=== PATIENT | female | born 1945 | race Caucasian/White ===

== ENCOUNTER 2019-10-16 10:32 | Outpatient (CLI) | payer MEDICARE, MEDICAID, SELFPAY ==
--- NOTE | 2019-10-16 11:00 | USCV_ITS ---
Melissa Estes Age: 74 Gender: F : 1945 Exam Date: 10/16/2019 10:39 Ordering Phys: Bonita Alcantara Technologist: Avril Welch [place] [facility] [place]: stenosis Risk Factors: Previous Vascular Surgery: Right Brachial BP: / Left Brachial BP: / Right Left Velocity (cm/s) Spectral Plaque Velocity (cm/s) Spectral Plaque Syst/Diast Broadening Syst/Diast Broadening 92.30/ 16.50 Prox CCA 97.20 / 9.70 72.50/ 15.70 Mid CCA 112.30/ 25.10 73.90/ 19.30 Distal CCA 78.00 / 21.10 102.80/13.90 Prox ICA 46.90 / 18.80 69.60/ 19.30 Mid ICA 58.10 / 21.60 92.10/ 21.40 Distal ICA 76.00 / 24.40 112.40 ECA 105.70 1.42 ICA/CCA 0.68 Antegrade Vertebral Antegrade 46.00/ 13.00 cm/s 30.20/ 8.90 cm/s Tri Subclavian Tri 53.60 106.0 0 FINDINGS Comparison:. 06/10/18. No significant elevation of systolic or diastolic velocities. Waveforms are normal. Minimal bilateral, intimal thickening and plaque with no elevation of velocity. CONCLUSIONS Bilateral ICA stenosis less than 50%. No interval change in stenosis since prior exam. Dr. Nicole Morgan DO (Electronically Signed) Final Date: 16 October 2019 11:45 S
== END 2019-10-16 10:33 | disposition home or self-care (01) ==
LOC: RAD 10:38
PROVIDERS: Family Provider Family Medicine; Visit Provider Nurse Practitioner Family
DX: I65.23 Occlusion and stenosis of bilateral carotid arteries (principal); E11.9 Type 2 diabetes mellitus without complications; E55.9 Vitamin D deficiency, unspecified; E78.00 Pure hypercholesterolemia, unspecified; E78.5 Hyperlipidemia, unspecified; E87.6 Hypokalemia; F41.1 Generalized anxiety disorder; F41.9 Anxiety disorder, unspecified; G62.9 Polyneuropathy, unspecified; I10 Essential (primary) hypertension; J30.2 Other seasonal allergic rhinitis; K52.9 Noninfective gastroenteritis and colitis, unspecified; M10.9 Gout, unspecified; M19.90 Unspecified osteoarthritis, unspecified site; M62.838 Other muscle spasm
CPT/HCPCS: 80053; 80061; 82044; 82306; 83036; 84443; 84550; 85025; 93880

== ENCOUNTER → 2020-01-17 11:27 | Outpatient (BNVA) | payer MEDICARE, MEDICAID, SELFPAY | PROVIDERS: Family Provider Family Medicine; Referring Provider Internal Medicine Gastroenterology; Visit Provider Specialist | DX: M25.551 Pain in right hip (principal); M25.552 Pain in left hip; M16.0 Bilateral primary osteoarthritis of hip | CPT/HCPCS: 73522; 73552 ==

== ENCOUNTER 2020-01-25 17:11 | Emergency (ER) | payer MEDICARE, MEDICAID, SELFPAY ==
[2020-01-25 17:53] VITALS: BP 131/79; PULSE 98; RESP 18; TEMP 36.8; O2SAT 94; BMI 27.4
== END 2020-01-25 19:03 | disposition left against medical advice (07) ==
LOC: ER 17:38
PROVIDERS: Emergency Provider Nurse Practitioner Family; PCP Family Medicine
DX: Z53.21 Procedure and treatment not carried out due to patient leaving prior to being seen by health care provider (principal)
CPT/HCPCS: 99281

== ENCOUNTER 2020-02-15 08:37 | Outpatient (CLI) | payer MEDICARE, MEDICAID, SELFPAY ==
--- NOTE | 2020-02-15 09:13 | IR_ITS ---
WS: [id number] MYELOGRAM LUMBAR SPINE Fluoroscopic guided lumbar myelogram CLINICAL INFORMATION: INTERVERTEBRAL DISC DEGENERATION, LUMBAR REGION COMPARISON: None. TECHNIQUE: The procedure, including risks, benefits, and complications, were discussed with the patie nt who agreed to proceed. A timeout was performed to confirm correct patient, procedure, and site. Using sterile technique, the patient was prepped and draped in the usual sterile fashion. After admin istration of local anesthesia using 1% preservative-free lidocaine and using fluoroscopic guidance, a 22-gauge spinal needle was advanced into the subarachnoid space at the L4-5 level. Subsequently 13 c c of Omnipaque 240 was administered into the thecal sac. The needle was removed and hemostasis was ac hieved. Spot fluoroscopic images were obtained. FLUOROSCOPIC TIME: 0.7 minutes. Spot fluoroscopic images demonstrate extensive prior postoperative changes lumbar spine with multilev el fusion and laminectomy defects. Dorsal lateral bone graft material. Interbody fusion grafts L1-2, L2-3, L3-4, L4-5. Anterior wedging with hypertrophic changes at T11 and T12. Pelvic phleboliths. Part ially visualized spinal stimulator. Normal alignment on the neutral view. No instability on flexion-e xtension. Please see CT myelogram report for additional detail. IR/IR myelogram [place] lumbar [id number] IMPRESSION: 1. Uncomplicated lumbar myelogram. 2. Extensive postoperative changes multilevel lumbar fusion with laminectomy d efects and dorsal lateral bone graft material. 3. Interbody fusion grafts L1-2 through L4-5. 4. No instability on flexion-extension. 5. Please see CT myelogram report for additional detail.
--- NOTE | 2020-02-15 09:13 | CT_ITS ---
WS: [id number] CT LUMBAR SPINE TECHNIQUE: Contrast-enhanced CT of the lumbar spine with coronal and sagittal reformatted images. CLINICAL INFORMATION: INTERVERTEBRAL DISC DEGENERATION, LUMBAR REGION DLP: 2065.[address] scans at [facility] use at least one of these dose optimization techniques: automat ed exposure control; mA and/or kV adjustment per patient size (includes targeted exams where dose is matched to clinical indication); or iterative reconstruction. FINDINGS: Mild lumbar curve. No acute compression. Multilevel postoperative changes with interbody fusion L1-L4 . Interbody fusion grafts with evidence of bony bridging beyond the confines of the grafts at L1-2, L 3-4, L4-5. No significant extension beyond the confines of the graft L2-3. Dorsolateral bony fusion. This appears contiguous L2-S1. Decompressive laminectomies throughout the l umbar spine. T11-12: Disc osteophytic complex with small central protrusion and mild to moderate central canal dayna nosis. Moderate left and mild right bony foraminal narrowing. Remote appearing laminectomy defect. Mo derate facet arthropathy. T12-L1: Disc osteophyte complex eccentric to the left narrowing the left particular recess. Mild cent ral canal stenosis. Mild to moderate left and no significant right foraminal narrowing. L1-L2: Postoperative changes interbody fusion. Endplate ridging. Spinal canal and foramen are patent. L2-L3: Interbody bony fusion. Bridging endplate osteophyte along the ventral canal. Slight effacement of ventral thecal sac. Narrowing of the left subarticular recess. Moderate left bony foraminal narro wing. Right foramen is patent. Laminectomy defects. L3-L4: Interbody fusion with osteophytic ridging. Spinal canal and foramen are patent. Laminectomy de fects. Posterior lateral bony fusion. L4-L5: Interbody fusion. Left subarticular osteophytic bony ridging. Spinal canal and foramen are pat ent. Laminectomy defects. L5-S1: Mild annular bulging. Tiny shallow central protrusion. Slight effacement of ventral thecal sac . Mild to moderate left and mild right bony foraminal narrowing. Spinal canal is patent. Peripelvic renal cysts. CT/CT lumbar spine w con [id number] IMPRESSION: 1. Prior postoperative changes interbody bony fusion L1-L4. Evidence of bony b ridging beyond the confines of the grafts at L1-2, L3-4, and L4-5. Incomplete b nela bridging at L2-3. 2. Solid appearing dorsal lateral bony fusion L2-S1. 3. Wide laminectomy defects lumbar spine. 4. Small disc osteophyte protrusions at T11-T12 and T12-L1 with mild central c anal stenosis. Narrowing of the left subarticular recess at T12-L1. 5. Moderate left bony foraminal narrowing L2-3 with narrowing of the left suba rticular recess primarily due to bridging ossification along the posterior long itudinal ligament. 6. Mild left greater than right bony foraminal narrowing L5-S1. 7. No high-grade central canal stenosis.
[2020-02-15] MEDS: iohexol 240 mg/mL 50 mL Btl INTRATHECA (10:06)
== END 2020-02-15 08:38 | disposition home or self-care (01) ==
LOC: RADWPI 08:43
PROVIDERS: Family Provider Family Medicine; PCP Family Medicine; Visit Provider Internal Medicine Gastroenterology
DX: M51.36 Other intervertebral disc degeneration, lumbar region (principal); M25.78 Osteophyte, vertebrae; M48.07 Spinal stenosis, lumbosacral region; M48.061 Spinal stenosis, lumbar region without neurogenic claudication
CPT/HCPCS: 62304; 72120; 72132; J2001; Q9966

== ENCOUNTER → 2020-03-29 11:53 | Outpatient (BNVA) | payer MEDICARE, MEDICAID, SELFPAY | PROVIDERS: Family Provider Family Medicine; PCP Family Medicine; Visit Provider Family Medicine | DX: M21.619 Bunion of unspecified foot (principal); F41.9 Anxiety disorder, unspecified; M25.511 Pain in right shoulder; E55.9 Vitamin D deficiency, unspecified; E11.8 Type 2 diabetes mellitus with unspecified complications; G89.29 Other chronic pain; I10 Essential (primary) hypertension | CPT/HCPCS: 80053; 80061; 82306; 83036; 84443; 85025 ==

== ENCOUNTER → 2020-04-17 14:23 | Outpatient (BNVA) | payer MEDICARE, MEDICAID, SELFPAY | PROVIDERS: Family Provider Family Medicine; PCP Family Medicine; Referring Provider Family Medicine; Visit Provider Specialist | DX: M25.511 Pain in right shoulder (principal); M19.011 Primary osteoarthritis, right shoulder | CPT/HCPCS: 73030 ==

== ENCOUNTER 2020-04-26 10:29 | Outpatient (CLI) | payer MEDICARE, MEDICAID, SELFPAY ==
--- NOTE | 2020-04-26 11:00 | MR_ITS ---
WS: [id number] MRI RIGHT SHOULDER NONCONTRAST TECHNIQUE: Sagittal T2, coronal T1, T2 and proton density imaging. Axial gradient PDE imaging. CLINICAL INFORMATION: M25.511 Pain in right shoulder COMPARISON: CT 6 FINDINGS: Moderate to advanced degenerative arthritis right AC joint. Right rotator cuff anchor degrades images due to susceptibility artifact. Subacromial space is preserved. Rotator cuff is intact. Hypertrophic spurring along the undersurface of the AC joint. Chronic thinning of the distal supraspinatus which appears intact. Infraspinatus appears intact. Normal teres minor and subscapularis. No acute appearin g recurrent rotator cuff tears. Moderate degenerative arthritis glenohumeral joint with joint space narrowing. Normal biceps tendon i n the bicipital groove. Mild degenerative fraying of the glenoid labrum. Glenoid labrum appears gross ly intact. MR/MR shoulder RT wo con* [id number] IMPRESSION: 1. Prior postoperative changes right rotator cuff repair. 2. Osteoarthritis at the AC joint with undersurface spurring. Synovitis at the AC joint with moderate edema. 3. Rotator cuff appears grossly intact with chronic thinning of the distal sup raspinatus and infraspinatus. 4. No acute or recurrent rotator cuff tears. 5. Normal biceps tendon in the bicipital groove.
== END 2020-04-26 10:30 | disposition home or self-care (01) ==
LOC: RADSHAW 10:34
PROVIDERS: Family Provider Family Medicine; PCP Family Medicine; Visit Provider Specialist
DX: M25.511 Pain in right shoulder (principal); M19.011 Primary osteoarthritis, right shoulder; M65.811 Other synovitis and tenosynovitis, right shoulder
CPT/HCPCS: 73221

== ENCOUNTER → 2020-05-17 12:09 | Outpatient (BNVA) | payer MEDICARE, MEDICAID, SELFPAY | PROVIDERS: Family Provider Family Medicine; PCP Family Medicine; Visit Provider Nurse Practitioner Family | DX: Z11.59 Encounter for screening for other viral diseases (principal) | CPT/HCPCS: 87635 ==

== ENCOUNTER 2020-06-27 13:54 | Outpatient (CLI) | payer MEDICARE, MEDICAID, SELFPAY ==
--- NOTE | 2020-06-27 14:07 | CT_ITS ---
WS: [id number] Exam: CT thoracic spin wo con* [id number] Date/Time of Exam: 06/27/2020 2:23 PM Reason For Exam: OTHER SPECIFIED POSTPROCEDURE STATES DLP: 943.[address] scans at [facility] use at least one of these dose optimization techniques: automat ed exposure control; mA and/or kV adjustment per patient size (includes targeted exams where dose is matched to clinical indication); or iterative reconstruction. The T-spine and evaluated in the axial plane with sagittal and coronal reformatted images. Comparison 01/13/2017 A decompression laminectomy defect noted at the T11-T12 level. There is no sign of central spinal can al stenosis or disc herniation. Neurostimulator leads terminate at the T6-T7 level. Exaggerated thora cic kyphosis. Spondylosis. Facet DJD at all levels. Paraspinal soft tissue structures are unremarkabl e. There is narrowing of several neural foramina essentially unchanged since prior study. There is pa rtially visualized hardware in the cervical spine secondary to fusion. No acute fracture or bone dest ruction. CT/CT thoracic spin wo con* [id number] IMPRESSION: 1. No sign of significant central spinal canal stenosis or thoracic disc hernia tion. 2. Laminectomy defect identified at the T11-T12 level. Neuro stimulator leads t erminates at the T6-7 level. 3. Spondylosis, exaggerated kyphosis and facet DJD at all levels. Overall, no s ignificant change since prior study.
--- NOTE | 2020-06-27 14:07 | CT_ITS ---
WS: [id number] Exam: CT lumbar spine wo con* [id number] Date/Time of Exam: 06/27/2020 2:23 PM Reason For Exam: OTHER SPECIFIED POSTPROCEDURE STATES DLP: 1806.[address] scans at [facility] use at least one of these dose optimization techniques: automat ed exposure control; mA and/or kV adjustment per patient size (includes targeted exams where dose is matched to clinical indication); or iterative reconstruction. Comparison made with CT myelogram performed 02/15/2020. The lumbar spine is evaluated in the axial plane with sagittal and coronal reformatted images. Decompression laminectomy from L2 to S1. Also laminectomy partially visualized at the T12 level. Mild spinal canal stenosis noted at the T12-L1 level secondary to posterior osteophytes. No other sign of central canal stenosis was noted. No sign of disc herniation. There is left neural foraminal stenosi s at the L2-3 disc level secondary to the posterior osteophyte formation. Remaining neural foramina a re patent. The lumbar fusion is ossified and in good alignment. There are disc implants in place from L1 to L5. Paraspinal soft tissue structures are unremarkable. No acute fracture or bone destruction. CT/CT lumbar spine wo con* [id number] IMPRESSION: 1. Mild spinal canal stenosis at the T12-L1 level secondary to posterior osteop hytes. 2. Left neural foraminal stenosis at the L2-3 disc level secondary to osteophyt e formation. Remaining neural foramina are patent. 3. No other levels of spinal canal stenosis. 4. Status post decompression laminectomy and posterior fusion. The fusion is os sified and in good alignment. Overall, no significant change since prior study.
== END 2020-06-27 13:55 | disposition home or self-care (01) ==
LOC: RADWPI 13:59
PROVIDERS: PCP Family Medicine; Visit Provider Neurological Surgery
DX: Z98.890 Other specified postprocedural states (principal); M96.1 Postlaminectomy syndrome, not elsewhere classified; M47.814 Spondylosis without myelopathy or radiculopathy, thoracic region
CPT/HCPCS: 72128; 72131

== ENCOUNTER → 2020-07-08 10:45 | Outpatient (BNVA) | payer MEDICARE, MEDICAID, SELFPAY | PROVIDERS: PCP Family Medicine; Visit Provider Family Medicine | DX: E78.00 Pure hypercholesterolemia, unspecified (principal); E11.9 Type 2 diabetes mellitus without complications; I10 Essential (primary) hypertension; F32.9 Major depressive disorder, single episode, unspecified | CPT/HCPCS: 80053; 80061; 83036; 85025 ==

== ENCOUNTER → 2020-10-24 10:30 | Outpatient (BNVA) | payer MEDICARE, MEDICAID, SELFPAY | PROVIDERS: PCP Family Medicine; Referring Provider Nurse Practitioner Family; Visit Provider Specialist | DX: M16.12 Unilateral primary osteoarthritis, left hip (principal); M25.552 Pain in left hip | CPT/HCPCS: 73552 ==

== ENCOUNTER → 2020-10-29 09:37 | Outpatient (BNVA) | payer MEDICARE, MEDICAID, SELFPAY | PROVIDERS: PCP Family Medicine; Visit Provider Family Medicine | DX: E55.9 Vitamin D deficiency, unspecified (principal); R53.83 Other fatigue; E11.9 Type 2 diabetes mellitus without complications; E78.00 Pure hypercholesterolemia, unspecified; I10 Essential (primary) hypertension | CPT/HCPCS: 80053; 80061; 82306; 82607; 83036; 83540; 84443; 85025 ==

== ENCOUNTER 2020-11-01 08:47 | Outpatient (CLI) | payer MEDICARE, MEDICAID, SELFPAY ==
--- NOTE | 2020-11-01 09:51 | CT_ITS ---
WS: [id number] CT pelvis TECHNIQUE: Noncontrast CT of the pelvis with coronal and sagittal reformatted images. MRI pelvis was not performed due to spinal stimulator. CLINICAL INFORMATION: W19.XXXA - Unspecified fall, initial encounter COMPARISON: Multiple recent radiographs. September 2020 DLP: 890.[address] scans at [facility] use at least one of these dose optimization techniques: automat ed exposure control; mA and/or kV adjustment per patient size (includes targeted exams where dose is matched to clinical indication); or iterative reconstruction. FINDINGS: Postoperative changes laminectomy defects with dorsolateral bone graft material in the lower lumbar s pine. Interbody fusion L4-5. Degenerative arthritis sacroiliac joints. Sacral ala are normal. No sacr al insufficiency fractures. Moderate degenerative arthritis left hip with joint space narrowing. No a cute fractures. Hypertrophic spurring about the acetabulum. Normal femoral neck and proximal femur. Pubic rami are normal in appearance. Spinal stimulator. Pelvic phleboliths. A few sigmoid diverticuli . CT/CT pelvis wo con [id number] IMPRESSION: 1. Moderate degenerative arthritis left hip with joint space narrowing. No acu te fractures. Hypertrophic changes about the acetabulum. 2. Degenerative arthritis sacroiliac joints. No visualized sacral insufficienc y fractures. 3. Normal inferior and superior pubic rami. 4. Postoperative changes lower lumbar spine laminectomies and dorsal lateral b one graft material. Interbody fusion L4-5.
== END 2020-11-01 08:48 | disposition home or self-care (01) ==
LOC: RADWPI 08:51
PROVIDERS: PCP Family Medicine; Visit Provider Specialist
DX: M16.12 Unilateral primary osteoarthritis, left hip (principal); W19.XXXA Unspecified fall, initial encounter; M46.1 Sacroiliitis, not elsewhere classified
CPT/HCPCS: 72192

== ENCOUNTER → 2021-06-20 10:43 | Outpatient (BNVA) | payer MEDICARE, MEDICAID, SELFPAY | PROVIDERS: PCP Family Medicine; Visit Provider Orthopaedic Surgery | DX: M54.9 Dorsalgia, unspecified (principal); M47.819 Spondylosis without myelopathy or radiculopathy, site unspecified | CPT/HCPCS: 72072; 72100 ==

== ENCOUNTER 2021-07-02 07:33 | Day surgery (SDC) | payer MEDICARE, MEDICAID, SELFPAY ==
[2021-06-30 11:28] VITALS: BMI 26.1
--- NOTE | 2021-06-30 11:41 | ECG_ITS ---
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
[2021-06-30 12:31] LABS: Blood Urea Nitrogen 16 mg/dL (8-23); Calcium 9.8 mg/dL (8.5-10.5); Carbon Dioxide 29 mmol/L (22-29); Chloride 100 mmol/L (98-107); Glucose 108 mg/dL (65-115); Osmolality Calculated 288 mOsm/kg (285-295); Sodium 138 mmol/L (136-145)
[2021-07-02] VITALS (8 sets, daily range): BP systolic 140–167; BP diastolic 66–100; PULSE 85–103; RESP 17–21; TEMP 36.1–36.6; O2SAT 93–99
--- NOTE | 2021-07-02 | XR_ITS ---
WS: [id number] Thoracic spine, C-arm fluoroscopy, 07/02/2021 Clinical Data: spinal stimulator removal Comparison: None. Findings: Dr. Feliciano removed the epidural thoracic stimulator. XR/XR thoracic spine 1V [id number] Impression: Removal of epidural stimulator.
--- NOTE | 2021-07-02 | SCC_ITS ---
Procedure Done: 1. removal of paddles from spinal cord stimulator 2. removal of battery pack for spinal cord stimulator 6.2 seconds of fluoroscopic guidance, for a cumulative dose of 1.22 mGy, was provided to Dr. Feliciano by the radiology department. C-arm images of the thoracic spine were saved for the patient's permanent record. [facility]
[2021-07-02] MEDS: sodium chloride 0.9% 1,000 ML 30 ML IV (08:18)
[2021-07-02 08:30] LABS: Glucose Point of Care 122 mg/dL (70-110)
--- NOTE | 2021-07-02 08:42 | ANES.PREANE2 ---
Pre-Anesthetic Assessment Pre-Anesthetic Assessment: Height/Weight: Height 1.65 m Weight 71.214 kg Preop Diagnosis: Failed hardware spinal cord stimulator Proposed Procedure: Operation Date: 07/02/21 09:30 Proposed Procedures p Nerve Stimulator Removal(Not Applicable) - Christiano Feliciano, DO Familial anesthetic complications: States propofol was pushed too quickly once and its caused her hand/arm to hurt, requests we push it more slowly/gently Was Beta Madyson taken within 24 hours: Yes Was Clonidine taken within 24 hours: N/A Last intake: Intake Last Liquid Date 07/01/21 Last Liquid Time 19:00 Last Solid Date 07/01/21 Last Solid Time 19:00 Social: Social History: No alcohol and No tobacco Exam: Pre-Anes Outpt Exam: alert, oriented x 3, clear to auscultation bilaterally and regular rate & rhythm Airway: Cervical ROM: Other (restricted extension d/t cervical plate) MP: 2 Dentition: Full CV/HEM: CV/HEM: HTN Comments: Took her NTG for episode of CP a month ago, no further episodes GI: Comments: IBS Metabolic: Metabolic: DM Musc/skel: Musc/skel: Lower Back Pain and OA/DJD Neuropsych: Neuropsych: Anxiety Comments: B/L ROXY < 40% Anesthetic Plan: ASA status: 3 Anesthesia: General Risk of > 500 ml blood loss (7ml/kg in children): No Meds/Allergies Current Medications: Current Medications Generic Name Dose Route Start Last Admin Trade Name Freq PRN Reason Stop Dose Admin Sodium Chloride 1,000 mls @ 30 ml s/hr 07/02/21 08:00 07/02/21 08:18 Sodium Chloride 0.9% IV 07/03/21 07:59 30 mls/hr .Q24H REBEL Administration PFSH Anesthesia PFSH: Medical History Anxiety Arteriosclerotic heart disease (ASHD) Bilateral bunions with callous formation; has had surgery for hammer toes Bilateral knee pain Chronic pain syndrome Chronic thoracic spine pain Essential (primary) hypertension Generalized anxiety disorder Hx of fracture of left hip IBS (irritable bowel syndrome) Insomnia, unspecified Lumbar facet joint pain Narrowing of both carotid arteries 16-49% bilateral 06/10/18; carotid duplex Neuropathy Parapelvic renal cyst long standing, well defined left parapelvic cysts on previous CT. No concern regarding cyst. Pure hypercholesterolemia, unspecified Slow transit constipation Type 2 diabetes mellitus without complications Urinary incontinence Urolithiasis recurrent with multiple treatments over the years Vitamin D deficiency Surgical History History of ankle surgery History of back surgery 9 total per patient History of tonsillectomy and adenoidectomy Hx of arthroscopy of shoulder (~09/2018) left Hx of cataract extraction Hx of cervical discectomy (~2015) 4-5-6 Hx of cholecystectomy Hx of colonoscopy Hx of foot surgery right Hx of hysterectomy Hx of lithotripsy Hx of total knee replacement bilateral Hx of tubal ligation Family History Family/Other Dementia CAD (coronary artery disease) Diabetes Denies family history of Clotting disorder Hyperlipidemia Psychiatric illness Chronic kidney disease (CKD) Suicide Anesthesia complication Bleeding disorder Family history of premature coronary artery disease Lung disease Cancer Hypertension Stroke Social History Smoking and tobacco status: never smoked Second hand smoke exposure: Yes Alcohol intake: current Lives independently: Yes Household members: none Housing: House Marital status: / Current occupational status: disabled History of recent travel: No Current gender identity: Female Data Anesthesia CBC & Chem 7: 06/30/21 11:45 Other Labs: Laboratory Results - last 48 hr 06/30/21 07/02/21 11:45 08:11 Sodium 138 Potassium 4.0 Chloride 100 Carbon Dioxide 29 Anion Gap 13.0 BUN 16 Creatinine 0.4 L GFR Calculation Not Reportable Glucose 108 POC Glucose 122 H Calculated Osmolality 288 Calcium 9.8 Cardiac Studies: No Data to Display
[2021-07-02] MEDS: midazolam 1 mg/mL INJ 2 mL 2 MG IVP (09:07)
--- NOTE | 2021-07-02 09:10 | W.PM.OPSUD ---
Surgery/Procedure H&P Update DATE OF PROCEDURE: July 02, 2021 DATE H&P PERFORMED: 06/20/21 H&P UPDATE INFORMATION: I have reviewed H&P completed within last 30 days, I have examined patient prior to procedure and No changes to prior documentation PREOP DIAGNOSIS: Failed hardware spinal cord stimulator PLANNED PROCEDURE: Operation Date: 07/02/21 09:30 Proposed Procedures p Nerve Stimulator Removal(Not Applicable) - Christiano Feliciano DO
[2021-07-02] MEDS: vancomycin 1,000 MG SDV 1000 MG (10:14)
--- NOTE | 2021-07-02 10:36 | PM.OP ---
Operative Report Date of procedure: July 02, 2021 Pre-op Diagnosis: Failed hardware spinal cord stimulator Post-op diagnosis: same Procedure Done: 1. removal of paddles from spinal cord stimulator 2. removal of battery pack for spinal cord stimulator Surgeon: Christiano Feliciano Asphalt Roller Operator: Osman Marin Asphalt Roller Operator: The surgical nurse practitioner, Osman Marin, YANI was needed for his expertise with spinal cord stimulators. He was important and necessary throughout the procedure to complete in a safe and timely manner. He assisted with patient positioning prepping and draping tissue retraction suctioning of the operative field protection of the dural sac and tissue closure Anesthesia: General Estimated blood loss (mL): 10 Condition: stable Disposition: PACU Procedure: 1. removal of paddles from spinal cord stimulator 2. removal of battery pack for spinal cord stimulator Patient was brought to the operative suite placed in the prone position after undergoing anesthesia. All areas impingement were well-padded. Patient was prepped and draped normal sterile fashion. Skin incision made using previous skin incision as well as extending up proximally. The thoracolumbar fascia was split subperiosteal dissection was made down to the bone at the level above the laminectomy site for the neurostimulator. This was confirmed under C-arm guidance. Once the wires were identified they were traced down to where they went underneath the lamina. High-speed bur was used to dissect down the wires bone had formed over the previous laminectomy site. High-speed bur curved curette and Kerrison rongeurs was then used to open up the laminectomy site in order to facilitate pulling the width in height of the paddle. Paddle was then gently pulled out. Once the paddle was pulled out the wires were cut and then the paddle was removed. Next attention was placed to the battery pack in the right iliac area. Skin incision is made over the right iliac where the previous skin incision was made dissection was made down to the fascia and scar tissue. The battery pack was identified and then removed. Wires from the very pack were then cut and removed. And then the wires were pulled through in order to facilitate removing all the wires. Wounds were then irrigated the thoracolumbar fascia was closed in a layered fashion to the skin 2-0 Vicryl and nylon were used to close the skin because of all the scar and previous tissue that was been dissected through. And then the location over the battery pack was closed in layered fashion with Vicryl and Monocryl suture.
[2021-07-02] MEDS: HYDROcodone-acetaminophen 5-325 mg Tablet 2 TAB PO (14:35)
--- NOTE | 2021-07-02 14:40 | ANE.PACU2 ---
Inpatient post-anesthesia follow up: Airway intact: Yes Vital signs: Temperature 97 F Pulse Rate 85 Respiratory Rate 18 Blood Pressure 144/77 Pulse Oximetry 97 Oxygen Delivery Me thod Room Air Oxygen Flow Rate 8 Fraction of Inspir ed Oxygen Hydration adequate: Yes Nausea and vomiting: No Pain level: 2 Mental status: Baseline
== END 2021-07-02 13:00 | disposition home or self-care (01) ==
PROVIDERS: Anesthesiology; PCP Nurse Practitioner Family; Visit Provider Orthopaedic Surgery
PROC: (CPT 63662; principal; 2021-07-02 09:20)
DX: T85.192D Other mechanical complication of implanted electronic neurostimulator of spinal cord electrode (lead), subsequent encounter (principal); I25.10 Atherosclerotic heart disease of native coronary artery without angina pectoris; I10 Essential (primary) hypertension; G62.9 Polyneuropathy, unspecified; G89.4 Chronic pain syndrome; E11.9 Type 2 diabetes mellitus without complications; Z77.22 Contact with and (suspected) exposure to environmental tobacco smoke (acute) (chronic)
CPT/HCPCS: 63662; 63688; 36416; 72020; 76000; 80048; 82962; 93005; 96374; J0690; J1100; J2250; J2405; J2704; J3010; J3370; J3490; J7030

== ENCOUNTER 2021-07-17 08:06 | Outpatient (CLI) | payer MEDICARE, MEDICAID, SELFPAY ==
--- NOTE | 2021-07-17 08:45 | MR_ITS ---
WS: [id number] MRI CERVICAL SPINE NONCONTRAST HISTORY: M54.9 - Dorsalgia, unspecified COMPARISON: 04/08/2016 Technique: Multiplanar, multisequence noncontrast imaging of the cervical spine. Status post anterior cervical fusion from C4 to C7. Interbody spacers at C4-5, C5-6 and C6-7. Also no fernando but is not as well-visualized on the prior study are laminectomy defects at C5-6 and C6-7. Mild straightening of the normal cervical lordosis. Increased fibrotic tissue surrounding the odontoid process with mild encroachment upon the ventral br ainstem. Mild progression since the prior study. No contact on the brainstem. C2-C3: Mild disc bulging. Osteophytic ridging and disc disease with marked ligamentum flavum hypertro phy posteriorly contributing to mild central stenosis. There is also moderate RIGHT and severe LEFT f oraminal stenosis. C3-C4: Marked osteophytic ridging and annular disc bulging. Mild central and bilateral foraminal sten osis. C4-C5: Diffuse annular disc bulging and osteophytic ridging. Mild central and bilateral foraminal dayna nosis. C5-C6: Diffuse osteophytic ridging. There is at least mild central with moderate bilateral foraminal stenosis, LEFT greater than RIGHT. Encroachment upon the ventral thecal sac also by ligamentum flavum hypertrophy. C6-C7: Diffuse osteophytic ridging. Significant osteophyte encroachment into the foramina with ligame ntum flavum hypertrophy. Mild central and bilateral foraminal stenosis. There is a more focal central osteophyte encroaching upon the RIGHT lateral thecal sac without cord contact. C7-T1: Small central disc protrusion and osteophytic ridging. Mild central and bilateral foraminal st enosis. Paravertebral soft tissues are poorly visualized. MR/MR cervical spin wo con* [id number] IMPRESSION: 1. Quality of this examination is limited by patient's advanced cervical disea se and positioning. 2. Prior anterior cervical fusion extending from C4 to C7 is unchanged. 3. Mild central stenosis at C2-3 with moderate RIGHT and severe LEFT foraminal stenosis which has progressed since the prior study. 4. Mild central and bilateral foraminal stenosis at C3-4, C4-5 and C6-7. 5. Mild central and moderate bilateral foraminal stenosis LEFT greater than RI GHT at C5-6. 6. No signal abnormalities within the cord.
--- NOTE | 2021-07-17 09:30 | MR_ITS ---
WS: [id number] MRI THORACIC SPINE noncontrast. HISTORY: M54.9 - Dorsalgia, unspecified, as per history recent epidural stimulator removal. COMPARISON: 03/30/2006 TECHNIQUE: Multiplanar sequences are performed in sagittal and axial planes. Marked increase in thoracic kyphosis and mild RIGHT curvature thoracic spine. No acute marrow edema. There is a soft tissue fluid collection in the posterior paraspinal soft tissues at the T7-8 location . Fluid collection extends over a length of 5.4 cm. Fluid extends through the paraspinal soft tissue adjacent to the spinous processes and extends into the posterior epidural space. The contiguous fluid in the posterior epidural space extends over length of 3.3 cm and is posterior to the T6 and T7 vert ebral bodies. There is very slight mass effect upon the thecal sac and thoracic cord. No cord edema o r atrophy. T1-2: Tiny LEFT paracentral osteophyte. Mild facet arthritis. T2-3: Bilateral facet joint narrowing. T3-4: Mild RIGHT facet joint arthritis and narrowing. T4-5: Mild bilateral facet joint arthritis. T5-6: Mild bilateral facet joint arthritis. Moderate stenosis on the RIGHT. T6-7: Small central disc protrusion. T7-8: Mild LEFT foraminal narrowing. T8-9: Moderate-sized central disc protrusion contacting the cord without significant stenosis. Mild bilateral foraminal stenosis. T9-10: Severe facet joint arthritis and hypertrophy on the RIGHT encroaching into the RIGHT lateral thecal sac. Moderate RIGHT and mild LEFT foraminal stenosis. T10-11: Moderate bilateral facet joint arthritis. There is a moderate-sized LEFT paracentral disc pr otrusion encroaching into the thecal sac with mild deformity and contact. Severe LEFT and mild RIGHT foraminal stenosis. There is a large posterior laminectomy defect. T11-12: Posterior laminectomy defect with moderate ligamentum flavum and facet arthritis. Bilateral paracentral disc protrusions. Severe bilateral foraminal stenosis. There is a fluid collection in the laminectomy defect. T12-L1: Asymmetric disc bulge. There is a large central to LEFT paracentral protrusion or osteophyte contact in the LEFT lateral thecal sac and extending into the subarticular recess. Mild central and b ilateral foraminal stenosis. Parapelvic cysts. MR/MR thoracic spin wo con* [id number] IMPRESSION: 1. Paraspinal soft tissue fluid collection centered at T7-8. Fluid collection extends contiguously into the posterior epidural space and extends cephalad and posterior to the T6 and T7 vertebral bodies. Posterior epidural fluid collecti on extends over length of 3.3 cm and is causing slight mass effect upon the pos terior spinal cord but no signal abnormality at this time. 2. There is extensive multilevel facet joint arthritis with disc protrusions. 3. Moderate-sized LEFT paracentral disc protrusion at T10-11 resulting in eric re LEFT and mild RIGHT foraminal stenosis. 4. Large central to LEFT paracentral disc protrusion or osteophyte at T12-L1 w ith contact on the LEFT lateral thecal sac and extending into the LEFT subartic ular recess. Mild central and bilateral foraminal stenosis. 5. Moderate size central disc protrusion at T8-9 with minimal contact on the c ord. Severe facet joint arthritis on the RIGHT at T9-T10 resulting in moderate RIGHT foraminal stenosis. 6. Severe bilateral foraminal stenosis at T11-12 due to disc protrusions and o steophytes. There is also a laminectomy defect at this level.
--- NOTE | 2021-07-17 10:15 | MR_ITS ---
WS: [id number] MRI LUMBAR SPINE NONCONTRAST HISTORY: M54.9 - Dorsalgia, unspecified COMPARISON: 03/26/2015 TECHNIQUE: Sagittal and axial multisequence imaging is submitted. Prior laminectomy defects at T11-12. Prior L2-L5 laminectomy defects. Straightening of the normal lumbar lordosis. There is a fluid collection extending over length of 2.7 cm posterior to the T11-12 vertebral bodies in the laminectomy site. Fluid collection is new and wit hin the laminectomy site. There is also increased signal within the distal thoracic cord extending ov er length of 11 mm at the T11-12 disc level. This was not as well appreciated on the thoracic MRI. Th e area of myelomalacia is very slightly increased since 2 03/26/2015. Diffuse disc space narrowing and osteophytosis. Conus terminates normally at L1. L1-L2: Mild osteophytic ridging. Moderate bilateral foraminal stenosis predominantly due to osteophyt e and hypertrophic bone formation. Benign appearing fluid collection posterior to L1-2 extends over l ength of 1.6 cm and is stable. L2-L3: Diffuse osteophytic ridging. Large hypertrophic osteophyte extends to the LEFT encroaching upo n the LEFT lateral thecal sac. Severe LEFT foraminal stenosis with significant encroachment upon the L2 and L3 nerve roots. Large posterior laminectomy defect. L3-L4: Diffuse osteophytic ridging with a large posterior laminectomy defect. Mild bilateral foramina l stenosis. L4-L5: Large posterior laminectomy defect. Vertebral body osteophytes with no high-grade stenosis. Ar achnoiditis. L5-S1: Diffuse annular disc bulging and osteophytic ridging. Large posterior laminectomy defect. Mild LEFT foraminal stenosis. MR/MR lumbar spine wo con* [id number] IMPRESSION: 1. Extensive large laminectomy defects extending from L2 to L5. Since the prio r examination from 03/26/2015 there has been a mild progression in the hypertrop hic bone formation and facet joint arthritis. 2. Very slight increased in size of the paravertebral fluid collection at the T11-12 level. There is also myelomalacia within the cord at T11-[address] seen on the lumbar spine MRI than the thoracic spine MRI. Mild progression of the myelomalacia now extending over a length of 1.1 cm. 3. Moderate bilateral foraminal stenosis at L1-2. Predominantly due to osteoph ytes. 4. Severe LEFT foraminal stenosis at L2-3 is probably due to hypertrophic bone formation. 5. Mild bilateral foraminal stenosis at L3-4 and on the LEFT at L5-S1.
== END 2021-07-17 08:07 | disposition home or self-care (01) ==
PROVIDERS: PCP Nurse Practitioner Family; Visit Provider Orthopaedic Surgery
DX: M48.061 Spinal stenosis, lumbar region without neurogenic claudication (principal); M48.07 Spinal stenosis, lumbosacral region; M48.04 Spinal stenosis, thoracic region; M51.24 Other intervertebral disc displacement, thoracic region; M25.78 Osteophyte, vertebrae; M47.814 Spondylosis without myelopathy or radiculopathy, thoracic region; M48.02 Spinal stenosis, cervical region
CPT/HCPCS: 72141; 72146; 72148; 87635

== ENCOUNTER 2021-08-20 10:54 | Outpatient (RCR) | payer MEDICARE, MEDICAID, SELFPAY | END 2021-08-29 23:59 | disposition home or self-care (01) | LOC: TPT 10:54 | PROVIDERS: PCP Nurse Practitioner Family; Visit Provider Nurse Practitioner Family | DX: R29.898 Other symptoms and signs involving the musculoskeletal system (principal) | CPT/HCPCS: 97110; 97140; 97163; 97530 ==

== ENCOUNTER → 2021-09-22 10:54 | Outpatient (BNVA) | payer MEDICARE, MEDICAID, SELFPAY | PROVIDERS: PCP Nurse Practitioner Family; Visit Provider Specialist | DX: M25.511 Pain in right shoulder (principal); G89.29 Other chronic pain | CPT/HCPCS: 73030 ==

== ENCOUNTER 2021-10-24 06:00 | Outpatient (RCR) | payer MEDICARE, MEDICAID, SELFPAY | END 2021-10-27 23:59 | disposition home or self-care (01) | LOC: TPT 06:00 | PROVIDERS: PCP Nurse Practitioner Family; Referring Provider Nurse Practitioner Family; Visit Provider Nurse Practitioner Family | DX: R29.898 Other symptoms and signs involving the musculoskeletal system (principal) | CPT/HCPCS: 97163 ==

== ENCOUNTER 2021-10-28 06:00 | Outpatient (RCR) | payer MEDICARE, MEDICAID, SELFPAY | END 2021-11-27 23:59 | disposition home or self-care (01) | LOC: TPT 06:00 | PROVIDERS: PCP Nurse Practitioner Family; Referring Provider Nurse Practitioner Family; Visit Provider Nurse Practitioner Family | DX: R29.898 Other symptoms and signs involving the musculoskeletal system (principal); R53.1 Weakness | CPT/HCPCS: 97110 ==

== ENCOUNTER 2021-12-02 08:48 | Outpatient (CLI) | payer MEDICARE, MEDICAID, SELFPAY ==
--- NOTE | 2021-12-02 08:56 | FL_ITS ---
WS: [email or web address] FL barium swallow [id number] REASON FOR EXAM: Dysphagia, oropharyngeal PHASE FLUOROSCOPY TIME: 1.7 minutes # OF SPOT FILMS: 9 FINDINGS: The swallowing of barium was evaluated with the patient in the upright AP and lateral positions. The distal esophagus was studied in the prone DOSS and supine LPO positions. No abnormality of the hypopharynx was noted. Swallowing mechanism appeared intact with minimal interm ittent penetration, no mary aspiration. Normal stripping wave in the esophagus. A small hiatal hernia without stenotic Schatzki ring was demonstrated. There is no significant reflux . Intermittent tertiary contractions in the distal third of the esophagus. FL/FL barium swallow [id number] IMPRESSION: Minimal esophageal dysmotility as above.
--- NOTE | 2021-12-02 08:56 | CT_ITS ---
WS: [email or web address] CT NECK TECHNIQUE: Contrast-enhanced CT of the neck with coronal and sagittal reformatted images. CLINICAL INFORMATION: DYSPHAGIA,OROPHARYNGEAL PHASE COMPARISON: 5 8,016 DLP: 263.[address] scans at [facility] use at least one of these dose optimization techniques: automated e xposure control; mA and/or kV adjustment per patient size (includes targeted exams where dose is matc hed to clinical indication); or iterative reconstruction. FINDINGS: Parotid glands are normal. Submandibular glands are normal. Normal parapharyngeal fat. Normal posteri or nasopharynx. No evidence of supraglottic or glottic mass. Normal vallecula and piriform sinuses. N ormal epiglottis. Normal subglottic airway. Mastoid air cells are well aerated. Mild mucosal thickening ethmoid air cells. Small retention cysts RIGHT maxillary sinus. No cervical lymphadenopathy. Lung apices are well aerated. Moderate spondylitic changes cervical spin e with ACDF C4-C7. Prominent pannus C1-2 articulation with mild central canal stenosis at the cranioc ervical junction.This appears stable since the prior MRI. Partially visualized intracranial contents are normal. RIGHT thyroid nodule measuring [address]/CT neck w con* [id number] IMPRESSION: 1. No evidence of supraglottic or glottic mass. 2. Normal subglottic airway. 3. No cervical lymphadenopathy. 4. Prominent pannus C1-C2 articulation with mild central canal stenosis at the craniocervical junction, this appears stable since the prior MRI. 5. Moderate spondylitic changes cervical spine. Prior ACDF C4-C7 appears stabl e.
[2021-12-02 10:49] LABS: Blood Urea Nitrogen 16 mg/dL (8-23)
[2021-12-02] MEDS: iohexol 300 mg/mL 100 mL Btl IV (10:57)
== END 2021-12-02 08:49 | disposition home or self-care (01) ==
LOC: RAD 08:51
PROVIDERS: Radiology Neuroradiology; PCP Nurse Practitioner Family; Visit Provider Otolaryngology
DX: H92.01 Otalgia, right ear (principal); H93.11 Tinnitus, right ear; R09.89 Other specified symptoms and signs involving the circulatory and respiratory systems; R13.12 Dysphagia, oropharyngeal phase
CPT/HCPCS: 70491; 74220; 82565; 84520

== ENCOUNTER 2021-12-10 09:25 | Outpatient (CLI) | payer MEDICARE, MEDICAID, SELFPAY ==
--- NOTE | 2021-12-10 09:35 | IR_ITS ---
WS: [email or web address] MYELOGRAM CERVICAL SPINE Fluoroscopic guided cervical myelogram CLINICAL INFORMATION: DEGENERATION OF CERICICAL INTERVERTEBRAL DISC, COMPARISON: None. TECHNIQUE: The procedure, including risks, benefits, and complications, were discussed with the patie nt who agreed to proceed. A timeout was performed to confirm correct patient, procedure, and site. Using sterile technique, the patient was prepped and draped in the usual sterile fashion. After admin istration of local anesthesia using 1% preservative-free lidocaine and using fluoroscopic guidance, a 22-gauge spinal needle was advanced into the subarachnoid space at the L5-S1 level. Subsequently 13 cc of Omnipaque 240 was administered into the thecal sac. The needle was removed and hemostasis was a chieved. Subsequently the table was tilted down and contrast flowed freely into the cervical spine. S pot fluoroscopic images were obtained. FLUOROSCOPIC TIME: 4min [id number] # of spot films: 6 Spot fluoroscopic images demonstrate anterior cervical fusion C4-C7. Osteopenia. LEFT total shoulder arthroplasty degrades some images. Shoulder overlap obscures the cervical spine. Please see CT myelog james report for better anatomic detail. IR/IR myelogram sp cervical [id number] IMPRESSION: 1. Uncomplicated cervical myelogram. 2. Prior postoperative changes anterior cervical fusion C4-C7. 3. LEFT total shoulder arthroplasty. 4. Fluoroscopic images are limited due to shoulder overlap and positioning. Pl ease see CT myelogram report for better anatomic detail.
--- NOTE | 2021-12-10 09:35 | CT_ITS ---
WS: [email or web address] CT CERVICAL MYELOGRAM TECHNIQUE: CT of the cervical spine coronal and sagittal reformatted images post intrathecal administ ration of contrast. CLINICAL INFORMATION: DEGENERATION OF CERICICAL INTERVERTEBRAL DISC, COMPARISON: MRI July 17, 2021 CT 5 17,017 DLP: 390.[address] scans at [facility] use at least one of these dose optimization techniques: automated e xposure control; mA and/or kV adjustment per patient size (includes targeted exams where dose is matc hed to clinical indication); or iterative reconstruction. FINDINGS: Images degraded due to beam hardening artifact from extensive hardware. Intrathecal contrast is prese nt although somewhat faintly visualized. Prior Postoperative changes ACDF C4-C7. No evidence of hardware loosening. Hardware appears stable co mpared to previous. C2-C3: Advanced facet arthropathy. Moderate to severe LEFT and mild RIGHT bony foraminal narrowing. S fabián canal is patent. C3-C4: Moderate to severe RIGHT and mild LEFT bony foraminal narrowing. Moderate to advanced facet ar thropathy with uncovertebral joint hypertrophy. C4-C5: Prior ACDF. Severe RIGHT and moderate to severe LEFT bony foraminal narrowing. Mild facet arth ropathy. C5-C6: Postoperative changes ACDF. Moderate to severe bilateral bony foraminal narrowing worse in the LEFT. Central canal is patent. Moderate facet arthropathy. C6-C7: Severe bilateral bony foraminal narrowing worse in the LEFT. Mild facet arthropathy. Mild cent ral canal stenosis. C7-T1: Spinal canal and foramen are patent. Degenerative arthritis C1-C2 articulation with pannus formation. No evidence of hardware loosening. M ild central canal stenosis in the upper thoracic spine T1-T2 with partial ankylosis in the upper thor acic spine. This is unchanged compared to the prior examinations. Visualized posterior fossa structures: Normal. Overall no significant changes compared to MRI July 17, 2021 CT/CT cervical spine w con [id number] IMPRESSION: 1. Straightening of the normal cervical lordosis. Prior ACDF C4-C7 appears sta ble. No evidence of hardware loosening. 2. Mild central canal stenosis C6-C7 due to disc osteophytic ridging. This is unchanged compared to prior examinations. No high-grade central canal stenosis. 3. Multilevel advanced bony foraminal narrowing worse at bilateral C5-C6 worse in the LEFT and bilateral C6-C7. 4. Advanced facet arthropathy worse at C2-C3, C3-C4, C4-C5. 5. Prominent pannus formation at the C1-C2 articulation measures 1.3 cm in tra nsverse dimension
[2021-12-10] MEDS: iohexol 240 mg/mL 50 mL Btl INTRATHECA (10:58)
== END 2021-12-10 09:26 | disposition home or self-care (01) ==
LOC: RAD 09:30
PROVIDERS: PCP Nurse Practitioner Family; Visit Provider Internal Medicine Gastroenterology
DX: M50.30 Other cervical disc degeneration, unspecified cervical region (principal); M48.02 Spinal stenosis, cervical region
CPT/HCPCS: 62302; 72040; 72126

== ENCOUNTER 2021-12-19 12:10 | Observation (INO) | payer MEDICARE, MEDICAID, SELFPAY ==
[2021-12-19] VITALS (10 sets, daily range): BP systolic 126–160; BP diastolic 67–101; PULSE 62–76; RESP 12–18; TEMP 36.6–36.8; O2SAT 94–100
--- NOTE | 2021-12-19 12:22 | XR_ITS ---
WS: [email or web address] Exam: XR chest 1V portable [id number] Date/Time of Exam: 12/19/2021 12:25 PM Reason For Exam: chest pain Comparison 04/02/2016. The lungs are fully inflated and clear. Normal cardiomediastinal silhouette. No pleural effusions. Ca lcified encapsulated bilateral breast implants. Left reverse shoulder prosthesis. Fusion hardware in the lower cervical spine. Anchoring screw in the right humeral head. XR/XR chest 1V portable [id number] IMPRESSION: 1. No acute cardiopulmonary finding.
--- NOTE | 2021-12-19 12:23 | ECG_ITS ---
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 Measurements Intervals [place] Rate: 64 P: 72 RI: 129 QRS: 24 QRSD: 82 T: 52 QT: 384 QTc: 398 Interpretive Statements SINUS RHYTHM LOW QRS VOLTAGE [QRS DEFLECTION < 0.5/1.0 mV IN LIMB/CHEST LEADS] SEPTAL MYOCARDIAL INFARCTION , PROBABLY OLD [40+ ms Q WAVE IN V1/V2] Compared to ECG 06/30/2021 12:14:09 Low QRS voltage now present Myocardial infarct finding still present Electronically Signed On 12-19-2021 23:25:38 CDT by Estrada Lopez M.D. [id number]
--- NOTE | 2021-12-19 12:27 | W.ED.CHESTPA ---
HPI - Chest Pain General: Chief Complaint: Chest Pain Stated Complaint: CHEST PAIN Time Seen by Provider: 12/19/21 12:11 Source: patient Mode of arrival: ambulatory History of Present Illness: 76-year-old female presents to the emergency room with complaints of chest pain. She had several episodes of chest pain recently they are usually lasting just a few seconds today she began having chest pain while at rest. Along with shortness of breath and nausea. It is resolved now she is given nitro by EMS. She has previously had stress test and angiogram although these were several years ago these were reported to her as normal. She is diabetic. MD complaint: chest pain Onset (ago): hour(s) Timing of current episode: episodic Prior episodes: Yes Onset: during rest Pain location: left chest Pain radiation: none Quality: aching and heaviness Relieving factors: nitroglycerin Exacerbating factors: nothing Associated symptoms: Deny abdominal pain, dyspnea, fever(s), nausea, palpitations or vomiting Review of Systems Const: Denies: fever(s), chills, body aches, change in appetite, fatigue or malaise ENMT: Denies: throat pain, ear or mastoid pain, nasal discharge or nasal congestion Card: Reports: chest pain; Denies: palpitations, edema, dyspnea on exertion or orthopnea Resp: Denies: dyspnea, productive cough or non-productive cough GI: Denies: abdominal pain, nausea, vomiting, hematemesis, coffee ground emesis, diarrhea, constipation, bloating, hematochezia or melena : Denies: flank pain, difficulty voiding, dysuria, urinary frequency or urinary urgency Skin/Breast: Denies: rash or pruritus PFS ED PFSH: Medical History Anxiety Arteriosclerotic heart disease (ASHD) Bilateral bunions with callous formation; has had surgery for hammer toes Bilateral knee pain Chronic pain syndrome Chronic thoracic spine pain Essential (primary) hypertension Generalized anxiety disorder Hx of fracture of left hip IBS (irritable bowel syndrome) Insomnia, unspecified Lumbar facet joint pain Narrowing of both carotid arteries 16-49% bilateral 06/10/18; carotid duplex Neuropathy Parapelvic renal cyst long standing, well defined left parapelvic cysts on previous CT. No concern regarding cyst. Pure hypercholesterolemia, unspecified Slow transit constipation Type 2 diabetes mellitus without complications Urinary incontinence Urolithiasis recurrent with multiple treatments over the years Vitamin D deficiency Surgical History History of ankle surgery History of back surgery 9 total per patient History of tonsillectomy and adenoidectomy Hx of arthroscopy of shoulder (~09/2018) left Hx of cataract extraction Hx of cervical discectomy (~2015) 4-5-6 Hx of cholecystectomy Hx of colonoscopy Hx of foot surgery right Hx of hysterectomy Hx of lithotripsy Hx of total knee replacement bilateral Hx of tubal ligation Family History Family/Other Dementia CAD (coronary artery disease) Diabetes Denies family history of Clotting disorder Hyperlipidemia Psychiatric illness Chronic kidney disease (CKD) Suicide Anesthesia complication Bleeding disorder Family history of premature coronary artery disease Lung disease Cancer Hypertension Stroke Social History Smoking and tobacco status: never smoked Second hand smoke exposure: Yes Alcohol intake: current Lives independently: Yes Household members: none Housing: House Marital status: / Current occupational status: disabled History of recent travel: No Current gender identity: Female Physical Exam Const: GENERAL APPEARANCE: cooperative and comfortable ORIENTATION/CONSCIOUSNESS: Yes awake, Yes oriented to person, Yes oriented to place and Yes oriented to time HENMT: COMMON NORMALS: normocephalic, atraumatic and hearing grossly normal bilaterally HEAD & SCALP: normocephalic and atraumatic Neck/C-Spine: COMMON NORMALS: no JVD Resp: COMMON NORMALS: normal respiratory effort, No retractions, No use of accessory muscles and clear to auscultation bilaterally AUSCULTATION: clear to auscultation bilaterally Cardio: COMMON NORMALS: no JVD, regular rate, regular rhythm and No murmurs present (Cardio) RATE: regular rate RHYTHM: regular rhythm GI: COMMON NORMALS: Soft to palpation and No hepatosplenomegaly present AUSCULTATION: Yes normoactive bowel sounds PALPATION: Yes Soft to palpation, No Tenderness to palpation present (GI), No Guarding due to palpation present (GI) and Yes No hepatosplenomegaly present Extremity: COMMON NORMALS: normal to inspection, capillary refill normal, no clubbing, cyanosis or edema, no calf tenderness and no pedal edema Neuro: SENSORIUM/ORIENTATION: Yes oriented to person, Yes oriented to place and Yes oriented to time Skin: COMMON NORMALS: no rashes or lesions noted GENERAL SKIN EXAM: no rashes or lesions noted Course Vital Signs: Vital signs: Vital Signs Temperature 98 F 12/20/21 12:43 Pulse Rate 66 12/20/21 12:43 Respiratory Rate 18 12/20/21 12:43 Blood Pressure 123/69 12/20/21 12:43 Pulse Oximetry 98 12/20/21 12:43 MDM - Chest Pain Medical Decision Making Chest pain admit for further rule out. Concerning that the patient had relief of chest pain with nitro discussed with hospitalist orders written. Medical Records I reviewed the patient's medical records. Lab Data I reviewed the patient's lab results. : 12/20/21 04:40 12/20/21 04:40 Radiology Impressions Chest X-Ray 12/19/21 12:22 IMPRESSION: 1. No acute cardiopulmonary finding. Laboratory Results WBC 6.2 10^3/uL (4.0-10.0) 12/19/21 12:35 RBC 4.27 10^6/uL (4.1-5.3) 12/19/21 12:35 Hgb 12.9 g/dL (11.5-15.3) 12/19/21 12:35 Hct 38.6 % (37.0-47.0) 12/19/21 12:35 MCV 90.4 fl (81-99) 12/19/21 12:35 MCH 30.2 pg (28.0-34.0) 12/19/21 12:35 MCHC 33.4 g/dL (30.0-36.0) 12/19/21 12:35 RDW 13.9 % (12.1-15.1) 12/19/21 12:35 Plt Count 210 10^3/cmm (130-400) 12/19/21 12:35 MPV 9.1 fL (7.4-10.4) 12/19/21 12:35 Neut % (Auto) 55.0 % 12/19/21 12:35 Lymph % (Auto) 31.0 % 12/19/21 12:35 [place] % (Auto) 9.3 % 12/19/21 12:35 Eos % (Auto) 4.0 % 12/19/21 12:35 Baso % (Auto) 0.5 % 12/19/21 12:35 Neut # (Auto) 3.42 10^3/uL (1.8-7.7) 12/19/21 12:35 Lymph # (Auto) 1.9 10^3/uL (0.8-4.8) 12/19/21 12:35 [place] # (Auto) 0.6 10^3/uL (0.2-0.9) 12/19/21 12:35 Eos # (Auto) 0.3 10^3/uL (0.0-0.8) 12/19/21 12:35 Baso # (Auto) 0.0 10^3/uL (0.0-0.1) 12/19/21 12:35 Nucleated RBC % (auto) 0 % 12/19/21 12:35 Nucleated RBCs # 0.0 /100WBC 12/19/21 12:35 Sodium 140 mmol/L (136-145) 12/19/21 12:35 Potassium 4.2 mmol/L (3.5-5.1) 12/19/21 12:35 Chloride 103 mmol/L (98-107) 12/19/21 12:35 Carbon Dioxide 23 mmol/L (22-29) 12/19/21 12:35 Anion Gap 18.2 (5-19) 12/19/21 12:35 BUN 13 mg/dL (8-23) 12/19/21 12:35 Creatinine 0.4 mg/dL (0.5-0.9) L 12/19/21 12:35 GFR Calculation Not Reportable 12/19/21 12:35 Glucose 100 mg/dL (65-115) 12/19/21 12:35 Calculated Osmolality 290 mOsm/kg (285-295) 12/19/21 12:35 Calcium 8.8 mg/dL (8.5-10.5) 12/19/21 12:35 Total Bilirubin 0.5 mg/dL (0.15-1.2) 12/19/21 12:35 AST 19 U/L (0-32) 12/19/21 12:35 ALT 20 U/L (0-33) 12/19/21 12:35 Alkaline Phosphatase 57 IU/L (35-105) 12/19/21 12:35 Troponin T Baseline 9 ng/L (0-10) 12/19/21 12:35 Troponin T 120 Minute 9.28 ng/L (0-10) 12/19/21 15:00 Delta Troponin T 0.28 ABS# (0-10) 12/19/21 15:00 Total Protein 6.4 g/dL (6.6-8.7) L 12/19/21 12:35 Albumin 4.3 g/dL (3.5-5.2) 12/19/21 12:35 Globulin 2.1 g/dL (1.3-4.6) 12/19/21 12:35 Discharge Plan Discharge Patient Disposition: Placed in Observation Admit Provider: Wade Aldana Clinical Impression: Chest pain Condition: Stable Discharge Orders: Discharge Order (Routine); Ordered 12/20/21 Ordered By: Wade Aldana Discharge Diet: Cardiac Discharge Activity: Resume usual activity Coding Level of Care Code ED Forestry Crew Chief for Chg Fwd Exam Comprehensive
[2021-12-19 12:42] LABS: Basophils % 0.5 %; Eosinophils # 0.3 10^3/uL (0.0-0.8); Hematocrit 38.6 % (37.0-47.0); Hemoglobin 12.9 g/dL (11.5-15.3); Lymphocytes # 1.9 10^3/uL (0.8-4.8); Mean Corpuscular HGB Conc 33.4 g/dL (30.0-36.0); Mean Corpuscular Hemoglobin 30.2 pg (28.0-34.0); Mean Corpuscular Volume 90.4 fl (81-99); Mean Platelet Volume 9.1 fL (7.4-10.4); Monocytes # 0.6 10^3/uL (0.2-0.9); Monocytes % 9.3 %; Neutrophils # 3.42 10^3/uL (1.8-7.7); Nucleated Red Blood Cells % 0 %; Platelet Count 210 10^3/cmm (130-400); Red Blood Count 4.27 10^6/uL (4.1-5.3); Red Cell Distribution Width 13.9 % (12.1-15.1); White Blood Count 6.2 10^3/uL (4.0-10.0)
--- NOTE | 2021-12-19 12:43 | PC.NURSE ---
mexican food maker on patient.
[2021-12-19 13:31] LABS: Troponin(5th) Baseline 9 ng/L (0-10)
[2021-12-19 13:32] LABS: Alanine Aminotransferase 20 U/L (0-33); Albumin Level 4.3 g/dL (3.5-5.2); Alkaline Phosphatase 57 IU/L (35-105); Anion Gap 18.2 (5-19); Aspartate Amino Transferase 19 U/L (0-32); Blood Urea Nitrogen 13 mg/dL (8-23); Calcium 8.8 mg/dL (8.5-10.5); Carbon Dioxide 23 mmol/L (22-29); Chloride 103 mmol/L (98-107); Globulin 2.1 g/dL (1.3-4.6); Glucose 100 mg/dL (65-115); Osmolality Calculated 290 mOsm/kg (285-295); Potassium 4.2 mmol/L (3.5-5.1); Sodium 140 mmol/L (136-145); Total Bilirubin 0.5 mg/dL (0.15-1.2); Total Protein 6.4 g/dL (6.6-8.7)
--- NOTE | 2021-12-19 14:23 | ECG_ITS ---
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 Measurements Intervals [place] Rate: 65 P: 106 [place]: 130 QRS: 145 QRSD: 85 T: 125 QT: 400 QTc: 417 Interpretive Statements SINUS RHYTHM ARM LEADS REVERSED [INVERTED P AND QRS IN I] Poor R wave progression Compared to ECG 12/19/2021 12:25:07 Myocardial infarct finding no longer present Electronically Signed On 12-19-2021 23:33:55 CDT by sEtrada Lopez M.D. [id number]
[2021-12-19 15:35] LABS: Troponin 5 2HR 9.28 ng/L (0-10)
[2021-12-19 15:45] LABS: Troponin 5 2HR Delta 0.28 ABS# (0-10)
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
[2021-12-19] MEDS: HYDROcodone-acetaminophen 10-325 mg Tablet 1 TAB PO ×2 (17:58→21:59)
[2021-12-19] MEDS: losartan 50 mg Tablet PO (17:58)
[2021-12-19] MEDS: magnesium oxide 400 mg tablet PO (17:59)
[2021-12-19] MEDS: enoxaparin 40 mg/0.4 mL Syringe SUBCUT (17:59)
--- NOTE | 2021-12-19 18:23 | ECG_ITS ---
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 Measurements Intervals Severance Rate: 57 P: 68 NE: 119 QRS: 7 QRSD: 80 T: 44 QT: 393 QTc: 386 Interpretive Statements SINUS BRADYCARDIA WITH SHORT NE INTERVAL SEPTAL MYOCARDIAL INFARCTION , OF INDETERMINATE AGE [40+ ms Q WAVE IN V1/V2] Compared to ECG 12/19/2021 14:58:31 Short NE interval now present Myocardial infarct finding now present Sinus rhythm no longer present Electronically Signed On 12-19-2021 23:35:42 CDT by Estrada Lopez M.D. [email or web address]
[2021-12-19 19:39] LABS: Troponin 5 6HR 7.37 ng/L (0-10)
[2021-12-19 19:46] LABS: Troponin 5 6HR Delta -1.63 ng/L (0-12)
[2021-12-19] MEDS: carvedilol 3.125 mg Tablet PO (21:59)
[2021-12-19] MEDS: nortriptyline 10 mg Capsule PO (22:01)
[2021-12-19] MEDS: tizanidine 4 mg Tablet PO (22:02)
[2021-12-19] MEDS: potassium chloride ER 20 mEq Tablet PO (22:02)
[2021-12-19 23:42] LABS: Glucose Point of Care 101 mg/dL (70-110)
[2021-12-20] VITALS: BP 101/59; PULSE 75; RESP 15; TEMP 36.6; O2SAT 96
--- NOTE | 2021-12-20 00:30 | USCV_ITS ---
Melissa Estes Age: 76 Gender: F : 1945 Exam Date: 12/20/2021 01:56 Ordering Phys: Wade Aldana MD Technologist: Rolando Dan Exam Location: [facility] [place] Indication: chest pain BP: 151 / 101 HR: 54 Rhythm: Sinus Technical Quality: Adequate MEASUREMENTS (Male / Female) Normal Values 2D ECHO LV Diastolic Diameter PLAX 4.1 cm 4.2 - 5.9 / 3.9 - 5.3 cm LV Systolic Diameter PLAX 3.0 cm IVS Diastolic Thickness 1.0 cm 0.6 - 1.0 / 0.6 - 0.9 cm IVS Systolic Thickness 0.9 cm LVPW Diastolic Thickness 1.2 cm 0.6 - 1.0 / 0.6 - 0.9 cm LVPW Systolic Thickness 1.7 cm LVOT Diameter 2.1 cm LV Ejection Fraction 2D Teich 53.9 % LV Ejection Fraction MOD 2C 65.2 % LV Ejection Fraction 2C AL 69.2 % LA Diameter 3.3 cm LA Width 4.1 cm LA Height 3.4 cm RA Width 4.4 cm RA Height 3.5 cm Aorta at Sinotubular Diameter 2.9 cm M-MODE Aortic Annulus Diameter 3.0 cm LA Ao Ratio MM 1.0 MV E Point Septal Separation 1.0 cm DOPPLER AV Peak Velocity 100.5 cm/s LVOT Peak Velocity 94.0 cm/s AV Area Cont Eq vti 3.5 cm squared AV Area Cont Eq pk 3.1 cm squared MV Area PHT 3.2 cm squared Mitral E to A Ratio 0.7 MV E' Velocity 38.0 cm/s Mitral E to MV E' Ratio 6.3 Mitral E to LV E' Lateral Ratio 5.7 Mitral E to LV E' Septal Ratio 7.2 Right Atrial Pressure 3.0 mmHg PV Peak Velocity 82.0 cm/s FINDINGS Left Ventricle Normal left ventricular size. LV systolic function is normal with EF of 55-60%. No regional wall motion abnormalities. Normal diastolic function Right Ventricle The right ventricle is normal in size and function. Right Atrium The right atrium is normal in size. Left Atrium The left atrium is normal in size. Mitral Valve Structurally normal mitral valve without significant stenosis or prolapse. There is trace mitral regurgitation. Aortic Valve Structurally normal aortic valve without significant sclerosis or stenosis. There is no aortic regurgitation. Tricuspid Valve Grossly normal without significant stenosis or regurgitation. Insufficient TR jet to calculate RVSP Pulmonic Valve Not well visualized Pericardium Normal pericardium without effusion. Aorta Normal ascending aorta dimension. CONCLUSIONS LV systolic function is normal with EF of 55-60% Normal diastolic function Trace mitral regurgitation No gross valvular abnormalities No comparison studies are available Nazario Sood MD (Electronically Signed) Final Date: 20 December 2021 12:31 S
[2021-12-20] MEDS: HYDROcodone-acetaminophen 10-325 mg Tablet 1 TAB PO ×2 (01:59→07:33)
[2021-12-20 04:58] LABS: Basophils % 0.4 %; Eosinophils # 0.3 10^3/uL (0.0-0.8); Eosinophils % 6.1 %; Hematocrit 38.3 % (37.0-47.0); Hemoglobin 12.6 g/dL (11.5-15.3); Lymphocytes # 2.2 10^3/uL (0.8-4.8); Lymphocytes % 43.6 %; Mean Corpuscular HGB Conc 32.9 g/dL (30.0-36.0); Mean Corpuscular Hemoglobin 30.3 pg (28.0-34.0); Mean Corpuscular Volume 92.1 fl (81-99); Mean Platelet Volume 8.8 fL (7.4-10.4); Monocytes # 0.6 10^3/uL (0.2-0.9); Monocytes % 11.3 %; Neutrophils # 1.97 10^3/uL (1.8-7.7); Neutrophils % 38.4 %; Nucleated Red Blood Cells % 0 %; Platelet Count 202 10^3/cmm (130-400); Red Blood Count 4.16 10^6/uL (4.1-5.3); White Blood Count 5.1 10^3/uL (4.0-10.0)
[2021-12-20 05:11] VITALS: PULSE 57
[2021-12-20 05:21] LABS: Alanine Aminotransferase 17 U/L (0-33); Alkaline Phosphatase 56 IU/L (35-105); Aspartate Amino Transferase 17 U/L (0-32); Blood Urea Nitrogen 12 mg/dL (8-23); Carbon Dioxide 28 mmol/L (22-29); Chloride 100 mmol/L (98-107); Chol HDL Ratio 2.42 mg/dL (0.0-4.40); Cholesterol 138 mg/dL (0-200); Estmated Average Glucose 126; Globulin 2.4 g/dL (1.3-4.6); Glucose 100 mg/dL (65-115); HDL Cholesterol 57 mg/dL (60-100); LDL Cholesterol Calculated 54 mg/dL (50-129); LDL HDL Ratio 0.95 RATIO (0.00-3.22); Magnesium 1.8 mg/dL (1.7-2.3); Osmolality Calculated 282 mOsm/kg (285-295); Phosphorus 4.1 mg/dL (2.5-4.5); Sodium 136 mmol/L (136-145); Thyroid Stimulating Hormone 4.84 uIU/mL (0.27-4.20); Total Bilirubin 0.3 mg/dL (0.15-1.2); Total Protein 6.4 g/dL (6.6-8.7); Triglycerides 134 mg/dL (0-150)
[2021-12-20 07:22] LABS: Glucose Point of Care 108 mg/dL (70-110)
[2021-12-20] MEDS: aspirin 81 mg EC Tablet PO (07:33)
[2021-12-20 07:41] VITALS: BP 136/91; PULSE 66; RESP 23; TEMP 36.5; O2SAT 98
[2021-12-20] MEDS: oxybutynin chloride XL 5 MG TABLET 15 MG PO (08:22)
[2021-12-20 08:23] VITALS: BP 136/91
[2021-12-20] MEDS: tizanidine 4 mg Tablet PO (08:23)
[2021-12-20] MEDS: hydroCHLOROthiazide 25 mg Tablet PO (08:23)
[2021-12-20] MEDS: magnesium oxide 400 mg tablet PO (08:23)
[2021-12-20] MEDS: carvedilol 3.125 mg Tablet PO (08:23)
[2021-12-20] MEDS: losartan 50 mg Tablet PO (08:23)
[2021-12-20] MEDS: allopurinol 300 mg Tablet PO (08:23)
[2021-12-20] MEDS: potassium chloride ER 20 mEq Tablet PO (08:23)
[2021-12-20] MEDS: atorvastatin 40 mg Tablet 20 MG PO (08:24)
[2021-12-20 12:00] VITALS: BP 123/69; PULSE 66; RESP 18; TEMP 36.6; O2SAT 98
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
[2021-12-20 12:40] LABS: Glucose Point of Care 126 mg/dL (70-110)
[2021-12-20 12:43] VITALS: BP 123/69; PULSE 66; RESP 18; TEMP 36.6; O2SAT 98
== END 2021-12-20 13:16 | disposition home or self-care (01) ==
LOC: ER 15:00 → CSU 18:33
PROVIDERS: Admitting Provider Family Medicine; Emergency Provider Family Medicine; PCP Nurse Practitioner Family; Visit Provider Family Medicine
DX: R07.9 Chest pain, unspecified (principal); Z79.82 Long term (current) use of aspirin; F41.9 Anxiety disorder, unspecified; I25.10 Atherosclerotic heart disease of native coronary artery without angina pectoris; G89.4 Chronic pain syndrome; I10 Essential (primary) hypertension; E11.9 Type 2 diabetes mellitus without complications; E55.9 Vitamin D deficiency, unspecified; Z79.891 Long term (current) use of opiate analgesic
CPT/HCPCS: 36415; 36416; 71045; 80053; 80061; 82962; 83036; 83735; 84100; 84443; 84484; 85025; 93005; 93306; 94664; 96372; 99285; G0378; J1650

== ENCOUNTER 2022-01-10 19:16 | Emergency (ER) | payer MEDICARE, MEDICAID, SELFPAY ==
[2022-01-10 19:26] VITALS: BP 160/84; PULSE 92; RESP 16; O2SAT 97
--- NOTE | 2022-01-10 19:35 | W.ED.EXTPRO ---
HPI - Extremity Problem General: Chief complaint: Extremity Problem,Nontraumatic Stated complaint: swollen L Time Seen by Provider: 01/10/22 19:35 History of Present Illness: 76-year-old female comes in today for complaints of left calf pain. Patient also noticed some increased swelling. Patient has a history of diabetes mellitus, intervertebral disc disease, peripheral neuropathy, osteoarthritis, and recent cervical neck surgery. Patient appears chronically ill but not toxic. Patient appears in mild pain at rest. Associated symptoms: Deny chest pain, fever(s) or rash Review of Systems General: Reports: 10 or more systems reviewed and unremarkable except in HPI and below Const: Denies: fever(s) Card: Denies: chest pain Resp: Denies: dyspnea GI: Denies: nausea or vomiting : Denies: difficulty voiding Musc: Reports: extremity pain and extremity swelling Skin/Breast: Denies: rash Neuro: Reports: numbness in extremities (Chronic) and difficulty walking PFSH ED PFSH: Medical History Anxiety Arteriosclerotic heart disease (ASHD) Bilateral bunions with callous formation; has had surgery for hammer toes Bilateral knee pain Chronic pain syndrome Chronic thoracic spine pain Essential (primary) hypertension Generalized anxiety disorder Hx of fracture of left hip IBS (irritable bowel syndrome) Insomnia, unspecified Lumbar facet joint pain Narrowing of both carotid arteries 16-49% bilateral 06/10/18; carotid duplex Neuropathy Parapelvic renal cyst long standing, well defined left parapelvic cysts on previous CT. No concern regarding cyst. Pure hypercholesterolemia, unspecified Slow transit constipation Type 2 diabetes mellitus without complications Urinary incontinence Urolithiasis recurrent with multiple treatments over the years Vitamin D deficiency Surgical History History of ankle surgery History of back surgery 9 total per patient History of tonsillectomy and adenoidectomy Hx of arthroscopy of shoulder (~09/2018) left Hx of cataract extraction Hx of cervical discectomy (~2015) 4-5-6 Hx of cholecystectomy Hx of colonoscopy Hx of foot surgery right Hx of hysterectomy Hx of lithotripsy Hx of total knee replacement bilateral Hx of tubal ligation Family History Family/Other Dementia CAD (coronary artery disease) Diabetes Denies family history of Clotting disorder Hyperlipidemia Psychiatric illness Chronic kidney disease (CKD) Suicide Anesthesia complication Bleeding disorder Family history of premature coronary artery disease Lung disease Cancer Hypertension Stroke Social History Smoking and tobacco status: never smoked Second hand smoke exposure: Yes Alcohol intake: current Lives independently: Yes Household members: none Housing: House Marital status: / Current occupational status: disabled History of recent travel: No Current gender identity: Female Physical Exam Const: COMMON NORMALS: alert HENMT: COMMON NORMALS: normocephalic HEAD & SCALP: normocephalic Neck/C-Spine: OTHER: Patient is in a soft cervical collar, recent surgical wound healing. Resp: COMMON NORMALS: normal respiratory effort Cardio: COMMON NORMALS: negative for regular rate RATE: abnormal rate GI: COMMON NORMALS: non-tender Extremity: LEFT LOWER EXTREMITY: Yes lower leg (Increased swelling to calf with tenderness) Left lower leg: Yes inspection, Yes palpation and Yes neurovascular exam and Yes foot & digits (Deformed Achilles tendon, probable ruptured) Left foot and digits: Yes inspection, Yes palpation and Yes ROM Neuro: SENSORIUM/ORIENTATION: Yes alert Psych: COMMON NORMALS: cooperative Skin: COMMON NORMALS: no rashes or lesions noted GENERAL SKIN EXAM: no rashes or lesions noted Course Vital Signs: Vital signs: Vital Signs Pulse Rate 92 01/10/22 19:26 Respiratory Rate 16 01/10/22 19:26 Blood Pressure 160/84 01/10/22 19:26 Pulse Oximetry 97 01/10/22 19:26 MDM - Extremity (Nontraumatic) Medical Decision Making 76-year-old female comes in today for complaints of posterior left lower leg pain. Patient reports abnormality to her Achilles tendon which she thought probably was ruptured. Patient has been evaluated at a local clinic and is awaiting follow-up. Family was concerned today due to increased swelling in the leg and concern for DVT. On exam there is no redness but there is some marked increase In size as compared to the right. Tenderness is also noted in the calf. Palpable deformity is noted to the Achilles tendon. Differential diagnosis includes DVT, tendon rupture, strain or sprain. Ultrasound noted no DVT. Elastic wrap was placed around the extremity. Patient will continue with appointment follow-up with the circulation sales representative. Case management was requested to assist with moving the appointment up if at all possible. Patient reported understanding of care plan need for follow-up or return to the ER. Lab Data Radiology Impressions Venous Duplex 01/10/22 19:42 IMPRESSION: No sonographic evidence of deep vein thrombosis. Discharge Plan Discharge Patient Disposition: Home Clinical Impression: Leg pain, left Achilles rupture, left Qualifiers: Encounter type: initial encounter Qualified Code(s): S86.012A - Strain of left Achilles tendon, initial encounter Condition: Stable Prescriptions: No Action (DME) Diabetic Shoes See Rx Instructions .Route .MEDSUPPLY Qty: 1 0RF Rx Instructions: As directed (DME) diabetic shoes See Rx Instructions .Route .MEDSUPPLY Qty: 1 0RF Rx Instructions: with molds and inserts (DME) LEG CRAMPS tablet Qty: 1 0RF Rx Instructions: As directed magnesium oxide 400 mg magnesium tablet 400 mg PO BID Qty: 60 0RF Rx Instructions: needs appointment (DME) OneTouch Verio test strips Strip See Rx Instructions .ROUTE .MEDSUPPLY Qty: 50 5RF Rx Instructions: USE ONE STRIP EVERY DAY allopurinol 300 mg tablet 300 mg PO DAILY Qty: 90 1RF losartan 50 mg tablet 50 mg PO BID 0RF metformin 500 mg tablet 500 mg PO BID 0RF oxybutynin chloride 15 mg Tablet Extended Release 24hr 15 mg PO DAILY 0RF hydrochlorothiazide 50 mg tablet 50 mg PO DAILY 0RF hydrocodone-acetaminophen 5-325 mg tablet 1 - 2 tab PO .Q4-6H PRN (Reason: Pain) 0RF potassium chloride 20 mEq tablet,ER particles/crystals 20 meq PO BID 0RF Rx Instructions: needs appointment tizanidine 4 mg tablet 4 mg PO TID 0RF nortriptyline 10 mg capsule 10 - 30 mg PO BEDTIME 0RF escitalopram oxalate 10 mg tablet 10 mg PO DAILY PRN (Reason: Anxiety) 0RF lactulose 10 gram/15 mL solution 30 ml PO DAILY PRN (Reason: Constipation) 0RF Lipitor 20 mg tablet 20 mg PO DAILY 30 Days Qty: 30 0RF aspirin 81 mg tablet,delayed release (DR/EC) 81 mg PO ONCE 30 Days Qty: 30 0RF Nitrostat 0.4 mg tablet, sublingual 0.4 mg SUBLINGUAL Q5M PRN (Reason: chest pain) 30 Days Qty: 30 1RF Rx Instructions: dispense 2 bottles, to use in separate locations carvedilol 3.125 mg tablet 3.125 mg PO BID 30 Days Qty: 60 0RF Discharge Orders: Discharge ED (Routine); Ordered 01/10/22 Ordered By: Guicho Ramso Referrals: Elin Cerrato APN [Primary Care Provider] - Discharge Diet: Usual diet Discharge Activity: Increase activity as tolerated Patient Instructions: Achilles Tendon Rupture (ED) Activity Restrictions/Additional Instructions: Continue with routine care. Activity as tolerated. Follow-up with primary care for further instruction. Coding Level of Care Code ED Air/Ocean Export Clerk for Chg Fwd Exam Comprehensive
--- NOTE | 2022-01-10 19:42 | USR_ITS ---
PROCEDURE INFORMATION: Exam: US Duplex Left Lower Extremity Veins, Limited Exam date and time: 01/10/2022 7:53 PM Age: 76 years old Clinical indication: Pain; Swelling (edema) of limb; Lower extremity, left; Leg, lower; Additional info: Swelling, calf pain, R/O dvt TECHNIQUE: Imaging protocol: Real-time Duplex ultrasound of the Left Lower Extremity with 2-D puckett scale, color Doppler flow and spectral waveform analysis with image documentation. Limited exam focused on the left lower extremity veins. COMPARISON: US soft tissue/extremity [id number] 12/30/2021 9:43 AM FINDINGS: Left deep veins: Unremarkable. The common femoral, femoral, proximal profunda femoral, popliteal, posterior tibial and peroneal veins are patent without thrombus. Normal compressibility, augmentation response and Doppler waveforms. Left superficial veins: Unremarkable. Saphenofemoral junction is patent without thrombus. Soft tissues: Unremarkable. US/CV venous duplex [facility] [id number] IMPRESSION: No sonographic evidence of deep vein thrombosis.
--- NOTE | 2022-01-10 21:19 | PC.NURSE ---
3 in Leonardo wrap to left foot per ERP order. Cap refill brisk pink and warm
[2022-01-10 21:21] VITALS: PULSE 75
[2022-01-10 21:25] VITALS: BP 158/82; PULSE 80; RESP 18; O2SAT 98
--- NOTE | 2022-01-12 15:47 | DCPLANNER ---
Addendum entered by Dalia Lopez 01/23/22 18:11: Patient had a follow up appointment scheduled for 01.16.22 with ortho - patient did attend appointment. Addendum entered by Dalia Lopez 01/16/22 09:22: Patient has a follow up appointment scheduled for Sunday, January 16, 2022 at 3:[address] Lynch at ortho. Clinic will call patient with appointment information. Original Note: skilled nursing case manager had message to schedule a follow up appointment for patient with ortho. skilled nursing case manager sent patients information to the front office staff at ortho. Patients information will be printed and reviewed. Clinic will call patient with appointment information.
== END 2022-01-10 21:28 | disposition home or self-care (01) ==
PROVIDERS: Emergency Provider Nurse Practitioner Family; PCP Nurse Practitioner Family
DX: S86.012A Strain of left Achilles tendon, initial encounter (principal); M79.662 Pain in left lower leg; X58.XXXA Exposure to other specified factors, initial encounter
CPT/HCPCS: 93971; 99283

== ENCOUNTER → 2022-01-16 14:36 | Outpatient (BNVA) | payer MEDICARE, MEDICAID, SELFPAY | PROVIDERS: PCP Nurse Practitioner Family; Referring Provider Nurse Practitioner Family; Visit Provider Podiatrist Foot & Ankle Surgery | DX: M76.62 Achilles tendinitis, left leg (principal); S99.912A Unspecified injury of left ankle, initial encounter; S86.012A Strain of left Achilles tendon, initial encounter; M25.571 Pain in right ankle and joints of right foot; X58.XXXA Exposure to other specified factors, initial encounter | CPT/HCPCS: 73610; 99214 ==

== ENCOUNTER 2022-02-12 12:19 | Outpatient (CLI) | payer MEDICARE, MEDICAID, SELFPAY ==
--- NOTE | 2022-02-12 12:30 | MR_ITS ---
WS: [id number] MRI LEFT ANKLE NONCONTRAST TECHNIQUE: Sagittal proton density, sagittal STIR, axial proton density, axial T1, axial T2 fat sat, coronal proton density, coronal proton density fat sat, coronal T2 fat sat. CLINICAL INFORMATION: paij COMPARISON: None. FINDINGS: Achilles tendinopathy with fusiform thickening measuring up to 9 mm in AP dimension. Partia l fluid signal intrasubstance tear involving the dorsal Achilles tendon approximately 3.5cm from the insertion. Associated fluid and edema along the peritenon. Small amount of edema in Kagers fat pad. D istal Achilles insertion appears intact. Trace fluid in the retrocalcaneal bursa. Osteopenia. Plantar calcaneal spurring. Achilles enthesophyte. Normal ankle mortise. Normal medial la teral malleolus. Mild soft tissue edema lower leg and ankle. Normal bone marrow marrow signal in the talus. Tenosynovitis along the peroneal tendon sheath. Peroneus longus and brevis appears intact. Extensor a nd flexor compartment tendons are intact. MR/MR ankle LT wo con* [id number] IMPRESSION: 1. Partial intrasubstance tear involving the dorsal Achilles tendon fibers kelly roximately 3.5cm proximal to the insertion extending over approximately 1-2 cm craniocaudal. This is eccentric to the RIGHT. No tendon retraction. Distal inse rtion appears intact. 2. Marked Achilles tendinopathy with diffuse fusiform thickening. 3. Achilles enthesophyte. Small plantar calcaneal spur. 4. Normal ankle mortise. Normal talar dome. 5. Tenosynovitis along the peroneal tendon sheaths.
--- NOTE | 2022-02-12 13:15 | XR_ITS ---
WS: [id number] Right ankle, 3 views, 02/12/2022 Clinical Data: pain Comparison: None. Findings: No fractures or dislocations are seen. The ankle mortise is normal. The talus and calcaneus are unrem arkable. No soft tissue swelling over the medial or lateral malleolus is seen. There is a plantar spur and an Achilles spur. XR/XR ankle RT min 3V* [id number] Impression: Negative right ankle.
== END 2022-02-12 12:20 | disposition home or self-care (01) ==
PROVIDERS: PCP Nurse Practitioner Family; Visit Provider Podiatrist Foot & Ankle Surgery
DX: M76.62 Achilles tendinitis, left leg (principal); S86.012A Strain of left Achilles tendon, initial encounter; M25.571 Pain in right ankle and joints of right foot; X58.XXXA Exposure to other specified factors, initial encounter
CPT/HCPCS: 73610; 73721; 99213; 99214

== ENCOUNTER 2022-03-16 12:24 | Outpatient (CLI) | payer MEDICARE, MEDICAID, SELFPAY ==
--- NOTE | 2022-03-16 12:32 | MR_ITS ---
WS: [id number] MRI LUMBAR SPINE NONCONTRAST HISTORY: Chronic back and neck pain. COMPARISON: 07/17/2021 TECHNIQUE: Sagittal and axial multisequence imaging is submitted. Marked increase in the thoracic kyphosis. Moderate spondylitic changes and scoliosis. Disc or osteoph yte extends posteriorly from the T8 vertebral body contacting the thoracic cord. Focal areas of myelo malacia in the lower thoracic cord at T10-11 and T11-12. The longest segment of myelomalacia is 16 mm at the T11-12 disc level. Mild progression since 11 mm on the prior exam. Osteophytic ridging and an nular disc bulging in the lower lumbar spine from T10-11 through T12-L1 causing mild encroachment int o the foramina and central canal. Postoperative fluid collection posterior to T11-12 measures 3.2 cm in length and unchanged. Straightening and curvature lumbar lordosis. Disc spaces are narrowed and desiccated throughout the lumbar spine. Conus terminates normally at L1. Long laminectomy site with bone graft and fusion at the thoracolumbar region extending from T11 to L5 . L1-L2: Mild disc bulging and facet arthritis. Mild clumping of the nerve roots in the thecal sac and mild foraminal stenosis. Bone graft fusion across the posterior thecal sac. Postoperative fluid colle ction centrally at the L1-2 level measures 19 x 14 mm and was present on the prior study with no incr ease. L2-L3: Diffuse annular disc bulging. Osteophyte encroaches upon the anterior and LEFT lateral thecal sac. Clumping of the nerve roots in the thecal sac. Large hypertrophic osteophyte extends into the LE FT lateral thecal sac resulting in severe LEFT foraminal stenosis. Similar to the prior study with no progression. L3-L4: Mild disc bulging with a posterior osteophyte. Bone graft fusion posteriorly. Mild foraminal n arrowing. L4-L5: Diffuse osteophytic ridging with bone graft fusion posteriorly. Clumping of the nerve roots in the thecal sac. No stenosis. L5-S1: Mild annular disc bulging. Bilateral facet joint arthritis and bone graft fusion. Very mild LE FT foraminal stenosis. LEFT parapelvic cysts. MR/MR lumbar spine wo con* [id number] IMPRESSION: 1. Mild progression of myelomalacia at the T11-12 level measures 16 mm in tala th. Additional unchanged focal area of myelomalacia is smaller at T10-11. 2. Extensive laminectomy defects over the lower thoracic and lumbar spine with bone graft fusion. No interval change. 3. Hypertrophic osteophyte on the LEFT at T2-3 similar to the prior study with encroachment into the LEFT subarticular recess and foramen. There is contact o n the LEFT L2 and L3 nerve roots. No interval change. 4. Diffuse arachnoiditis. 5. Additional central and bilateral foraminal stenosis noted in the lower thor acic spine seen on the sagittal images only. No obvious progression as compared to the prior study of 07/17/2021.
== END 2022-03-16 12:25 | disposition home or self-care (01) ==
LOC: RAD 12:24
PROVIDERS: PCP Nurse Practitioner Family; Visit Provider Internal Medicine Gastroenterology
DX: G95.89 Other specified diseases of spinal cord (principal); M25.78 Osteophyte, vertebrae; G03.8 Meningitis due to other specified causes; M48.04 Spinal stenosis, thoracic region
CPT/HCPCS: 72148

== ENCOUNTER 2022-04-03 05:46 | Observation (INO) | payer MEDICARE, MEDICAID, SELFPAY ==
[2022-04-03] VITALS (18 sets, daily range): BP systolic 105–156; BP diastolic 60–99; PULSE 60–82; RESP 16–20; TEMP 36.6–37.2; O2SAT 94–98; BMI 23.8
--- NOTE | 2022-04-03 06:09 | XR_ITS ---
WS: [id number] Portable AP upright chest, 04/03/2022 Clinical Data: chest pain Comparison: Portable chest, 12/19/2021. Findings: No nodules, masses or effusions are seen. The heart is normal. The pulmonary vascularity is not increased. No pneumonia or pneumothorax is seen. The aortic arch and descending thoracic aorta s how mild tortuosity. There is a left shoulder prosthesis and an orthopedic anchor in the right whitney l head. There is an anterior cervical disc fusion. Monitor leads are on the chest wall. There are jc ateral breast implants. XR/XR chest 1V portable [id number] Impression: Atherosclerosis.
--- NOTE | 2022-04-03 06:11 | ECG_ITS ---
[facility] Test Date: 2022-04-03 Pat Name: Melissa Estes Department: Room: Gender: Female Alarm Field Technician: : 1945 Requested By: Rainer Angeles Order Number: [id number] Ariella MD: Erin Gonzalez M.D. Measurements Intervals [place] Rate: 72 P: 71 MO: 143 QRS: -9 QRSD: 86 T: 43 QT: 389 QTc: 429 Interpretive Statements SINUS RHYTHM ANTEROSEPTAL MYOCARDIAL INFARCTION , PROBABLY OLD [40+ ms Q WAVE IN V1-V4] Compared to ECG 12/19/2021 21:12:58 Sinus bradycardia no longer present Short MO interval no longer present Myocardial infarct finding still present Electronically Signed On 04-03-2022 11:22:23 CDT by Erin Gonzalez M.D. [email or web address]
[2022-04-03 06:22] LABS: Basophils % 0.3 %; Eosinophils # 0.2 10^3/uL (0.0-0.8); Eosinophils % 2.2 %; Hematocrit 37.1 % (37.0-47.0); Lymphocytes # 1.5 10^3/uL (0.8-4.8); Lymphocytes % 22.1 %; Mean Corpuscular HGB Conc 32.3 g/dL (30.0-36.0); Mean Corpuscular Hemoglobin 30.6 pg (28.0-34.0); Mean Corpuscular Volume 94.6 fl (81-99); Mean Platelet Volume 8.5 fL (7.4-10.4); Monocytes # 0.7 10^3/uL (0.2-0.9); Monocytes % 10.6 %; Neutrophils # 4.33 10^3/uL (1.8-7.7); Neutrophils % 64.5 %; Nucleated Red Blood Cells % 0 %; Platelet Count 226 10^3/cmm (130-400); Red Blood Count 3.92 10^6/uL (4.1-5.3); Red Cell Distribution Width 14.6 % (12.1-15.1); White Blood Count 6.7 10^3/uL (4.0-10.0)
[2022-04-03] MEDS: nitroglycerin 1 gm/inch oint Pkt 0.5 INCH TOPICAL ×2 (06:28→21:10)
[2022-04-03 06:36] LABS: INR 0.91 (0.8-1.2)
[2022-04-03 06:37] LABS: Partial Thromboplastin Time 27.1 SECONDS (23.9-36.7)
[2022-04-03 06:48] LABS: Alanine Aminotransferase 20 U/L (0-33); Alkaline Phosphatase 61 IU/L (35-105); Aspartate Amino Transferase 16 U/L (0-32); Blood Urea Nitrogen 18 mg/dL (8-23); Calcium 9.6 mg/dL (8.5-10.5); Carbon Dioxide 25 mmol/L (22-29); Chloride 104 mmol/L (98-107); Creatine Phosphokinase 107 U/L (26-192); Globulin 2.4 g/dL (1.3-4.6); Glucose 123 mg/dL (65-115); Osmolality Calculated 295 mOsm/kg (285-295); Sodium 141 mmol/L (136-145); Total Bilirubin 0.2 mg/dL (0.15-1.2); Total Protein 6.4 g/dL (6.6-8.7)
[2022-04-03 06:49] LABS: Troponin(5th) Baseline 8 ng/L (0-10)
--- NOTE | 2022-04-03 06:55 | W.ED.CHESTPA ---
HPI - Chest Pain General: Chief Complaint: Chest Pain Stated Complaint: CHEST PAIN Time Seen by Provider: 04/03/22 05:58 Source: patient Mode of arrival: ambulatory History of Present Illness: 76-year-old female history of diabetes mellitus presents emergency room with complaint of chest pain. And seen earlier this year she was hospitalized with a similar presentation her troponins were negative at that time she was discharged home to follow-up with cardiology for possible stress testing. Years I can tell in her old records that she did not ever see cardiology after that hospitalization. She states she is having chest pain again intermittently began yesterday at around 130 she took a nitro with relief this morning began again while at rest EMS gave her 2 nitros in route and she had relief of pain. While taking her history of he had more chest pain and she was given topical nitro which has relieved her pain. She does report about 10 years ago she had an angiogram which as best she can recall was normal. Pain begins while at rest and is relieved by nitro and is accompanied by some radiation to the arm and some shortness of breath she describes as a squeezing sensation radiating into her back some of it is in the epigastric area radiating around to the flanks as well but states it goes up into her chest. MD complaint: chest pain Onset (ago): day(s) Timing of current episode: episodic Prior episodes: Yes Onset: during rest Pain location: left chest Pain radiation: left arm Severity: moderate Quality: tightness, aching and heaviness Relieving factors: nitroglycerin Exacerbating factors: nothing Associated symptoms: Deny abdominal pain, diaphoresis, dyspnea, fever(s), leg edema, nausea, palpitations, sense of impending doom, syncope or vomiting Review of Systems Const: Denies: fever(s), chills, fatigue, malaise or diaphoresis Card: Denies: palpitations or syncope Resp: Denies: dyspnea GI: Denies: abdominal pain, nausea or vomiting PFSH ED PFSH: Medical History Abnormal EKG Anxiety Arteriosclerotic heart disease (ASHD) Back pain with history of spinal surgery Bilateral bunions with callous formation; has had surgery for hammer toes Bilateral knee pain Chest pain Chronic pain syndrome Chronic thoracic spine pain Dyslipidemia Essential (primary) hypertension Generalized anxiety disorder Gout Hx of fracture of left hip Hyperlipidemia Hypertension IBS (irritable bowel syndrome) Insomnia, unspecified Lumbar facet joint pain Narrowing of both carotid arteries 16-49% bilateral 06/10/18; carotid duplex Neuropathy Parapelvic renal cyst long standing, well defined left parapelvic cysts on previous CT. No concern regarding cyst. Paresis of right lower extremity Reports this is secondary to spinal injury during back surgery Pure hypercholesterolemia, unspecified Slow transit constipation Type 2 diabetes mellitus without complications Urinary incontinence Urolithiasis recurrent with multiple treatments over the years UTI (urinary tract infection) Vitamin D deficiency Surgical History History of ankle surgery History of back surgery 9 total per patient History of tonsillectomy and adenoidectomy Hx of arthroscopy of shoulder (~09/2018) left Hx of cataract extraction Hx of cervical discectomy (~2015) 4-5-6 Hx of cholecystectomy Hx of colonoscopy Hx of foot surgery right Hx of hysterectomy Hx of lithotripsy Hx of total knee replacement bilateral Hx of tubal ligation Family History Family/Other Dementia CAD (coronary artery disease) Diabetes Denies family history of Clotting disorder Hyperlipidemia Psychiatric illness Chronic kidney disease (CKD) Suicide Anesthesia complication Bleeding disorder Family history of premature coronary artery disease Lung disease Cancer Hypertension Stroke Social History Smoking and tobacco status: never smoked Second hand smoke exposure: Yes Alcohol intake: current Lives independently: Yes Household members: none Housing: House Marital status: / Current occupational status: disabled History of recent travel: No Current gender identity: Female Physical Exam Const: COMMON NORMALS: no acute distress GENERAL APPEARANCE: cooperative and comfortable ORIENTATION/CONSCIOUSNESS: Yes awake, Yes oriented to person, Yes oriented to place and Yes oriented to time HENMT: COMMON NORMALS: normocephalic, atraumatic, hearing grossly normal bilaterally, external ears normal, EAC's normal, TM's normal bilaterally, Normal nasal mucous membranes and turbinates present, moist oral mucous membranes and oropharynx normal HEAD & SCALP: normocephalic and atraumatic NOSE: Normal nasal mucous membranes and turbinates present EXTERNAL EAR: Yes external ears normal EXTERNAL AUDITORY CANAL: EAC's normal TYMPANIC MEMBRANE: TM's normal bilaterally Eye: COMMON NORMALS: Equal, round and reactive pupils present, EOMs intact bilaterally, conjunctivae normal and no scleral icterus CONJUNCTIVA: Yes conjunctivae normal PUPIL: Yes Equal, round and reactive pupils present Neck/C-Spine: COMMON NORMALS: full ROM, no lymphadenopathy, supple and no JVD Lymph: LYMPHATIC: no lymphadenopathy noted and no lymphedema noted Resp: COMMON NORMALS: normal respiratory effort, No retractions, No use of accessory muscles and clear to auscultation bilaterally AUSCULTATION: clear to auscultation bilaterally Cardio: COMMON NORMALS: no JVD, regular rate, regular rhythm and No murmurs present (Cardio) RATE: regular rate RHYTHM: regular rhythm GI: COMMON NORMALS: Soft to palpation and No hepatosplenomegaly present AUSCULTATION: Yes normoactive bowel sounds PALPATION: Yes Soft to palpation, No Tenderness to palpation present (GI), No Guarding due to palpation present (GI) and Yes No hepatosplenomegaly present Extremity: COMMON NORMALS: normal to inspection, capillary refill normal, no clubbing, cyanosis or edema, no calf tenderness and no pedal edema Neuro: SENSORIUM/ORIENTATION: Yes oriented to person, Yes oriented to place and Yes oriented to time Skin: COMMON NORMALS: no rashes or lesions noted GENERAL SKIN EXAM: no rashes or lesions noted Course Vital Signs: Vital signs: Vital Signs Temperature 98.4 F 04/04/22 13:16 Pulse Rate 78 04/04/22 13:16 Respiratory Rate 16 04/04/22 13:16 Blood Pressure 122/73 04/04/22 13:16 Pulse Oximetry 99 04/04/22 13:16 Oxygen Delivery Ok thod 04/04/22 11:42 MDM - Chest Pain Medical Decision Making EKG and labs unremarkable troponins are negative concerning mention 2 episodes of chest pain relieved by nitro discussed with hospitalist given Rocephin for cystitis will admit for further evaluation of her chest pain. Medical Records I reviewed the patient's medical records. Lab Data I reviewed the patient's lab results. : 04/04/22 04:30 04/04/22 04:30 Radiology Impressions Chest X-Ray 04/03/22 06:09 Impression: Atherosclerosis. Laboratory Results WBC 6.7 10^3/uL (4.0-10.0) 04/03/22 06:15 RBC 3.92 10^6/uL (4.1-5.3) L 04/03/22 06:15 Hgb 12.0 g/dL (11.5-15.3) 04/03/22 06:15 Hct 37.1 % (37.0-47.0) 04/03/22 06:15 MCV 94.6 fl (81-99) 04/03/22 06:15 MCH 30.6 pg (28.0-34.0) 04/03/22 06:15 MCHC 32.3 g/dL (30.0-36.0) 04/03/22 06:15 RDW 14.6 % (12.1-15.1) 04/03/22 06:15 Plt Count 226 10^3/cmm (130-400) 04/03/22 06:15 MPV 8.5 fL (7.4-10.4) 04/03/22 06:15 Neut % (Auto) 64.5 % 04/03/22 06:15 Lymph % (Auto) 22.1 % 04/03/22 06:15 Edmonson % (Auto) 10.6 % 04/03/22 06:15 Eos % (Auto) 2.2 % 04/03/22 06:15 Baso % (Auto) 0.3 % 04/03/22 06:15 Neut # (Auto) 4.33 10^3/uL (1.8-7.7) 04/03/22 06:15 Lymph # (Auto) 1.5 10^3/uL (0.8-4.8) 04/03/22 06:15 Edmonson # (Auto) 0.7 10^3/uL (0.2-0.9) 04/03/22 06:15 Eos # (Auto) 0.2 10^3/uL (0.0-0.8) 04/03/22 06:15 Baso # (Auto) 0.0 10^3/uL (0.0-0.1) 04/03/22 06:15 Nucleated RBC % (auto) 0 % 04/03/22 06:15 Nucleated RBCs # 0.0 /100WBC 04/03/22 06:15 PT 12.60 SECONDS (12.1-14.9) 04/03/22 06:15 INR 0.91 (0.8-1.2) 04/03/22 06:15 APTT 27.1 SECONDS (23.9-36.7) 04/03/22 06:15 Sodium 141 mmol/L (136-145) 04/03/22 06:15 Potassium 4.0 mmol/L (3.5-5.1) 04/03/22 06:15 Chloride 104 mmol/L (98-107) 04/03/22 06:15 Carbon Dioxide 25 mmol/L (22-29) 04/03/22 06:15 Anion Gap 16.0 (5-19) 04/03/22 06:15 BUN 18 mg/dL (8-23) 04/03/22 06:15 Creatinine 0.4 mg/dL (0.5-0.9) L 04/03/22 06:15 GFR Calculation Not Reportable 04/03/22 06:15 Glucose 123 mg/dL (65-115) H 04/03/22 06:15 Calculated Osmolality 295 mOsm/kg (285-295) 04/03/22 06:15 Calcium 9.6 mg/dL (8.5-10.5) 04/03/22 06:15 Total Bilirubin 0.2 mg/dL (0.15-1.2) 04/03/22 06:15 AST 16 U/L (0-32) 04/03/22 06:15 ALT 20 U/L (0-33) 04/03/22 06:15 Alkaline Phosphatase 61 IU/L (35-105) 04/03/22 06:15 Creatine Kinase 107 U/L (26-192) 04/03/22 06:15 Troponin T Baseline 8 ng/L (0-10) 04/03/22 06:15 Total Protein 6.4 g/dL (6.6-8.7) L 04/03/22 06:15 Albumin 4.0 g/dL (3.5-5.2) 04/03/22 06:15 Globulin 2.4 g/dL (1.3-4.6) 04/03/22 06:15 TSH 2.42 uIU/mL (0.27-4.20) 04/03/22 06:15 Urine Color Yellow (Yellow) 04/03/22 06:32 Urine Appearance Cloudy (CLEAR) 04/03/22 06:32 Urine pH 8 (5-7) H 04/03/22 06:32 Ur Specific Leighton 1.010 (1.005-1.030) 04/03/22 06:32 Urine Protein Neg (Negative) 04/03/22 06:32 Urine Glucose (UA) Norm (Normal) 04/03/22 06:32 Urine Ketones Negative (Negative) 04/03/22 06:32 Urine Blood Trace (Negative) H 04/03/22 06:32 Urine Nitrate Negative (Negative) 04/03/22 06:32 Urine Bilirubin Neg (Negative) 04/03/22 06:32 Prot Sulfosalicylic Acd Positive (Negative) 04/03/22 06:32 Urine Urobilinogen Norm mg/dL (Negative) 04/03/22 06:32 Ur Leukocyte Esterase 2+ (Negative) H 04/03/22 06:32 Urine RBC 0-4 /hpf (0-2) H 04/03/22 06:32 Urine WBC Too numerous to cnt /hpf (0-5) H 04/03/22 06:32 Ur Squamous Epith Cells 0-4 /hpf (0-5) H 04/03/22 06:32 Amorphous Sediment Not Reportable 04/03/22 06:32 Urine Bacteria 3+ /hpf (NONE) H 04/03/22 06:32 Discharge Plan Discharge Patient Disposition: Admitted As Inpatient Admit Provider: Que Kenny Clinical Impression: Chest pain, Type 2 diabetes mellitus, Benign essential HTN, Cystitis Condition: Stable Discharge Diet: Diabetic Coding Level of Care Code ED Director Of Hospitality for Vineet Munson
--- NOTE | 2022-04-03 07:16 | PC.NURSE ---
Shift change report received from Ben. Pt appears to be resting comfortably, visitor at bedside. Pt denies current chest pain, does report lightheadedness. VS WNL at this time. Skin pink/warm/dry. Lung sounds clear. Adjusted HOB for comfort, call light within reach and instructed on use. Lights turned off per pt request. Update given on plan of care. Pt denies further needs at this time.
--- NOTE | 2022-04-03 07:32 | PC.PHAR ---
pt states she takes care of her own medications-pt states she is no longer taking lexapro 10mg daily ext med history shows last filled 03/06/22 90d/s pt states she stop taking 2 months ago states the pharmacy just filled by accident-ext med history shows metformin 500mg take 2 tabs (1000mg) po bid filled on 03/11/22 85d/s pt states she just takes 1 tab (500mg) bid-notes are made in the pharmacy comments
[2022-04-03 07:40] LABS: Glucose Urine UA Norm (Normal); Ketones Urine Negative (Negative); Protein Urine Neg (Negative); Urine Appearance Cloudy (CLEAR); Urine Color Yellow (Yellow); pH Urine 8 (5-7)
[2022-04-03 07:41] LABS: Add Urine Culture? Yes; Add Urine Microscopic? YES; Bacteria Urine 3+ /hpf; Bilirubin Urine Neg (Negative); Blood Urine Trace (Negative); Leukocyte Esterase Urine 2+ (Negative); Nitrate Urine Negative (Negative); RBC Urine 0-4 /hpf (0-2); Squamous Epithelial Cell Urine 0-4 /hpf (0-5); Sulfosalicylic Acid Urine Positive (Negative); Urobilinogen Urine Norm (Negative); WBC Urine TOO NUMEROUS TO CNT /hpf (0-5)
--- NOTE | 2022-04-03 08:17 | ECG_ITS ---
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 Measurements Intervals [place] Rate: 67 P: 161 TN: 153 QRS: -28 QRSD: 85 T: 99 QT: 400 QTc: 425 Interpretive Statements SINUS RHYTHM ANTEROSEPTAL MYOCARDIAL INFARCTION , OF INDETERMINATE AGE [40+ ms Q WAVE IN V1-V4] Compared to ECG 04/03/2022 06:11:27 No significant changes Electronically Signed On 04-03-2022 12:50:59 CDT by Erin Gonzalez M.D. [id number]
[2022-04-03 09:03] LABS: Troponin 5 2HR 8.29 ng/L (0-10)
[2022-04-03 09:28] LABS: Glucose Point of Care 127 mg/dL (70-110)
[2022-04-03 09:30] LABS: Troponin 5 2HR Delta 0.29 ABS# (0-10)
[2022-04-03] MEDS: HYDROcodone-acetaminophen 10-325 mg Tablet 1 TAB PO ×4 (09:51→23:19)
--- NOTE | 2022-04-03 10:07 | PC.NURSE ---
Pain medications given for chronic pain, pt continues to deny current chest pain.
--- NOTE | 2022-04-03 11:00 | PM.HP ---
Providers/Chief Complaint Admitting Physician: Que Kenny MD Primary Care Provider: Elin Cerrato APN Chief Complaint: CHEST PAIN History of Present Illness Melissa Estes is a 76 year old female who presents to the emergency department with complaints of chest discomfort. She reports she first had chest discomfort, around 1 PM yesterday. She reported it was fairly severe, and she took a sublingual nitroglycerin for this. It started in her right mid back and seem to radiate into her central chest. Quality was difficult to describe. Nitroglycerin alleviated the discomfort. She reports she felt some diaphoresis following this. She then did okay for most of the day but woke up at night around 3:30 AM with recurrence of this chest discomfort. She ended up taking 2 nitroglycerin at home with some help, 2 nitroglycerin in the ambulance, and ultimately got a nitroglycerin patch placed in the ER with alleviation of discomfort. She has felt occasional dizziness. She has had no recurrence of diaphoresis. She is had no nausea or vomiting. She denies being ill lately, her last illness being COVID in December. She was admitted to the hospital in November, with chest discomfort and was ruled out for coronary syndrome at that time. She was supposed to have follow-up with cardiology with possible stress test but this did not occur. She reports she has not had a history of coronary disease in the past, and did have an angiogram perhaps 20 years ago showing nonobstructive coronary disease according to cardiology records. She had a nuclear stress test in 2013 demonstrating no concerns. She does have history of some plaquing in her carotid arteries, per ultrasound exam in 2019. An echocardiogram was performed in November and at that time there were no gross abnormalities. Trace mitral regurgitation was noted. Review of Systems General: Reports: 10 or more systems reviewed and unremarkable except in HPI and below Const: Denies: fever(s) Eyes: Denies: change in vision ENMT: Denies: throat pain Card: Reports: chest pain and lightheadedness; Denies: palpitations Resp: Denies: dyspnea GI: Denies: abdominal pain : Denies: flank pain Musc: Reports: neck pain and back pain Skin/Breast: Denies: rash Neuro: Denies: headache(s) Psych: Denies: anxiety or depression Endo: Denies: polyuria Jacques/Lymph: Denies: easy bruising All/Imm: Denies: urticaria Medications/Allergies Home Medications Medication Instructions Recorded Confirmed Last Taken Type magnesium oxide 400 mg PO BID #60 tabs 10/05/19 04/03/22 12/19/21 Rx LEG CRAMPS #1 ea 10/11/19 04/03/22 Unknown History blood sugar diagnostic (OneTouch #50 ea 10/27/19 04/03/22 Unknown Rx Verio test strips) Diabetic Shoes #1 ea 10/28/20 04/03/22 Unknown Rx diabetic shoes #1 ea 10/28/20 04/03/22 Unknown Rx losartan 50 mg tablet 50 mg PO BID 06/30/21 04/03/22 12/19/21 History hydrochlorothiazide 50 mg tablet 50 mg PO QAM 12/19/21 04/03/22 12/19/21 History lactulose 10 gram/15 mL oral 30 ml PO DAILY PRN Constipation 12/19/21 04/03/22 12/19/21 History solution nortriptyline 10 mg capsule 40 mg PO BEDTIME 12/19/21 04/03/22 12/18/21 History oxybutynin chloride 15 mg 30 mg PO QAM 12/19/21 04/03/22 12/19/21 History tablet,extended release 24 hr potassium chloride 20 mEq 20 meq PO BID 12/19/21 04/03/22 12/19/21 History tablet,extended release(part/cryst) tizanidine 4 mg tablet 4 mg PO TID PRN Muscle Spasm 12/19/21 04/03/22 12/19/21 History carvedilol 3.125 mg tablet 3.125 mg PO BID 30 days #60 tabs 12/20/21 04/03/22 12/19/21 Rx nitroglycerin 0.4 mg sublingual 0.4 mg sublingual Q5M PRN chest 12/20/21 04/03/22 04/03/22 Rx tablet (Nitrostat) pain 30 days #30 tabs allopurinol 300 mg tablet 300 mg PO QAM 04/03/22 04/03/22 Unknown History aspirin 81 mg tablet,delayed 81 mg PO QAM 04/03/22 04/03/22 Unknown History release atorvastatin 20 mg tablet (Lipitor) 20 mg PO BEDTIME 04/03/22 04/03/22 Unknown History cyanocobalamin (vitamin B-12) 1,000 mcg PO BID 04/03/22 04/03/22 Unknown History 1,000 mcg tablet (Vitamin B-12) hydrocodone 10 mg-acetaminophen 1 tab PO Q4H PRN Pain 04/03/22 04/03/22 Unknown History 325 mg tablet metformin 500 mg tablet 500 mg PO BID 04/03/22 04/03/22 Unknown History multivit with 1 tab PO DAILY 04/03/22 04/03/22 Unknown History rsketxvx-tros-GK-lutein 8 mg iron-400 mcg-300 mcg tablet (Centrum Silver Women) zinc 50 mg tablet 50 mg PO DAILY 04/03/22 04/03/22 Unknown History Allergies Allergy/AdvReac Type Severity Reaction Status Date / Time carbamazepine [From Tegretol] Allergy Unknown Unknown Verified 04/03/22 07:24 gabapentin [From Neurontin] Allergy Unknown Unknown Verified 04/03/22 07:24 ketorolac [From Toradol] Allergy Unknown Unknown Verified 04/03/22 07:24 liraglutide [From Victoza] Allergy Unknown Unknown Verified 04/03/22 07:24 metoprolol [From Toprol XL] Allergy Unknown Unknown Verified 04/03/22 07:24 nortriptyline Allergy Unknown Unknown Verified 04/03/22 07:24 oxcarbazepine Allergy Unknown Unknown Verified 04/03/22 07:24 [From Trileptal] oxycodone Allergy Unknown Unknown Verified 04/03/22 07:24 topiramate [From Topamax] Allergy Unknown Unknown Verified 04/03/22 07:24 valdecoxib [From Bextra] Allergy Unknown Unknown Verified 04/03/22 07:24 venlafaxine [From Effexor] Allergy Unknown Unknown Verified 04/03/22 07:24 morphine Allergy Unknown Verified 04/03/22 07:24 pregabalin [From Lyrica] Allergy ADR/ALGY-Pa Verified 04/03/22 07:25 lpitations PFSH Acute PFSH: Medical History (Updated 04/03/22 @ 11:13 by Que Kenny MD) Anxiety Arteriosclerotic heart disease (ASHD) Bilateral bunions with callous formation; has had surgery for hammer toes Bilateral knee pain Chronic pain syndrome Chronic thoracic spine pain Essential (primary) hypertension Generalized anxiety disorder Gout Hx of fracture of left hip Hyperlipidemia Hypertension IBS (irritable bowel syndrome) Insomnia, unspecified Lumbar facet joint pain Narrowing of both carotid arteries 16-49% bilateral 06/10/18; carotid duplex Neuropathy Parapelvic renal cyst long standing, well defined left parapelvic cysts on previous CT. No concern regarding cyst. Paresis of right lower extremity Reports this is secondary to spinal injury during back surgery Pure hypercholesterolemia, unspecified Slow transit constipation Type 2 diabetes mellitus without complications Urinary incontinence Urolithiasis recurrent with multiple treatments over the years Vitamin D deficiency Surgical History History of ankle surgery History of back surgery 9 total per patient History of tonsillectomy and adenoidectomy Hx of arthroscopy of shoulder (~09/2018) left Hx of cataract extraction Hx of cervical discectomy (~2015) 4-5-6 Hx of cholecystectomy Hx of colonoscopy Hx of foot surgery right Hx of hysterectomy Hx of lithotripsy Hx of total knee replacement bilateral Hx of tubal ligation Family History Family/Other Dementia CAD (coronary artery disease) Diabetes Denies family history of Clotting disorder Hyperlipidemia Psychiatric illness Chronic kidney disease (CKD) Suicide Anesthesia complication Bleeding disorder Family history of premature coronary artery disease Lung disease Cancer Hypertension Stroke Social History Smoking and tobacco status: never smoked Second hand smoke exposure: Yes Alcohol intake: current Lives independently: Yes Household members: none Housing: House Marital status: / Current occupational status: disabled History of recent travel: No Current gender identity: Female Vitals/I&O/Wt Last Vital Signs Temp 98.9 F 04/03/22 05:48 Pulse 77 04/03/22 10:31 Resp 16 04/03/22 10:00 BP 156/85 04/03/22 10:31 Pulse Ox 96 04/03/22 10:31 O2 Del Method 04/03/22 10:31 Weight last 48 hrs Weight 64.864 kg Physical Exam Narrative: General exam is a conversive white female in no apparent distress denying chest discomfort currently. HEENT: Atraumatic and normocephalic. Pupils equally round. Oropharynx clear. Neck is supple no lymphadenopathy or thyromegaly Cardiovascular regular rate and rhythm without murmur. No S3 or S4 Lungs clear no wheezing or crackles. Abdomen is soft nontender positive bowel sounds. No obvious organomegaly. Back multiple scars from orthopedic surgeries are noted. exams deferred Extremities no cyanosis clubbing or edema, cap refill brisk. Neuro: Diminished strength right lower extremity. Skin no rash Data : 04/03/22 06:15 04/03/22 06:15 Other Labs: EKG demonstrates normal sinus rhythm, left axis deviation, Q waves noted V1 through 3. This appears to be an old change. Chest x-ray shows some atherosclerotic disease. No infiltrate. LFTs, calcium, troponins all normal. TSH has been ordered. Urinalysis shows too numerous to count white blood cells, 3+ bacteria A&P Assessment and plan (1) Chest pain: Patient has had 2 separate episodes of chest discomfort. So far her troponins are negative. Previous echocardiogram in November did not show any significant wall motion abnormalities. Continue to trend troponins Add aspirin GI prophylaxis Continue Nitropaste Continue statin Continue beta-valery Cardiology consultation Check TSH At this point will not fully anticoagulate unless chest discomfort recurs, or unless cardiology prefers. Status: Acute (2) UTI (urinary tract infection): Initiate Rocephin Urine culture Status: Acute (3) Type 2 diabetes mellitus without complications: Consistent carb diet Sliding scale insulin Status: Acute Qualifiers: Diabetes mellitus skilled nursing insulin use: without termite exterminator use Qualified Code(s): E11.9 - Type 2 diabetes mellitus without complications (4) Essential (primary) hypertension: Continue home medications Status: Acute Plan Multiple other medical problems as outlined in past medical history Full code Lovenox for DVT prophylaxis Attestations Medical Necessity Statement*: Will need less than 2 midnight stay for evaluation and treatment of chest discomfort Coding Level of Care Code Acute Life Skills Educator for [facility] Diagnoses Chest pain R07.9 UTI (urinary tract infection) N39.0 Type 2 diabetes mellitus without complications E11.9 Diabetes mellitus termite exterminator insulin use: without termite exterminator use Essential (primary) hypertension I10
[2022-04-03] MEDS: cefTRIAXone 1,000 MG in sodium chloride 0.9% (plus) 50 ML 100 MG IV (11:20)
[2022-04-03 11:51] LABS: Thyroid Stimulating Hormone 2.42 uIU/mL (0.27-4.20)
[2022-04-03] MEDS: enoxaparin 40 mg/0.4 mL Syringe SUBCUT (12:08)
--- NOTE | 2022-04-03 12:11 | PC.NURSE ---
Entered room to administer medications. Pt c/o headache and requesting nitro patch to be removed. Previous nitro paste removed, New nitro paste held at this time.
--- NOTE | 2022-04-03 12:14 | ECG_ITS ---
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 Measurements Intervals [place] Rate: 60 P: 70 [place]: 153 QRS: 1 QRSD: 85 T: 43 QT: 414 QTc: 416 Interpretive Statements SINUS RHYTHM ANTEROSEPTAL MYOCARDIAL INFARCTION , OF INDETERMINATE AGE [40+ ms Q WAVE IN V1-V4] Compared to ECG 04/03/2022 08:17:31 No significant changes Electronically Signed On 04-03-2022 12:50:00 CDT by Erin Gonzalez M.D. [id number]
--- NOTE | 2022-04-03 12:35 | PC.NURSE ---
Report called to Nelli on med surg floor. Per Nelli, room is not clean yet and will call ED when ready. Denies any questions at time of report
--- NOTE | 2022-04-03 13:20 | P.CONIM_ITS ---
Providers/Reason For Consult Consulting Physician/Specialty*: ANTONIA Lopez MD/cardiology Reason for Consult*: Patient with increasing episodes of chest pains Requesting Physician: Dr. Que Kenny Attending Physician: Que Kenny MD Primary Care Provider: Elin Cerrato APN History of Present Illness History of Present Illness Melissa Estes is a 76 year old female with a history of hypertension, type 2 diabetes, dyslipidemia is presenting with complaints of recurrent episodes of prolonged chest pains. Patient had an episode of chest pain yesterday around 1:30 in the afternoon. The pain was 8/10 in intensity. She described as a pressure-like/squeezing type of pain in the upper substernal area. It is rad iating across the chest. She may have some associated shortness of breath. No nausea or vomiting. No sweating. No other associated symptoms or radiation of pain. She took 1 sublingual nitro which relieved the pain gradually. The pain meter lasted for 10 to 15 minutes. Early this morning around 430, she woke up with chest pain. This time the pain started in the back between the shoulder blades and it radiated to the right side of the chest anteriorly and then radiated to the left side of the chest. This time the pain was more severe, 9 out of 10 in intensity. She had associated shortness of breath. While waiting for the ambulance she took 1 sublingual nitro which gave her some relief of pain. In the ambulance, on the way to the hospital, she was given 2 more sublingual nitro. Altogether the pain might have lasted for half an hour to an hour. Currently at the time of my examination, patient is pain-free. So far she has no enzyme elevation. No EKG changes. She had more or less similar symptoms more than 15 years ago -at that time, she had an extensive cardiac work-up including cardiac catheterization. The angiogram was essentially unremarkable-reported as mild disease. Patient has a history of extensive spine surgeries. According to her, altogether, she might have had 88 surgical interventions. She never had any cardiac complications with any of the surgeries most recently, couple of months ago she had a repeat cervical spine surgery, was uncomplicated. She has no significant family history for coronary artery disease. In November of this year, she was admitted to hospital with chest pain. Myocardial infarction was ruled out. She had an echocardiogram which was unremarkable. No significant EKG changes. Review of Systems Narrative: CONSTITUTIONAL: No fever or chills. EYES: No blurring of vision or other visual disturbances lately. ENT: No hoarseness of voice, auditory disturbances or sore throat. CARDIOVASCULAR: As mentioned above. RESPIRATORY: No significant cough. GASTROINTESTINAL: No hematemesis or melena. GENITOURINARY: No dysuria or hematuria. INTEGUMENTARY: No skin rashes or history of skin cancer. NEURO: Loss of sensation in the right leg-following spinal surgery PSYCHIATRIC: No history of psychosis or major depression. HEMATOLOGIC: No bleeding disorders or significant anemia. ENDOCRINE: History of diabetes MUSCULOSKELETAL: Has arthritis involving the hips and knees; extensive spine surgeries ALLERGY/IMMUNOLOGY: As mentioned above. Medications/Allergies Home Medications Medication Instructions Recorded Confirmed Last Taken Type magnesium oxide 400 mg PO BID #60 tabs 10/05/19 04/03/22 12/19/21 Rx LEG CRAMPS #1 ea 10/11/19 04/03/22 Unknown History blood sugar diagnostic (OneTouch #50 ea 10/27/19 04/03/22 Unknown Rx Verio test strips) Diabetic Shoes #1 ea 10/28/20 04/03/22 Unknown Rx diabetic shoes #1 ea 10/28/20 04/03/22 Unknown Rx losartan 50 mg tablet 50 mg PO BID 06/30/21 04/03/22 12/19/21 History hydrochlorothiazide 50 mg tablet 50 mg PO QAM 12/19/21 04/03/22 12/19/21 History lactulose 10 gram/15 mL oral 30 ml PO DAILY PRN Constipation 12/19/21 04/03/22 12/19/21 History solution nortriptyline 10 mg capsule 40 mg PO BEDTIME 12/19/21 04/03/22 12/18/21 History oxybutynin chloride 15 mg 30 mg PO QAM 12/19/21 04/03/22 12/19/21 History tablet,extended release 24 hr potassium chloride 20 mEq 20 meq PO BID 12/19/21 04/03/22 12/19/21 History tablet,extended release(part/cryst) tizanidine 4 mg tablet 4 mg PO TID PRN Muscle Spasm 12/19/21 04/03/22 12/19/21 History carvedilol 3.125 mg tablet 3.125 mg PO BID 30 days #60 tabs 12/20/21 04/03/22 12/19/21 Rx nitroglycerin 0.4 mg sublingual 0.4 mg sublingual Q5M PRN chest 12/20/21 04/03/22 04/03/22 Rx tablet (Nitrostat) pain 30 days #30 tabs allopurinol 300 mg tablet 300 mg PO QAM 04/03/22 04/03/22 Unknown History aspirin 81 mg tablet,delayed 81 mg PO QAM 04/03/22 04/03/22 Unknown History release atorvastatin 20 mg tablet (Lipitor) 20 mg PO BEDTIME 04/03/22 04/03/22 Unknown History cyanocobalamin (vitamin B-12) 1,000 mcg PO BID 04/03/22 04/03/22 Unknown History 1,000 mcg tablet (Vitamin B-12) hydrocodone 10 mg-acetaminophen 1 tab PO Q4H PRN Pain 04/03/22 04/03/22 Unknown History 325 mg tablet metformin 500 mg tablet 500 mg PO BID 04/03/22 04/03/22 Unknown History multivit with 1 tab PO DAILY 04/03/22 04/03/22 Unknown History vunrmwrc-vzym-GT-lutein 8 mg iron-400 mcg-300 mcg tablet (Centrum Silver Women) zinc 50 mg tablet 50 mg PO DAILY 04/03/22 04/03/22 Unknown History Allergies Allergy/AdvReac Type Severity Reaction Status Date / Time carbamazepine [From Tegretol] Allergy Unknown Unknown Verified 04/03/22 07:24 gabapentin [From Neurontin] Allergy Unknown Unknown Verified 04/03/22 07:24 ketorolac [From Toradol] Allergy Unknown Unknown Verified 04/03/22 07:24 liraglutide [From Victoza] Allergy Unknown Unknown Verified 04/03/22 07:24 metoprolol [From Toprol XL] Allergy Unknown Unknown Verified 04/03/22 07:24 nortriptyline Allergy Unknown Unknown Verified 04/03/22 07:24 oxcarbazepine Allergy Unknown Unknown Verified 04/03/22 07:24 [From Trileptal] oxycodone Allergy Unknown Unknown Verified 04/03/22 07:24 topiramate [From Topamax] Allergy Unknown Unknown Verified 04/03/22 07:24 valdecoxib [From Bextra] Allergy Unknown Unknown Verified 04/03/22 07:24 venlafaxine [From Effexor] Allergy Unknown Unknown Verified 04/03/22 07:24 morphine Allergy Unknown Verified 04/03/22 07:24 pregabalin [From Lyrica] Allergy ADR/ALGY-Pa Verified 04/03/22 07:25 lpitations Current Medications Generic Name Dose Route Start Last Admin Trade Name Freq PRN Reason Stop Dose Admin Enoxaparin Sodium 40 mg 04/03/22 11:30 04/03/22 12:08 Enoxaparin 40 Mg/0.4 Ml Syringe SUBCUT 40 mg Q24H REBEL Administration Ceftriaxone Sodium 1,000 mg/ 50 mls @ 100 mls/hr 04/03/22 11:00 04/03/22 12:03 Sodium Chloride IV Infused Q24H REBEL Infusion Protocol PFSH Acute PFSH: Medical History Anxiety Arteriosclerotic heart disease (ASHD) Bilateral bunions with callous formation; has had surgery for hammer toes Bilateral knee pain Chronic pain syndrome Chronic thoracic spine pain Essential (primary) hypertension Generalized anxiety disorder Gout Hx of fracture of left hip Hyperlipidemia Hypertension IBS (irritable bowel syndrome) Insomnia, unspecified Lumbar facet joint pain Narrowing of both carotid arteries 16-49% bilateral 06/10/18; carotid duplex Neuropathy Parapelvic renal cyst long standing, well defined left parapelvic cysts on previous CT. No concern regarding cyst. Paresis of right lower extremity Reports this is secondary to spinal injury during back surgery Pure hypercholesterolemia, unspecified Slow transit constipation Type 2 diabetes mellitus without complications Urinary incontinence Urolithiasis recurrent with multiple treatments over the years Vitamin D deficiency Surgical History History of ankle surgery History of back surgery 9 total per patient History of tonsillectomy and adenoidectomy Hx of arthroscopy of shoulder (~09/2018) left Hx of cataract extraction Hx of cervical discectomy (~2015) 4-5-6 Hx of cholecystectomy Hx of colonoscopy Hx of foot surgery right Hx of hysterectomy Hx of lithotripsy Hx of total knee replacement bilateral Hx of tubal ligation Family History Family/Other Dementia CAD (coronary artery disease) Diabetes Denies family history of Clotting disorder Hyperlipidemia Psychiatric illness Chronic kidney disease (CKD) Suicide Anesthesia complication Bleeding disorder Family history of premature coronary artery disease Lung disease Cancer Hypertension Stroke Social History Smoking and tobacco status: never smoked Second hand smoke exposure: Yes Alcohol intake: current Lives independently: Yes Household members: none Housing: House Marital status: / Current occupational status: disabled History of recent travel: No Current gender identity: Female Vitals/I&O/Wt Last Vital Signs Temp 98.9 F 04/03/22 05:48 Pulse 73 04/03/22 11:21 Resp 18 04/03/22 11:21 BP 135/80 04/03/22 11:21 Pulse Ox 95 04/03/22 11:21 O2 Del Method 04/03/22 10:31 04/02/22 04/03/22 04/03/22 22:59 06:59 14:59 Intake Total 50 / 50 Balance 50 / 50 Weight last 48 hrs Weight 143 lb Physical Exam Narrative: GENERAL: The patient is alert and oriented times three. Not in any acute distress. HEENT: No significant pallor, icterus or lymphadenopathy.Oral cavity: There are no mucous membrane lesions. The pupils are symmetrical. Fundus examination: Fundus is not visualized NECK: Trachea appears to be central. No masses noted. No JVD or thyromegaly appreciated. RESPIRATORY: Chest is symmetrical. No intercostals muscle retraction or any accessory muscle activation. There is no chest wall tenderness. Breath sounds are heard bilaterally. No rales or rhonchi heard. No evidence of any consolidation. BREASTS: Deferred. HEART: The heart sounds are normal. No S3 or S4. No significant murmurs. No pericardial rub ABDOMEN: No vessel pulsations or distention. No tenderness. No organomegaly appreciated. Bowel sounds are normally heard. : Deferred. RECTAL: Deferred. LYMPHATIC: No lymphadenopathy noted in the neck. EXTREMITIES: No edema or cyanosis. No clubbing. MUSCULOSKELETAL: No acute joint deformities or swelling SKIN: There are no significant rashes or ecchymosis NEUROPSYCHIATRIC: The patient is alert and oriented x3. Appears to be in a good mood. No tremors or rigidity noted. Grossly impaired touch sensation in the right lower extremity Data : 04/03/22 06:15 04/03/22 06:15 Other Labs: Laboratory Last Values WBC 6.7 10^3/uL (4.0-10.0) 04/03/22 06:15 RBC 3.92 10^6/uL (4.1-5.3) L 04/03/22 06:15 Hgb 12.0 g/dL (11.5-15.3) 04/03/22 06:15 Hct 37.1 % (37.0-47.0) 04/03/22 06:15 MCV 94.6 fl (81-99) 04/03/22 06:15 MCH 30.6 pg (28.0-34.0) 04/03/22 06:15 MCHC 32.3 g/dL (30.0-36.0) 04/03/22 06:15 RDW 14.6 % (12.1-15.1) 04/03/22 06:15 Plt Count 226 10^3/cmm (130-400) 04/03/22 06:15 MPV 8.5 fL (7.4-10.4) 04/03/22 06:15 Neut % (Auto) 64.5 % 04/03/22 06:15 Lymph % (Auto) 22.1 % 04/03/22 06:15 [place] % (Auto) 10.6 % 04/03/22 06:15 Eos % (Auto) 2.2 % 04/03/22 06:15 Baso % (Auto) 0.3 % 04/03/22 06:15 Neut # (Auto) 4.33 10^3/uL (1.8-7.7) 04/03/22 06:15 Lymph # (Auto) 1.5 10^3/uL (0.8-4.8) 04/03/22 06:15 [place] # (Auto) 0.7 10^3/uL (0.2-0.9) 04/03/22 06:15 Eos # (Auto) 0.2 10^3/uL (0.0-0.8) 04/03/22 06:15 Baso # (Auto) 0.0 10^3/uL (0.0-0.1) 04/03/22 06:15 Nucleated RBC % (auto) 0 % 04/03/22 06:15 Nucleated RBCs # 0.0 /100WBC 04/03/22 06:15 PT 12.60 SECONDS (12.1-14.9) 04/03/22 06:15 INR 0.91 (0.8-1.2) 04/03/22 06:15 APTT 27.1 SECONDS (23.9-36.7) 04/03/22 06:15 Sodium 141 mmol/L (136-145) 04/03/22 06:15 Potassium 4.0 mmol/L (3.5-5.1) 04/03/22 06:15 Chloride 104 mmol/L (98-107) 04/03/22 06:15 Carbon Dioxide 25 mmol/L (22-29) 04/03/22 06:15 Anion Gap 16.0 (5-19) 04/03/22 06:15 BUN 18 mg/dL (8-23) 04/03/22 06:15 Creatinine 0.4 mg/dL (0.5-0.9) L 04/03/22 06:15 GFR Calculation Not Reportable 04/03/22 06:15 Glucose 123 mg/dL (65-115) H 04/03/22 06:15 POC Glucose 124 mg/dL (70-110) H 04/03/22 17:15 Calculated Osmolality 295 mOsm/kg (285-295) 04/03/22 06:15 Calcium 9.6 mg/dL (8.5-10.5) 04/03/22 06:15 Total Bilirubin 0.2 mg/dL (0.15-1.2) 04/03/22 06:15 AST 16 U/L (0-32) 04/03/22 06:15 ALT 20 U/L (0-33) 04/03/22 06:15 Alkaline Phosphatase 61 IU/L (35-105) 04/03/22 06:15 Creatine Kinase 107 U/L (26-192) 04/03/22 06:15 Troponin T Baseline 8 ng/L (0-10) 04/03/22 06:15 Troponin T 120 Minute 8.29 ng/L (0-10) 04/03/22 08:29 Delta Troponin T 0.29 ABS# (0-10) 04/03/22 08:29 Troponin T Hi Sens 6Hr 7.05 ng/L (0-10) 04/03/22 12:44 Troponin T Hi Sens 6Hr Delta -0.95 ng/L (0-12) L 04/03/22 12:44 Total Protein 6.4 g/dL (6.6-8.7) L 04/03/22 06:15 Albumin 4.0 g/dL (3.5-5.2) 04/03/22 06:15 Globulin 2.4 g/dL (1.3-4.6) 04/03/22 06:15 TSH 2.42 uIU/mL (0.27-4.20) 04/03/22 06:15 Urine Color Yellow (Yellow) 04/03/22 06:32 Urine Appearance Cloudy (CLEAR) 04/03/22 06:32 Urine pH 8 (5-7) H 04/03/22 06:32 Ur Specific [place] 1.010 (1.005-1.030) 04/03/22 06:32 Urine Protein Neg (Negative) 04/03/22 06:32 Urine Glucose (UA) Norm (Normal) 04/03/22 06:32 Urine Ketones Negative (Negative) 04/03/22 06:32 Urine Blood Trace (Negative) H 04/03/22 06:32 Urine Nitrate Negative (Negative) 04/03/22 06:32 Urine Bilirubin Neg (Negative) 04/03/22 06:32 Prot Sulfosalicylic Acd Positive (Negative) 04/03/22 06:32 Urine Urobilinogen Norm mg/dL (Negative) 04/03/22 06:32 Ur Leukocyte Esterase 2+ (Negative) H 04/03/22 06:32 Urine RBC 0-4 /hpf (0-2) H 04/03/22 06:32 Urine WBC Too numerous to cnt /hpf (0-5) H 04/03/22 06:32 Ur Squamous Epith Cells 0-4 /hpf (0-5) H 04/03/22 06:32 Amorphous Sediment Not Reportable 04/03/22 06:32 Urine Bacteria 3+ /hpf (NONE) H 04/03/22 06:32 Echo: My impression: Study done on 12/20/2021 LV systolic function is normal with EF of 55-60% ?Normal diastolic function ?Trace mitral regurgitation ?No gross valvular abnormalities ?No comparison studies are available EKG 1: My Interpretation: Normal sinus rhythm with a heart rate of 60 bpm. Poor R wave progression. QS pattern in lead V2 and V3 suggesting old anteroseptal myocardial infarction. No acute ST-T changes. EKG computer-generated impression: Carotid duplex on 10/16/2019 Bilateral ICA stenosis less than 50%. ?No interval change in stenosis since prior exam. Chest X-Ray 04/03/22 06:09 Impression: Atherosclerosis. A&P Assessment and plan (1) Chest pain: Chest pain may suggest coronary ischemia. She has multiple risk factors for coronary disease. However her EKG has not changed for a long time. She has no evidence of myocardial injury in spite of having prolonged episode of chest pain. The echocardiogram is unremarkable. Her chest pain is somewhat chronic. She seems to be responding to the nitroglycerin. Possibility of coronary spasm/or other smooth muscle spasms causing the pain is a consideration. In view of her extensive spine surgery, and neurological etiology also is a conside ration. She may be treated with nitrates along with other medications. A Myocardial perfusion imaging would be appropriate to further evaluate her symptoms. I may start her on a long-acting nitrate Status: Acute (2) Abnormal EKG: The EKG is a history of old anteroseptal myocardial infarction. For further evaluation of her symptoms, a Myocardial perfusion imaging would be appropriate. Status: Acute (3) Essential (primary) hypertension: Currently the blood pressure seems to be under control. May continue on the current medications. Status: Acute (4) Type 2 diabetes mellitus without complications: The blood sugar seems to be under control. May continue on the current medications. Status: Acute Qualifiers: Diabetes mellitus fdc insulin use: without buttermaker continuous churn use Qualified Code(s): E11.9 - Type 2 diabetes mellitus without complications (5) Dyslipidemia: She is currently on Lipitor. This may be continued. Status: Acute (6) Back pain with history of spinal surgery: Some form of compressive neuropathy causing some of her symptoms is a consideration. May continue on the current management. Status: Acute Plan I may start her on isosorbide mononitrate 30 mg p.o. now and daily. If he continues to remain stable, may be discharged home tomorrow. May be scheduled for a Lexiscan/sestamibi/sestamibi stress test as an outpatient. May continue on the other current medications as it is. Thank you for the opportunity to evaluate this patient and make these recommendations Coding Level of Care Code Acute Administrative Nursing Supervisor for Chg Fwd History Detailed Exam Detailed Medical Decision Making Moderate Complexity Diagnoses Chest pain R07.9 Abnormal EKG R94.31 Essential (primary) hypertension I10 Type 2 diabetes mellitus without complications E11.9 Diabetes mellitus buttermaker continuous churn insulin use: without buttermaker continuous churn use Dyslipidemia E78.5 Back pain with history of spinal surgery M54.9
[2022-04-03 13:42] LABS: Troponin 5 6HR 7.05 ng/L (0-10)
[2022-04-03] MEDS: tizanidine 4 mg Tablet PO ×2 (14:05→23:20)
[2022-04-03 14:14] LABS: Troponin 5 6HR Delta -0.95 ng/L (0-12)
[2022-04-03 17:50] LABS: Glucose Point of Care 124 mg/dL (70-110)
[2022-04-03] MEDS: potassium chloride ER 20 mEq Tablet PO (17:53)
[2022-04-03] MEDS: carvedilol 3.125 mg Tablet PO (17:53)
[2022-04-03] MEDS: losartan 50 mg Tablet PO (17:53)
[2022-04-03 20:52] LABS: Glucose Point of Care 126 mg/dL (70-110)
[2022-04-03] MEDS: nortriptyline 10 mg Capsule 40 MG PO (21:10)
--- NOTE | 2022-04-03 21:30 | PC.NURSE ---
Patient reports worsening headache and removed the nitroglycerin patch.
[2022-04-04] VITALS (7 sets, daily range): BP systolic 107–143; BP diastolic 56–78; PULSE 58–78; RESP 16–17; TEMP 36.4–36.9; O2SAT 97–99
[2022-04-04] MEDS: HYDROcodone-acetaminophen 10-325 mg Tablet 1 TAB PO ×2 (03:51→08:28)
[2022-04-04 05:02] LABS: Basophils % 0.4 %; Eosinophils # 0.2 10^3/uL (0.0-0.8); Eosinophils % 3.8 %; Hematocrit 36.8 % (37.0-47.0); Hemoglobin 11.7 g/dL (11.5-15.3); Lymphocytes # 2.1 10^3/uL (0.8-4.8); Lymphocytes % 40.1 %; Mean Corpuscular HGB Conc 31.8 g/dL (30.0-36.0); Mean Corpuscular Hemoglobin 30.5 pg (28.0-34.0); Mean Corpuscular Volume 96.1 fl (81-99); Mean Platelet Volume 8.7 fL (7.4-10.4); Monocytes # 0.6 10^3/uL (0.2-0.9); Monocytes % 11.9 %; Neutrophils # 2.27 10^3/uL (1.8-7.7); Neutrophils % 43.6 %; Nucleated Red Blood Cells % 0 %; Platelet Count 221 10^3/cmm (130-400); Red Blood Count 3.83 10^6/uL (4.1-5.3); Red Cell Distribution Width 14.7 % (12.1-15.1); White Blood Count 5.2 10^3/uL (4.0-10.0)
[2022-04-04 05:33] LABS: Alanine Aminotransferase 15 U/L (0-33); Albumin Level 3.7 g/dL (3.5-5.2); Alkaline Phosphatase 54 IU/L (35-105); Anion Gap 13.5 (5-19); Aspartate Amino Transferase 14 U/L (0-32); Blood Urea Nitrogen 14 mg/dL (8-23); Calcium 9.2 mg/dL (8.5-10.5); Carbon Dioxide 28 mmol/L (22-29); Chloride 105 mmol/L (98-107); Globulin 2.3 g/dL (1.3-4.6); Glucose 118 mg/dL (65-115); Osmolality Calculated 296 mOsm/kg (285-295); Potassium 4.5 mmol/L (3.5-5.1); Sodium 142 mmol/L (136-145); Total Bilirubin 0.2 mg/dL (0.15-1.2)
[2022-04-04] MEDS: oxybutynin chloride XL 5 MG TABLET 30 MG PO (06:13)
[2022-04-04 06:14] LABS: Glucose Point of Care 104 mg/dL (70-110)
[2022-04-04] MEDS: hydroCHLOROthiazide 25 mg Tablet 50 MG PO (06:14)
[2022-04-04] MEDS: allopurinol 300 mg Tablet PO (06:14)
[2022-04-04] MEDS: pantoprazole DR 40 mg Tablet PO (08:29)
[2022-04-04] MEDS: atorvastatin 40 mg Tablet PO (08:29)
[2022-04-04] MEDS: losartan 50 mg Tablet PO (08:29)
[2022-04-04] MEDS: carvedilol 3.125 mg Tablet PO (08:30)
[2022-04-04] MEDS: potassium chloride ER 20 mEq Tablet PO (08:30)
[2022-04-04] MEDS: aspirin 325 mg EC Tablet PO (08:30)
--- NOTE | 2022-04-04 08:34 | P.PN_ITS ---
Subjective Subjective: Is feeling okay. She had a short episode of chest pain yesterday. Has not had any recurrence since then. Denies any unusual shortness of breath. Telemetry shows normal sinus rhythm. No other specific complaints at this time. Medications: Medication Review Details: Current Medications Acetaminophen (Acetaminophen 325 Mg Tablet) 650 mg PO Q6H PRN PRN Reason: Mild/Mod Pain Or Temp >/= 101 Hydrocodone Bitart/Acetaminophen (Hydrocodone-Acetaminophen 10-325 Mg Tablet) 1 tab PO Q4H PRN PRN Reason: Pain Last Admin: 04/04/22 08:28 Dose: 1 tab Allopurinol (Allopurinol 300 Mg Tablet) 300 mg PO QAM [facility] Last Admin: 04/04/22 06:14 Dose: 300 mg Aspirin (Aspirin 325 Mg Ec Tablet) 325 mg PO DAILY [facility] Last Admin: 04/04/22 08:30 Dose: 325 mg Atorvastatin Calcium (Atorvastatin 40 Mg Tablet) 40 mg PO DAILY [facility] Last Admin: 04/04/22 08:29 Dose: 40 mg Carvedilol (Carvedilol 3.125 Mg Tablet) 3.125 mg PO BID [facility] Last Admin: 04/04/22 08:30 Dose: 3.125 mg Dextrose (Dextrose 50% Syringe 50 Ml) 25 ml IVP ONCE PRN; Protocol PRN Reason: hypoglycemia protocol Dextrose (Dextrose 50% Syringe 50 Ml) 50 ml IVP PRN PRN; Protocol PRN Reason: hypoglycemia protocol Enoxaparin Sodium (Enoxaparin 40 Mg/0.4 Ml Syringe) 40 mg SUBCUT Q24H [facility] Last Admin: 04/03/22 12:08 Dose: 40 mg Glucagon (Glucagon 1 Mg/Ml Inj 1 Ml) 1 mg IM ONCE PRN; Protocol PRN Reason: Adult Acute Hypoglycemia Prot. Hydrochlorothiazide (Hydrochlorothiazide 25 Mg Tablet) 50 mg PO QAM [facility] Last Admin: 04/04/22 06:14 Dose: 50 mg Ceftriaxone Sodium 1,000 mg/ (Sodium Chloride) 50 mls @ 100 mls/hr IV Q24H [facility]; Protocol Last Infusion: 04/03/22 12:03 Dose: Infused Dextrose (D5w) 500 mls @ 100 mls/hr IV ONCE PRN; Protocol PRN Reason: Adult Acute Hypoglycemia Prot Insulin Human Lispro (Insulin Lispro 100 Unit/1 Ml) 0 unit SUBCUT WM&BEDTIME [facility]; Protocol Last Admin: 04/04/22 08:04 Dose: Not Given Losartan Potassium (Losartan 50 Mg Tablet) 50 mg PO BID [facility] Last Admin: 04/04/22 08:29 Dose: 50 mg Nitroglycerin (Nitroglycerin 1 Gm/Inch Oint Pkt) 0.5 inch TOPICAL Q6H [facility] Last Admin: 04/04/22 05:59 Dose: Not Given Nitroglycerin (Nitroglycerin 0.4 Mg Sublingual Tablet) 0.4 mg SUBLINGUAL Q5M PRN PRN Reason: chest pain Nortriptyline HCl (Nortriptyline 10 Mg Capsule) 40 mg PO BEDTIME [facility] Last Admin: 04/03/22 21:10 Dose: 40 mg Ondansetron HCl (Ondansetron 2 Mg/Ml Sdv 2 Ml) 4 mg IVP Q6H PRN PRN Reason: vomiting, or N/V if npo Oxybutynin Chloride (Oxybutynin Chloride Xl 5 Mg Tablet) 30 mg PO QAM [facility] Last Admin: 04/04/22 06:13 Dose: 30 mg Pantoprazole Sodium (Pantoprazole Dr 40 Mg Tablet) 40 mg PO DAILY [facility] Last Admin: 04/04/22 08:29 Dose: 40 mg Potassium Chloride (Potassium Chloride Er 20 Meq Tablet) 20 meq PO BID [facility] Last Admin: 04/04/22 08:30 Dose: 20 meq Tizanidine HCl (Tizanidine 4 Mg Tablet) 4 mg PO TID PRN PRN Reason: Muscle Spasm Last Admin: 04/03/22 23:20 Dose: 4 mg Vitals/I&O/Wt Last Vital Signs Temp 97.5 F L 04/04/22 08:00 Pulse 65 04/04/22 08:00 Resp 17 04/04/22 08:00 BP 107/66 04/04/22 08:29 Pulse Ox 97 04/04/22 08:00 O2 Del Method 04/04/22 03:58 04/03/22 04/04/22 04/04/22 22:59 06:59 14:59 Intake Total 240 / 290 480 / 770 Balance 240 / 290 480 / 770 Weight last 48 hrs Weight 143 lb Physical Exam Narrative: GENERAL: The patient is alert and oriented times three. Not in any acute distress. HEENT: No significant pallor, icterus or lymphadenopathy.Oral cavity: There are no mucous membrane lesions. NECK: Trachea appears to be central. No masses noted. No JVD or thyromegaly appreciated. RESPIRATORY: Chest is symmetrical. No intercostals muscle retraction or any accessory muscle activation. There is no chest wall tenderness. Breath sounds are heard bilaterally. No rales or rhonchi heard. No evidence of any consol idation. BREASTS: Deferred. HEART: The heart sounds are normal. No S3 or S4. No significant murmurs. No pericardial rub ABDOMEN: No vessel pulsations or distention. No tenderness. No organomegaly appreciated. Bowel sounds are normally heard. : Deferred. RECTAL: Deferred. LYMPHATIC: No lymphadenopathy noted in the neck. EXTREMITIES: No edema or cyanosis. No clubbing. MUSCULOSKELETAL: No acute joint deformities or swelling SKIN: There are no significant rashes or ecchymosis NEUROPSYCHIATRIC: The patient is alert and oriented x3. Appears to be in a good mood. No tremors or rigidity noted. Data : 04/04/22 04:30 04/04/22 04:30 Other Labs: Laboratory Last Values WBC 5.2 10^3/uL (4.0-10.0) 04/04/22 04:30 RBC 3.83 10^6/uL (4.1-5.3) L 04/04/22 04:30 Hgb 11.7 g/dL (11.5-15.3) 04/04/22 04:30 Hct 36.8 % (37.0-47.0) L 04/04/22 04:30 MCV 96.1 fl (81-99) 04/04/22 04:30 MCH 30.5 pg (28.0-34.0) 04/04/22 04:30 MCHC 31.8 g/dL (30.0-36.0) 04/04/22 04:30 RDW 14.7 % (12.1-15.1) 04/04/22 04:30 Plt Count 221 10^3/cmm (130-400) 04/04/22 04:30 MPV 8.7 fL (7.4-10.4) 04/04/22 04:30 Neut % (Auto) 43.6 % 04/04/22 04:30 Lymph % (Auto) 40.1 % 04/04/22 04:30 [place] % (Auto) 11.9 % 04/04/22 04:30 Eos % (Auto) 3.8 % 04/04/22 04:30 Baso % (Auto) 0.4 % 04/04/22 04:30 Neut # (Auto) 2.27 10^3/uL (1.8-7.7) 04/04/22 04:30 Lymph # (Auto) 2.1 10^3/uL (0.8-4.8) 04/04/22 04:30 [place] # (Auto) 0.6 10^3/uL (0.2-0.9) 04/04/22 04:30 Eos # (Auto) 0.2 10^3/uL (0.0-0.8) 04/04/22 04:30 Baso # (Auto) 0.0 10^3/uL (0.0-0.1) 04/04/22 04:30 Nucleated RBC % (auto) 0 % 04/04/22 04:30 Nucleated RBCs # 0.0 /100WBC 04/04/22 04:30 PT 12.60 SECONDS (12.1-14.9) 04/03/22 06:15 INR 0.91 (0.8-1.2) 04/03/22 06:15 APTT 27.1 SECONDS (23.9-36.7) 04/03/22 06:15 Sodium 142 mmol/L (136-145) 04/04/22 04:30 Potassium 4.5 mmol/L (3.5-5.1) 04/04/22 04:30 Chloride 105 mmol/L (98-107) 04/04/22 04:30 Carbon Dioxide 28 mmol/L (22-29) 04/04/22 04:30 Anion Gap 13.5 (5-19) 04/04/22 04:30 BUN 14 mg/dL (8-23) 04/04/22 04:30 Creatinine 0.4 mg/dL (0.5-0.9) L 04/04/22 04:30 GFR Calculation Not Reportable 04/04/22 04:30 Glucose 118 mg/dL (65-115) H 04/04/22 04:30 POC Glucose 104 mg/dL (70-110) 04/04/22 06:02 Calculated Osmolality 296 mOsm/kg (285-295) H 04/04/22 04:30 Calcium 9.2 mg/dL (8.5-10.5) 04/04/22 04:30 Total Bilirubin 0.2 mg/dL (0.15-1.2) 04/04/22 04:30 AST 14 U/L (0-32) 04/04/22 04:30 ALT 15 U/L (0-33) 04/04/22 04:30 Alkaline Phosphatase 54 IU/L (35-105) 04/04/22 04:30 Creatine Kinase 107 U/L (26-192) 04/03/22 06:15 Troponin T Baseline 8 ng/L (0-10) 04/03/22 06:15 Troponin T 120 Minute 8.29 ng/L (0-10) 04/03/22 08:29 Delta Troponin T 0.29 ABS# (0-10) 04/03/22 08:29 Troponin T Hi Sens 6Hr 7.05 ng/L (0-10) 04/03/22 12:44 Troponin T Hi Sens 6Hr Delta -0.95 ng/L (0-12) L 04/03/22 12:44 Total Protein 6.0 g/dL (6.6-8.7) L 04/04/22 04:30 Albumin 3.7 g/dL (3.5-5.2) 04/04/22 04:30 Globulin 2.3 g/dL (1.3-4.6) 04/04/22 04:30 TSH 2.42 uIU/mL (0.27-4.20) 04/03/22 06:15 Urine Color Yellow (Yellow) 04/03/22 06:32 Urine Appearance Cloudy (CLEAR) 04/03/22 06:32 Urine pH 8 (5-7) H 04/03/22 06:32 Ur Specific [place] 1.010 (1.005-1.030) 04/03/22 06:32 Urine Protein Neg (Negative) 04/03/22 06:32 Urine Glucose (UA) Norm (Normal) 04/03/22 06:32 Urine Ketones Negative (Negative) 04/03/22 06:32 Urine Blood Trace (Negative) H 04/03/22 06:32 Urine Nitrate Negative (Negative) 04/03/22 06:32 Urine Bilirubin Neg (Negative) 04/03/22 06:32 Prot Sulfosalicylic Acd Positive (Negative) 04/03/22 06:32 Urine Urobilinogen Norm mg/dL (Negative) 04/03/22 06:32 Ur Leukocyte Esterase 2+ (Negative) H 04/03/22 06:32 Urine RBC 0-4 /hpf (0-2) H 04/03/22 06:32 Urine WBC Too numerous to cnt /hpf (0-5) H 04/03/22 06:32 Ur Squamous Epith Cells 0-4 /hpf (0-5) H 04/03/22 06:32 Amorphous Sediment Not Reportable 04/03/22 06:32 Urine Bacteria 3+ /hpf (NONE) H 04/03/22 06:32 A&P Assessment and plan (1) Chest pain: Patient has significant improvement of the symptoms. She may continue on the Nitro-Bid 2.5 mg p.o. twice daily. Status: Acute (2) Abnormal EKG: The EKG is a history of old anteroseptal myocardial infarction. For further noemí luation of her symptoms, a Myocardial perfusion imaging would be appropriate. This may be done as an outpatient Status: Acute (3) Essential (primary) hypertension: Currently the blood pressure seems to be under control. May continue on the current medications. Status: Acute (4) Type 2 diabetes mellitus without complications: The blood sugar seems to be under control. May continue on the current medications. Status: Acute Qualifiers: Diabetes mellitus [employer] insulin use: without assisted use Qualifie d Code(s): E11.9 - Type 2 diabetes mellitus without complications (5) Dyslipidemia: She is currently on Lipitor. This may be continued. Status: Acute (6) Back pain with history of spinal surgery: Some form of compressive neuropathy causing some of her symptoms is a consideration. May continue on the current management. Status: Acute Plan Is a patient continues to remain stable, may be discharged home from a cardiac standpoint. Will schedule for an outpatient Lexiscan/sestamibi/sestamibi stress test. Will be seen by nurse practitioner in 1 week in the office. I may see him in the office in 1 month. Attestations Medical Necessity Statement*: Possible discharge home today Coding Level of Care Code Acute Director Outcomes for Chg Fwd History Expanded Problem Focused Exam Detailed Medical Decision Making Moderate Complexity Diagnoses Chest pain R07.9 Abnormal EKG R94.31 Essential (primary) hypertension I10 Type 2 diabetes mellitus without complications E11.9 Diabetes mellitus [employer] insulin use: without [employer] use Dyslipidemia E78.5 Back pain with history of spinal surgery M54.9
[2022-04-04] MEDS: cefTRIAXone 1,000 MG in sodium chloride 0.9% (plus) 50 ML 100 MG IV (12:07)
[2022-04-04 12:14] LABS: Glucose Point of Care 148 mg/dL (70-110)
--- NOTE | 2022-04-04 12:23 | PM.DCS ---
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 She reports she first had chest discomfort, around 1 PM yesterday.? She reported it was fairly severe, and she took a sublingual nitroglycerin for this.? It started in her right mid back and seem to radiate into her central chest.? Quality was difficult to describe.? Nitroglycerin alleviated the discomfort.? She reports she felt some diaphoresis following this.? She then did okay for most of the day but woke up at night around 3:30 AM with recurrence of this chest discomfort.? She ended up taking 2 nitroglycerin at home with some help, 2 nitroglycerin in the ambulance, and ultimately got a nitroglycerin patch placed in the ER with alleviation of discomfort.? She has felt occasional dizziness.? She has had no recurrence of diaphoresis.? She is had no nausea or vomiting.? She denies being ill lately, her last illness being COVID in December.? She was admitted to the hospital in November, with chest discomfort and was ruled out for coronary syndrome at that time.? She was supposed to have follow-up with cardiology with possible stress test but this did not occur.? She reports she has not had a history of coronary disease in the past, and did have an angiogram perhaps 20 years ago showing nonobstructive coronary disease according to cardiology records.? She had a nuclear stress test in 2013 demonstrating no concerns.? She does have history of some plaquing in her carotid arteries, per ultrasound exam in 2019.? An echocardiogram was performed in November and at that time there were no gross abnormalities.? Trace mitral regurgitation was noted. Hospital Course : Patient was admitted for the management and evaluation of chest pain, as well as UTI.Troponin trend was negative, ekg failed to show any acute ST-T Waves changes recent 2d echo: was unremarkable, she has so far responded to nitro and is being discharged on oral nitro 2.5 mg BID,and possible stress test as outpatient.She was also managed for UTI and was kept on I.V abxs and is being discharged on po levofloxacin.She was continued on aspirin, statin, carvedilol, losratan. Over all she has responded well to above medical management and is being discharged in stable condition to home.She will continue to follow cardiology as outpatient. Physical Exam Resp: COMMON NORMALS: normal respiratory effort, No retractions, No use of accessory muscles and clear to auscultation bilaterally EFFORT & INSPECTION: Yes symmetric chest movement AUSCULTATION: clear to auscultation bilaterally Cardio: COMMON NORMALS: regular rate, regular rhythm, S1 normal heart sound present, S2 normal heart sound present, No gallops present (Cardio), No murmurs present (Cardio), No rub (Cardio) and Peripheral pulses 2+ throughout RATE: regular rate RHYTHM: regular rhythm HEART SOUNDS: S1 normal heart sound present and S2 normal heart sound present PERIPHERAL PULSES: Peripheral pulses 2+ throughout GI: COMMON NORMALS: Normal to inspection, nondistended, normoactive bowel sounds present, Soft to palpation, non-tender, No hepatosplenomegaly present and no masses AUSCULTATION: Yes normoactive bowel sounds PALPATION: Yes Soft to palpation and Yes No hepatosplenomegaly present RECTAL EXAM: deferred Discharge Data Studies Completed and Pending Completed Studies During Hospitalization Category Date Time Status XR chest 1V portable [id number] Stat Exams 04/03/22 06:09 Completed Pending at discharge Category Date Time Status BMP [Basic Metabolic Panel] AM LABS Lab 04/05/22 04:00 Ordered BMP [Basic Metabolic Panel] AM LABS Lab 04/06/22 04:00 Ordered BMP [Basic Metabolic Panel] AM LABS Lab 04/07/22 04:00 Ordered CBC Auto Diff [Complete Blood Count w/Auto] AM LABS Lab 04/05/22 04:00 Ordered CBC Auto Diff [Complete Blood Count w/Auto] AM LABS Lab 04/06/22 04:00 Ordered CBC Auto Diff [Complete Blood Count w/Auto] AM LABS Lab 04/07/22 04:00 Ordered Urine Culture Stat Lab 04/03/22 06:32 Results Radiology Impressions Chest X-Ray 04/03/22 06:09 Impression: Atherosclerosis. Laboratory Results WBC 5.2 10^3/uL (4.0-10.0) 04/04/22 04:30 RBC 3.83 10^6/uL (4.1-5.3) L 04/04/22 04:30 Hgb 11.7 g/dL (11.5-15.3) 04/04/22 04:30 Hct 36.8 % (37.0-47.0) L 04/04/22 04:30 MCV 96.1 fl (81-99) 04/04/22 04:30 MCH 30.5 pg (28.0-34.0) 04/04/22 04:30 MCHC 31.8 g/dL (30.0-36.0) 04/04/22 04:30 RDW 14.7 % (12.1-15.1) 04/04/22 04:30 Plt Count 221 10^3/cmm (130-400) 04/04/22 04:30 MPV 8.7 fL (7.4-10.4) 04/04/22 04:30 Neut % (Auto) 43.6 % 04/04/22 04:30 Lymph % (Auto) 40.1 % 04/04/22 04:30 [place] % (Auto) 11.9 % 04/04/22 04:30 Eos % (Auto) 3.8 % 04/04/22 04:30 Baso % (Auto) 0.4 % 04/04/22 04:30 Neut # (Auto) 2.27 10^3/uL (1.8-7.7) 04/04/22 04:30 Lymph # (Auto) 2.1 10^3/uL (0.8-4.8) 04/04/22 04:30 [place] # (Auto) 0.6 10^3/uL (0.2-0.9) 04/04/22 04:30 Eos # (Auto) 0.2 10^3/uL (0.0-0.8) 04/04/22 04:30 Baso # (Auto) 0.0 10^3/uL (0.0-0.1) 04/04/22 04:30 Nucleated RBC % (auto) 0 % 04/04/22 04:30 Nucleated RBCs # 0.0 /100WBC 04/04/22 04:30 PT 12.60 SECONDS (12.1-14.9) 04/03/22 06:15 INR 0.91 (0.8-1.2) 04/03/22 06:15 APTT 27.1 SECONDS (23.9-36.7) 04/03/22 06:15 Sodium 142 mmol/L (136-145) 04/04/22 04:30 Potassium 4.5 mmol/L (3.5-5.1) 04/04/22 04:30 Chloride 105 mmol/L (98-107) 04/04/22 04:30 Carbon Dioxide 28 mmol/L (22-29) 04/04/22 04:30 Anion Gap 13.5 (5-19) 04/04/22 04:30 BUN 14 mg/dL (8-23) 04/04/22 04:30 Creatinine 0.4 mg/dL (0.5-0.9) L 04/04/22 04:30 GFR Calculation Not Reportable 04/04/22 04:30 Glucose 118 mg/dL (65-115) H 04/04/22 04:30 POC Glucose 148 mg/dL (70-110) H 04/04/22 11:07 Calculated Osmolality 296 mOsm/kg (285-295) H 04/04/22 04:30 Calcium 9.2 mg/dL (8.5-10.5) 04/04/22 04:30 Total Bilirubin 0.2 mg/dL (0.15-1.2) 04/04/22 04:30 AST 14 U/L (0-32) 04/04/22 04:30 ALT 15 U/L (0-33) 04/04/22 04:30 Alkaline Phosphatase 54 IU/L (35-105) 04/04/22 04:30 Creatine Kinase 107 U/L (26-192) 04/03/22 06:15 Troponin T Baseline 8 ng/L (0-10) 04/03/22 06:15 Troponin T 120 Minute 8.29 ng/L (0-10) 04/03/22 08:29 Delta Troponin T 0.29 ABS# (0-10) 04/03/22 08:29 Troponin T Hi Sens 6Hr 7.05 ng/L (0-10) 04/03/22 12:44 Troponin T Hi Sens 6Hr Delta -0.95 ng/L (0-12) L 04/03/22 12:44 Total Protein 6.0 g/dL (6.6-8.7) L 04/04/22 04:30 Albumin 3.7 g/dL (3.5-5.2) 04/04/22 04:30 Globulin 2.3 g/dL (1.3-4.6) 04/04/22 04:30 TSH 2.42 uIU/mL (0.27-4.20) 04/03/22 06:15 Urine Color Yellow (Yellow) 04/03/22 06:32 Urine Appearance Cloudy (CLEAR) 04/03/22 06:32 Urine pH 8 (5-7) H 04/03/22 06:32 Ur Specific [place] 1.010 (1.005-1.030) 04/03/22 06:32 Urine Protein Neg (Negative) 04/03/22 06:32 Urine Glucose (UA) Norm (Normal) 04/03/22 06:32 Urine Ketones Negative (Negative) 04/03/22 06:32 Urine Blood Trace (Negative) H 04/03/22 06:32 Urine Nitrate Negative (Negative) 04/03/22 06:32 Urine Bilirubin Neg (Negative) 04/03/22 06:32 Prot Sulfosalicylic Acd Positive (Negative) 04/03/22 06:32 Urine Urobilinogen Norm mg/dL (Negative) 04/03/22 06:32 Ur Leukocyte Esterase 2+ (Negative) H 04/03/22 06:32 Urine RBC 0-4 /hpf (0-2) H 04/03/22 06:32 Urine WBC Too numerous to cnt /hpf (0-5) H 04/03/22 06:32 Ur Squamous Epith Cells 0-4 /hpf (0-5) H 04/03/22 06:32 Amorphous Sediment Not Reportable 04/03/22 06:32 Urine Bacteria 3+ /hpf (NONE) H 04/03/22 06:32 Vitals Last Vital Signs Temp 97.5 F L 04/04/22 08:00 Pulse 78 04/04/22 11:42 Resp 17 04/04/22 08:00 BP 107/66 04/04/22 08:29 Pulse Ox 98 04/04/22 11:42 O2 Del Method 04/04/22 11:42 Discharge Plan Discharge Patient Disposition: Home Condition: Stable Prescriptions: New levofloxacin 500 mg tablet 500 mg PO DAILY 5 Days Qty: 5 0RF Nitro-Time 2.5 mg Capsule, Extended Release 2.5 mg PO BID 30 Days Qty: 60 1RF Continued (DME) Diabetic Shoes See Rx Instructions .Route .MEDSUPPLY Qty: 1 0RF Rx Instructions: As directed (DME) diabetic shoes See Rx Instructions .Route .MEDSUPPLY Qty: 1 0RF Rx Instructions: with molds and inserts (DME) LEG CRAMPS tablet Qty: 1 Rx Instructions: As directed magnesium oxide 400 mg magnesium tablet 400 mg PO BID Qty: 60 0RF (DME) OneTouch Verio test strips Strip See Rx Instructions .ROUTE .MEDSUPPLY Qty: 50 5RF Rx Instructions: USE ONE STRIP EVERY DAY losartan 50 mg tablet 50 mg PO BID oxybutynin chloride 15 mg Tablet Extended Release 24hr 30 mg PO QAM hydrochlorothiazide 50 mg tablet 50 mg PO QAM potassium chloride 20 mEq tablet,ER particles/crystals 20 meq PO BID tizanidine 4 mg tablet 4 mg PO TID PRN (Reason: Muscle Spasm) nortriptyline 10 mg capsule 40 mg PO BEDTIME lactulose 10 gram/15 mL solution 30 ml PO DAILY PRN (Reason: Constipation) nitroglycerin [Nitrostat] 0.4 mg tablet, sublingual 0.4 mg SUBLINGUAL Q5M PRN (Reason: chest pain) 30 Days Qty: 30 1RF Rx Instructions: dispense 2 bottles, to use in separate locations carvedilol 3.125 mg tablet 3.125 mg PO BID 30 Days Qty: 60 0RF metformin 500 mg tablet 500 mg PO BID Vitamin B-12 1,000 mcg Tablet 1,000 mcg PO BID hydrocodone-acetaminophen 10-325 mg tablet 1 tab PO Q4H PRN (Reason: Pain) zinc 50 mg Tablet 50 mg PO DAILY Centrum Silver Women 8 mg iron-400 mcg-300 mcg Tablet 1 tab PO DAILY Lipitor 20 mg tablet 20 mg PO BEDTIME aspirin 81 mg tablet,delayed release (DR/EC) 81 mg PO QAM allopurinol 300 mg tablet 300 mg PO QAM Discharge Orders: Discharge Order (Routine); Ordered 04/04/22 Ordered By: Rakesh Solomon Other Ambulatory Orders: Sestamibi Stress Test Request (Routine) Timeframe: 1 Week Facility: [facility] - Location: Cardiac Diagnostic Laboratory Ordered By: Estrada Lopez Referrals: Elin Cerrato APN [Primary Care Provider] - 1 week Estrada Lopez MD [Physician] - 1 month Discharge Diet: Diabetic Patient Instructions: Nitroglycerin (By mouth), Levofloxacin (By mouth), Opioid Safety Activity Restrictions/Additional Instructions: Appointment the [facility] to be seen by the nurse practitioner in 1 week Appointment with me in the office in 1 month Discharge Attestations Time Spent in Discharge Care*: less than 30 min Quality Metrics Clinical Quality Measures [ No reported AMI, CVA or VTE this stay] Coding Level of Care Code Acute Chg FW DC note Exam Expanded Problem Focused Diagnoses Chest pain R07.9 Abnormal EKG R94.31 Essential (primary) hypertension I10 Type 2 diabetes mellitus without complications E11.9 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
== END 2022-04-04 13:18 | disposition home or self-care (01) ==
LOC: ER 06:57 → MEDSURG 14:47
PROVIDERS: Admitting Provider Internal Medicine; Emergency Provider Family Medicine; PCP Nurse Practitioner Family; Visit Provider Internal Medicine
DX: R07.89 Other chest pain (principal); R94.31 Abnormal electrocardiogram [ECG] [EKG]; I10 Essential (primary) hypertension; E78.5 Hyperlipidemia, unspecified; M54.9 Dorsalgia, unspecified; F41.9 Anxiety disorder, unspecified; I25.10 Atherosclerotic heart disease of native coronary artery without angina pectoris; E11.40 Type 2 diabetes mellitus with diabetic neuropathy, unspecified; E78.00 Pure hypercholesterolemia, unspecified; Z79.82 Long term (current) use of aspirin; Z79.84 Long term (current) use of oral hypoglycemic drugs
CPT/HCPCS: 36415; 36416; 71045; 80053; 81001; 82550; 82962; 84443; 84484; 85025; 85610; 85730; 87086; 93005; 96365; 96372; 99285; G0378; J0696; J1650

== ENCOUNTER → 2022-08-10 14:39 | Outpatient (BNVA) | payer MEDICARE, MEDICAID, SELFPAY | PROVIDERS: PCP Family Medicine; Visit Provider Specialist | DX: M67.431 Ganglion, right wrist (principal); M19.031 Primary osteoarthritis, right wrist; M25.531 Pain in right wrist | CPT/HCPCS: 73110; 99213 ==

== ENCOUNTER → 2022-08-26 13:39 | Outpatient (BNVA) | payer MEDICARE, MEDICAID, SELFPAY | PROVIDERS: PCP Family Medicine; Referring Provider Nurse Practitioner Family; Visit Provider Internal Medicine | DX: E11.8 Type 2 diabetes mellitus with unspecified complications (principal); F41.9 Anxiety disorder, unspecified; N20.0 Calculus of kidney; E04.2 Nontoxic multinodular goiter; Z79.84 Long term (current) use of oral hypoglycemic drugs | CPT/HCPCS: 36415; 80053; 82310; 83036; 83970; 84439; 84443; 99204 ==

== ENCOUNTER → 2022-09-07 11:29 | Outpatient (BNVA) | payer MEDICARE, MEDICAID, SELFPAY | PROVIDERS: PCP Family Medicine; Visit Provider Family Medicine | DX: R19.7 Diarrhea, unspecified (principal) | CPT/HCPCS: 87493 ==

== ENCOUNTER → 2022-10-23 11:45 | Outpatient (BNVA) | payer MEDICARE, MEDICAID, SELFPAY | PROVIDERS: PCP Family Medicine; Visit Provider Nurse Practitioner Family | DX: M19.031 Primary osteoarthritis, right wrist (principal) | CPT/HCPCS: 20605; 20610; 99214; J1100; J2795; J3301 ==

== ENCOUNTER → 2022-10-29 17:05 | Outpatient (BNVA) | payer MEDICARE, MEDICAID, SELFPAY | PROVIDERS: PCP Family Medicine; Visit Provider Family Medicine | DX: E11.9 Type 2 diabetes mellitus without complications (principal); E53.8 Deficiency of other specified B group vitamins; E55.9 Vitamin D deficiency, unspecified; E78.00 Pure hypercholesterolemia, unspecified; I10 Essential (primary) hypertension; F41.9 Anxiety disorder, unspecified; E11.8 Type 2 diabetes mellitus with unspecified complications; Z00.00 Encounter for general adult medical examination without abnormal findings | CPT/HCPCS: 80053; 80061; 82306; 82607; 83036; 84443; 85025 ==

== ENCOUNTER → 2022-11-10 09:36 | Outpatient (BNVA) | payer MEDICARE, MEDICAID, SELFPAY | PROVIDERS: PCP Family Medicine; Visit Provider Orthopaedic Surgery | DX: M47.12 Other spondylosis with myelopathy, cervical region (principal); Z98.1 Arthrodesis status | CPT/HCPCS: 99214 ==

== ENCOUNTER → 2022-11-10 09:38 | Outpatient (BNVA) | payer MEDICARE, MEDICAID, SELFPAY | PROVIDERS: PCP Family Medicine; Visit Provider Orthopaedic Surgery | DX: M47.12 Other spondylosis with myelopathy, cervical region (principal); Z98.1 Arthrodesis status | CPT/HCPCS: 72050 ==

== ENCOUNTER → 2022-11-26 07:58 | Outpatient (BNVA) | payer MEDICARE, MEDICAID, SELFPAY | PROVIDERS: PCP Family Medicine; Visit Provider Podiatrist Foot & Ankle Surgery | DX: I73.9 Peripheral vascular disease, unspecified (principal); E11.9 Type 2 diabetes mellitus without complications; E53.8 Deficiency of other specified B group vitamins; L60.3 Nail dystrophy; Z79.84 Long term (current) use of oral hypoglycemic drugs | CPT/HCPCS: 11721 ==

== ENCOUNTER 2022-12-03 13:16 | Outpatient (CLI) | payer MEDICARE, MEDICAID, SELFPAY ==
--- NOTE | 2022-12-03 13:45 | MR_ITS ---
WS: [id number] MRI CERVICAL SPINE NONCONTRAST TECHNIQUE: Sagittal T1, T2 and STIR imaging. Axial T2, gradient, and fiesta imaging. CLINICAL INFORMATION: neck pain COMPARISON: CT December 10, 2021 and MRI July 07, 2021 FINDINGS: Images somewhat degraded due to susceptibility artifact from extensive cervical fusion Straightening of the normal cervical lordosis. Extensive ACDF of the cervical spine extending from C2 through C7 with interbody fusion grafts. No high-grade central canal stenosis. Cord signal is normal . Hyperextension at the craniocervical junction. 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 Fusion across the C7-T1 interspace. Disc osteophyte complex T1-T2 with mild central canal stenosis. C2-C3: Moderate facet arthropathy. Moderate LEFT and mild RIGHT bony foraminal narrowing. Spinal geovanny l is patent. C3-C4: Anterior cervical fusion. Mild bilateral bony foraminal narrowing. Moderate facet arthropathy. Spinal canal is patent. C4-C5: Anterior cervical fusion. Mild bilateral bony foraminal narrowing. Moderate facet arthropathy. Spinal canal is patent. C5-C6: Anterior cervical fusion. Mild bilateral bony foraminal narrowing. Moderate facet arthropathy. Spinal canal is patent. C6-C7: Anterior cervical fusion. Moderate facet arthropathy. Moderate bilateral bony foraminal narrow ing. C7-T1: Anterior cervical fusion. Spinal canal and foramen are patent. T1-T2: Disc osteophyte complex contacts the cervical cord. Mild central canal stenosis. Moderate bila teral bony foraminal narrowing. Visualized brain stem structures: Normal. Prevertebral soft tissues: Normal. MR/MR cervical spin wo con* [id number] IMPRESSION: 1. Straightening of the normal cervical lordosis. Prominent pannus formation a t the C1-C2 articulation similar to the prior examinations. 2. Extensive anterior cervical fusion C2-C7 with interbody bony fusion grafts. 3. Bony fusion across the C7-T1 disc space. 4. Mild central canal stenosis T1-T2 due to disc osteophyte complex with conta ct of the thoracic cord and mild central canal stenosis. Moderate bilateral bon y foraminal narrowing at this level. 5. Moderate bilateral C6-C7 and T1-T2 bony foraminal narrowing. 6. Moderate facet arthropathy worse in the upper cervical spine C2-C3 C3-C4, C 4-C5 and C5-C6.
== END 2022-12-03 13:17 | disposition home or self-care (01) ==
LOC: RAD 13:20
PROVIDERS: PCP Family Medicine; Visit Provider Orthopaedic Surgery
DX: M47.892 Other spondylosis, cervical region; M48.04 Spinal stenosis, thoracic region; M25.78 Osteophyte, vertebrae
CPT/HCPCS: 72141

== ENCOUNTER → 2022-12-28 14:00 | Outpatient (BNVA) | payer MEDICARE, MEDICAID, SELFPAY | PROVIDERS: PCP Family Medicine; Visit Provider Family Medicine | DX: R25.2 Cramp and spasm (principal) | CPT/HCPCS: 80048; 83735 ==

== ENCOUNTER 2023-01-05 09:38 | Outpatient (CLI) | payer MEDICARE, MEDICAID, SELFPAY ==
--- NOTE | 2023-01-05 11:00 | MR_ITS ---
WS: [id number] MRI LUMBAR SPINE NONCONTRAST HISTORY: pain, numerous prior spine surgeries. COMPARISON: 03/16/2022, 03/26/2015 TECHNIQUE: Sagittal and axial multisequence imaging is submitted. Severe cervical spine disease with prior anterior fusion. Increase in thoracic kyphosis. Osteopenia. Straightening of the normal lumbar lordosis. Mild anterior wedging of T12 is stable. No fractures or marrow edema. Severe disc space narrowing throughout and hypertrophic osteophytosis. Increased T2 signal within the lower thoracic cord at the T11 and T12 levels. Consistent with small s yrinx or central myelomalacia. Similar to prior studies without obvious progression. Conus terminates normally at L1. Moderate degenerative disc space narrowing at T11-12 and T12-L1 with hypertrophic osteophytes. There is disc and osteophyte encroachment upon the ventral thecal sac. Moderate bilateral foraminal stenosi s greatest at T11-12. L1-L2: Patulous thecal sac with moderate bilateral foraminal stenosis. Graft fusion posteriorly, stat us post large hemilaminectomy defect. Again noted is the postoperative fluid collection at the fusion site. Similar to prior studies. L2-L3: Diffuse osteophytic ridging asymmetric to the LEFT. Large LEFT paracentral osteophyte encroach ing upon the LEFT lateral thecal sac. Subarticular recess and proximal LEFT foraminal stenosis is sev ere. Moderate RIGHT foraminal stenosis. L3-L4: Osteophytic ridging with encroachment upon the ventral thecal sac and LEFT subarticular recess . Large posterior laminectomy defect with bone graft fusion. Mild foraminal stenosis. L4-L5: Mild annular disc bulging with osteophytic ridging. Large hemilaminectomy defect with bone gra ft fusion. Bone bridge is likely on the LEFT through the subarticular recess and proximal foramen. Se luan proximal LEFT foraminal stenosis. L5-S1: Patulous thecal sac. Bone graft fusion. Mild bilateral foraminal stenosis. Bilateral parapelvic cysts. Peripheral clumping of the nerve roots from arachnoiditis throughout the lumbar spine. MR/MR lumbar spine wo con* [id number] IMPRESSION: 1. No acute lumbar spine fractures. 2. 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 3. Extensive laminectomy defects throughout the lumbar spine with bone graft f usion. 4. At least moderate bilateral foraminal stenosis at T11-12 and T12-L1. Greate st at the T11-12 level. No axial imaging at this level performed on this lumbar MRI. 5. Moderate bilateral foraminal stenosis at L1-2. 6. Large LEFT paracentral osteophyte encroaching upon the LEFT lateral thecal sac at L2-3. Significantly encroaching into the LEFT subarticular recess and pr oximal LEFT foraminal stenosis. 7. Bony bridge extending across the LEFT proximal L4-5 foramen. Severe LEFT fo raminal stenosis. 8. Mild bilateral foraminal stenosis at L5-S1.
== END 2023-01-05 09:39 ==
LOC: RAD 09:43
PROVIDERS: PCP Family Medicine; Visit Provider Orthopaedic Surgery
DX: M48.02 Spinal stenosis, cervical region (principal); M47.12 Other spondylosis with myelopathy, cervical region
CPT/HCPCS: 72148; 99214

== ENCOUNTER → 2023-02-18 09:45 | Outpatient (BNVA) | payer MEDICARE, MEDICAID, SELFPAY | PROVIDERS: PCP Family Medicine; Visit Provider Podiatrist Foot & Ankle Surgery | DX: E11.8 Type 2 diabetes mellitus with unspecified complications (principal); E53.8 Deficiency of other specified B group vitamins; I73.9 Peripheral vascular disease, unspecified; L60.3 Nail dystrophy; Z79.84 Long term (current) use of oral hypoglycemic drugs | CPT/HCPCS: 11721 ==

== ENCOUNTER → 2023-02-23 10:18 | Outpatient (BNVA) | payer MEDICARE, MEDICAID, SELFPAY | PROVIDERS: PCP Family Medicine; Visit Provider Nurse Practitioner Family | DX: M19.031 Primary osteoarthritis, right wrist (principal) | CPT/HCPCS: 20605; 99213; J3301 ==

== ENCOUNTER 2023-04-21 14:26 | Observation (INO) | payer MEDICARE, MEDICAID, SELFPAY ==
[2023-04-21] VITALS (9 sets, daily range): BP systolic 120–162; BP diastolic 64–85; PULSE 62–94; RESP 18–26; TEMP 36.9–37.1; O2SAT 92–99; BMI 25.0
--- NOTE | 2023-04-21 14:29 | ECG_ITS ---
[facility] Test Date: 2023-04-21 Pat Name: Melissa Estes Department: Room: Gender: Female Manager Medical Affairs: : 1945 Requested By: Rainer Angeles Order Number: [id number] Ariella MD: Estrada Lopez M.D. Measurements Intervals [place] Rate: 66 P: 51 SD: 153 QRS: -12 QRSD: 80 T: 34 QT: 383 QTc: 404 Interpretive Statements SINUS RHYTHM LOW QRS VOLTAGE IN PRECORDIAL LEADS [QRS DEFLECTION < 1.0 mV IN CHEST LEADS] Compared to ECG 04/03/2022 12:14:36 Low QRS voltage now present Myocardial infarct finding no longer present Electronically Signed On 04-21-2023 20:06:09 CDT by Estrada Lopez M.D. [id number]
--- NOTE | 2023-04-21 14:30 | ED_ITS ---
HPI - Chest Pain General: Chief Complaint: Chest Pain Stated Complaint: Chest pain Time Seen by Provider: 04/21/23 14:29 Source: patient Mode of arrival: EMS History of Present Illness: 77-year-old female presents emergency room with complaint of chest pain. Pain radiates into the arms and the back at various times and is associated with shortness of breath states she had chest pain for the last several weeks she has had escalating episodes of angina while at rest and with even mild exertion such as standing at the kitchen counter cooking or preparing food. Last month she said she took 4 nitro at various times and would relieve it within a few minutes. This month she has taken up to 4/day and took several today. Symptoms come on both with exertion and while at rest. She has been seeing an robotic technician in [place] and they are scheduled to do an angiogram early next month. She relates escalating symptoms the last several days. MD complaint: chest pain Pertinent past history: coronary artery disease Onset (ago): week(s) Timing of current episode: episodic Onset: during rest and during exertion Pain location: substernal Pain radiation: right arm and left arm Severity: moderate Quality: aching and heaviness Relieving factors: nitroglycerin Exacerbating factors: nothing Associated symptoms: Deny abdominal pain, dyspnea, fever(s), leg edema, nausea, palpitations, sense of impending doom, syncope or vomiting Treatment prior to arrival: aspirin and nitroglycerin Risk Factors: Coronary artery disease risk factors: diabetes and hypertension Review of Systems Const: Denies: fever(s) or chills Card: Reports: chest pain; Denies: palpitations, edema, swelling of feet/ankles or syncope Resp: Denies: dyspnea GI: Denies: abdominal pain, nausea or vomiting : Denies: flank pain, difficulty voiding, dysuria, urinary frequency or urinary urgency Skin/Breast: Denies: rash or pruritus PFSH ED PFSH: Medical History Abnormal EKG Anxiety Arteriosclerotic heart disease (ASHD) Back pain with history of spinal surgery Bilateral bunions with callous formation; has had surgery for hammer toes Bilateral knee pain Chest pain Chronic pain syndrome Chronic thoracic spine pain Dyslipidemia Essential (primary) hypertension Generalized anxiety disorder Gout Hx of fracture of left hip Hyperlipidemia Hypertension IBS (irritable bowel syndrome) Insomnia, unspecified Lumbar facet joint pain Narrowing of both carotid arteries 16-49% bilateral 06/10/18; carotid duplex Neuropathy Parapelvic renal cyst long standing, well defined left parapelvic cysts on previous CT. No concern regarding cyst. Paresis of right lower extremity Reports this is secondary to spinal injury during back surgery Pure hypercholesterolemia, unspecified Slow transit constipation Type 2 diabetes mellitus without complications Urinary incontinence Urolithiasis recurrent with multiple treatments over the years UTI (urinary tract infection) Vitamin D deficiency Surgical History History of ankle surgery History of back surgery 9 total per patient History of tonsillectomy and adenoidectomy Hx of arthroscopy of shoulder (~09/2018) left Hx of cataract extraction Hx of cervical discectomy (~2015) 4-5-6 Hx of cholecystectomy Hx of colonoscopy Hx of foot surgery right Hx of hysterectomy Hx of lithotripsy Hx of total knee replacement bilateral Hx of tubal ligation Family History Family/Other Dementia CAD (coronary artery disease) Diabetes Denies family history of Clotting disorder Hyperlipidemia Psychiatric illness Chronic kidney disease (CKD) Suicide Anesthesia complication Bleeding disorder Family history of premature coronary artery disease Lung disease Cancer Hypertension Stroke Social History Smoking and tobacco status: never smoked Second hand smoke exposure: Yes Alcohol intake: current Substance/Drug Use: never Lives independently: Yes Household members: none Housing: House Marital status: / Current occupational status: disabled Current gender identity: Female Physical Exam Const: GENERAL APPEARANCE: cooperative and comfortable ORIENTATION/CONSCIOUSNESS: Yes awake, Yes oriented to person, Yes oriented to place and Yes oriented to time HENMT: COMMON NORMALS: normocephalic, atraumatic and hearing grossly normal bilaterally HEAD & SCALP: normocephalic and atraumatic Resp: COMMON NORMALS: normal respiratory effort, No retractions, No use of accessory muscles and clear to auscultation bilaterally AUSCULTATION: clear to auscultation bilaterally Cardio: COMMON NORMALS: regular rate, regular rhythm and No murmurs present (Cardio) RATE: regular rate RHYTHM: regular rhythm GI: COMMON NORMALS: Soft to palpation and No hepatosplenomegaly present AUSCULTATION: Yes normoactive bowel sounds PALPATION: Yes Soft to palpation, No Tenderness to palpation present (GI), No Guarding due to palpation present (GI) and Yes No hepatosplenomegaly present Extremity: COMMON NORMALS: normal to inspection, capillary refill normal, no clubbing, cyanosis or edema, no calf tenderness and no pedal edema Neuro: SENSORIUM/ORIENTATION: Yes oriented to person, Yes oriented to place and Yes oriented to time Skin: COMMON NORMALS: no rashes or lesions noted GENERAL SKIN EXAM: no rashes or lesions noted Course Vital Signs: Vital signs: Vital Signs Temperature 98.6 F 04/21/23 23:05 Pulse Rate 63 04/22/23 14:06 Respiratory Rate 12 04/22/23 14:06 Blood Pressure 100/60 04/22/23 14:06 Pulse Oximetry 96 04/22/23 14:06 Oxygen Delivery Me thod Room Air, Nasal C annula 04/22/23 03:39 MDM - Chest Pain Medical Decision Making 77-year-old female with unstable angina. Given unknown positive stress test and increasing frequency and intensity of symptoms will admit. She has had a topical nitro applied and been given Lovenox. Consult cardiology. Discussed with hospitalist orders written Medical Records I reviewed the patient's medical records. Lab Data I reviewed the patient's lab results. 04/22/23 05:36 04/22/23 05:36 Laboratory Results WBC 8.12 10^3/uL (3.29-11.43) 04/21/23 14:58 RBC 3.99 10^6/uL (3.85-5.65) 04/21/23 14:58 Hgb 12.10 g/dL (11.27-16.99) 04/21/23 14:58 Hct 37.3 % (36-47) 04/21/23 14:58 MCV 93.5 fl (85-98) 04/21/23 14:58 MCH 30.3 pg (27-33) 04/21/23 14:58 MCHC 32.4 g/dL (30-55) 04/21/23 14:58 RDW 13.6 % (12.1-15.1) 04/21/23 14:58 Plt Count 244 10^3/cmm (157-399) 04/21/23 14:58 MPV 8.7 fL (7.4-10.4) 04/21/23 14:58 Neut % (Auto) 65.2 % 04/21/23 14:58 Lymph % (Auto) 23.8 % 04/21/23 14:58 Johnson % (Auto) 8.4 % 04/21/23 14:58 Eos % (Auto) 1.4 % 04/21/23 14:58 Baso % (Auto) 0.5 % 04/21/23 14:58 Neut # (Auto) 5.30 10^3/uL (1.8-7.7) 04/21/23 14:58 Lymph # (Auto) 1.9 10^3/uL (0.8-4.8) 04/21/23 14:58 Johnson # (Auto) 0.7 10^3/uL (0.2-0.9) 04/21/23 14:58 Eos # (Auto) 0.1 10^3/uL (0.0-0.8) 04/21/23 14:58 Baso # (Auto) 0.0 10^3/uL (0.0-0.1) 04/21/23 14:58 Nucleated RBC % (auto) 0 % 04/21/23 14:58 Nucleated RBCs # 0.0 /100WBC 04/21/23 14:58 Sodium 136 mmol/L (136-145) 04/21/23 14:58 Potassium 5.0 mmol/L (3.5-5.1) 04/21/23 14:58 Chloride 98 mmol/L (98-107) 04/21/23 14:58 Carbon Dioxide 27 mmol/L (22-29) 04/21/23 14:58 Anion Gap 16.0 (5-19) 04/21/23 14:58 BUN 21 mg/dL (8-23) 04/21/23 14:58 Creatinine 0.6 mg/dL (0.5-0.9) 04/21/23 14:58 GFR Calculation Not Reportable 04/21/23 14:58 Glucose 90 mg/dL (65-115) 04/21/23 14:58 Calculated Osmolality 285 mOsm/kg (285-295) 04/21/23 14:58 Calcium 10.0 mg/dL (8.5-10.5) 04/21/23 14:58 Total Bilirubin 0.3 mg/dL (0.15-1.2) 04/21/23 14:58 AST 16 U/L (0-32) 04/21/23 14:58 ALT 17 U/L (0-33) 04/21/23 14:58 Alkaline Phosphatase 69 U/L (35-105) 04/21/23 14:58 Troponin T Baseline 9 ng/L (0-10) 04/21/23 14:58 Total Protein 6.4 g/dL (6.6-8.7) L 04/21/23 14:58 Albumin 4.5 g/dL (3.5-5.2) 04/21/23 14:58 Globulin 1.9 g/dL (1.3-4.6) 04/21/23 14:58 Discharge Plan Discharge Patient Disposition: Placed in Observation Admit Provider: Erik Meeks Clinical Impression: Unstable angina pectoris, Essential (primary) hypertension, Diet-controlled diabetes mellitus Discharge Diet: Cardiac Discharge Activity: Resume usual activity and Increase activity as tolerated Coding Level of Care Code ED Business Analyst Project Manager for Vineet Munson
[2023-04-21 15:08] LABS: Basophils % 0.5 %; Eosinophils # 0.1 10^3/uL (0.0-0.8); Eosinophils % 1.4 %; Hematocrit 37.3 % (36-47); Lymphocytes # 1.9 10^3/uL (0.8-4.8); Lymphocytes % 23.8 %; Mean Corpuscular HGB Conc 32.4 g/dL (30-55); Mean Corpuscular Hemoglobin 30.3 pg (27-33); Mean Corpuscular Volume 93.5 fl (85-98); Mean Platelet Volume 8.7 fL (7.4-10.4); Monocytes # 0.7 10^3/uL (0.2-0.9); Monocytes % 8.4 %; Neutrophils % 65.2 %; Nucleated Red Blood Cells % 0 %; Platelet Count 244 10^3/cmm (157-399); Red Blood Count 3.99 10^6/uL (3.85-5.65); Red Cell Distribution Width 13.6 % (12.1-15.1); White Blood Count 8.12 10^3/uL (3.29-11.43)
[2023-04-21 15:23] LABS: Alanine Aminotransferase 17 U/L (0-33); Albumin Level 4.5 g/dL (3.5-5.2); Alkaline Phosphatase 69 U/L (35-105); Aspartate Amino Transferase 16 U/L (0-32); Blood Urea Nitrogen 21 mg/dL (8-23); Carbon Dioxide 27 mmol/L (22-29); Chloride 98 mmol/L (98-107); Globulin 1.9 g/dL (1.3-4.6); Glucose 90 mg/dL (65-115); Osmolality Calculated 285 mOsm/kg (285-295); Sodium 136 mmol/L (136-145); Total Bilirubin 0.3 mg/dL (0.15-1.2); Total Protein 6.4 g/dL (6.6-8.7)
--- NOTE | 2023-04-21 15:30 | XR_ITS ---
WS: [id number] EXAMINATION: XR chest 1V portable [id number] REASON FOR EXAM: chest pain COMPARISON: 04/03/2022 ORDER DATE: 04/21/2023 3:31 PM TECHNIQUE: A single, portable frontal chest x-ray was obtained. X-RAY FINDINGS: No nodules, masses or effusions are seen. The heart is normal. The pulmonary vascularity is not increased. No pneumonia or pneumothorax is seen. The aortic arch and descending thoracic aorta show mild tortuosity. There is a left shoulder prosthesis and an orthopedic anchor in the right humeral head. There is an anterior cervical disc fusion. Monitor leads are on the chest wall. There are bilateral breast implants. Impression: No acute pulmonary change
[2023-04-21 15:38] LABS: Troponin(5th) Baseline 9 ng/L (0-10)
[2023-04-21] MEDS: nitroglycerin 1 gm/inch oint Pkt 0.5 INCH TOPICAL (16:14)
[2023-04-21] MEDS: enoxaparin 80 mg/0.8 mL Syringe 70 MG SUBCUT (16:15)
--- NOTE | 2023-04-21 16:18 | PC.NURSE ---
PT DENIES HAVING ANY ULCERS/CUTS OR BRUISES EXCEPT FOR SOME ABRASIONS ON RIGHT LEG.
--- NOTE | 2023-04-21 16:29 | ECG_ITS ---
[facility] Test Date: 2023-04-21 Pat Name: Melissa Estes Department: Room: 112 Gender: Female Soil Expert: : 1945 Requested By: Rainer Angeles Order Number: [id number] Ariella MD: Estrada Lopez M.D. Measurements Intervals [place] Rate: 62 P: 3 VA: 161 QRS: 46 QRSD: 82 T: 0 QT: 384 QTc: 392 Interpretive Statements SINUS RHYTHM SEPTAL MYOCARDIAL INFARCTION , PROBABLY OLD [40+ ms Q WAVE IN V1/V2] Compared to ECG 04/21/2023 14:46:55 Myocardial infarct finding now present Electronically Signed On 04-21-2023 20:55:15 CDT by Estrada Lopez M.D. [id number]
--- NOTE | 2023-04-21 16:35 | PC.NURSE ---
Patient arrives to [facility] from ED via wheelchair at 1635.
--- NOTE | 2023-04-21 16:46 | PC.PHAR ---
medications verified using external med list last filled and picked up - and home medication list
--- NOTE | 2023-04-21 17:41 | P.HP_ITS ---
Providers/Chief Complaint Admitting Physician: Erik Meeks MD Primary Care Provider: Shelby Henderson MD Chief Complaint: Chest pain History of Present Illness Melissa Estes is a 77 year old female with past medical history of hypertension, type 2 diabetes mellitus, dyslipidemia with history of multiple back surgeries in the past. As per patient she has been dealing with chest pain for last few months which has been gradually getting worse for last few weeks but today when she was bending to grape picker something from the floor she has had squeezing chest pain radiating to left along with dizziness and diaphoresis not a fever nausea or vomiting and she present to the ER. Pain is not associated with exertion. After taking nitro multiple times during the day for last 3 weeks for relieving of pain. Today pain relieved with nitro. 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 Cardiology consulted from the ER and patient is scheduled for cardiac angiogram in a.m. patient has received Lovenox 1 mg/kg body weight 1 dose in ER. Review of Systems General: Reports: 10 or more systems reviewed and unremarkable except in HPI and below Const: Denies: fever(s), chills, body aches, change in appetite, change in weight, malaise, night sweats, diaphoresis, change in sleep pattern, daytime s leepiness or snoring Eyes: Denies: change in vision, blurry vision, photophobia, eye discomfort or eye discharge ENMT: Denies: throat pain, enlarged tonsils, hoarseness, mouth pain, oral sores, dry mouth, tinnitus, nasal congestion or post nasal drip Card: Denies: chest pain, palpitations, irregular heart rhythm, edema, swelling of feet/ankles, lightheadedness, syncope, pre-syncope, dyspnea on exertion, orthopnea, leg pain with exertion or acrocyanosis Resp: Denies: dyspnea, productive cough, non-productive cough, wheezing, stridor, pain on inspiration, change in phlegm color, hemoptysis or chest congestion GI: Denies: abdominal pain, nausea, vomiting, hematemesis, coffee ground emesis, dysphagia, heartburn, diarrhea, constipation, bloating, GI cramping, change in bowel habits, pain on defecation, hematochezia or melena : Denies: flank pain, dysuria, urinary frequency, urinary urgency, urinary hesitancy, nocturia or hematuria Musc: Denies: neck pain, back pain, extremity pain, joint pain, joint swelling, joint redness, joint stiffness or limited range of motion Neuro: Denies: headache(s), numbness in extremities, weakness in extremities, sensory changes, lack of coordination, difficulty walking, frequent falls, dizziness, vertigo, confusion, Slurred speech present, difficulty communicating thoughts or seizure-like activity Psych: Denies: anxiety, depression, mood swings, panic attacks, hopelessness or irritability Endo: Denies: polyuria, polydipsia, tired all the time, cold intolerance, excessive sweating, flushing or heat intolerance Jacques/Lymph: Denies: easy bruising or easy bleeding All/Imm: Denies: tongue swelling, facial swelling or acute wheezing Medications/Allergies Home Medications Medication Instructions Recorded Confirmed Last Taken Type magnesium oxide 400 mg PO BID #60 tabs 10/05/19 04/21/23 12/19/21 Rx LEG CRAMPS #1 ea 10/11/19 04/21/23 Unknown History blood sugar diagnostic (OneTouch #50 ea 10/27/19 04/21/23 Unknown Rx Verio test strips) Diabetic Shoes #1 ea 10/28/20 04/21/23 Unknown Rx diabetic shoes #1 ea 10/28/20 04/21/23 Unknown Rx losartan 50 mg tablet 50 mg PO BID 06/30/21 04/21/23 12/19/21 History hydrochlorothiazide 50 mg tablet 50 mg PO QA 12/19/21 04/21/23 12/19/21 History potassium chloride 20 mEq 20 meq PO BID 12/19/21 04/21/23 12/19/21 History tablet,extended release(part/cryst) carvedilol 3.125 mg tablet 3.125 mg PO BID 30 days #60 tabs 12/20/21 04/21/23 12/19/21 Rx aspirin 81 mg tablet,delayed 81 mg PO QAM 04/03/22 04/21/23 Unknown History release cyanocobalamin (vitamin B-12) 1,000 mcg PO BID 04/03/22 04/21/23 Unknown History 1,000 mcg tablet (Vitamin B-12) multivit with 1 tab PO DAILY 04/03/22 04/21/23 Unknown History uttcmfmt-bbbr-QV-lutein 8 mg iron-400 mcg-300 mcg tablet (Centrum Silver Women) isosorbide mononitrate 30 mg 30 mg PO DAILY #90 tabs 04/09/22 04/21/23 Unknown Rx tablet,extended release 24 hr diabetic shoes with inserts #1 ea 07/29/22 04/21/23 Unknown Rx cyanocobalamin (vitamin B-12) 1,000 mcg IM .monthly #1 mL 08/14/22 04/21/23 Unknown Rx 1,000 mcg/mL injection solution hydrocodone 10 mg-acetaminophen 1 tab PO BID PRN Pain 08/26/22 04/21/23 Unknown History 325 mg tablet buspirone 15 mg tablet 15 mg PO BID #60 tabs 10/29/22 04/21/23 Unknown Rx cholecalciferol (vitamin D3) 50 50 mcg PO DAILY #30 caps 10/29/22 04/21/23 Unknown Rx mcg (2,000 unit) capsule albuterol sulfate 90 mcg/actuation 2 puff inhalation Q6H PRN 01/11/23 04/21/23 Unknown Rx aerosol inhaler (Ventolin HFA) shortness of breath or wheezing #8.5 grams nitroglycerin 0.4 mg sublingual See Rx Instructions .Route 02/24/23 04/21/23 04/21/23 Rx tablet .COMPLEX #25 tabs oxybutynin chloride 5 mg 5 mg PO BID #180 tabs 02/26/23 04/21/23 Unknown Rx tablet,extended release 24 hr Diabetic shoes with inserts #1 ea 03/22/23 04/21/23 Unknown Rx nortriptyline 75 mg capsule 75 mg PO DAILY #30 caps 03/22/23 04/21/23 Unknown Rx trazodone 50 mg tablet 100 mg PO .hs #60 tabs 03/22/23 04/21/23 Unknown Rx allopurinol 300 mg tablet 300 mg PO DAILY 04/21/23 04/21/23 Unknown History atorvastatin 20 mg tablet 20 mg PO QPM 04/21/23 04/21/23 Unknown History escitalopram oxalate 20 mg tablet 20 mg PO DAILY 04/21/23 04/21/23 Unknown History metformin 500 mg tablet 1,000 mg PO BID 04/21/23 04/21/23 Unknown History nortriptyline 10 mg capsule 40 mg PO BEDTIME 04/21/23 04/21/23 Unknown History tizanidine 4 mg tablet 4 mg PO TID PRN Muscle Spasm 04/21/23 04/21/23 Unknown History Allergies Allergy/AdvReac Type Severity Reaction Status Date / Time carbamazepine [From Tegretol] Allergy Unknown Unknown Verified 04/21/23 14:50 gabapentin [From Neurontin] Allergy Unknown Unknown Verified 04/21/23 14:50 ketorolac [From Toradol] Allergy Unknown Unknown Verified 04/21/23 14:50 levofloxacin Allergy Unknown Unknown Verified 04/21/23 14:50 liraglutide [From Victoza] Allergy Unknown Unknown Verified 04/21/23 14:50 metoprolol [From Toprol XL] Allergy Unknown Unknown Verified 04/21/23 14:50 nortriptyline Allergy Unknown Unknown Verified 04/21/23 14:50 oxcarbazepine Allergy Unknown Unknown Verified 04/21/23 14:50 [From Trileptal] oxycodone Allergy Unknown Unknown Verified 04/21/23 14:50 topiramate [From Topamax] Allergy Unknown Unknown Verified 04/21/23 14:50 valdecoxib [From Bextra] Allergy Unknown Unknown Verified 04/21/23 14:50 venlafaxine [From Effexor] Allergy Unknown Unknown Verified 04/21/23 14:50 morphine Allergy Unknown Verified 04/21/23 14:50 pregabalin [From Lyrica] Allergy ADR/ALGY-Pa Verified 04/21/23 14:50 lpitations PFSH Acute PFSH: Medical History (Updated 04/21/23 @ 17:58 by Erik Meeks MD) Abnormal EKG Anxiety Arteriosclerotic heart disease (ASHD) Back pain with history of spinal surgery Bilateral bunions with callous formation; has had surgery for hammer toes Bilateral knee pain Chest pain Chronic pain syndrome Chronic thoracic spine pain Dyslipidemia Essential (primary) hypertension Generalized anxiety disorder Gout Hx of fracture of left hip Hyperlipidemia Hypertension IBS (irritable bowel syndrome) Insomnia, unspecified Lumbar facet joint pain Narrowing of both carotid arteries 16-49% bilateral 06/10/18; carotid duplex Neuropathy Parapelvic renal cyst long standing, well defined left parapelvic cysts on previous CT. No concern regarding cyst. Paresis of right lower extremity Reports this is secondary to spinal injury during back surgery Pure hypercholesterolemia, unspecified Slow transit constipation Type 2 diabetes mellitus without complications Urinary incontinence Urolithiasis recurrent with multiple treatments over the years UTI (urinary tract infection) Vitamin D deficiency Surgical History History of ankle surgery History of back surgery 9 total per patient History of tonsillectomy and adenoidectomy Hx of arthroscopy of shoulder (~09/2018) left Hx of cataract extraction Hx of cervical discectomy (~2015) 4-5-6 Hx of cholecystectomy Hx of colonoscopy Hx of foot surgery right Hx of hysterectomy Hx of lithotripsy Hx of total knee replacement bilateral Hx of tubal ligation Family History Family/Other Dementia CAD (coronary artery disease) Diabetes Denies family history of Clotting disorder Hyperlipidemia Psychiatric illness Chronic kidney disease (CKD) Suicide Anesthesia complication Bleeding disorder Family history of premature coronary artery disease Lung disease Cancer Hypertension Stroke Social History Smoking and tobacco status: never smoked Second hand smoke exposure: Yes Alcohol intake: current Substance/Drug Use: never Lives independently: Yes Household members: none Housing: House Marital status: / Current occupational status: disabled Current gender identity: Female Vitals/I&O/Wt Last Vital Signs Temp 98.4 F 04/21/23 14:38 Pulse 62 04/21/23 16:18 Resp 18 04/21/23 16:18 BP 158/85 04/21/23 16:18 Pulse Ox 99 04/21/23 16:18 O2 Del Method Room Air 04/21/23 16:18 Weight last 48 hrs Weight 68.039 kg Physical Exam Narrative: General: No acute distress, AO x3, limited movement of the spine secondary to multiple surgeries and pain, pleasant HEENT: PERRLA, pupils bilaterally equal and reactive Chest: Normal vesicular breath sounds, no added sounds, equal good air entry bilaterally CVS: S1-S2 regular, no murmurs, no tachycardia, no gallops, no rubs Abdomen: Soft, nontender, no organomegaly, bowel sounds present Neuro: No focal deficits, no facial deformity, AO x3, power 5/5 in all limbs Data 04/21/23 14:58 04/21/23 14:58 A&P Assessment and plan (1) Chest pain: With reported positive stress test within the last 1 month as an outpatient. Scheduled for cardiac angiogram with outpatient cardiology on May 02. Limited echocardiogram. Cardiology consulted from the ER. Plan for left heart catheterization in a.m. N.p.o. after midnight. Continue with home dose of aspirin, statin 80 mg daily, carvedilol 3.125 mg twice daily. Continue with Lovenox 1 mg/kg body weight every 12 hourly. Appreciate recent A1c and lipid panel. Telemetry. Continue home dose of Imdur 30 mg daily. (2) Arteriosclerotic heart disease (ASHD): (3) Type 2 diabetes mellitus without complications: Recent A1c 5.6. Not on OHA's. Hold off on insulin sliding scale. Qualifiers: Diabetes mellitus chcf insulin use: without chcf use Qualified Code(s): E11.9 - Type 2 diabetes mellitus without complications (4) Essential (primary) hypertension: Goal blood pressure less than 140/90 mmHg. Continue with home dose of carvedilol, Imdur, losartan. Plan Continue other home chronic pain medications and psych medications. Full code. Cardiac diet. N.p.o. after midnight. Protonix OPD prophylaxis Full dose Lovenox will suffice as DVT prophylaxis. 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
--- NOTE | 2023-04-21 17:42 | P.CONIM_ITS ---
Providers/Reason For Consult Consulting Physician/Specialty*: Nazario Sood MD/ Cardiology Reason for Consult*: Chest pain Requesting Physician: Dr Sosa Attending Physician: Erik Meeks MD Primary Care Provider: Shelby Henderson MD History of Present Illness History of Present Illness Melissa Estes is a 77 year old female with past medical history of diabetes and hypertension who has been having on and off chest pain for several months that is worsening. She is taking multiple nitros recently. Had troponins negative. EKG not showing acute ischemic changes. Patient had a stress test according to her report as outpatient and was planned to have coronary angiogram in 1 to 2 weeks. Review of Systems Const: Denies: fever(s) or chills Card: Reports: chest pain; Denies: palpitations, edema, swelling of feet/ankles or syncope Resp: Denies: dyspnea GI: Denies: abdominal pain, nausea or vomiting : Denies: flank pain, difficulty voiding, dysuria, urinary frequency or urinary urgency Skin/Breast: Denies: rash or pruritus Medications/Allergies Home Medications Medication Instructions Recorded Confirmed Last Taken Type magnesium oxide 400 mg PO BID #60 tabs 10/05/19 04/21/23 04/21/23 07:30 Rx LEG CRAMPS #1 ea 10/11/19 04/21/23 Unknown History blood sugar diagnostic (OneTouch #50 ea 10/27/19 04/21/23 Unknown Rx Verio test strips) Diabetic Shoes #1 ea 10/28/20 04/21/23 Unknown Rx diabetic shoes #1 ea 10/28/20 04/21/23 Unknown Rx losartan 50 mg tablet 50 mg PO BID 06/30/21 04/21/23 04/21/23 07:30 History hydrochlorothiazide 50 mg tablet 50 mg PO QAM 12/19/21 04/21/23 04/21/23 07:30 History potassium chloride 20 mEq 20 meq PO BID 12/19/21 04/21/23 04/20/23 20:00 History tablet,extended release(part/cryst) aspirin 81 mg tablet,delayed 81 mg PO QAM 04/03/22 04/21/23 04/21/23 07:30 History release cyanocobalamin (vitamin B-12) 1,000 mcg PO BID 04/03/22 04/21/23 Unknown History 1,000 mcg tablet (Vitamin B-12) multivit with 1 tab PO DAILY 04/03/22 04/21/23 Unknown History coiewerf-caha-DX-lutein 8 mg iron-400 mcg-300 mcg tablet (Centrum Silver Women) isosorbide mononitrate 30 mg 30 mg PO DAILY #90 tabs 04/09/22 04/21/23 04/21/23 07:30 Rx tablet,extended release 24 hr diabetic shoes with inserts #1 ea 07/29/22 04/21/23 Unknown Rx cyanocobalamin (vitamin B-12) 1,000 mcg IM .monthly #1 mL 08/14/22 04/21/23 Unknown Rx 1,000 mcg/mL injection solution hydrocodone 10 mg-acetaminophen 1 tab PO Q4H PRN Pain 08/26/22 04/21/23 04/21/23 07:30 History 325 mg tablet cholecalciferol (vitamin D3) 50 50 mcg PO DAILY #30 caps 10/29/22 04/21/23 Unknown Rx mcg (2,000 unit) capsule albuterol sulfate 90 mcg/actuation 2 puff inhalation Q6H PRN 01/11/23 04/21/23 Unknown Rx aerosol inhaler (Ventolin HFA) shortness of breath or wheezing #8.5 grams nitroglycerin 0.4 mg sublingual See Rx Instructions .Route 02/24/23 04/21/23 04/21/23 Rx tablet .COMPLEX #25 tabs Diabetic shoes with inserts #1 ea 03/22/23 04/21/23 Unknown Rx trazodone 50 mg tablet 100 mg PO .hs #60 tabs 03/22/23 04/21/23 Unknown Rx allopurinol 300 mg tablet 300 mg PO DAILY 04/21/23 04/21/23 04/21/23 History atorvastatin 20 mg tablet 20 mg PO QPM 04/21/23 04/21/23 04/21/23 07:30 History escitalopram oxalate 20 mg tablet 10 mg PO DAILY 04/21/23 04/21/23 04/21/23 07:30 History lactulose 10 g PO DAILY PRN Constipation 04/21/23 04/21/23 Unknown History lidocaine 5 % topical patch 3 patch topical DAILY PRN Pain, 04/21/23 04/21/23 Unknown History Moderate metformin 500 mg tablet 1,000 mg PO BID 04/21/23 04/21/23 04/21/23 07:30 History nortriptyline 10 mg capsule 40 mg PO BEDTIME 04/21/23 04/21/23 Unknown History oxybutynin chloride 5 mg 10 mg PO BID 04/21/23 04/21/23 04/21/23 07:30 History tablet,extended release 24 hr tizanidine 4 mg tablet 4 mg PO TID PRN Muscle Spasm 04/21/23 04/21/23 Unknown History Allergies Allergy/AdvReac Type Severity Reaction Status Date / Time carbamazepine [From Tegretol] Allergy Unknown Unknown Verified 04/21/23 14:50 gabapentin [From Neurontin] Allergy Unknown Unknown Verified 04/21/23 14:50 ketorolac [From Toradol] Allergy Unknown Unknown Verified 04/21/23 14:50 levofloxacin Allergy Unknown Unknown Verified 04/21/23 14:50 liraglutide [From Victoza] Allergy Unknown Unknown Verified 04/21/23 14:50 metoprolol [From Toprol XL] Allergy Unknown Unknown Verified 04/21/23 14:50 oxcarbazepine Allergy Unknown Unknown Verified 04/21/23 14:50 [From Trileptal] oxycodone Allergy Unknown Unknown Verified 04/21/23 14:50 topiramate [From Topamax] Allergy Unknown Unknown Verified 04/21/23 14:50 valdecoxib [From Bextra] Allergy Unknown Unknown Verified 04/21/23 14:50 venlafaxine [From Effexor] Allergy Unknown Unknown Verified 04/21/23 14:50 morphine Allergy Unknown Verified 04/21/23 14:50 pregabalin [From Lyrica] Allergy ADR/ALGY-Pa Verified 04/21/23 14:50 lpitations PFSH Acute PFSH: Medical History Abnormal EKG Anxiety Arteriosclerotic heart disease (ASHD) Back pain with history of spinal surgery Bilateral bunions with callous formation; has had surgery for hammer toes Bilateral knee pain Chest pain Chronic pain syndrome Chronic thoracic spine pain Dyslipidemia Essential (primary) hypertension Generalized anxiety disorder Gout Hx of fracture of left hip Hyperlipidemia Hypertension IBS (irritable bowel syndrome) Insomnia, unspecified Lumbar facet joint pain Narrowing of both carotid arteries 16-49% bilateral 06/10/18; carotid duplex Neuropathy Parapelvic renal cyst long standing, well defined left parapelvic cysts on previous CT. No concern regarding cyst. Paresis of right lower extremity Reports this is secondary to spinal injury during back surgery Pure hypercholesterolemia, unspecified Slow transit constipation Type 2 diabetes mellitus without complications Urinary incontinence Urolithiasis recurrent with multiple treatments over the years UTI (urinary tract infection) Vitamin D deficiency Surgical History History of ankle surgery History of back surgery 9 total per patient History of tonsillectomy and adenoidectomy Hx of arthroscopy of shoulder (~09/2018) left Hx of cataract extraction Hx of cervical discectomy (~2015) 4-5-6 Hx of cholecystectomy Hx of colonoscopy Hx of foot surgery right Hx of hysterectomy Hx of lithotripsy Hx of total knee replacement bilateral Hx of tubal ligation Family History Family/Other Dementia CAD (coronary artery disease) Diabetes Denies family history of Clotting disorder Hyperlipidemia Psychiatric illness Chronic kidney disease (CKD) Suicide Anesthesia complication Bleeding disorder Family history of premature coronary artery disease Lung disease Cancer Hypertension Stroke Social History Smoking and tobacco status: never smoked Second hand smoke exposure: Yes Alcohol intake: current Substance/Drug Use: never Lives independently: Yes Household members: none Housing: House Marital status: / Current occupational status: disabled Current gender identity: Female Vitals/I&O/Wt Last Vital Signs Temp 98.4 F 04/21/23 14:38 Pulse 62 04/21/23 16:18 Resp 18 04/21/23 16:18 BP 158/85 04/21/23 16:18 Pulse Ox 99 04/21/23 16:18 O2 Del Method Room Air 04/21/23 16:18 Weight last 48 hrs Weight 150 lb Physical Exam Narrative: GENERAL: Patient is alert, awake and oriented x3. [] NECK: No jugular vein distension. [] HEENT: No cyanosis. No icterus. No pallor. [] HEART: Regular S1 and S2. No murmur, rub or gallop. [] LUNGS: Clear to auscultate bilaterally. [] CENTRAL NERVOUS SYSTEM: Grossly nonfocal. [] EXTREMITIES: Lower extremities with no edema Data 04/22/23 05:36 04/22/23 05:36 A&P Assessment and plan (1) Chest pain: (2) Essential (primary) hypertension: (3) Type 2 diabetes mellitus: Plan Patient has been having worsening chest pain symptoms relieved with nitro. She is using multiple nitros recently. Her symptoms are concerning for unstable angina. She was scheduled for outpatient cardiac catheterization next month however because of worsening of symptoms she has presented to the hospital. We will proceed with coronary angiogram with possible percutaneous coronary intervention. Risks and benefits of the procedure have been discussed with the patient. She understands the risks and benefits and wants to proceed. N.p.o. past midnight. Continue aspirin and Lovenox. Order echocardiogram Thank you for involving us with care of this patient. We will continue to follow. Please call with questions. Consult Attestations Medical Necessity Statement: Care expected to cross 2 midnights. Coding Level of Care Code Acute Code for [facility] Diagnoses Chest pain R07.9 Essential (primary) hypertension I10 Type 2 diabetes mellitus E11.9
--- NOTE | 2023-04-21 17:56 | USCV_ITS ---
Melissa Estes Age: 77 Gender: F : 1945 Exam Date: 04/21/2023 20:32 Ordering Phys: Erik Meeks MD Technologist: CT Exam Location: [facility] [place] Indication: angina BP: 147 / 76 HR: 77 Rhythm: Sinus Technical Quality: Adequate MEASUREMENTS (Male / Female) Normal Values 2D ECHO LV Chamber Size 3.8 cm RV Chamber Size 3.6 cm LVOT Diameter 2.0 cm LV Ejection Fraction MOD 2C 46.2 % LV Ejection Fraction 2C AL 46.7 % LA Diameter 4.0 cm LA Width 3.1 cm LA Height 4.5 cm RA Width 2.7 cm RA Height 4.7 cm Aorta at Sinotubular Diameter 2.5 cm M-MODE Aortic Annulus Diameter 2.8 cm LA Ao Ratio MM 1.6 MV E Point Septal Separation 0.5 cm DOPPLER Right Atrial Pressure 3.0 mmHg FINDINGS Left Ventricle Right Ventricle Right Atrium Left Atrium Mitral Valve Aortic Valve Tricuspid Valve Pulmonic Valve Pericardium Aorta IVC CONCLUSIONS This is a limited echocardiogram performed to assess LV systolic function. LV systolic function is normal with EF of 55 to 60%. No regional wall motion abnormalities are seen. Valves are grossly normal. Doppler exam not performed. Nazario Sood MD (Electronically Signed) Final Date: 22 April 2023 08:14 S
[2023-04-21] MEDS: atorvastatin 40 mg Tablet 20 MG PO (18:18)
[2023-04-21] MEDS: HYDROcodone-acetaminophen 10-325 mg Tablet 1 TAB PO ×2 (18:18→22:04)
[2023-04-21] MEDS: carvedilol 3.125 mg Tablet PO (18:18)
[2023-04-21] MEDS: losartan 50 mg Tablet PO (18:18)
[2023-04-21] MEDS: sodium chloride 0.9% 1,000 ML 50 ML IV (18:20)
[2023-04-21 19:35] LABS: Add Urine Microscopic? YES; Bilirubin Urine Neg (Negative); Blood Urine Neg (Negative); Glucose Urine UA Norm (Normal); Ketones Urine Negative (Negative); Leukocyte Esterase Urine 2+ (Negative); Nitrate Urine Negative (Negative); Protein Urine Neg (Negative); Specific Gravity, Urine 1.005 (1.005-1.030); Urine Appearance Clear (CLEAR); Urine Color Yellow (Yellow); Urobilinogen Urine Norm (Negative); pH Urine 7 (5-7)
[2023-04-21 19:36] LABS: Add Urine Culture? Yes; Bacteria Urine 2+ /hpf; RBC Urine 0-4 /hpf (0-2); Squamous Epithelial Cell Urine 0-4 /hpf (0-5); WBC Urine 15-25 /hpf (0-5)
[2023-04-21 19:51] LABS: Iron 64 ug/dL (37-145); Percent Saturation 17.8 % (20-50); Total Iron Binding Capacity 358 mcg/dl; Unsaturated Iron Binding 294 ug/dL (112-347)
--- NOTE | 2023-04-21 20:29 | ECG_ITS ---
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 Measurements Intervals [place] Rate: 72 P: 75 PA: 146 QRS: 36 QRSD: 99 T: 68 QT: 381 QTc: 418 Interpretive Statements SINUS RHYTHM Compared to ECG 04/21/2023 17:17:16 Myocardial infarct finding no longer present Electronically Signed On 04-22-2023 7:51:46 CDT by Nazario Sood M.D. [id number]
[2023-04-21 21:49] LABS: Troponin 5 6HR 8.18 ng/L (0-10); Troponin 5 6HR Delta -0.82 ng/L (0-12)
[2023-04-21] MEDS: trazodone 100 mg Tablet PO (22:04)
[2023-04-21] MEDS: tizanidine 4 mg Tablet PO (22:04)
[2023-04-21 22:06] LABS: Glucose Point of Care 129 mg/dL (70-110)
[2023-04-21] MEDS: nortriptyline 10 mg Capsule 40 MG PO (22:30)
[2023-04-22] VITALS (60 sets, daily range): BP systolic 100–147; BP diastolic 58–85; PULSE 61–82; RESP 12–29; O2SAT 92–100
[2023-04-22] MEDS: oxybutynin chloride XL 5 MG TABLET 10 MG PO (05:50)
[2023-04-22] MEDS: HYDROcodone-acetaminophen 10-325 mg Tablet 1 TAB PO ×2 (05:50→12:45)
[2023-04-22] MEDS: aspirin 81 mg EC Tablet PO (05:50)
--- NOTE | 2023-04-22 05:55 | PC.NURSE ---
Patient requested to take oxybutyn early and priorto heart cath this morning.
--- NOTE | 2023-04-22 06:03 | XACV_ITS ---
Exam Room: 2 Ht: 165 cm Wt: 68 kg BSA: 1.78 m2 Gender: Female : 1945 Exam Priority: Routine Procedure(s): Procedure Description: Diagnostic procedure Procedure Description: Left Heart Catheterization Procedure Description: Left ventriculography Procedure Description: Coronary Angiography Diagnostic Cath Status: Urgent Diagnostic Findings * No significant disease noted in the Left Main, Left Anterior Descending, Right, or Circumflex coronary arteries. * Coronary angiography shows right dominance. Conclusions 1. No significant disease noted in the Left Main, Left Anterior Descending, Right, or Circumflex coronary arteries. 2. Normal left ventricular systolic function. Ejection fraction of 60%. Recommendations * Aggressive risk factor modification. * Outpatient cardiology follow up in 2-4 weeks. Interventional RX Recommendation: medical therapy and/or counseling Diagnostic RX Recommendation: medical therapy and/or counseling Anticoagulation: Heparin Ventriculography Ejection Fraction: 60.0 % Pressures Phase:Rest AO : 140 / 72 ( 103 ) @ 9:58:00 AM 141 / 70 ( 103 ) @ 9:58:00 AM LV : 127 / -5 / 20 @ 9:55:00 AM 146 / -6 / 17 @ 9:58:00 AM 144 / -6 / 17 @ 9:58:00 AM Valves Phase:DefaultPhase AV : 0.0 @ 9:04:37 AM 0.0 @ 9:04:37 AM AV Mean Gradient: 0.0 @ 9:04:37 AM 0.0 @ 9:04:37 AM Clinical Evaluation EBL: 5mL-10mL Procedural Details Pre-Procedure Time Out. Identified patient by full name and date of as verbalized by the patient/guarantor. Does the consent match the physician's order: Yes. Accurate & Complete Informed Consent: Yes. Inpatient/Outpatient History & Physical on Chart: Yes. If H&P is completed, is and addenduem needed: No; If yes, is the addendum complete: N/A. Visualize and Verify Site with Patient/Guarantor: N/A. Relevant Radiology Images available: Yes. Pre-op teaching completed and patient verbalized understanding. The risks, benefits, and alternatives of sedation and/or procedure were discussed by physician. The patient agrees to continue. Procedure started. Admit Source: In Patient. [facility] Clinical Fraility Score: 4: Vulnerable. 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 Chest Pain Symptom Assessment: Typical Angina Symptoms. Correct patient, site and procedure confirmed by cath team. Current diagnosis: Chest Pain. PERRLA. Strong, equal hand insulator helper bilaterally. Lungs clear x 5 lobes. IV Site on Arrival: 20 gauge in the left forearm. Pre Procedural Pulses: bilateral radial was 3+. Pre Procedural Pulses: bilateral dorsalis pedis was 3+. Pre Procedural Pulses: bilateral posterior tibial was 3+. IV Fluids: 0.9% NaCl at 75ml/hr. 700 mL infused prior to cath lab radiology technician. Oxygen started at 3liters/min via nasal canula. right radial was prepped with chloroprep then draped in the usual sterile fashion. right groin was prepped with chloroprep then draped in the usual sterile fashion. Physician notified. Baseline sample Acquired. HR: 64 BPM. Physician arrived. Physician scrubbed in. Immediate Pre-Procedure Time Out. Correct Patient: Yes; Correct Procedure: Yes; Correct Site: Yes; Correct Patient Position: Yes; Correct Supplies: Yes; Dried Flammable Prep: Yes; Blood Products Available: no;. Lidocaine 1% infiltrated to the right radial. Jennifer Roberts RN was relieved by Allyson Tomlinson RN as monitoring person. Arterial access obtained. A 5 tajik TIG catheter in over wire. Multiple views taken of left coronary artery. Catheter redirected to the RCA. Multiple views taken of right coronary artery. Catheter removed over the exchange wire. A 5 tajik Angled Pig catheter in over wire. EDP Sample taken: LV 127/-6,20; HR: 80 BPM; SpO2: 96%. LV gram performed in DOSS @ 10 mL/second for a total of 30 mL. EDP Sample taken: LV 146/-7,17; HR: 79 BPM; SpO2: 98%. Pullback taken: LV 144/-7,17; AO 140/72(103); Mean: 0mmHg, Peak to Peak: 0mmHg, SEP: 23sec/min; HR: 79 BPM; SpO2: 98%. A TR Band was successful obtaining hemostatsis at the Right Radial artery insertion site. Physician scrubbed out. Post Procedure: Pulses reassessed and unchanged. PERRLA. Strong, equal hand insulator helper bilaterally. No VTE prophylaxis required. Medication's Wasted: Lidocaine 1% = 2 mL. Medication's Wasted: Nitro = 49.8 mg. Medication's Wasted: Heparin = 1000 units. Medication's Wasted: Other = Diphenhydramine 25 mg. Medication's Wasted: Other = fentanyl 25 mcg. Total IV fluids: 30 mL. Post-op diagnosis: Non obstructive CAD. Complications: None. Estimated blood loss: 5mL-10mL. Responsiveness - Normal response to verbal stimuli; alert and oriented, PERRLA. Airway - Unaffected, no intervention required; spontaneous ventilation. Circulation: W/N/L, pulses unchanged. Nausea/Vomiting: No. Procedure completed. Patient transferred by bed to 1st floor. Vital chart was stopped. Catheter removed over the exchange wire. Access Site Site: Right Radial artery Sheath Size: 6 Fr Hemostasis Method: TR Band Hemostasis Success: Successful Procedure Medications Start: 8:38 AM Stop: 8:38 AM Medication: Fentanyl Amount: 50 mcg Route: I.V. Start: 8:41 AM Stop: 8:41 AM Medication: Diphendryamine Amount: 25 mg Route: I.V. Start: 8:42 AM Stop: 8:42 AM Medication: Versed Amount: 1 mg Route: I.V. Start: 8:46 AM Stop: 8:46 AM Medication: Versed Amount: 1 mg Route: I.V. Start: 8:47 AM Stop: 8:47 AM Medication: Nitrogylcerin Amount: 200 mcg Route: I.A. Start: 8:48 AM Stop: 8:48 AM Medication: Heparin Amount: 5000 units Route: I.V. Start: 8:49 AM Stop: 8:49 AM Medication: Fentanyl Amount: 25 mcg Route: I.V. I, the attending physician, have reviewed and verified all procedure medications. Yes, all medications given per verbal order History/Risk Factors Hypertension: Yes Dyslipidemia: Yes Peripheral Arterial Disease (PAD): Yes Myocardial Infarction (ME): No Obesity: No Renal Disease: No Tobacco Use: Never Prior Interventions PCI: No CABG: No Valve Surgery: No Report Signatures Finalized by Nazario Sood MD on 05/05/2023 12:33 PM
[2023-04-22 06:20] LABS: Basophils % 0.5 %; Eosinophils # 0.2 10^3/uL (0.0-0.8); Lymphocytes # 1.9 10^3/uL (0.8-4.8); Lymphocytes % 30.4 %; Mean Corpuscular HGB Conc 31.4 g/dL (30-55); Mean Corpuscular Hemoglobin 29.7 pg (27-33); Mean Corpuscular Volume 94.9 fl (85-98); Mean Platelet Volume 9.1 fL (7.4-10.4); Monocytes # 0.8 10^3/uL (0.2-0.9); Neutrophils # 3.32 10^3/uL (1.8-7.7); Neutrophils % 53.3 %; Nucleated Red Blood Cells % 0 %; Platelet Count 234 10^3/cmm (157-399); Red Cell Distribution Width 13.5 % (12.1-15.1); White Blood Count 6.24 10^3/uL (3.29-11.43)
[2023-04-22 06:43] LABS: Alanine Aminotransferase 15 U/L (0-33); Alkaline Phosphatase 63 U/L (35-105); Anion Gap 12.9 (5-19); Aspartate Amino Transferase 13 U/L (0-32); Blood Urea Nitrogen 20 mg/dL (8-23); Calcium 9.2 mg/dL (8.5-10.5); Carbon Dioxide 30 mmol/L (22-29); Chloride 101 mmol/L (98-107); Globulin 2.2 g/dL (1.3-4.6); Glucose 117 mg/dL (65-115); Magnesium 1.9 mg/dL (1.7-2.3); Osmolality Calculated 294 mOsm/kg (285-295); Phosphorus 4.2 mg/dL (2.5-4.5); Potassium 3.9 mmol/L (3.5-5.1); Sodium 140 mmol/L (136-145); Total Bilirubin 0.2 mg/dL (0.15-1.2); Total Protein 6.2 g/dL (6.6-8.7)
[2023-04-22 07:04] LABS: Folate Level 19.8 ng/mL (4.8-37.3)
--- NOTE | 2023-04-22 07:59 | PM.PN ---
Subjective Subjective: Patient underwent coronary angiogram today that showed nonobstructive CAD. She had 1 episode of chest discomfort earlier this morning. Vitals/I&O/Wt Last Vital Signs Temp 98.6 F 04/21/23 23:05 Pulse 66 04/22/23 06:00 Resp 16 04/22/23 03:39 BP 137/67 04/22/23 03:39 Pulse Ox 97 04/22/23 03:39 O2 Del Method Room Air, Nasal Cannula 04/22/23 03:39 04/21/23 04/22/23 04/22/23 22:59 06:59 14:59 Intake Total 640 / 640 Balance 640 / 640 Weight last 48 hrs Weight 150 lb Physical Exam Narrative: GENERAL: Patient is alert, awake and oriented x3. [] NECK: No jugular vein distension. [] HEENT: No cyanosis. No icterus. No pallor. [] HEART: Regular S1 and S2. No murmur, rub or gallop. [] LUNGS: Clear to auscultate bilaterally. [] CENTRAL NERVOUS SYSTEM: Grossly nonfocal. [] EXTREMITIES: Lower extremities with no edema Data 04/22/23 05:36 04/22/23 05:36 A&P Assessment and plan (1) Chest pain: (2) Essential (primary) hypertension: (3) Type 2 diabetes mellitus: Plan Patient's coronary angiogram showed nonobstructive CAD. Chest discomfort likely secondary to microvascular dysfunction. Uptitrate Imdur. ECHO shows normal LV systolic function Thank you for involving us with care of this patient. Patient is stable to be discharged from cardiology standpoint. Please call with questions. Attestations Medical Necessity Statement*: Care not expected to cross 2 midnights. Coding Level of Care Code Acute Code for [facility] Diagnoses Chest pain R07.9 Essential (primary) hypertension I10 Type 2 diabetes mellitus E11.9
--- NOTE | 2023-04-22 08:41 | W.PM.OPSUD ---
Surgery/Procedure H&P Update DATE OF PROCEDURE: April 22, 2023 DATE H&P PERFORMED: 04/21/23 H&P UPDATE INFORMATION: I have reviewed H&P completed within last 30 days, I have examined patient prior to procedure and No changes to prior documentation PREOP DIAGNOSIS: Worsening angina PRIMARY INDICATION FOR PROCEDURE: Worsening angina PLANNED PROCEDURE: Left heart cath with possible percutaneous coronary intervention PATIENT REASSESSED PRIOR TO SEDATION, WITH NO CHANGE NOTED: Yes PHYSICAL EXAM: alert, oriented x 3, clear to auscultation bilaterally and regular rate & rhythm AIRWAY EVAL/ANESTHESIA PLAN: normal airway, ASA III, Local Anesthesia, Risks, benefits & alternatives of sedation and/or procedure discussed and Patient agrees to continue as planned ADDITIONAL INFORMATION: Moderate sedation
[2023-04-22] MEDS: nortriptyline 25 mg Capsule 75 MG PO (09:19)
[2023-04-22] MEDS: carvedilol 3.125 mg Tablet PO (09:20)
[2023-04-22] MEDS: escitalopram 10 mg Tablet 20 MG PO (09:20)
[2023-04-22] MEDS: allopurinol 300 mg Tablet PO (09:20)
[2023-04-22] MEDS: losartan 50 mg Tablet PO (09:20)
[2023-04-22] MEDS: isosorbide mononitrate ER 30 mg Tablet PO (09:20)
--- NOTE | 2023-04-22 09:45 | PC.NURSE ---
Patient arrived back to her room via wheelchair with TR band intact. Some drainage is noted but has not gotten worse sense arrival. Patient arrived at 0916am. VS are stable patient has been educated regarding activity restrictions. Nurse will continue to monitor Q15min.
--- NOTE | 2023-04-22 10:15 | PC.CHAP ---
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 [] Patient/Family/Request visit [] Outpatient visit [] Follow-up visit [] Physician referral [] Code/Alert [x] Routine visit [] Staff referral [] Actively dying [] Patient sleeping [] Family support [] [] Out of room [] Palliative care [] [x] Receiving care in room [] Pre-surgical visit [] Trauma [] Long length of stay [] ICU visit [] Other: Relational/Emotional Strength [x] Patient feels connected with others/family/visitors/staff [] Distress [] Loneliness/isolation [] Abandonment Spirituality of Patient [x] Person of Sonia [] Attends Anabaptist of their Sonia [x] Believes in Prayer [] Reads Bible or Faith materials [] There are Spiritual issues to be addressed Weather Forcaster Interventions [x] Prayer [x] Active listening [x] Non-anxious presence [x] Spiritual/emotional support [] Crisis/trauma care [x] Spiritual counseling [] Bereavement support [] Provided bereavement packet [] Provided Bible/devotional materials [] Provided toy/stuffed animal, coloring book to patient or family member [] Provided Communion [] Anointing/[place] [] Salvation [x] Completed spiritual assessment [] Other: Impact on Illness or Injury [] Angry [] Fearful [] Anxious [] Often cries [] Exhaustion [] Unable to work [] Unable to attend congregation [] Unable to walk/stand [] Unable to read [] Unable to drive [] Unable to eat/drink [] Unable to sleep [] Unable to be with family [] Patient intubated [] Other: Summary senior, tests were good under doctors has a good attitude well go home Time spent with patient 10 mins
[2023-04-22 12:14] LABS: Glucose Point of Care 133 mg/dL (70-110)
--- NOTE | 2023-04-22 12:52 | PM.DCS ---
Discharge Providers Date of Admission: 04/21/23 16:19 Date of Discharge: April 22, 2023 Attending Provider at Admission: Erik Meeks MD Attending Provider at Discharge: Erik Meeks MD Primary Care Provider: Shelby Henderson MD Diagnoses at Discharge Discharge Diagnosis (1) Chest pain: Status: Acute (2) Essential (primary) hypertension: Status: Acute (3) Type 2 diabetes mellitus: Status: Acute Reason for Visit Reason for Visit: Chest pain Hospital Course Hospital Course Melissa Estes is a 77 year old female with past medical history of hypertension, type 2 diabetes mellitus, dyslipidemia with history of multiple back surgeries in the past.? 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 Pain is not associated with exertion.? After taking nitro multiple times during the day for last 3 weeks for relieving of pain.? Today pain relieved with nitro. 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 Cardiology was consulted and she underwent cardiac angiogram on 04/22. Echocardiogram was done during hospitalization which showed normal EF without regional wall motion abnormality. Cardiac angiogram was consistent with nonobstructive CAD. Otherwise her hospitalization was unremarkable. She has been discharged hemodynamically stable condition. Her dose of Imdur has been uptitrated. Physical Exam Narrative: General: No acute distress, AO x3, limited movement of the spine secondary to multiple surgeries and pain, pleasant HEENT: PERRLA, pupils bilaterally equal and reactive Chest: Normal vesicular breath sounds, no added sounds, equal good air entry bilaterally CVS: S1-S2 regular, no murmurs, no tachycardia, no gallops, no rubs Abdomen: Soft, nontender, no organomegaly, bowel sounds present Neuro: No focal deficits, no facial deformity, AO x3, power 5/5 in all limbs Discharge Data Studies Completed and Pending Completed Studies During Hospitalization Category Date Time Status XR chest 1V portable [id number] Stat Exams 04/21/23 15:30 Completed CV. 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 Routine Exams 04/22/23 06:03 Ordered Urine Culture Routine Lab 04/21/23 18:32 Received Laboratory Results WBC 6.24 10^3/uL (3.29-11.43) 04/22/23 05:36 RBC 3.90 10^6/uL (3.85-5.65) 04/22/23 05:36 Hgb 11.60 g/dL (11.27-16.99) 04/22/23 05:36 Hct 37.0 % (36-47) 04/22/23 05:36 MCV 94.9 fl (85-98) 04/22/23 05:36 MCH 29.7 pg (27-33) 04/22/23 05:36 MCHC 31.4 g/dL (30-55) 04/22/23 05:36 RDW 13.5 % (12.1-15.1) 04/22/23 05:36 Plt Count 234 10^3/cmm (157-399) 04/22/23 05:36 MPV 9.1 fL (7.4-10.4) 04/22/23 05:36 Neut % (Auto) 53.3 % 04/22/23 05:36 Lymph % (Auto) 30.4 % 04/22/23 05:36 [place] % (Auto) 12.0 % 04/22/23 05:36 Eos % (Auto) 3.0 % 04/22/23 05:36 Baso % (Auto) 0.5 % 04/22/23 05:36 Neut # (Auto) 3.32 10^3/uL (1.8-7.7) 04/22/23 05:36 Lymph # (Auto) 1.9 10^3/uL (0.8-4.8) 04/22/23 05:36 [place] # (Auto) 0.8 10^3/uL (0.2-0.9) 04/22/23 05:36 Eos # (Auto) 0.2 10^3/uL (0.0-0.8) 04/22/23 05:36 Baso # (Auto) 0.0 10^3/uL (0.0-0.1) 04/22/23 05:36 Nucleated RBC % (auto) 0 % 04/22/23 05:36 Nucleated RBCs # 0.0 /100WBC 04/22/23 05:36 Sodium 140 mmol/L (136-145) 04/22/23 05:36 Potassium 3.9 mmol/L (3.5-5.1) 04/22/23 05:36 Chloride 101 mmol/L (98-107) 04/22/23 05:36 Carbon Dioxide 30 mmol/L (22-29) H 04/22/23 05:36 Anion Gap 12.9 (5-19) 04/22/23 05:36 BUN 20 mg/dL (-23) 04/22/23 05:36 Creatinine 0.4 mg/dL (0.5-0.9) L 04/22/23 05:36 GFR Calculation Not Reportable 04/22/23 05:36 Glucose 117 mg/dL (65-115) H 04/22/23 05:36 POC Glucose 133 mg/dL (70-110) H 04/22/23 12:04 Calculated Osmolality 294 mOsm/kg (285-295) 04/22/23 05:36 Calcium 9.2 mg/dL (8.5-10.5) 04/22/23 05:36 Phosphorus 4.2 mg/dL (2.5-4.5) 04/22/23 05:36 Magnesium 1.9 mg/dL (1.7-2.3) 04/22/23 05:36 Iron 64 ug/dL (37-145) 04/21/23 18:08 TIBC 358 mcg/dl 04/21/23 18:08 % Saturation 17.8 % (20-50) L 04/21/23 18:08 Unsat Iron Binding 294 ug/dL (112-347) 04/21/23 18:08 Total Bilirubin 0.2 mg/dL (0.15-1.2) 04/22/23 05:36 AST 13 U/L (0-32) 04/22/23 05:36 ALT 15 U/L (0-33) 04/22/23 05:36 Alkaline Phosphatase 63 U/L (35-105) 04/22/23 05:36 Troponin T Baseline 9 ng/L (0-10) 04/21/23 14:58 Troponin T Hi Sens 6Hr 8.18 ng/L (0-10) 04/21/23 21:14 Troponin T Hi Sens 6Hr Delta -0.82 ng/L (0-12) L 04/21/23 21:14 Total Protein 6.2 g/dL (6.6-8.7) L 04/22/23 05:36 Albumin 4.0 g/dL (3.5-5.2) 04/22/23 05:36 Globulin 2.2 g/dL (1.3-4.6) 04/22/23 05:36 Vitamin B12 Cancelled 04/21/23 18:08 Folate 19.8 ng/mL (4.8-37.3) 04/22/23 05:36 TSH Cancelled 04/21/23 18:08 Urine Color Yellow (Yellow) 04/21/23 18:32 Urine Appearance Clear (CLEAR) 04/21/23 18:32 Urine pH 7 (5-7) 04/21/23 18:32 Ur Specific [place] 1.005 (1.005-1.030) 04/21/23 18:32 Urine Protein Neg (Negative) 04/21/23 18:32 Urine Glucose (UA) Norm (Normal) 04/21/23 18:32 Urine Ketones Negative (Negative) 04/21/23 18:32 Urine Blood Neg (Negative) 04/21/23 18:32 Urine Nitrate Negative (Negative) 04/21/23 18:32 Urine Bilirubin Neg (Negative) 04/21/23 18:32 Urine Urobilinogen Norm mg/dL (Negative) 04/21/23 18:32 Ur Leukocyte Esterase 2+ (Negative) H 04/21/23 18:32 Urine RBC 0-4 /hpf (0-2) H 04/21/23 18:32 Urine WBC 15-25 /hpf (0-5) H 04/21/23 18:32 Ur Squamous Epith Cells 0-4 /hpf (0-5) H 04/21/23 18:32 Amorphous Sediment Not Reportable 04/21/23 18:32 Urine Bacteria 2+ /hpf (NONE) H 04/21/23 18:32 Imaging Echo: Radiologist's impression: Limited echo: ?CONCLUSIONS ?This is a limited echocardiogram performed to assess LV systolic ?function. ?LV systolic function is normal with EF of 55 to 60%.? No ?regional wall motion abnormalities are seen. ?Valves are grossly normal.? Doppler exam not performed. ?Nazario Sood MD ?(Electronically Signed) ?Final Date:? ? ? 22 April 2023 ? 08:14 S Vitals Last Vital Signs Temp 98.6 F 04/21/23 23:05 Pulse 63 04/22/23 12:15 Resp 12 04/22/23 12:15 BP 100/60 04/22/23 12:15 Pulse Ox 96 04/22/23 12:15 O2 Del Method Room Air, Nasal Cannula 04/22/23 03:39 Discharge Plan Discharge Patient Disposition: Home Condition: Stable Prescriptions: Continued (DME) Diabetic Shoes See Rx Instructions .Route .MEDSUPPLY Qty: 1 0RF Rx Instructions: As directed (DME) diabetic shoes See Rx Instructions .Route .MEDSUPPLY Qty: 1 0RF Rx Instructions: with molds and inserts (DME) LEG CRAMPS tablet Qty: 1 Rx Instructions: As directed hydrocodone-acetaminophen 10-325 mg tablet 1 tab PO Q4H PRN (Reason: Pain) cyanocobalamin (vitamin B-12) 1,000 mcg/mL solution 1,000 mcg IM .monthly Qty: 1 6RF cholecalciferol (vitamin D3) 50 mcg (2,000 unit) capsule 50 mcg PO DAILY Qty: 30 0RF albuterol sulfate [Ventolin HFA] 90 mcg/actuation HFA aerosol inhaler 2 puff inhalation Q6H PRN (Reason: shortness of breath or wheezing) Qty: 8.5 0RF (DME) Diabetic shoes with inserts See Rx Instructions .Route .MEDSUPPLY Qty: 1 0RF Rx Instructions: Pt will need insert to build up left foot as well. trazodone 50 mg tablet 100 mg PO .hs Qty: 60 2RF magnesium oxide 400 mg magnesium tablet 400 mg PO BID Qty: 60 0RF (DME) OneTouch Verio test strips Strip See Rx Instructions .ROUTE .MEDSUPPLY Qty: 50 5RF Rx Instructions: USE ONE STRIP EVERY DAY (DME) diabetic shoes with inserts See Rx Instructions .Route .MEDSUPPLY Qty: 1 0RF Rx Instructions: As directed nitroglycerin 0.4 mg tablet, sublingual See Rx Instructions .ROUTE .COMPLEX Qty: 25 2RF Dose Instruction: DISSOLVE ONE TABLET UNDER THE TONGUE NEEDED Rx Instructions: DISSOLVE ONE TABLET UNDER THE TONGUE NEEDED losartan 50 mg tablet 50 mg PO BID hydrochlorothiazide 50 mg tablet 50 mg PO QAM potassium chloride 20 mEq tablet,ER particles/crystals 20 meq PO BID cyanocobalamin (vitamin B-12) [Vitamin B-12] 1,000 mcg Tablet 1,000 mcg PO BID Centrum Silver Women 8 mg iron-400 mcg-300 mcg Tablet 1 tab PO DAILY aspirin 81 mg tablet,delayed release (DR/EC) 81 mg PO QAM metformin 500 mg tablet 1,000 mg PO BID tizanidine 4 mg tablet 4 mg PO TID PRN (Reason: Muscle Spasm) allopurinol 300 mg tablet 300 mg PO DAILY atorvastatin 20 mg tablet 20 mg PO QPM nortriptyline 10 mg capsule 40 mg PO BEDTIME escitalopram oxalate 20 mg tablet 10 mg PO DAILY oxybutynin chloride 5 mg tablet extended release 24hr 10 mg PO BID lactulose 10 g liquid 10 g PO DAILY PRN (Reason: Constipation) lidocaine 5 % Adhesive Patch,Medicated 3 patch TOPICAL DAILY PRN (Reason: Pain, Moderate) Rx Instructions: leave on most painful area for up to 12 hrs Changed isosorbide mononitrate 30 mg tablet extended release 24 hr 60 mg PO DAILY Qty: 90 3RF Discharge Orders: Discharge Order (Routine); Ordered 04/22/23 Ordered By: Erik Meeks Referrals: Bonita Alcantara FNP [Nurse Practitioner] - 04/28/23 9:15 am Shelby Henderson MD [Primary Care Provider] - 04/27/23 10:00 am Discharge Diet: Cardiac Discharge Activity: Resume usual activity and Increase activity as tolerated Patient Instructions: Chest Pain Stoplight, Opioid Safety, Post Angiogram Home Care Instructions Activity Restrictions/Additional Instructions: Please follow-up with your providers on the set appointment. Continue all your medications as before. Dose of Imdur has been increased to 60 mg daily. Please check your blood pressure daily at home and maintain a blood pressure diary and follow-up on set appointment for further adjustment of medications as needed. Discharge Attestations Time Spent in Discharge Care*: greater than 30 min Specific Discharge Activities: educating patient, discussing with pcp/other providers, discussing with pillowcase cleaner/social workers/dc planners, documenting/other paperwork and evaluating patient/reviewing data Status at Discharge: Cognitive status at discharge: cognitively intact, Behavioral status at discharge: cooperative, Functional status at discharge: uses cane/walker, Overall status at discharge: patient is back to baseline Quality Metrics Clinical Quality Measures [ No reported AMI, CVA or VTE this stay] Coding Level of Care Code 43329 Total time (in minutes) for Discharge: 50 Diagnoses Chest pain R07.9 Essential (primary) hypertension I10 Type 2 diabetes mellitus E11.9
--- NOTE | 2023-04-22 14:07 | PC.NURSE ---
TR band removed, dressing in place. No hematoma or drainage. Patient discharge education was provided. IV removed, patient left via POV VS stable upon departure.
== END 2023-04-22 13:45 | disposition home or self-care (01) ==
LOC: ER 15:23 → CSU 16:51
PROVIDERS: Internal Medicine; Admitting Provider Student in an Organized Health Care Education/Training Program; Emergency Provider Family Medicine; PCP Family Medicine; Visit Provider Student in an Organized Health Care Education/Training Program
DX: R07.9 Chest pain, unspecified (principal); I10 Essential (primary) hypertension; E11.9 Type 2 diabetes mellitus without complications; E78.5 Hyperlipidemia, unspecified
CPT/HCPCS: 36415; 36416; 71045; 80053; 81001; 81015; 82746; 82962; 83540; 83550; 83735; 84100; 84484; 85025; 87077; 87086; 87186; 93005; 93308; 93458; 94664; 96360; 96361; 96367; 96372; 99152; 99285; C1769; C1887; C1894; G0378; J1200; J1644; J1650; J2250; J3010; J3490; J7030; Q9967

== ENCOUNTER 2023-04-28 09:33 | Outpatient (CLI) | payer MEDICARE, MEDICAID, SELFPAY ==
[2023-04-28 10:16] LABS: Anion Gap 13.6 (5-19); Blood Urea Nitrogen 17 mg/dL (8-23); Calcium 9.5 mg/dL (8.5-10.5); Carbon Dioxide 27 mmol/L (22-29); Chloride 103 mmol/L (98-107); Glucose 123 mg/dL (65-115); Osmolality Calculated 291 mOsm/kg (285-295); Potassium 4.6 mmol/L (3.5-5.1); Sodium 139 mmol/L (136-145)
== END 2023-04-28 09:34 | disposition home or self-care (01) ==
PROVIDERS: PCP Family Medicine; Visit Provider Nurse Practitioner Family
DX: I25.10 Atherosclerotic heart disease of native coronary artery without angina pectoris (principal); I10 Essential (primary) hypertension; G89.29 Other chronic pain; Z79.899 Other long term (current) drug therapy
CPT/HCPCS: 80048; 99214

== ENCOUNTER → 2023-05-27 10:09 | Outpatient (BNVA) | payer MEDICARE, MEDICAID, SELFPAY | PROVIDERS: PCP Family Medicine; Visit Provider Student in an Organized Health Care Education/Training Program | DX: M75.101 Unspecified rotator cuff tear or rupture of right shoulder, not specified as traumatic; M75.41 Impingement syndrome of right shoulder | CPT/HCPCS: 73030; 99213 ==

== ENCOUNTER 2023-06-17 09:05 | Outpatient (CLI) | payer MEDICARE, MEDICAID, SELFPAY ==
--- NOTE | 2023-06-17 09:30 | MR_ITS ---
WS: [id number] MRI RIGHT SHOULDER HISTORY: pain in right shoulder, prior rotator cuff repairs. COMPARISON: 04/26/2020 TECHNIQUE: Multiplanar sequences of the shoulder joint are submitted. Micrometallic artifact throughout the shoulder from prior rotator cuff repairs. At least one anchor i s noted in the humeral head. Marked AC joint arthritis. Subchondral cystic changes are noted in the d istal clavicle. There is significant encroachment upon the myotendinous portion of the supraspinatus. No significant subacromial impingement. Biceps tendon is not identified in the bicipital groove. The re is a small amount of fluid in the bicipital groove. The extracapsular portion of the biceps tendon is thickened and enlarged. This is a new finding since the prior study of 2019. No os acromion. Marked abnormal signal in the distal supraspinatus tendon beginning at the level of the distal acromi on. A normal supraspinatus tendon is not identified distally. There is increased T2 signal which is e qual if not greater than the proton density sequence suggesting this is a true tear. Tendon appears r etracted to the superior humeral head. The changes within the supraspinatus tendon are new since 04/26. Moderate atrophy of the supraspinatus tendon has progressed since the prior study. Subscapular is tendon and infraspinatus tendons appear normal. There is also mild atrophy of the infraspinatus an d subscapularis muscles. No labral tears are identified. No marrow edema. IMPRESSION: 1. Marked abnormal signal in the distal supraspinatus tendon. The tendon appears retracted to the sup erior humeral head. New finding since 04/26/2020. Suspect complete tear of the distal supraspinatus te ndon. 2. Moderate atrophy of the supraspinatus muscle which is new. 3. Severe AC joint arthritis with encroachment upon the supraspinatus muscle. 4. Absent biceps tendon from the bicipital groove. New since 04/26/2020. Ruptured versus dislocated. 5. Prior rotator cuff repair. At least 1 anchor is noted in the humeral head.
== END 2023-06-17 09:06 | disposition home or self-care (01) ==
LOC: RAD 09:06
PROVIDERS: PCP Family Medicine; Visit Provider Student in an Organized Health Care Education/Training Program
DX: M75.101 Unspecified rotator cuff tear or rupture of right shoulder, not specified as traumatic (principal); M13.811 Other specified arthritis, right shoulder
CPT/HCPCS: 73221

== ENCOUNTER 2023-06-18 08:01 | Emergency (ER) | payer MEDICARE, MEDICAID, SELFPAY ==
--- NOTE | 2023-06-18 08:05 | ECG_ITS ---
[facility] Test Date: 2023-06-18 Pat Name: Melissa Estes Department: Room: Gender: Female Religious Educator: : 1945 Requested By: Rainer Angeles Order Number: [id number] Ariella MD: Nazario Sood M.D. Measurements Intervals Canones Rate: 71 P: 62 ND: 140 QRS: -12 QRSD: 129 T: 32 QT: 366 QTc: 400 Interpretive Statements SINUS RHYTHM SEPTAL MYOCARDIAL INFARCTION , PROBABLY OLD [40+ ms Q WAVE IN V1/V2] Compared to ECG 04/21/2023 22:50:29 Myocardial infarct finding now present Electronically Signed On 06-18-2023 8:58:49 CDT by Nazario Sood M.D. [id number]
[2023-06-18 08:13] VITALS: BP 114/78; PULSE 77; RESP 18; TEMP 36.6; O2SAT 97; BMI 25.6
[2023-06-18 08:24] LABS: Basophils % 0.4 %; Eosinophils # 0.3 10^3/uL (0.0-0.8); Eosinophils % 3.4 %; Hematocrit 38.5 % (36-47); Lymphocytes # 1.6 10^3/uL (0.8-4.8); Lymphocytes % 20.3 %; Mean Corpuscular HGB Conc 32.2 g/dL (30-55); Mean Corpuscular Hemoglobin 30.5 pg (27-33); Mean Corpuscular Volume 94.6 fl (85-98); Mean Platelet Volume 8.6 fL (7.4-10.4); Monocytes # 0.7 10^3/uL (0.2-0.9); Monocytes % 8.7 %; Neutrophils # 5.39 10^3/uL (1.8-7.7); Nucleated Red Blood Cells % 0 %; Platelet Count 233 10^3/cmm (157-399); Red Blood Count 4.07 10^6/uL (3.85-5.65); Red Cell Distribution Width 13.3 % (12.1-15.1); White Blood Count 8.04 10^3/uL (3.29-11.43)
[2023-06-18 08:35] LABS: Alanine Aminotransferase 15 U/L (0-33); Albumin Level 4.1 g/dL (3.5-5.2); Alkaline Phosphatase 65 U/L (35-105); Anion Gap 15.4 (5-19); Aspartate Amino Transferase 18 U/L (0-32); Blood Urea Nitrogen 15 mg/dL (8-23); Calcium 9.7 mg/dL (8.5-10.5); Carbon Dioxide 26 mmol/L (22-29); Chloride 102 mmol/L (98-107); Globulin 2.5 g/dL (1.3-4.6); Glucose 173 mg/dL (65-115); Osmolality Calculated 293 mOsm/kg (285-295); Potassium 4.4 mmol/L (3.5-5.1); Sodium 139 mmol/L (136-145); Total Bilirubin 0.2 mg/dL (0.15-1.2); Total Protein 6.6 g/dL (6.6-8.7)
--- NOTE | 2023-06-18 08:36 | W.ED.FALL ---
HPI - Fall General: Chief Complaint: Fall Stated Complaint: fall, hit head Time Seen by Provider: 06/18/23 08:05 Source: patient Mode of arrival: ambulatory History of Present Illness: 70-year-old female presents to the emergency room with complaints of a fall. She fell last night when she got dizzy and lost her balance. She has several previous neck surgeries she is still taking hydrocodone regularly. She was concerned that her blood pressure medicines are causing dizziness. When she fell last night she scraped the lateral aspect of her left ankle also hit the head above her right eye she said she had a brief loss of consciousness that she is not on any anticoagulants. She is wearing a soft neck collar on arrival here moving her neck sitting frequently while talking. complaint: fall Onset (ago): minute(s) Fall from: standing Place fall occurred: home Loss of consciousness: Yes Context: history of frequent falls Location of injury: head Location of injury - extremities: Left: ankle Associated symptoms-after fall: Reports lightheadedness; Denies abdominal pain, chest pain, confusion, difficulty walking, headache(s), hematuria, neck pain, numbness, short of breath, vertigo or weakness Review of Systems Const: Denies: fever(s) or chills Card: Reports: lightheadedness; Denies: chest pain Resp: Denies: dyspnea GI: Denies: abdominal pain : Denies: hematuria Musc: Denies: neck pain Skin/Breast: Denies: rash Neuro: Denies: headache(s), difficulty walking, vertigo or confusion PFS ED PFSH: Medical History Abnormal EKG Anxiety Arteriosclerotic heart disease (ASHD) Back pain with history of spinal surgery Bilateral bunions with callous formation; has had surgery for hammer toes Bilateral knee pain Chest pain Chronic pain syndrome Chronic thoracic spine pain Dyslipidemia Essential (primary) hypertension Generalized anxiety disorder Gout Hx of fracture of left hip Hyperlipidemia Hypertension IBS (irritable bowel syndrome) Insomnia, unspecified Lumbar facet joint pain Narrowing of both carotid arteries 16-49% bilateral 06/10/18; carotid duplex Neuropathy Parapelvic renal cyst long standing, well defined left parapelvic cysts on previous CT. No concern regarding cyst. Paresis of right lower extremity Reports this is secondary to spinal injury during back surgery Pure hypercholesterolemia, unspecified Slow transit constipation Type 2 diabetes mellitus without complications Urinary incontinence Urolithiasis recurrent with multiple treatments over the years UTI (urinary tract infection) Vitamin D deficiency Surgical History History of ankle surgery History of back surgery 9 total per patient History of tonsillectomy and adenoidectomy Hx of arthroscopy of shoulder (~09/2018) left Hx of cataract extraction Hx of cervical discectomy (~2015) 4-5-6 Hx of cholecystectomy Hx of colonoscopy Hx of foot surgery right Hx of hysterectomy Hx of lithotripsy Hx of total knee replacement bilateral Hx of tubal ligation Family History Family/Other Dementia CAD (coronary artery disease) Diabetes Denies family history of Clotting disorder Hyperlipidemia Psychiatric illness Chronic kidney disease (CKD) Suicide Anesthesia complication Bleeding disorder Family history of premature coronary artery disease Lung disease Cancer Hypertension Stroke Social History Smoking and tobacco/nicotine status: never used tobacco/nicotine Second hand smoke exposure: Yes Alcohol intake: never Substance/Drug Use: never Lives independently: Yes Household members: none Housing: House Marital status: / Current occupational status: disabled Current gender identity: Female Physical Exam Const: COMMON NORMALS: no acute distress GENERAL APPEARANCE: cooperative and comfortable ORIENTATION/CONSCIOUSNESS: Yes awake, Yes oriented to person, Yes oriented to place and Yes oriented to time HENMT: COMMON NORMALS: normocephalic, atraumatic and hearing grossly normal bilaterally HEAD & SCALP: normocephalic and atraumatic Resp: COMMON NORMALS: normal respiratory effort, No retractions, No use of accessory muscles and clear to auscultation bilaterally AUSCULTATION: clear to auscultation bilaterally Cardio: COMMON NORMALS: regular rate, regular rhythm and No murmurs present (Cardio) RATE: regular rate RHYTHM: regular rhythm GI: COMMON NORMALS: Soft to palpation and No hepatosplenomegaly present AUSCULTATION: Yes normoactive bowel sounds PALPATION: Yes Soft to palpation, No Tenderness to palpation present (GI), No Guarding due to palpation present (GI) and Yes No hepatosplenomegaly present Extremity: COMMON NORMALS: normal to inspection, capillary refill normal, no clubbing, cyanosis or edema, no calf tenderness and no pedal edema Neuro: SENSORIUM/ORIENTATION: Yes oriented to person, Yes oriented to place and Yes oriented to time Skin: COMMON NORMALS: no rashes or lesions noted GENERAL SKIN EXAM: no rashes or lesions noted Course Vital Signs: Vital signs: Vital Signs Temperature 97.9 F 06/18/23 08:13 Pulse Rate 71 06/18/23 09:27 Respiratory Rate 18 06/18/23 08:13 Blood Pressure 126/79 06/18/23 09:27 Pulse Oximetry 97 06/18/23 08:13 MDM - Fall Medical Decision Making Nondisplaced fibula fracture. Placed in a posterior splint crutches refer to Ortho. Continue current medications. Reviewed imaging and labs with the patient Medical Records I reviewed the patient's medical records. Lab Data I reviewed the patient's lab results. 06/18/23 08:13 06/18/23 08:13 Laboratory Results WBC 8.04 10^3/uL (3.29-11.43) 06/18/23 08:13 RBC 4.07 10^6/uL (3.85-5.65) 06/18/23 08:13 Hgb 12.40 g/dL (11.27-16.99) 06/18/23 08:13 Hct 38.5 % (36-47) 06/18/23 08:13 MCV 94.6 fl (85-98) 06/18/23 08:13 MCH 30.5 pg (27-33) 06/18/23 08:13 MCHC 32.2 g/dL (30-55) 06/18/23 08:13 RDW 13.3 % (12.1-15.1) 06/18/23 08:13 Plt Count 233 10^3/cmm (157-399) 06/18/23 08:13 MPV 8.6 fL (7.4-10.4) 06/18/23 08:13 Neut % (Auto) 67.0 % 06/18/23 08:13 Lymph % (Auto) 20.3 % 06/18/23 08:13 [place] % (Auto) 8.7 % 06/18/23 08:13 Eos % (Auto) 3.4 % 06/18/23 08:13 Baso % (Auto) 0.4 % 06/18/23 08:13 Neut # (Auto) 5.39 10^3/uL (1.8-7.7) 06/18/23 08:13 Lymph # (Auto) 1.6 10^3/uL (0.8-4.8) 06/18/23 08:13 [place] # (Auto) 0.7 10^3/uL (0.2-0.9) 06/18/23 08:13 Eos # (Auto) 0.3 10^3/uL (0.0-0.8) 06/18/23 08:13 Baso # (Auto) 0.0 10^3/uL (0.0-0.1) 06/18/23 08:13 Nucleated RBC % (auto) 0 % 06/18/23 08:13 Nucleated RBCs # 0.0 /100WBC 06/18/23 08:13 Sodium 139 mmol/L (136-145) 06/18/23 08:13 Potassium 4.4 mmol/L (3.5-5.1) 06/18/23 08:13 Chloride 102 mmol/L (98-107) 06/18/23 08:13 Carbon Dioxide 26 mmol/L (22-29) 06/18/23 08:13 Anion Gap 15.4 (5-19) 06/18/23 08:13 BUN 15 mg/dL (8-23) 06/18/23 08:13 Creatinine 0.4 mg/dL (0.5-0.9) L 06/18/23 08:13 GFR Calculation Not Reportable 06/18/23 08:13 Glucose 173 mg/dL (65-115) H 06/18/23 08:13 Calculated Osmolality 293 mOsm/kg (285-295) 06/18/23 08:13 Calcium 9.7 mg/dL (8.5-10.5) 06/18/23 08:13 Total Bilirubin 0.2 mg/dL (0.15-1.2) 06/18/23 08:13 AST 18 U/L (0-32) 06/18/23 08:13 ALT 15 U/L (0-33) 06/18/23 08:13 Alkaline Phosphatase 65 U/L (35-105) 06/18/23 08:13 Total Protein 6.6 g/dL (6.6-8.7) 06/18/23 08:13 Albumin 4.1 g/dL (3.5-5.2) 06/18/23 08:13 Globulin 2.5 g/dL (1.3-4.6) 06/18/23 08:13 All radiology interpretation(s) finalized by discharge Discharge Plan Discharge Patient Disposition: Home Clinical Impression: Closed left fibular fracture, Fall, Cervicalgia Condition: Stable Prescriptions: No Action (DME) Diabetic Shoes See Rx Instructions .Route .MEDSUPPLY Qty: 1 0RF Rx Instructions: As directed (DME) diabetic shoes See Rx Instructions .Route .MEDSUPPLY Qty: 1 0RF Rx Instructions: with molds and inserts hydrocodone-acetaminophen 10-325 mg tablet 1 tab PO Q4H PRN (Reason: Pain) cholecalciferol (vitamin D3) 50 mcg (2,000 unit) capsule 50 mcg PO DAILY Qty: 30 0RF albuterol sulfate [Ventolin HFA] 90 mcg/actuation HFA aerosol inhaler 2 puff inhalation Q6H PRN (Reason: shortness of breath or wheezing) Qty: 8.5 0RF (DME) Diabetic shoes with inserts See Rx Instructions .Route .MEDSUPPLY Qty: 1 0RF Rx Instructions: Pt will need insert to build up left foot as well. (DME) OneTouch Verio test strips Strip See Rx Instructions .ROUTE .MEDSUPPLY Qty: 50 5RF Rx Instructions: USE ONE STRIP EVERY DAY (DME) diabetic shoes with inserts See Rx Instructions .Route .MEDSUPPLY Qty: 1 0RF Rx Instructions: As directed nitroglycerin 0.4 mg tablet, sublingual See Rx Instructions .ROUTE .COMPLEX Qty: 25 2RF Dose Instruction: DISSOLVE ONE TABLET UNDER THE TONGUE NEEDED Rx Instructions: DISSOLVE ONE TABLET UNDER THE TONGUE NEEDED oxybutynin chloride 10 mg tablet extended release 24hr 10 mg PO BID Qty: 60 2RF carvedilol 3.125 mg tablet 3.125 mg PO BID 30 Days Qty: 60 0RF cyanocobalamin (vitamin B-12) [Vitamin B-12] 1,000 mcg Tablet 1,000 mcg PO BID Centrum Silver Women 8 mg iron-400 mcg-300 mcg Tablet 1 tab PO DAILY aspirin 81 mg tablet,delayed release (DR/EC) 81 mg PO QAM nortriptyline 10 mg capsule 40 mg PO BEDTIME lidocaine 5 % Adhesive Patch,Medicated 3 patch TOPICAL DAILY PRN (Reason: Pain, Moderate) Rx Instructions: leave on most painful area for up to 12 hrs metformin 500 mg tablet 500 mg PO BID escitalopram oxalate 10 mg tablet 10 mg PO DAILY losartan 50 mg tablet 50 mg PO BID atorvastatin 20 mg tablet 20 mg PO QPM trazodone 50 mg tablet 100 mg PO BEDTIME tizanidine 4 mg tablet 4 mg PO TID PRN (Reason: Muscle Spasm) hydrochlorothiazide 50 mg tablet 50 mg PO QAM potassium chloride 20 mEq tablet,ER particles/crystals 20 meq PO BID allopurinol 300 mg tablet 300 mg PO DAILY Discharge Orders: Discharge ED (Routine); Ordered 06/18/23 Ordered By: Rainer Sosa Referrals: Shelby Henderson MD [Primary Care Provider] - Discharge Diet: Usual diet Discharge Activity: Resume usual activity Patient Instructions: Opioid Safety, Pain Management Activity Restrictions/Additional Instructions: You are seen today after a fall. X-ray of neck and CT of your head were unremarkable the left leg there is a nondisplaced fibula fracture survey project manager will make arrangements for you to follow-up with a orthopedist. You should be nonweightbearing on that leg until you see them in the clinic. Use crutches and leave the splint in place. Coding Level of Care Code ED Construction Management Assistant for Vineet Munson
--- NOTE | 2023-06-18 08:42 | CT_ITS ---
WS: [id number] CT HEAD TECHNIQUE: Noncontrast CT of the head obtained from the skullbase to the vertex. CLINICAL INFORMATION: trauma COMPARISON: 2017 DLP: 1139.[address] scans at [facility] use at least one of these dose optimization techniques: automated e xposure control; mA and/or kV adjustment per patient size (includes targeted exams where dose is matc hed to clinical indication); or iterative reconstruction. FINDINGS: No evidence of intracranial hemorrhage or mass effect. Ventricular system and basal cisterns are kline nt. Mild small vessel changes with mild parenchymal volume loss. No extra-axial fluid collections. No evidence of mass or mass effect. Intracranial vascular calcification. Incidental prominent perivascu lar spaces in the basal ganglia Small retention cysts in the maxillary sinuses. Mucosal thickening in the ethmoid air cells. Mastoid air cells are well aerated. Normal posterior nasopharynx. Soft tissue edema overlying the RIGHT front al calvarium. No visualized fractures. IMPRESSION: 1. No evidence of intracranial hemorrhage or mass effect. 2. Mild small vessel changes. Mild parenchymal volume loss. 3. Mild intracranial vascular calcification. 4. No acute intracranial findings.
--- NOTE | 2023-06-18 08:42 | XR_ITS ---
WS: [id number] Cervical spine, 3 views, 06/18/2023 Clinical Data: trauma Comparison: Cervical spine, 11/10/2022 Findings: No compression fractures are seen. There is an anterior cervical disc fusion C4-C7. There a re additional anterior cervical disc fusions at C2-C3 and C3-C4. There is interbody fusion at all the se levels. There is no prevertebral soft tissue swelling. There is facet joint arthritis from C2-3 th rough C6-7. The odontoid is unremarkable. The soft tissues of the neck and the lung apices are normal . Impression: 1. Negative for cervical spine fracture. 2. Stable anterior cervical disc fusions.
--- NOTE | 2023-06-18 08:42 | XR_ITS ---
WS: [id number] Left ankle, 3 views, 06/18/2023 Clinical Data: trauma Comparison: Left ankle, 01/16/2022 Findings: There is an oblique undisplaced fracture of the distal left fibula. No other fractures are seen. Ther e is no soft tissue swelling. The ankle mortise is intact. Impression: Oblique undisplaced fracture of distal left fibula
[2023-06-18 09:27] VITALS: BP 114/68; BP 115/61; BP 126/79; PULSE 71; PULSE 76; PULSE 78
--- NOTE | 2023-06-18 10:12 | DCPLANNER ---
Referral was sent to ortho clinic on 06/18/23 at 10:14. clinic to contact.
[2023-06-18] MEDS: acetaminophen 500 mg Tablet 1000 MG PO (10:29)
== END 2023-06-18 10:47 | disposition home or self-care (01) ==
PROVIDERS: Emergency Provider Family Medicine; PCP Family Medicine
DX: S82.435A Nondisplaced oblique fracture of shaft of left fibula, initial encounter for closed fracture (principal); M54.2 Cervicalgia; Z79.82 Long term (current) use of aspirin; Z79.84 Long term (current) use of oral hypoglycemic drugs; E78.5 Hyperlipidemia, unspecified; I10 Essential (primary) hypertension; E11.9 Type 2 diabetes mellitus without complications; W19.XXXA Unspecified fall, initial encounter; Z79.891 Long term (current) use of opiate analgesic
CPT/HCPCS: 36415; 70450; 72040; 73610; 80053; 85025; 93005; 99285

== ENCOUNTER → 2023-06-21 12:46 | Outpatient (BNVA) | payer MEDICARE, MEDICAID, SELFPAY | PROVIDERS: PCP Family Medicine; Visit Provider Podiatrist Foot & Ankle Surgery | DX: S82.832A Other fracture of upper and lower end of left fibula, initial encounter for closed fracture; W19.XXXA Unspecified fall, initial encounter | CPT/HCPCS: 73610; 99213 ==

== ENCOUNTER → 2023-06-29 13:50 | Outpatient (BNVA) | payer MEDICARE, MEDICAID, SELFPAY | PROVIDERS: PCP Family Medicine; Visit Provider Podiatrist Foot & Ankle Surgery | DX: S82.832A Other fracture of upper and lower end of left fibula, initial encounter for closed fracture (principal); S49.91XA Unspecified injury of right shoulder and upper arm, initial encounter; W19.XXXA Unspecified fall, initial encounter | CPT/HCPCS: 73610; 99213; 99214 ==

== ENCOUNTER → 2023-07-07 15:33 | Outpatient (BNVA) | payer MEDICARE, MEDICAID, SELFPAY | PROVIDERS: PCP Family Medicine; Visit Provider Podiatrist Foot & Ankle Surgery | DX: S82.832A Other fracture of upper and lower end of left fibula, initial encounter for closed fracture (principal); W19.XXXA Unspecified fall, initial encounter | CPT/HCPCS: 73610; 99213 ==

== ENCOUNTER → 2023-07-19 12:41 | Outpatient (BNVA) | payer MEDICARE, MEDICAID, SELFPAY | PROVIDERS: PCP Family Medicine; Visit Provider Podiatrist Foot & Ankle Surgery | DX: S82.832D Other fracture of upper and lower end of left fibula, subsequent encounter for closed fracture with routine healing; X58.XXXD Exposure to other specified factors, subsequent encounter | CPT/HCPCS: 73590; 99213 ==

== ENCOUNTER → 2023-08-11 14:42 | Outpatient (BNVA) | payer MEDICARE, MEDICAID, SELFPAY | PROVIDERS: PCP Family Medicine; Visit Provider Nurse Practitioner | DX: I10 Essential (primary) hypertension; I25.10 Atherosclerotic heart disease of native coronary artery without angina pectoris; N20.0 Calculus of kidney; E11.65 Type 2 diabetes mellitus with hyperglycemia; F41.9 Anxiety disorder, unspecified; R32 Unspecified urinary incontinence; M47.12 Other spondylosis with myelopathy, cervical region; G89.29 Other chronic pain; M25.572 Pain in left ankle and joints of left foot; M25.531 Pain in right wrist | CPT/HCPCS: 73060; 73110; 73590; 73630; 80053; 80061; 82607; 83036 ==

== ENCOUNTER → 2023-08-16 14:08 | Outpatient (BNVA) | payer MEDICARE, MEDICAID, SELFPAY | PROVIDERS: Visit Provider Podiatrist Foot & Ankle Surgery | DX: S82.832A Other fracture of upper and lower end of left fibula, initial encounter for closed fracture; X58.XXXA Exposure to other specified factors, initial encounter; M79.671 Pain in right foot | CPT/HCPCS: 27786; 73610; 99213 ==

== ENCOUNTER 2023-08-19 06:00 | Outpatient (RCR) | payer MEDICARE, MEDICAID, SELFPAY | END 2023-08-20 23:59 | disposition home or self-care (01) | LOC: TPT 06:00 | PROVIDERS: Visit Provider Orthopaedic Surgery Adult Reconstructive Orthopaedic Surgery | DX: Z98.890 Other specified postprocedural states (principal) | CPT/HCPCS: 97163 ==

== ENCOUNTER → 2023-08-31 12:48 | Outpatient (BNVA) | payer OTHER, MEDICAID, SELFPAY | PROVIDERS: PCP Nurse Practitioner; Visit Provider Podiatrist Foot & Ankle Surgery | DX: S82.832D Other fracture of upper and lower end of left fibula, subsequent encounter for closed fracture with routine healing; X58.XXXD Exposure to other specified factors, subsequent encounter | CPT/HCPCS: 73610; 99213 ==

== ENCOUNTER → 2023-09-14 12:19 | Outpatient (BNVA) | payer OTHER, MEDICAID, SELFPAY | PROVIDERS: PCP Nurse Practitioner; Visit Provider Podiatrist Foot & Ankle Surgery | DX: S82.832D Other fracture of upper and lower end of left fibula, subsequent encounter for closed fracture with routine healing; X58.XXXD Exposure to other specified factors, subsequent encounter | CPT/HCPCS: 73610 ==

== ENCOUNTER 2023-09-14 13:49 | Outpatient (CLI) | payer OTHER, MEDICAID, SELFPAY | END 2023-09-14 13:50 | disposition home or self-care (01) | LOC: SPT 13:50 | PROVIDERS: PCP Nurse Practitioner; Visit Provider Podiatrist Foot & Ankle Surgery | DX: Z46.89 Encounter for fitting and adjustment of other specified devices (principal); S82.832D Other fracture of upper and lower end of left fibula, subsequent encounter for closed fracture with routine healing; X58.XXXD Exposure to other specified factors, subsequent encounter | CPT/HCPCS: 97760; L1902 ==

== ENCOUNTER → 2023-10-22 12:12 | Outpatient (BNVA) | payer OTHER, MEDICAID, SELFPAY | PROVIDERS: PCP Nurse Practitioner; Visit Provider Podiatrist Foot & Ankle Surgery | DX: S82.832D Other fracture of upper and lower end of left fibula, subsequent encounter for closed fracture with routine healing; X58.XXXD Exposure to other specified factors, subsequent encounter | CPT/HCPCS: 73610 ==

== ENCOUNTER 2023-11-10 06:00 | Outpatient (RCR) | payer MEDICARE, MEDICAID, SELFPAY | END 2023-11-22 23:59 | disposition home or self-care (01) | LOC: TPT 06:00 | PROVIDERS: Visit Provider Orthopaedic Surgery Adult Reconstructive Orthopaedic Surgery | DX: Z98.890 Other specified postprocedural states (principal) | CPT/HCPCS: 97110; 97163 ==

== ENCOUNTER → 2023-11-12 10:15 | Outpatient (BNVA) | payer MEDICARE, MEDICAID, SELFPAY | PROVIDERS: PCP Family Medicine; Visit Provider Family Medicine | DX: L98.9 Disorder of the skin and subcutaneous tissue, unspecified (principal); G62.9 Polyneuropathy, unspecified; K59.00 Constipation, unspecified; I10 Essential (primary) hypertension; E78.00 Pure hypercholesterolemia, unspecified; E11.9 Type 2 diabetes mellitus without complications; E11.8 Type 2 diabetes mellitus with unspecified complications; I25.10 Atherosclerotic heart disease of native coronary artery without angina pectoris | CPT/HCPCS: 80053; 80061; 83036; 84443; 85025 ==

== ENCOUNTER → 2023-12-16 12:19 | Outpatient (BNVA) | payer MEDICARE, SELFPAY | PROVIDERS: PCP Family Medicine; Visit Provider Dermatology | DX: L21.8 Other seborrheic dermatitis (principal); L57.0 Actinic keratosis; L81.4 Other melanin hyperpigmentation; L57.8 Other skin changes due to chronic exposure to nonionizing radiation; L82.1 Other seborrheic keratosis; D22.5 Melanocytic nevi of trunk; L82.0 Inflamed seborrheic keratosis; Z85.828 Personal history of other malignant neoplasm of skin | CPT/HCPCS: 17000; 17110; 99204 ==

== ENCOUNTER 2023-12-28 19:01 | Emergency (ER) | payer MEDICARE, MEDICAID, SELFPAY ==
[2023-12-28 19:02] VITALS: BP 130/61; PULSE 87; RESP 16; TEMP 36.6; O2SAT 92; BMI 25.6
--- NOTE | 2023-12-28 19:32 | XRR_ITS ---
PROCEDURE INFORMATION: Exam: XR Left Shoulder Exam date and time: 12/28/2023 8:10 PM Age: 78 years old Clinical indication: Injury or trauma; Fall; Blunt trauma (contusions or hematomas); Left; Prior surgery; Surgery date: 6+ months; Surgery type: Lt shoulder TECHNIQUE: Imaging protocol: Radiologic exam of the left shoulder. Views: 2 or more views. COMPARISON: [place] [id number] 08/11/2023 2:44 PM FINDINGS: Bones/joints: Intact reversal shoulder arthroplasty. No dislocation. No sign of loosening. No acute fracture. Cervical fusion noted. Soft tissues: Visible soft tissues are unremarkable. XR/XR shoulder LT min 2V* [id number] IMPRESSION: 1. No acute findings. 2. Intact well-aligned left shoulder arthroplasty.
--- NOTE | 2023-12-28 19:32 | XRR_ITS ---
PROCEDURE INFORMATION: Exam: XR Left Hip Exam date and time: 12/28/2023 8:15 PM Age: 78 years old Clinical indication: Injury or trauma; Fall; Blunt trauma (contusions or hematomas); Left; Hip; Prior surgery; Surgery date: 6+ months; Surgery type: Lt femur TECHNIQUE: Imaging protocol: Radiologic exam of the left hip. Views: 2 or 3 views hip with pelvis when performed. COMPARISON: CR XR hip LT 2-3V wo/w pel* [id number] 11/30/2023 9:16 AM FINDINGS: Bones/joints: There is a partially imaged healed fracture of the femoral diaphysis. Femoroacetabular alignment is normal. Joint space is preserved. No acute femoral fracture is seen. The visible portion of the pelvis and sacrum is intact. Soft tissues: Visible soft tissues are unremarkable. XR/XR hip LT 2-3V wo/w pel* [id number] IMPRESSION: No acute findings.
--- NOTE | 2023-12-28 19:32 | XRR_ITS ---
PROCEDURE INFORMATION: Exam: XR Left Hand Exam date and time: 12/28/2023 8:09 PM Age: 78 years old Clinical indication: Injury or trauma; Fall; Blunt trauma (contusions or hematomas); Hand; Left TECHNIQUE: Imaging protocol: Radiologic exam of the left hand. Views: 3 or more views. COMPARISON: No relevant prior studies available. FINDINGS: Limitations: Limited evaluation of the carpal bones due to obliquity on the lateral view. Bones/joints: Bones are diffusely osteopenic. Alignment is normal. No acute fracture. Mild diffuse interphalangeal osteoarthritis. Moderate 1st through 3rd metacarpophalangeal osteoarthritis. Moderate 1st carpometacarpal and triscaphe osteoarthritis. No acute fracture. Soft tissues: There is mild soft tissue swelling at the ulnar aspect of the wrist. XR/XR hand LT min 3V* [id number] IMPRESSION: 1. No acute fracture. 2. Osteoarthritis as above.
--- NOTE | 2023-12-28 20:45 | W.ED.FALL ---
Documented by User: KEESHA Childers 12/28/23 21:27 HPI - Fall General: Chief Complaint: Fall Stated Complaint: Fall Time Seen by Provider: 12/28/23 20:25 Source: patient Mode of arrival: ambulatory Limitations: no limitations History of Present Illness: Patient is a 78-year-old female who presents to the emergency department complaining of left shoulder pain status post fall approximately 2 hours prior to arrival. Patient notes she has chronic right lower extremity neuropathy from a botched back surgery, and this leg gave out on her and caused her to fall onto her left shoulder. She does note a history of left shoulder prosthesis, and states she believes it is out of place. She took hydrocodone prior to arrival but is still reporting some pain. She is denying any distal neurovascular issues, breathing difficulties, head injuries, loss of consciousness, neck pain, or any other symptoms associated with the fall. She notes she is due for a right shoulder replacement in early January. She is reporting some associated left middle finger pain, but states that this is from a fall last week. MD complaint: fall Onset (ago): hour(s) Fall from: standing Place fall occurred: home Loss of consciousness: None Prolonged down time: no Symptoms prior to fall: none Context: tripped/slipped Location of injury - extremities: Left: shoulder and hand Severity: severe Associated symptoms-after fall: Reports no associated symptoms; Denies abdominal pain, chest pain, headache(s), lightheadedness or neck pain Review of Systems General: Reports: 10 or more systems reviewed and unremarkable except in HPI and below Const: Denies: fever(s), chills or fatigue Eyes: Denies: change in vision ENMT: Denies: throat pain, ear or mastoid pain or nasal discharge Card: Denies: chest pain, palpitations, swelling of feet/ankles or lightheadedness Resp: Denies: dyspnea, productive cough or wheezing GI: Denies: abdominal pain, nausea, vomiting, diarrhea or constipation : Denies: flank pain, difficulty voiding, dysuria or urinary frequency Musc: Reports: extremity pain (Left middle finger) and joint pain (Left shoulder); Denies: neck pain or back pain Skin/Breast: Denies: rash Neuro: Denies: headache(s), numbness in extremities or weakness in extremities PFS ED PFSH: Medical History Controlled diabetes mellitus with hyperglycemia Dyslipidemia Abnormal EKG UTI (urinary tract infection) Paresis of right lower extremity Reports this is secondary to spinal injury during back surgery Hyperlipidemia Gout Hypertension Chest pain Urinary incontinence Back pain with history of spinal surgery Insomnia, unspecified Neuropathy Narrowing of both carotid arteries 16-49% bilateral 06/10/18; carotid duplex Lumbar facet joint pain Bilateral bunions with callous formation; has had surgery for hammer toes Urolithiasis recurrent with multiple treatments over the years Generalized anxiety disorder Type 2 diabetes mellitus without complications Pure hypercholesterolemia, unspecified Vitamin D deficiency Essential (primary) hypertension Arteriosclerotic heart disease (ASHD) Slow transit constipation Chronic pain syndrome IBS (irritable bowel syndrome) Chronic thoracic spine pain Parapelvic renal cyst long standing, well defined left parapelvic cysts on previous CT. No concern regarding cyst. Hx of fracture of left hip Anxiety Bilateral knee pain Surgical History Hx of colonoscopy Hx of total knee replacement bilateral Hx of lithotripsy Hx of hysterectomy Hx of arthroscopy of shoulder (~09/2018) left Hx of cataract extraction Hx of cholecystectomy Hx of cervical discectomy (~2015) 4-5-6 History of tonsillectomy and adenoidectomy History of back surgery 9 total per patient Hx of tubal ligation History of ankle surgery Hx of foot surgery right Family History Family/Other Dementia CAD (coronary artery disease) Diabetes Denies family history of Clotting disorder Hyperlipidemia Psychiatric illness Chronic kidney disease (CKD) Suicide Anesthesia complication Bleeding disorder Family history of premature coronary artery disease Lung disease Cancer Hypertension Stroke Social History Smoking and tobacco/nicotine status: never used tobacco/nicotine Second hand smoke exposure: Yes Alcohol intake: unknown Substance/Drug Use: unknown Adopted: No Caregiver/support person: No Lives independently: Yes Household members: none Housing: House Marital status: / service: No Current occupational status: disabled Current occupational exposures/hazards: No Do you think of yourself as: Straight/Heterosexual Current gender identity: Female Physical Exam Const: COMMON NORMALS: no acute distress, patient oriented x3 and no limitations GENERAL APPEARANCE: cooperative, comfortable and well developed ORIENTATION/CONSCIOUSNESS: Yes awake, Yes oriented to person, Yes oriented to place and Yes oriented to time HENMT: COMMON NORMALS: normocephalic, atraumatic and hearing grossly normal bilaterally HEAD & SCALP: normocephalic and atraumatic Eye: COMMON NORMALS: Equal, round and reactive pupils present, EOMs intact bilaterally and conjunctivae normal CONJUNCTIVA: Yes conjunctivae normal PUPIL: Yes Equal, round and reactive pupils present Neck/C-Spine: COMMON NORMALS: full ROM, supple and no JVD Resp: COMMON NORMALS: normal respiratory effort, No retractions, No use of accessory muscles and clear to auscultation bilaterally AUSCULTATION: clear to auscultation bilaterally Cardio: COMMON NORMALS: no JVD, regular rate, regular rhythm, No clicks present (Cardio), No murmurs present (Cardio) and No rub (Cardio) RATE: regular rate RHYTHM: regular rhythm GI: COMMON NORMALS: Normal to inspection, nondistended, normoactive bowel sounds present, Soft to palpation and non-tender AUSCULTATION: Yes normoactive bowel sounds PALPATION: Yes Soft to palpation RECTAL EXAM: deferred Back/Pelvis: COMMON NORMALS: thoracic and lumbar spine normal to inspection, no thoracic nor lumbar tenderness and thoraco-lumbar ROM normal Extremity: NARRATIVE EXTREMITY EXAM: Left arm in a makeshift sling. She has diffuse tenderness to palpation about the left shoulder joint. There appears to be a palpable deformity to the anterior inferior shoulder. No overlying bruising or other skin changes. Distal neurovascular exam intact. The left third MCP joint is minimally swollen, also no overlying skin changes. Distal neurovascular exam intact to the hand as well. Neuro: COMMON NORMALS: patient oriented x3, CN's II-XII intact bilaterally, moves all extremities, no focal motor deficits and no sensory deficits noted SENSORIUM/ORIENTATION: Yes oriented to person, Yes oriented to place and Yes oriented to time Psych: COMMON NORMALS: mental status grossly normal and Normal thought process present THOUGHT PROCESS: Normal thought process present Skin: COMMON NORMALS: no rashes or lesions noted GENERAL SKIN EXAM: no rashes or lesions noted Course Vital Signs: Vital signs: Vital Signs Temperature 97.9 F 12/28/23 19:02 Pulse Rate 74 12/28/23 21:26 Respiratory Rate 18 12/28/23 21:26 Blood Pressure 108/54 12/28/23 21:26 Pulse Oximetry 95 12/28/23 21:26 Oxygen Delivery Me thod Room Air 12/28/23 20:54 MDM - Fall Medical Decision Making Patient was seen for left shoulder pain status post fall just prior to arrival. She did report history of prosthesis to the left shoulder and was concerned that it popped out of place. Examination showed some reproducible tenderness to palpation about the left shoulder joint, however neurovascular status was intact. There was a palpable deformity to the anterior inferior left shoulder. However, x-ray noted that the prosthesis was intact, and deformity felt likely muscular in etiology. She states that she knows Dr. Pagan and will call and schedule an appointment tomorrow, and request that she be put in a sling. She will be placed in a sling and she has hydrocodone to take at home for pain. The rest of her x-rays were normal, as she has some osteoarthritis to her bilateral MCP joints. She notes that the shot of Toradol given today did help quite a bit. She states she is ready to discharge home, and she will follow-up as discussed for further evaluation. All other questions and concerns addressed at this time. Strict return precautions given. Lab Data Radiology Impressions Hand X-Ray 12/28/23 19:32 IMPRESSION: 1. No acute fracture. 2. Osteoarthritis as above. Hip/Pelvis X-Ray 12/28/23 19:32 IMPRESSION: No acute findings. Shoulder X-Ray 12/28/23 19:32 IMPRESSION: 1. No acute findings. 2. Intact well-aligned left shoulder arthroplasty. All radiology interpretation(s) finalized by discharge Discharge Plan Discharge Patient Disposition: Home Clinical Impression: Left shoulder strain Qualifiers: Encounter type: initial encounter Qualified Code(s): S46.912A - Strain of unspecified muscle, fascia and tendon at shoulder and upper arm level, left arm, initial encounter Fall Qualifiers: Encounter type: initial encounter Qualified Code(s): W19.XXXA - Unspecified fall, initial encounter Osteoarthritis Qualifiers: Osteoarthritis location: hand Osteoarthritis type: unspecified Laterality: bilateral Qualified Code(s): M19.041 - Primary osteoarthritis, right hand Condition: Stable Prescriptions: No Action (DME) Diabetic Shoes See Rx Instructions .Route .[facility] Qty: 1 0RF Rx Instructions: As directed (DME) diabetic shoes See Rx Instructions .Route .MEDSUPPLY Qty: 1 0RF Rx Instructions: with molds and inserts hydrocodone-acetaminophen 10-325 mg tablet 1 tab PO Q4H PRN (Reason: Pain) cholecalciferol (vitamin D3) 50 mcg (2,000 unit) capsule 50 mcg PO DAILY Qty: 30 0RF albuterol sulfate [Ventolin HFA] 90 mcg/actuation HFA aerosol inhaler 2 puff inhalation Q6H PRN (Reason: shortness of breath or wheezing) Qty: 8.5 0RF (DME) ASO to the left See Rx Instructions .Route .MEDSUPPLY Qty: 1 0RF Rx Instructions: As directed (DME) Diabetic shoes with inserts See Rx Instructions .Route .MEDSUPPLY Qty: 1 0RF Rx Instructions: Pt will need insert to build up left foot as well. losartan 25 mg tablet 25 mg PO DAILY Qty: 1 0RF Hold Instructions: Watching blood pressure Rx Instructions: Has med at home triamcinolone acetonide 0.1 % ointment 1 applic topical .at bedtime Qty: 30 0RF guaifenesin [Adult Tussin Chest Congestion] 100 mg/5 mL liquid 200 mg PO .2 times Qty: 473 0RF allopurinol 300 mg tablet 300 mg PO DAILY Qty: 90 1RF Farxiga 10 mg tablet 10 mg PO QAM Qty: 90 1RF escitalopram oxalate 10 mg tablet 10 mg PO DAILY Qty: 90 1RF hydrochlorothiazide 50 mg tablet 50 mg PO QAM Qty: 90 1RF oxybutynin chloride 15 mg tablet extended release 24hr 15 mg PO DAILY Qty: 90 1RF potassium chloride 20 mEq tablet,ER particles/crystals 20 meq PO BID Qty: 180 1RF baclofen 10 mg tablet 10 mg PO BID Qty: 180 1RF atorvastatin 20 mg tablet 20 mg PO QPM Qty: 90 1RF (DME) ASO See Rx Instructions .Route .MEDSUPPLY Qty: 1 0RF Rx Instructions: As directed Linzess 145 mcg capsule 145 mcg PO DAILY Qty: 30 3RF Linzess 145 mcg capsule 145 mcg PO DAILY Qty: 30 2RF Ed A-Hist DM 4-10-10 mg tablet 1 tab PO Q6H PRN (Reason: allergy symptoms) Qty: 30 0RF Linzess 72 mcg capsule 72 mcg PO DAILY Qty: 30 3RF (DME) diabetic shoes with inserts See Rx Instructions .Route .MEDSUPPLY Qty: 1 0RF Rx Instructions: As directed nitroglycerin 0.4 mg tablet, sublingual See Rx Instructions .ROUTE .COMPLEX Qty: 25 2RF Dose Instruction: DISSOLVE ONE TABLET UNDER THE TONGUE NEEDED Rx Instructions: DISSOLVE ONE TABLET UNDER THE TONGUE NEEDED promethazine-DM 6.25-15 mg/5 mL syrup 5 ml PO Q6H PRN (Reason: cough) Qty: 120 0RF lidocaine 5 % adhesive patch,medicated 3 patch TOPICAL DAILY PRN (Reason: Pain, Moderate) Qty: 90 5RF Rx Instructions: leave on most painful area for up to 12 hrs (DME) blood-glucose meter [OneTouch Ultra2 Meter] Misc See Rx Instructions .Route Qty: 1 0RF Rx Instructions: As directed (DME) OneTouch Ultra Test Strip See Rx Instructions .Route Qty: 100 5RF Rx Instructions: one day (DME) lancets [OneTouch UltraSoft 2 Lancet] 30 gauge misc See Rx Instructions .Route Qty: 100 5RF Rx Instructions: As directed carvedilol 6.25 mg tablet 6.25 mg PO BID 30 Days Qty: 60 2RF nortriptyline 10 mg capsule 10 mg PO QID Qty: 120 2RF (DME) Diabetic Shoes and Custom Molded Accommodative Orthotics with Reverse Loading Mortons Pad See Rx Instructions .Route .MEDSUPPLY Qty: 1 0RF Rx Instructions: As directed by [facility]- left leg length discrepancy Centrum Silver Women 8 mg iron-400 mcg-300 mcg Tablet 1 tab PO DAILY aspirin 81 mg tablet,delayed release (DR/EC) 81 mg PO QAM Discharge Orders: Discharge ED (Routine); Ordered 12/28/23 Ordered By: Kalyan Gaines Referrals: Shelby Henderson MD [Primary Care Provider] - Discharge Diet: Usual diet Discharge Activity: Limit activity as instructed Patient Instructions: Shoulder Pain (ED), Opioid Safety, Pain Management Activity Restrictions/Additional Instructions: Continue taking pain medications at home. Use sling as instructed. Follow-up with orthopedics as discussed. You may go to medical records tomorrow to nut picker imaging discs. Call [phone]. If you develop any new or concerning symptoms, return for reevaluation. Otherwise follow-up as planned. Coding Level of Care Code ED Sack Sorter for Chg Fwd Documented by User: Rainer Sosa DO 12/30/23 06:49 HPI - Fall General: Chief Complaint: Fall Stated Complaint: Fall Time Seen by Provider: 12/28/23 20:25 PFSH ED PFSH: Medical History Controlled diabetes mellitus with hyperglycemia Dyslipidemia Abnormal EKG UTI (urinary tract infection) Paresis of right lower extremity Reports this is secondary to spinal injury during back surgery Hyperlipidemia Gout Hypertension Chest pain Urinary incontinence Back pain with history of spinal surgery Insomnia, unspecified Neuropathy Narrowing of both carotid arteries 16-49% bilateral 06/10/18; carotid duplex Lumbar facet joint pain Bilateral bunions with callous formation; has had surgery for hammer toes Urolithiasis recurrent with multiple treatments over the years Generalized anxiety disorder Type 2 diabetes mellitus without complications Pure hypercholesterolemia, unspecified Vitamin D deficiency Essential (primary) hypertension Arteriosclerotic heart disease (ASHD) Slow transit constipation Chronic pain syndrome IBS (irritable bowel syndrome) Chronic thoracic spine pain Parapelvic renal cyst long standing, well defined left parapelvic cysts on previous CT. No concern regarding cyst. Hx of fracture of left hip Anxiety Bilateral knee pain Surgical History Hx of colonoscopy Hx of total knee replacement bilateral Hx of lithotripsy Hx of hysterectomy Hx of arthroscopy of shoulder (~09/2018) left Hx of cataract extraction Hx of cholecystectomy Hx of cervical discectomy (~2015) 4-5-6 History of tonsillectomy and adenoidectomy History of back surgery 9 total per patient Hx of tubal ligation History of ankle surgery Hx of foot surgery right Family History Family/Other Dementia CAD (coronary artery disease) Diabetes Denies family history of Clotting disorder Hyperlipidemia Psychiatric illness Chronic kidney disease (CKD) Suicide Anesthesia complication Bleeding disorder Family history of premature coronary artery disease Lung disease Cancer Hypertension Stroke Social History Smoking and tobacco/nicotine status: never used tobacco/nicotine Second hand smoke exposure: Yes Alcohol intake: unknown Substance/Drug Use: unknown Adopted: No Caregiver/support person: No Lives independently: Yes Household members: none Housing: House Marital status: / service: No Current occupational status: disabled Current occupational exposures/hazards: No Do you think of yourself as: Straight/Heterosexual Current gender identity: Female Course Vital Signs: Vital signs: Vital Signs Temperature 97.9 F 12/28/23 19:02 Pulse Rate 74 12/28/23 21:26 Respiratory Rate 18 12/28/23 21:26 Blood Pressure 108/54 12/28/23 21:26 Pulse Oximetry 95 12/28/23 21:26 Oxygen Delivery Me thod Room Air 12/28/23 20:54 MDM - Fall Medical Decision Making Patient was seen for left shoulder pain status post fall just prior to arrival. She did report history of prosthesis to the left shoulder and was concerned that it popped out of place. Examination showed some reproducible tenderness to palpation about the left shoulder joint, however neurovascular status was intact. There was a palpable deformity to the anterior inferior left shoulder. However, x-ray noted that the prosthesis was intact, and deformity felt likely muscular in etiology. She states that she knows Dr. Pagan and will call and schedule an appointment tomorrow, and request that she be put in a sling. She will be placed in a sling and she has hydrocodone to take at home for pain. The rest of her x-rays were normal, as she has some osteoarthritis to her bilateral MCP joints. She notes that the shot of Toradol given today did help quite a bit. She states she is ready to discharge home, and she will follow-up as discussed for further evaluation. All other questions and concerns addressed at this time. Strict return precautions given. Chart reviewed Lab Data Radiology Impressions Hand X-Ray 12/28/23 19:32 IMPRESSION: 1. No acute fracture. 2. Osteoarthritis as above. Hip/Pelvis X-Ray 12/28/23 19:32 IMPRESSION: No acute findings. Shoulder X-Ray 12/28/23 19:32 IMPRESSION: 1. No acute findings. 2. Intact well-aligned left shoulder arthroplasty. Discharge Plan Discharge Patient Disposition: Home Clinical Impression: Left shoulder strain Qualifiers: Encounter type: initial encounter Qualified Code(s): S46.912A - Strain of unspecified muscle, fascia and tendon at shoulder and upper arm level, left arm, initial encounter Fall Qualifiers: Encounter type: initial encounter Qualified Code(s): W19.XXXA - Unspecified fall, initial encounter Osteoarthritis Qualifiers: Osteoarthritis location: hand Osteoarthritis type: unspecified Laterality: bilateral Qualified Code(s): M19.041 - Primary osteoarthritis, right hand Condition: Stable Prescriptions: No Action (DME) Diabetic Shoes See Rx Instructions .Route .MEDSUPPLY Qty: 1 0RF Rx Instructions: As directed (DME) diabetic shoes See Rx Instructions .Route .MEDSUPPLY Qty: 1 0RF Rx Instructions: with molds and inserts hydrocodone-acetaminophen 10-325 mg tablet 1 tab PO Q4H PRN (Reason: Pain) cholecalciferol (vitamin D3) 50 mcg (2,000 unit) capsule 50 mcg PO DAILY Qty: 30 0RF albuterol sulfate [Ventolin HFA] 90 mcg/actuation HFA aerosol inhaler 2 puff inhalation Q6H PRN (Reason: shortness of breath or wheezing) Qty: 8.5 0RF (DME) ASO to the left See Rx Instructions .Route .MEDSUPPLY Qty: 1 0RF Rx Instructions: As directed (DME) Diabetic shoes with inserts See Rx Instructions .Route .MEDSUPPLY Qty: 1 0RF Rx Instructions: Pt will need insert to build up left foot as well. losartan 25 mg tablet 25 mg PO DAILY Qty: 1 0RF Hold Instructions: Watching blood pressure Rx Instructions: Has med at home triamcinolone acetonide 0.1 % ointment 1 applic topical .at bedtime Qty: 30 0RF guaifenesin [Adult Tussin Chest Congestion] 100 mg/5 mL liquid 200 mg PO .2 times Qty: 473 0RF allopurinol 300 mg tablet 300 mg PO DAILY Qty: 90 1RF Farxiga 10 mg tablet 10 mg PO QAM Qty: 90 1RF escitalopram oxalate 10 mg tablet 10 mg PO DAILY Qty: 90 1RF hydrochlorothiazide 50 mg tablet 50 mg PO QAM Qty: 90 1RF oxybutynin chloride 15 mg tablet extended release 24hr 15 mg PO DAILY Qty: 90 1RF potassium chloride 20 mEq tablet,ER particles/crystals 20 meq PO BID Qty: 180 1RF baclofen 10 mg tablet 10 mg PO BID Qty: 180 1RF atorvastatin 20 mg tablet 20 mg PO QPM Qty: 90 1RF (DME) ASO See Rx Instructions .Route .MEDSUPPLY Qty: 1 0RF Rx Instructions: As directed Linzess 145 mcg capsule 145 mcg PO DAILY Qty: 30 3RF Linzess 145 mcg capsule 145 mcg PO DAILY Qty: 30 2RF Ed A-Hist DM 4-10-10 mg tablet 1 tab PO Q6H PRN (Reason: allergy symptoms) Qty: 30 0RF Linzess 72 mcg capsule 72 mcg PO DAILY Qty: 30 3RF (DME) diabetic shoes with inserts See Rx Instructions .Route .MEDSUPPLY Qty: 1 0RF Rx Instructions: As directed nitroglycerin 0.4 mg tablet, sublingual See Rx Instructions .ROUTE .COMPLEX Qty: 25 2RF Dose Instruction: DISSOLVE ONE TABLET UNDER THE TONGUE NEEDED Rx Instructions: DISSOLVE ONE TABLET UNDER THE TONGUE NEEDED promethazine-DM 6.25-15 mg/5 mL syrup 5 ml PO Q6H PRN (Reason: cough) Qty: 120 0RF lidocaine 5 % adhesive patch,medicated 3 patch TOPICAL DAILY PRN (Reason: Pain, Moderate) Qty: 90 5RF Rx Instructions: leave on most painful area for up to 12 hrs (DME) blood-glucose meter [OneTouch Ultra2 Meter] Misc See Rx Instructions .Route Qty: 1 0RF Rx Instructions: As directed (DME) OneTouch Ultra Test Strip See Rx Instructions .Route Qty: 100 5RF Rx Instructions: one day (DME) lancets [OneTouch UltraSoft 2 Lancet] 30 gauge misc See Rx Instructions .Route Qty: 100 5RF Rx Instructions: As directed carvedilol 6.25 mg tablet 6.25 mg PO BID 30 Days Qty: 60 2RF nortriptyline 10 mg capsule 10 mg PO QID Qty: 120 2RF (DME) Diabetic Shoes and Custom Molded Accommodative Orthotics with Reverse Loading Mortons Pad See Rx Instructions .Route .MEDSUPPLY Qty: 1 0RF Rx Instructions: As directed by [facility]- left leg length discrepancy Centrum Silver Women 8 mg iron-400 mcg-300 mcg Tablet 1 tab PO DAILY aspirin 81 mg tablet,delayed release (DR/EC) 81 mg PO QAM Discharge Orders: Discharge ED (Routine); Ordered 12/28/23 Ordered By: Kalyan Gaines Referrals: Shelby Henderson MD [Primary Care Provider] - Discharge Diet: Usual diet Discharge Activity: Limit activity as instructed Patient Instructions: Shoulder Pain (ED), Opioid Safety, Pain Management Activity Restrictions/Additional Instructions: Continue taking pain medications at home. Use sling as instructed. Follow-up with orthopedics as discussed. You may go to medical records tomorrow to nut picker imaging discs. Call [phone]. If you develop any new or concerning symptoms, return for reevaluation. Otherwise follow-up as planned. Coding Level of Care Code ED Sack Sorter for Vineet Munson
[2023-12-28] MEDS: ketorolac 60 mg/2 mL INJ IM (20:48)
[2023-12-28 20:54] VITALS: BP 139/65; PULSE 77; O2SAT 95
--- NOTE | 2023-12-28 20:57 | PC.NURSE ---
PT STATED TO THIS NURSE AFTER REQUESTING A SANDWICH, THIS NURSE TOLD PT TO WAIT UNTIL RESULTS OF TEST CAME BACK AND WERE REVIEWED BY KEESHA PAGE, PT STATED OKAY FIRST OFF I'M NOT HAVING SURGERY. SECOND OFF I WILL BE LEAVING TONIGHT CAUSE I'M NOT STAYING. AND TOMORROW I WILL BE CALLING DR. MCNAMARA IN REGARDS TO THIS FALL AND FOLLOWUP WITH HER. I'M DIABETIC AND I WANT A SANDWICH. KEESHA PAGE NOTIFIED AND OKAYED WITH PT EATING AT THIS TIME.
[2023-12-28 21:26] VITALS: BP 108/54; PULSE 74; RESP 18; O2SAT 95
--- NOTE | 2023-12-29 07:37 | DCPLANNER ---
message sent to dr. juarez for referral
== END 2023-12-28 21:28 | disposition home or self-care (01) ==
PROVIDERS: Emergency Provider Physician Assistant; PCP Family Medicine
DX: S46.912A Strain of unspecified muscle, fascia and tendon at shoulder and upper arm level, left arm, initial encounter (principal); M19.041 Primary osteoarthritis, right hand; Z79.82 Long term (current) use of aspirin; Z77.22 Contact with and (suspected) exposure to environmental tobacco smoke (acute) (chronic); E78.5 Hyperlipidemia, unspecified; I10 Essential (primary) hypertension; E11.42 Type 2 diabetes mellitus with diabetic polyneuropathy; W18.39XA Other fall on same level, initial encounter; Z96.612 Presence of left artificial shoulder joint
CPT/HCPCS: 73030; 73130; 73502; 96372; 99284; J1885

== ENCOUNTER → 2023-12-30 15:07 | Outpatient (BNVA) | payer MEDICARE, MEDICAID, SELFPAY | PROVIDERS: PCP Family Medicine; Visit Provider Orthopaedic Surgery | DX: S46.912A Strain of unspecified muscle, fascia and tendon at shoulder and upper arm level, left arm, initial encounter (principal); W19.XXXA Unspecified fall, initial encounter | CPT/HCPCS: 99213 ==

== ENCOUNTER → 2024-02-10 12:00 | Outpatient (BNVA) | payer MEDICARE, MEDICAID, SELFPAY | PROVIDERS: PCP Family Medicine; Visit Provider Podiatrist Foot & Ankle Surgery | DX: S92.314A Nondisplaced fracture of first metatarsal bone, right foot, initial encounter for closed fracture; W23.0XXA Caught, crushed, jammed, or pinched between moving objects, initial encounter | CPT/HCPCS: 73630; 99214 ==

== ENCOUNTER 2024-02-14 06:00 | Outpatient (RCR) | payer MEDICARE, MEDICAID, SELFPAY | END 2024-02-27 23:59 | disposition home or self-care (01) | LOC: SOT 06:00 | PROVIDERS: PCP Family Medicine; Visit Provider Family Medicine | DX: R29.6 Repeated falls (principal) | CPT/HCPCS: 99214 ==

== ENCOUNTER → 2024-02-14 14:47 | Outpatient (BNVA) | payer MEDICARE, MEDICAID, SELFPAY | PROVIDERS: PCP Family Medicine; Visit Provider Specialist | DX: M25.552 Pain in left hip (principal) | CPT/HCPCS: 73502 ==

== ENCOUNTER → 2024-02-23 13:46 | Outpatient (BNVA) | payer MEDICARE, MEDICAID, SELFPAY | PROVIDERS: PCP Family Medicine; Visit Provider Podiatrist Foot & Ankle Surgery | DX: S92.314D Nondisplaced fracture of first metatarsal bone, right foot, subsequent encounter for fracture with routine healing; X58.XXXD Exposure to other specified factors, subsequent encounter | CPT/HCPCS: 73630; 99213 ==

== ENCOUNTER 2024-02-28 06:00 | Outpatient (RCR) | payer MEDICARE, MEDICAID, SELFPAY | END 2024-03-29 23:59 | disposition home or self-care (01) | LOC: SOT 06:00 | PROVIDERS: PCP Family Medicine; Visit Provider Family Medicine | DX: R29.6 Repeated falls (principal) | CPT/HCPCS: 97167 ==

== ENCOUNTER → 2024-03-20 14:25 | Outpatient (BNVA) | payer MEDICARE, MEDICAID, SELFPAY | PROVIDERS: PCP Family Medicine; Visit Provider Podiatrist Foot & Ankle Surgery | DX: S92.311A Displaced fracture of first metatarsal bone, right foot, initial encounter for closed fracture (principal); X58.XXXA Exposure to other specified factors, initial encounter; M76.72 Peroneal tendinitis, left leg | CPT/HCPCS: 73610; 73630; 99213 ==

== ENCOUNTER → 2024-03-21 12:24 | Outpatient (BNVA) | payer MEDICARE, MEDICAID, SELFPAY | PROVIDERS: PCP Family Medicine; Visit Provider Orthopaedic Surgery | DX: M54.9 Dorsalgia, unspecified (principal); Z98.1 Arthrodesis status | CPT/HCPCS: 72110; 99213 ==

== ENCOUNTER → 2024-03-27 17:20 | Outpatient (BNVA) | payer MEDICARE, MEDICAID, SELFPAY | PROVIDERS: PCP Family Medicine; Visit Provider Family Medicine | DX: F41.9 Anxiety disorder, unspecified (principal); I10 Essential (primary) hypertension; I25.10 Atherosclerotic heart disease of native coronary artery without angina pectoris; E11.9 Type 2 diabetes mellitus without complications; E11.8 Type 2 diabetes mellitus with unspecified complications; K59.00 Constipation, unspecified; Z79.899 Other long term (current) drug therapy | CPT/HCPCS: 80053; 80061; 83036; 84443; 85025 ==

== ENCOUNTER 2024-03-31 10:20 | Emergency (ER) | payer MEDICARE, MEDICAID, SELFPAY ==
[2024-03-31 10:21] VITALS: BP 141/87; PULSE 74; RESP 16; TEMP 36.8; O2SAT 95; BMI 25.7
--- NOTE | 2024-03-31 10:25 | CT_ITS ---
WS: [id number] CT CERVICAL TRAUMA TECHNIQUE: Noncontrast CT of the cervical spine with coronal and sagittal reformatted images. CLINICAL INFORMATION: trauma COMPARISON: None. DLP: 1778.[address] scans at [facility] use at least one of these dose optimization techniques: automated e xposure control; mA and/or kV adjustment per patient size (includes targeted exams where dose is matc hed to clinical indication); or iterative reconstruction. FINDINGS: Straightening of the normal cervical lordosis. Prior extensive postoperative changes ACDF C2-C7. Mild spinal canal narrowing in the upper thoracic spine due to ossification of the posterior longitudinal ligament unchanged compared to the prior studies. Prominent pannus formation at C1-C2 with cystic er osions similar to previous. Mild central canal stenosis at this level. Normal prevertebral soft tissues. Mastoids air cells are well aerated. CT/CT cervical spin wo con* [id number] IMPRESSION: No evidence of acute fracture or dislocation.
--- NOTE | 2024-03-31 10:26 | CT_ITS ---
WS: [id number] CT HEAD TECHNIQUE: Noncontrast CT of the head obtained from the skullbase to the vertex. CLINICAL INFORMATION: trauma COMPARISON: 2022 DLP: 1778.[address] scans at [facility] use at least one of these dose optimization techniques: automated e xposure control; mA and/or kV adjustment per patient size (includes targeted exams where dose is matc hed to clinical indication); or iterative reconstruction. FINDINGS: No evidence of intracranial hemorrhage or mass effect. Ventricular system and basal cisterns are kline nt. Moderate small vessel changes with moderate parenchymal volume loss. No extra-axial fluid collect ions. No evidence of mass or mass effect. Vascular calcification. Paranasal sinuses and mastoid air cells are well aerated. .Normal visualized soft tissues. CT/CT head wo con* [id number] IMPRESSION: 1. No evidence of intracranial hemorrhage or mass effect. 2. No acute intracranial findings.
--- NOTE | 2024-03-31 10:30 | ED_ITS ---
HPI - Fall 2 General: Chief Complaint: Fall Stated Complaint: fall, LOC Time Seen by Provider: 03/31/24 10:25 History of Present Illness: 78-year-old female presents emergency ro om after a fall. She previously had surgery on her back several years ago has a little bit of residual weakness on her right leg. This morning she felt like it collapsed she fell hit her forehead on the right. No loss of consciousness. Also complaining of right shoulder pain which is chronic but seems to have been aggravated by falling. Associated symptoms-after fall: Denies abdominal pain, chest pain or neck pain Review of Systems 2 Const: Denies: fever(s) or chills Card: Denies: chest pain Resp: Denies: dyspnea GI: Denies: abdominal pain : Denies: dysuria, urinary frequency or urinary urgency Musc: Denies: neck pain or back pain Skin/Breast: Denies: rash PFSH ED 2 PFSH: Medical History Controlled diabetes mellitus with hyperglycemia Dyslipidemia Abnormal EKG UTI (urinary tract infection) Paresis of right lower extremity Reports this is secondary to spinal injury during back surgery Hyperlipidemia Gout Hypertension Chest pain Urinary incontinence Back pain with history of spinal surgery Insomnia, unspecified Neuropathy Narrowing of both carotid arteries 16-49% bilateral 06/10/18; carotid duplex Lumbar facet joint pain Bilateral bunions with callous formation; has had surgery for hammer toes Urolithiasis recurrent with multiple treatments over the years Generalized anxiety disorder Type 2 diabetes mellitus without complications Pure hypercholesterolemia, unspecified Vitamin D deficiency Essential (primary) hypertension Arteriosclerotic heart disease (ASHD) Slow transit constipation Chronic pain syndrome IBS (irritable bowel syndrome) Chronic thoracic spine pain Parapelvic renal cyst long standing, well defined left parapelvic cysts on previous CT. No concern regarding cyst. Hx of fracture of left hip Anxiety Bilateral knee pain Surgical History Hx of colonoscopy Hx of total knee replacement bilateral Hx of lithotripsy Hx of hysterectomy Hx of arthroscopy of shoulder (~09/2018) left Hx of cataract extraction Hx of cholecystectomy Hx of cervical discectomy (~2015) 4-5-6 History of tonsillectomy and adenoidectomy History of back surgery 9 total per patient Hx of tubal ligation History of ankle surgery Hx of foot surgery right Family History Family/Other Dementia CAD (coronary artery disease) Diabetes Denies family history of Clotting disorder Hyperlipidemia Psychiatric illness Chronic kidney disease (CKD) Suicide Anesthesia complication Bleeding disorder Family history of premature coronary artery disease Lung disease Cancer Hypertension Stroke Social History Smoking and tobacco/nicotine status: never used tobacco/nicotine Second hand smoke exposure: Yes Alcohol intake: unknown Substance/Drug Use: unknown Adopted: No Caregiver/support person: No Lives independently: Yes Household members: none Housing: House Marital status: / service: No Current occupational status: disabled Current occupational exposures/hazards: No Do you think of yourself as: Straight/Heterosexual Current gender identity: Female Physical Exam 2 Const: GENERAL APPEARANCE: cooperative and comfortable O RIENTATION/CONSCIOUSNESS: Yes awake, Yes oriented to person, Yes oriented to place and Yes oriented to time HENMT: COMMON NORMALS: normocephalic and hearing grossly normal bilaterally HEAD & SCALP: normocephalic OTHER: Hematoma on the forehead small no laceration no bleeding no abrasion Resp: COMMON NORMALS: normal respiratory effort, No retractions, No use of accessory muscles and clear to auscultation bilaterally AUSCULTATION: clear to auscultation bilaterally Cardio: COMMON NORMALS: regular rate, regular rhythm and No murmurs present (Cardio) RATE: regular rate RHYTHM: regular rhythm GI: COMMON NORMALS: Soft to palpation and No hepatosplenomegaly present A USCULTATION: Yes normoactive bowel sounds PALPATION: Yes Soft to palpation, No Tenderness to palpation present (GI), No Guarding due to palpation present (GI) and Yes No hepatosplenomegaly present Extremity: COMMON NORMALS: normal to inspection, capillary refill normal, no clubbing, cyanosis or edema, no calf tenderness and no pedal edema Neuro: SENSORIUM/ORIENTATION: Yes oriented to person, Yes oriented to place and Yes oriented to time Skin: COMMON NORMALS: no rashes or lesions noted GENERAL SKIN EXAM: no rashes or lesions noted Course 2 Vital Signs: Vital signs: Vital Signs Temperature 98.3 F 03/31/24 10:21 Pulse Rate 71 03/31/24 12:43 Respiratory Rate 18 03/31/24 11:00 Blood Pressure 136/78 03/31/24 12:43 Pulse Oximetry 96 03/31/24 12:43 Oxygen Delivery Me thod Room Air 03/31/24 11:00 MDM - Fall Medical Decision Making CT of head does not show any acute fracture or intracranial bleed. Patient awake and alert no other problems. She complained of right shoulder pain we offered to x-ray but she declined states been a chronic problem she does not feel it needs to be lisa-rayed. She can return if she notices any worsening problem. Medical Records I reviewed the patient's medical records. Lab Data I reviewed the patient's lab results. 03/31/24 10:52 03/31/24 10:52 Radiology Impressions Cervical Spine CT 03/31/24 10:25 IMPRESSION: No evidence of acute fracture or dislocation. Head CT 03/31/24 10:26 IMPRESSION: 1. No evidence of intracranial hemorrhage or mass effect. 2. No acute intracranial findings. Laboratory Results WBC 8.13 10^3/uL (3.29-11.43) 03/31/24 10:52 RBC 4.55 10^6/uL (3.85-5.65) 03/31/24 10:52 Hgb 13.60 g/dL (11.27-16.99) 03/31/24 10:52 Hct 41.7 % (36-47) 03/31/24 10:52 MCV 91.6 fl (85-98) 03/31/24 10:52 MCH 29.9 pg (27-33) 03/31/24 10:52 MCHC 32.6 g/dL (30-55) 03/31/24 10:52 RDW 14.1 % (12.1-15.1) 03/31/24 10:52 Plt Count 244 10^3/cmm (157-399) 03/31/24 10:52 MPV 9.5 fL (7.4-10.4) 03/31/24 10:52 Neut % (Auto) 71.4 % 03/31/24 10:52 Lymph % (Auto) 17.2 % 03/31/24 10:52 [place] % (Auto) 7.7 % 03/31/24 10:52 Eos % (Auto) 2.8 % 03/31/24 10:52 Baso % (Auto) 0.5 % 03/31/24 10:52 Neut # (Auto) 5.80 10^3/uL (1.8-7.7) 03/31/24 10:52 Lymph # (Auto) 1.4 10^3/uL (0.8-4.8) 03/31/24 10:52 [place] # (Auto) 0.6 10^3/uL (0.2-0.9) 03/31/24 10:52 Eos # (Auto) 0.2 10^3/uL (0.0-0.8) 03/31/24 10:52 Baso # (Auto) 0.0 10^3/uL (0.0-0.1) 03/31/24 10:52 Nucleated RBC % (auto) 0 % 03/31/24 10:52 Nucleated RBCs # 0.0 /100WBC 03/31/24 10:52 Sodium 143 mmol/L (136-145) 03/31/24 10:52 Potassium 4.2 mmol/L (3.5-5.1) 03/31/24 10:52 Chloride 105 mmol/L (98-107) 03/31/24 10:52 Carbon Dioxide 26 mmol/L (22-29) 03/31/24 10:52 Anion Gap 16.2 (5-19) 03/31/24 10:52 BUN 18 mg/dL (8-23) 03/31/24 10:52 Creatinine 0.4 mg/dL (0.5-0.9) L 03/31/24 10:52 GFR Calculation Not Reportable 03/31/24 10:52 Glucose 167 mg/dL (65-115) H 03/31/24 10:52 Calculated Osmolality 302 mOsm/kg (285-295) H 03/31/24 10:52 Calcium 9.6 mg/dL (8.5-10.5) 03/31/24 10:52 Total Bilirubin 0.3 mg/dL (0.15-1.2) 03/31/24 10:52 AST 17 U/L (0-32) 03/31/24 10:52 ALT 16 U/L (0-33) 03/31/24 10:52 Alkaline Phosphatase 88 U/L (35-105) 03/31/24 10:52 Total Protein 6.8 g/dL (6.6-8.7) 03/31/24 10:52 Albumin 4.0 g/dL (3.5-5.2) 03/31/24 10:52 Globulin 2.8 g/dL (1.3-4.6) 03/31/24 10:52 All radiology interpretation(s) finalized by discharge Discharge Plan Discharge Patient Disposition: Home Clinical Impression: Closed head injury, Fall Condition: Stable Prescriptions: No Action (DME) Diabetic Shoes See Rx Instructions .Route .MEDSUPPLY Qty: 1 0RF Rx Instructions: As directed (DME) diabetic shoes See Rx Instructions .Route .MEDSUPPLY Qty: 1 0RF Rx Instructions: with molds and inserts hydrocodone-acetaminophen 10-325 mg tablet 1 tab PO Q4H PRN (Reason: Pain) cholecalciferol (vitamin D3) 50 mcg (2,000 unit) capsule 50 mcg PO DAILY Qty: 30 0RF albuterol sulfate [Ventolin HFA] 90 mcg/actuation HFA aerosol inhaler 2 puff inhalation Q6H PRN (Reason: shortness of breath or wheezing) Qty: 8.5 0RF (DME) ASO to the left See Rx Instructions .Route .MEDSUPPLY Qty: 1 0RF Rx Instructions: As directed fluticasone propionate [Flonase Allergy Relief] 50 mcg/actuation spray,suspension 2 spray intranasal DAILY Qty: 16 0RF Rx Instructions: administer into each nostril meloxicam 15 mg tablet 15 mg PO DAILY Qty: 30 1RF (DME) Diabetic shoes with inserts See Rx Instructions .Route .MEDSUPPLY Qty: 1 0RF Rx Instructions: Pt will need insert to build up left foot as well. losartan 25 mg tablet 25 mg PO DAILY Qty: 1 0RF Hold Instructions: Watching blood pressure Rx Instructions: Has med at home triamcinolone acetonide 0.1 % ointment 1 applic topical .at bedtime Qty: 30 0RF (DME) ASO See Rx Instructions .Route .MEDSUPPLY Qty: 1 0RF Rx Instructions: As directed metformin 500 mg tablet 1,000 mg PO BID Qty: 120 3RF lactulose 10 gram/15 mL (15 mL) solution 10 g PO DAILY Qty: 1440 0RF carvedilol 6.25 mg tablet 6.25 mg PO BID 30 Days Qty: 60 2RF (DME) diabetic shoes with inserts See Rx Instructions .Route .MEDSUPPLY Qty: 1 0RF Rx Instructions: As directed nitroglycerin 0.4 mg tablet, sublingual See Rx Instructions .ROUTE .COMPLEX Qty: 25 2RF Dose Instruction: DISSOLVE ONE TABLET UNDER THE TONGUE NEEDED Rx Instructions: DISSOLVE ONE TABLET UNDER THE TONGUE NEEDED lidocaine 5 % adhesive patch,medicated 3 patch TOPICAL DAILY PRN (Reason: Pain, Moderate) Qty: 90 5RF Rx Instructions: leave on most painful area for up to 12 hrs (DME) blood-glucose meter [OneTouch Ultra2 Meter] Misc See Rx Instructions .Route Qty: 1 0RF Rx Instructions: As directed ([facility] [place] OneTouch Ultra Test Strip See Rx Instructions .Route Qty: 100 5RF Rx Instructions: one day ([facility] [place]) lancets [OneTouch UltraSoft 2 Lancet] 30 gauge misc See Rx Instructions .Route Qty: 100 5RF Rx Instructions: As directed ([facility] [place]) Diabetic Shoes and Custom Molded Accommodative Orthotics with Reverse Loading Mortons Pad See Rx Instructions .Route .MEDSUPPLY Qty: 1 0RF Rx Instructions: As directed by [facility]- left leg length discrepancy atorvastatin 20 mg tablet 20 mg PO QPM Qty: 90 1RF oxybutynin chloride 15 mg tablet extended release 24hr 15 mg PO DAILY Qty: 90 1RF allopurinol 300 mg tablet 300 mg PO DAILY Qty: 90 1RF baclofen 10 mg tablet 10 mg PO BID Qty: 180 1RF hydrochlorothiazide 50 mg tablet 50 mg PO QAM Qty: 90 1RF potassium chloride 20 mEq tablet,ER particles/crystals 20 meq PO BID Qty: 180 1RF sertraline [Zoloft] 50 mg tablet 50 mg PO DAILY Qty: 30 0RF Centrum Silver Women 8 mg iron-400 mcg-300 mcg Tablet 1 tab PO DAILY aspirin 81 mg tablet,delayed release (DR/EC) 81 mg PO QAM Discharge Orders: Discharge ED (Routine); Ordered 03/31/24 Ordered By: Rainer Sosa Referrals: Shelby Henderson MD [Primary Care Provider] - Patient Instructions: Opioid Safety, Pain Management Activity Restrictions/Additional Instructions: Thank you for choosing [facility] for your healthcare needs today. It is very important that you follow up as instructed or that you return to the Emergency Department should you have concerns or if your condition changes or worsens in any way. You were seen today after a fall. CT of your head did not show any acute fractures or bleed. CT of the neck was also negative for any acute changes. Recommend you follow-up with your primary care doctor with Dr. Feliciano as previously scheduled. You may wish to discuss with your primary caregiver if you would benefit from PT for gait and balance training. Coding Level of Care Code ED Polisher Numeral for Vineet Munson
--- NOTE | 2024-03-31 10:40 | ECG_ITS ---
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 Measurements Intervals [place] Rate: 72 P: 65 KS: 129 QRS: 4 QRSD: 86 T: 57 QT: 377 QTc: 413 Interpretive Statements SINUS RHYTHM LOW QRS VOLTAGE IN PRECORDIAL LEADS [QRS DEFLECTION < 1.0 mV IN CHEST LEADS] SEPTAL MYOCARDIAL INFARCTION , OF INDETERMINATE AGE [40+ ms Q WAVE IN V1/V2] Compared to ECG 06/18/2023 08:13:58 Low QRS voltage now present Myocardial infarct finding still present Electronically Signed On 04-01-2024 7:00:09 CDT by Nazario Sood M.D. [id number]
[2024-03-31 11:00] VITALS: BP 126/83; PULSE 73; RESP 18; O2SAT 92
[2024-03-31 11:19] LABS: Basophils % 0.5 %; Eosinophils # 0.2 10^3/uL (0.0-0.8); Eosinophils % 2.8 %; Hematocrit 41.7 % (36-47); Lymphocytes # 1.4 10^3/uL (0.8-4.8); Lymphocytes % 17.2 %; Mean Corpuscular HGB Conc 32.6 g/dL (30-55); Mean Corpuscular Hemoglobin 29.9 pg (27-33); Mean Corpuscular Volume 91.6 fl (85-98); Mean Platelet Volume 9.5 fL (7.4-10.4); Monocytes # 0.6 10^3/uL (0.2-0.9); Monocytes % 7.7 %; Neutrophils % 71.4 %; Nucleated Red Blood Cells % 0 %; Platelet Count 244 10^3/cmm (157-399); Red Blood Count 4.55 10^6/uL (3.85-5.65); Red Cell Distribution Width 14.1 % (12.1-15.1); White Blood Count 8.13 10^3/uL (3.29-11.43)
[2024-03-31 11:41] LABS: Alanine Aminotransferase 16 U/L (0-33); Alkaline Phosphatase 88 U/L (35-105); Anion Gap 16.2 (5-19); Aspartate Amino Transferase 17 U/L (0-32); Blood Urea Nitrogen 18 mg/dL (8-23); Calcium 9.6 mg/dL (8.5-10.5); Carbon Dioxide 26 mmol/L (22-29); Chloride 105 mmol/L (98-107); Globulin 2.8 g/dL (1.3-4.6); Glucose 167 mg/dL (65-115); Osmolality Calculated 302 mOsm/kg (285-295); Potassium 4.2 mmol/L (3.5-5.1); Sodium 143 mmol/L (136-145); Total Bilirubin 0.3 mg/dL (0.15-1.2); Total Protein 6.8 g/dL (6.6-8.7)
--- NOTE | 2024-03-31 12:35 | PC.NURSE ---
this RN assumed pt care at 1155 from GUILLERMO Wilson.
[2024-03-31 12:43] VITALS: BP 136/78; PULSE 71; O2SAT 96
== END 2024-03-31 12:44 | disposition home or self-care (01) ==
PROVIDERS: Emergency Provider Family Medicine; PCP Family Medicine
DX: S00.83XA Contusion of other part of head, initial encounter (principal); Z79.82 Long term (current) use of aspirin; Z79.84 Long term (current) use of oral hypoglycemic drugs; Z77.22 Contact with and (suspected) exposure to environmental tobacco smoke (acute) (chronic); E78.5 Hyperlipidemia, unspecified; I10 Essential (primary) hypertension; E11.40 Type 2 diabetes mellitus with diabetic neuropathy, unspecified; W18.39XA Other fall on same level, initial encounter
CPT/HCPCS: 36415; 70450; 72125; 80053; 85025; 93005; 99285

== ENCOUNTER → 2024-05-05 09:59 | Outpatient (BNVA) | payer MEDICARE, MEDICAID, SELFPAY | PROVIDERS: PCP Family Medicine; Referring Provider Family Medicine; Visit Provider Internal Medicine | DX: E04.2 Nontoxic multinodular goiter; I25.10 Atherosclerotic heart disease of native coronary artery without angina pectoris; K59.00 Constipation, unspecified; M79.89 Other specified soft tissue disorders; N20.0 Calculus of kidney; E11.42 Type 2 diabetes mellitus with diabetic polyneuropathy; Z79.84 Long term (current) use of oral hypoglycemic drugs | CPT/HCPCS: 99214 ==

== ENCOUNTER 2024-05-22 15:18 | Outpatient (CLI) | payer MEDICARE, MEDICAID, SELFPAY ==
--- NOTE | 2024-05-22 15:19 | US_ITS ---
WS: [id number] ULTRASOUND THYROID TECHNIQUE: Ultrasound of the thyroid. CLINICAL INFORMATION: thyroid nodule COMPARISON: None. FINDINGS: Thyroid: Right and left thyroid lobes are normal in size and echotexture. Right thyroid lobe: 4.1 cm x 1.7 cm x 1.9 cm 2 simple appearing RIGHT thyroid cysts described below. Left thyroid lobe: 4.7 cm x 1.4 cm x 1.4 cm. No LEFT thyroid nodules. Isthmus: 0.3 mm. Cervical lymphadenopathy: None. US/US thyroid [id number] IMPRESSION: 1. 2 RIGHT thyroid cyst measuring 7 x 5 mm and 11 x 6 mm with a simple appeara nce. 2. A few tiny incidental colloid cysts bilaterally.
--- NOTE | 2024-05-22 16:00 | USCV_ITS ---
Melissa Estes Age: 78 Gender: F : 1945 Exam Date: 05/22/2024 15:25 Ordering Phys: Roosevelt Grijalva MD Technologist: CT [place] [facility] [place] Indication: PROCEDURES: Venous duplex imaging was performed in only the right lower extremity. On the right side, the common femoral, superficial femoral, profunda femoral, popliteal, posterior tibial, greater saphenous veins and the peroneal trunk were identified and interrogated in the standard fashion. These veins were found to be easily compressible with spontaneous blood flow. No evidence of insufficiency or thrombus noted. FINDINGS: normal us CONCLUSIONS No evidence of right lower extremity DVT. Mikey Mcbride MD (Electronically Signed) Final Date: 23 May 2024 11:15 S
== END 2024-05-22 15:19 | disposition home or self-care (01) ==
LOC: RAD 15:18
PROVIDERS: PCP Family Medicine; Visit Provider Internal Medicine
DX: E04.2 Nontoxic multinodular goiter (principal); M79.89 Other specified soft tissue disorders
CPT/HCPCS: 76536; 93971

== ENCOUNTER → 2024-06-21 13:32 | Outpatient (BNVA) | payer MEDICARE, MEDICAID, SELFPAY | PROVIDERS: Visit Provider Nurse Practitioner Family | DX: R53.83 Other fatigue (principal) | CPT/HCPCS: 81003; 87086 ==

== ENCOUNTER → 2024-07-20 14:33 | Outpatient (BNVA) | payer MEDICARE, MEDICAID, SELFPAY | PROVIDERS: Visit Provider Specialist | DX: M25.552 Pain in left hip; G62.89 Other specified polyneuropathies | CPT/HCPCS: 95910 ==

== ENCOUNTER → 2024-08-09 08:41 | Outpatient (BNVA) | payer MEDICARE, MEDICAID, SELFPAY | PROVIDERS: Visit Provider Specialist | DX: M25.552 Pain in left hip (principal); Z09 Encounter for follow-up examination after completed treatment for conditions other than malignant neoplasm | CPT/HCPCS: 99214 ==

== ENCOUNTER → 2024-08-15 15:02 | Outpatient (BNVA) | payer MEDICARE, MEDICAID, SELFPAY | PROVIDERS: Referring Provider Neurological Surgery; Visit Provider Specialist | DX: G62.9 Polyneuropathy, unspecified (principal); M96.1 Postlaminectomy syndrome, not elsewhere classified; G31.84 Mild cognitive impairment of uncertain or unknown etiology; G43.009 Migraine without aura, not intractable, without status migrainosus; M54.30 Sciatica, unspecified side; R29.6 Repeated falls; M47.12 Other spondylosis with myelopathy, cervical region; M25.511 Pain in right shoulder | CPT/HCPCS: 99205 ==

== ENCOUNTER 2024-08-17 10:36 | Outpatient (CLI) | payer MEDICARE, MEDICAID, OTHER, SELFPAY ==
--- NOTE | 2024-08-17 11:00 | MR_ITS ---
WS: [id number] MRI LEFT HIP WITHOUT CONTRAST. COMPARISON: MRI pelvis 12/01/2013, LEFT hip radiograph 02/14/2024 Multiplanar, multisequence imaging is performed without contrast. History: Chronic LEFT hip pain. Prior LEFT femur fracture. Mild narrowing of the LEFT hip. Mild acetabular osteophytic ridging and osteophytic ridging around th e femoral head neck junction. There is a very small amount of reactive marrow edema in the lateral LE FT hip at the head-neck junction. This may be reactive edema. There are small subchondral cystic castellanos ges involving the femoral head with loss of the normal cartilage and cortical irregularity. No joint effusion. There is a fluid gap involving the gluteus medius tendon attachment at the greater tuberosity. Partial tear of the gluteus medius tendon. Mild bursal distention of the associated glut eus medius bursa. No free fluid. No adenopathy. MR/MR hip LT wo con* [id number] IMPRESSION: 1. Mild osteoarthritis at the LEFT hip joint. 2. No fracture. 3. Small amount of reactive marrow edema in the lateral LEFT hip at the femora l head neck junction. 4. High-grade tear involving the insertion site of the gluteus medius tendon.
[2024-08-17 12:38] LABS: Erythrocyte Sedimentation Rate 3 mm/hr (0-15)
[2024-08-17 13:22] LABS: Vitamin B12 > 2000 pg/mL (232-1245)
[2024-08-17 15:35] LABS: Folate Level > 20.0 ng/mL (4.8-37.3)
[2024-08-18 15:03] LABS: COMPLEMENT COMPONENT C3C 124 mg/dL (83-193); COMPLEMENT COMPONENT C4C 19 mg/dL (15-57); COMPLEMENT, TOTAL (CH50) 60 U/mL (31-60)
[2024-08-19 04:40] LABS: CENTROMERE B ANTIBODY <1.0 NEG AI (<1.0 NEG); JO-1 ANTIBODY <1.0 NEG AI (<1.0 NEG); RNP ANTIBODY <1.0 NEG AI (<1.0 NEG); SCL-70 ANTIBODY <1.0 NEG AI (<1.0 NEG); SJOGREN'S ANTIBODY (SS-A) <1.0 NEG AI (<1.0 NEG); SM ANTIBODY <1.0 NEG AI (<1.0 NEG); SS-B <1.0 NEG AI (<1.0 NEG)
[2024-08-21 15:44] LABS: THYROID PEROXIDASE ANTIBODIES <1 IU/mL (<9)
[2024-08-21 21:04] LABS: Immunofixation Serum Normal pattern.
== END 2024-08-17 10:37 | disposition home or self-care (01) ==
PROVIDERS: Specialist; PCP Specialist; Visit Provider Specialist
DX: M76.02 Gluteal tendinitis, left hip (principal); M25.452 Effusion, left hip; G62.9 Polyneuropathy, unspecified
CPT/HCPCS: 36415; 73721; 82607; 82746; 85651; 86160; 86162; 86235; 86255; 86334; 86376

== ENCOUNTER → 2024-09-20 13:05 | Outpatient (BNVA) | payer OTHER, MEDICAID, SELFPAY | PROVIDERS: PCP Specialist; Visit Provider Nurse Practitioner Family | DX: E11.9 Type 2 diabetes mellitus without complications (principal) | CPT/HCPCS: 80053; 80061; 82306; 82607; 83036; 83735; 84443; 85025 ==

== ENCOUNTER → 2024-09-27 13:09 | Outpatient (BNVA) | payer OTHER, MEDICAID, SELFPAY | PROVIDERS: PCP Nurse Practitioner Family; Visit Provider Nurse Practitioner Family | DX: R30.0 Dysuria (principal) | CPT/HCPCS: 81003; 87077; 87086; 87184 ==

== ENCOUNTER 2024-11-14 14:46 | Outpatient (CLI) | payer MEDICARE, MEDICAID, SELFPAY ==
--- NOTE | 2024-11-14 14:52 | XR_ITS ---
WS: [id number] SCREENING DEXA SCAN Survature CLINICAL INFORMATION: POSTMENOPAUSAL FINDINGS: The L1-L4 bone mineral density measures . This corresponds to a T score score of and Z score of . Left femoral neck bone mineral density measures 0.785 g/cm2. This corresponds to a T score of -1.8 and Z score of 0.1. Right femoral neck bone mineral density measures 0.898 g/cm2. This corresponds to a T score -0.9of and Z score of 1.0. Mean femoral neck bone mineral density measures 0.841 g/cm2. This corresponds to a T score of -1.3 and Z score of 0.6. XR/XR DEXA axial skeleton* [id number] IMPRESSION: Osteopenia LEFT forearm. Osteopenia femoral necks. Patient's FRAX calculated 10 year probability for major osteoporotic fracture i s 17.4% and osteoporotic hip fracture is 3.1%.
== END 2024-11-14 14:47 | disposition home or self-care (01) ==
LOC: RAD 14:47
PROVIDERS: PCP Nurse Practitioner Family; Visit Provider Family Medicine
DX: Z78.0 Asymptomatic menopausal state (principal); M85.89 Other specified disorders of bone density and structure, multiple sites
CPT/HCPCS: 77080

== ENCOUNTER 2024-11-27 20:33 | Emergency (ER) | payer MEDICARE, MEDICAID, SELFPAY ==
[2024-11-27 20:35] VITALS: BP 138/86; PULSE 93; RESP 18; TEMP 37.2; O2SAT 98; BMI 24.6
--- NOTE | 2024-11-27 20:40 | CTR_ITS ---
PROCEDURE INFORMATION: Exam: CT Head Without Contrast Exam date and time: 11/27/2024 9:29 PM Age: 79 years old Clinical indication: Injury or trauma; Fall; Blunt trauma (contusions or hematomas); With loss of consciousness; Loss of consciousness for 30 minutes or less; Injury date: 11/27/2024; Additional info: Fall, head injury TECHNIQUE: Imaging protocol: Computed tomography of the head without contrast. Radiation optimization: All CT scans at this facility use at least one of these dose optimization techniques: automated exposure control; mA and/or kV adjustment per patient size (includes targeted exams where dose is matched to clinical indication); or iterative reconstruction. COMPARISON: CT head wo con* [id number] 03/31/2024 11:08 AM RADIATION DOSE METRICS: Total DLP (mGy-cm): 1156.2 FINDINGS: Brain: Focal hypodensities in the bilateral basal ganglia may represent lacunar infarcts. There is patchy hypoattenuation in the deep and subcortical white matter, likely representing chronic small vessel ischemic change. No hemorrhage. Cerebral ventricles: No ventriculomegaly. Paranasal sinuses: Right maxillary sinus mucosal retention cysts. Mastoid air cells: Visualized mastoid air cells are well aerated. Bones: Unremarkable. No acute fracture. Soft tissues: Unremarkable. CT/CT head wo con* [id number] IMPRESSION: No acute intracranial abnormality.
--- NOTE | 2024-11-27 20:40 | CTR_ITS ---
PROCEDURE INFORMATION: Exam: CT Pelvis Without Contrast, Skeleton Exam date and time: 11/27/2024 9:32 PM Age: 79 years old Clinical indication: Injury or trauma; Fall; Blunt trauma (contusions or hematomas); Bilateral; Pelvic region and sacrum; Injury date: 11/27/2024; Additional info: Traumatic pelvic pain TECHNIQUE: Imaging protocol: Computed tomography of the pelvis without contrast. Exam focused on the skeleton. Radiation optimization: All CT scans at this facility use at least one of these dose optimization techniques: automated exposure control; mA and/or kV adjustment per patient size (includes targeted exams where dose is matched to clinical indication); or iterative reconstruction. COMPARISON: CT pelvis wo con [id number] 11/01/2020 9:52 AM RADIATION DOSE METRICS: Total DLP (mGy-cm): 324.84 FINDINGS: Bones/joints: No acute fracture or dislocation. L4 and L5 laminectomies. L4-L5 interbody device. Ischial degenerative changes at the origins of the bilateral hamstrings. Moderate degenerative changes of the bilateral femoroacetabular joints. Soft tissues: Tiny calcified granulomas in the bilateral posterior gluteal soft tissues. CT/CT pelvis wo con [id number] IMPRESSION: No acute fracture or dislocation.
--- NOTE | 2024-11-27 20:43 | W.ED.FALL ---
HPI - Fall General: Chief Complaint: Fall Stated Complaint: fall, head injury Time Seen by Provider: 11/27/24 20:36 History of Present Illness: 79-year-old female who presents emergency room by ambulance after a fall. She fell down about 4 stairs. She hit her head on a table. She is having some right hip pain. Possible loss of consciousness. No nausea or vomiting. No altered mental status. No focal motor deficits. She has some skin tears on her right arm. Also abrasion on her foot. Related Data Home Medications ?Medication ?Instructions ?Recorded ?Confirmed aspirin 81 mg tablet,delayed 81 mg PO QAM 04/03/22 09/27/24 release [id number] 8 mg-folic 400 1 tab PO DAILY 04/03/22 09/27/24 mcg-K 50 mcg-lutein 300 mcg tablet (Centrum Silver Women) hydrocodone 10 mg-acetaminophen 1 tab PO Q4H PRN Pain 08/26/22 09/27/24 325 mg tablet Previous Rx's ?Medication ?Instructions ?Recorded Diabetic Shoes #1 ea 10/28/20 diabetic shoes #1 ea 10/28/20 diabetic shoes with inserts #1 ea 07/29/22 cholecalciferol (vitamin D3) 50 50 mcg PO DAILY #30 caps 10/29/22 mcg (2,000 unit) capsule nitroglycerin 0.4 mg sublingual See Rx Instructions .Route 02/24/23 tablet .COMPLEX #25 tabs Diabetic shoes with inserts #1 ea 03/22/23 ASO to the left #1 ea 07/19/23 blood-glucose meter (OneTouch #1 ea 09/09/23 Ultra2 Meter) lancets 30 gauge (OneTouch #100 ea 09/09/23 UltraSoft 2 Lancet) ASO #1 ea 09/14/23 diabetic shoes and custom molded #1 ea 12/21/23 accommodative orthotic with reverse loading mortons pad fluticasone propionate 50 2 spray intranasal DAILY #16 grams 01/28/24 mcg/actuation nasal spray,suspension (Flonase Allergy Relief) lactulose 10 gram/15 mL (15 mL) 10 g (15 mL) PO DAILY #1,440 mL 03/27/24 oral solution blood sugar diagnostic (OneTouch #100 ea 05/19/24 Ultra Test strips) allopurinol 300 mg tablet See Rx Instructions .Route 06/21/24 .COMPLEX #90 tabs atorvastatin 20 mg tablet See Rx Instructions .Route 06/21/24 .COMPLEX #90 tabs carvedilol 6.25 mg tablet See Rx Instructions .Route 06/21/24 .COMPLEX #180 tabs metformin 500 mg tablet 1,000 mg (2 x 500 mg) PO BID #360 06/21/24 tabs potassium chloride 20 mEq See Rx Instructions .Route 06/21/24 tablet,extended release(part/cryst) .COMPLEX #180 tabs tolterodine 4 mg capsule,extended 4 mg PO DAILY #90 caps 09/26/24 release 24 hr escitalopram oxalate 10 mg tablet 10 mg PO DAILY #30 tabs 09/27/24 (Lexapro) nitrofurantoin 100 mg PO Q12H 7 days #14 caps 09/27/24 monohydrate/macrocrystals 100 mg capsule (Macrobid) hydrochlorothiazide 50 mg tablet See Rx Instructions .Route 10/09/24 .COMPLEX #90 tabs Allergies Allergy/AdvReac Type Severity Reaction Status Date / Time carbamazepine (From Tegretol) Allergy Unknown Unknown Verified 11/27/24 20:42 gabapentin (From Neurontin) Allergy Unknown Unknown Verified 11/27/24 20:42 ketorolac (From Toradol) Allergy Unknown Unknown Verified 11/27/24 20:42 levofloxacin Allergy Unknown Unknown Verified 11/27/24 20:42 liraglutide (From Victoza) Allergy Unknown Unknown Verified 11/27/24 20:42 metoprolol (From Toprol XL) Allergy Unknown Unknown Verified 11/27/24 20:42 oxcarbazepine (From Allergy Unknown Unknown Verified 11/27/24 20:42 Trileptal) oxycodone Allergy Unknown Unknown Verified 11/27/24 20:42 topiramate (From Topamax) Allergy Unknown Unknown Verified 11/27/24 20:42 valdecoxib (From Bextra) Allergy Unknown Unknown Verified 11/27/24 20:42 venlafaxine (From Effexor) Allergy Unknown Unknown Verified 11/27/24 20:42 morphine Allergy Unknown Verified 11/27/24 20:42 pregabalin (From Lyrica) Allergy ADR/ALGY-Pa Verified 11/27/24 20:42 lpitations Venlafaxine Analogues Allergy ADR-Dizzine Verified 11/27/24 20:42 ss Review of Systems Narrative: Constitutional symptoms: Negative except as documented in HPI. Skin symptoms: Negative except as documented in HPI. Eye symptoms: Negative except as documented in HPI. ENMT symptoms: Negative except as documented in HPI. Respiratory symptoms: Negative except as documented in HPI. Cardiovascular symptoms: Negative except as documented in HPI. Gastrointestinal symptoms: Negative except as documented in HPI. Genitourinary symptoms: Negative except as documented in HPI. Musculoskeletal symptoms: Negative except as documented in HPI. Neurologic symptoms: Negative except as documented in HPI. Psychiatric symptoms: Negative except as documented in HPI. Endocrine symptoms: Negative except as documented in HPI. PFSH ED PFSH: Medical History Controlled diabetes mellitus with hyperglycemia Dyslipidemia Abnormal EKG UTI (urinary tract infection) Paresis of right lower extremity Reports this is secondary to spinal injury during back surgery Hyperlipidemia Gout Hypertension Chest pain Urinary incontinence Back pain with history of spinal surgery Insomnia, unspecified Neuropathy Narrowing of both carotid arteries 16-49% bilateral 06/10/18; carotid duplex Lumbar facet joint pain Bilateral bunions with callous formation; has had surgery for hammer toes Urolithiasis recurrent with multiple treatments over the years Generalized anxiety disorder Type 2 diabetes mellitus without complications Pure hypercholesterolemia, unspecified Vitamin D deficiency Essential (primary) hypertension Arteriosclerotic heart disease (ASHD) Slow transit constipation Chronic pain syndrome IBS (irritable bowel syndrome) Chronic thoracic spine pain Parapelvic renal cyst long standing, well defined left parapelvic cysts on previous CT. No concern regarding cyst. Hx of fracture of left hip Anxiety Bilateral knee pain Surgical History Hx of colonoscopy Hx of total knee replacement bilateral Hx of lithotripsy Hx of hysterectomy Hx of arthroscopy of shoulder (~09/2018) left Hx of cataract extraction Hx of cholecystectomy Hx of cervical discectomy (~2015) 4-5-6 History of tonsillectomy and adenoidectomy History of back surgery 9 total per patient Hx of tubal ligation History of ankle surgery Hx of foot surgery right Family History Family/Other Dementia CAD (coronary artery disease) Diabetes Denies family history of Clotting disorder Hyperlipidemia Psychiatric illness Chronic kidney disease (CKD) Suicide Anesthesia complication Bleeding disorder Family history of premature coronary artery disease Lung disease Cancer Hypertension Stroke Social History Smoking and tobacco/nicotine status: never used tobacco/nicotine Second hand smoke exposure: Yes Alcohol intake: unknown Substance/Drug Use: unknown Adopted: No Caregiver/support person: No Lives independently: Yes Household members: none Housing: House Marital status: / service: No Current occupational status: disabled Current occupational exposures/hazards: No Do you think of yourself as: Straight/Heterosexual Current gender identity: Female Physical Exam Narrative: EXAM NARRATIVE: General: Alert, no acute distress. Skin: Warm, dry. Skin tears as listed below. Head: Patient has a tender area on right anabaptism area. Neck: Supple, trachea midline. Eye: Extraocular movements are intact. Ears, nose, mouth and throat: mucosa moist. Cardiovascular: Regular, Normal peripheral perfusion. Respiratory: Lungs are clear to auscultation, respirations are non-labored, breath sounds are equal, Symmetrical chest wall expansion. Gastrointestinal: Soft, Nontender, Non distended Musculoskeletal: Normal ROM, no deformity. Neurological: Alert and oriented, No focal neurological deficit observed. Psychiatric: Cooperative, appropriate mood & affect. Course Vital Signs: Vital signs: Vital Signs Temperature 99.0 F 11/27/24 20:35 Pulse Rate 79 11/27/24 22:55 Respiratory Rate 16 11/27/24 22:55 Blood Pressure 152/119 11/27/24 22:55 Pulse Oximetry 98 11/27/24 22:55 Oxygen Delivery Me thod Room Air 11/27/24 20:35 MDM - Fall Medical Decision Making CT head: No acute intracranial process. no intracranial hemorrhage, no evidence of infarct. no evidence of acute fracture.This was reviewed and interpreted by myself the ER physician. CT of the pelvis: No acute process. No fractures. No dislocations. This was reviewed and interpreted by myself the emergency room physician. I also reviewed the radiology report. CT of the lumbar spine: Degenerative changes but no acute process. This was reviewed and interpreted by myself the emergency room physician. I also reviewed the radiology report. X-ray of the ankle: No acute process. No fractures. No dislocations. This was reviewed and interpreted by myself the emergency room physician. I also reviewed the radiology report. Assessment and plan: Fall Head injury Low back injury/hip injury Ankle injury Skin tears Chronic pain syndrome ? P.o. Shira in the emergency room. - Discharged home - Discussed plan with patient. Answered any questions. - Evaluation and treatment of this problem were appropriate in the emergency setting. Lab Data Radiology Impressions Head CT 11/27/24 20:40 IMPRESSION: No acute intracranial abnormality. Pelvis CT 11/27/24 20:40 IMPRESSION: No acute fracture or dislocation. Ankle X-Ray 11/27/24 21:22 IMPRESSION: No acute fracture or dislocation. Lumbar Spine CT 11/27/24 21:39 IMPRESSION: No acute fracture or malalignment. All radiology interpretation(s) finalized by discharge Discharge Plan Discharge Patient Disposition: Home Clinical Impression: Fall, Chronic pain syndrome, Hip pain, Ankle injury, Skin tear, Head injury Condition: Stable Prescriptions: No Action (DME) Diabetic Shoes See Rx Instructions .Route .MEDSUPPLY Qty: 1 0RF Rx Instructions: As directed (DME) diabetic shoes See Rx Instructions .Route .MEDSUPPLY Qty: 1 0RF Rx Instructions: with molds and inserts hydrocodone-acetaminophen 10-325 mg tablet 1 tab PO Q4H PRN (Reason: Pain) cholecalciferol (vitamin D3) 50 mcg (2,000 unit) capsule 50 mcg PO DAILY Qty: 30 0RF (DME) ASO to the left See Rx Instructions .Route .MEDSUPPLY Qty: 1 0RF Rx Instructions: As directed fluticasone propionate [Flonase Allergy Relief] 50 mcg/actuation spray,suspension 2 spray intranasal DAILY Qty: 16 0RF Rx Instructions: administer into each nostril (DME) Diabetic shoes with inserts See Rx Instructions .Route .MEDSUPPLY Qty: 1 0RF Rx Instructions: Pt will need insert to build up left foot as well. (DME) ASO See Rx Instructions .Route .MEDSUPPLY Qty: 1 0RF Rx Instructions: As directed lactulose 10 gram/15 mL (15 mL) solution 10 g PO DAILY Qty: 1440 0RF allopurinol 300 mg tablet See Rx Instructions .ROUTE .COMPLEX Qty: 90 1RF Dose Instruction: TAKE ONE TABLET BY MOUTH DAILY Rx Instructions: TAKE ONE TABLET BY MOUTH DAILY atorvastatin 20 mg tablet See Rx Instructions .ROUTE .COMPLEX Qty: 90 1RF Dose Instruction: TAKE ONE TABLET BY MOUTH EVERY EVENING Rx Instructions: TAKE ONE TABLET BY MOUTH EVERY EVENING carvedilol 6.25 mg tablet See Rx Instructions .ROUTE .COMPLEX Qty: 180 1RF Dose Instruction: TAKE ONE TABLET BY MOUTH TWICE DAILY FOR 30 DAYS Rx Instructions: TAKE ONE TABLET BY MOUTH TWICE DAILY FOR 30 DAYS potassium chloride 20 mEq tablet,ER particles/crystals See Rx Instructions .ROUTE .COMPLEX Qty: 180 1RF Dose Instruction: TAKE ONE TABLET BY MOUTH TWICE DAILY Rx Instructions: TAKE ONE TABLET BY MOUTH TWICE DAILY metformin 500 mg tablet 1,000 mg PO BID Qty: 360 1RF escitalopram oxalate [Lexapro] 10 mg tablet 10 mg PO DAILY Qty: 30 2RF nitrofurantoin monohyd/m-cryst [Macrobid] 100 mg capsule 100 mg PO Q12H 7 Days Qty: 14 0RF Rx Instructions: must administer with a meal/food (DME) diabetic shoes with inserts See Rx Instructions .Route .MEDSUPPLY Qty: 1 0RF Rx Instructions: As directed nitroglycerin 0.4 mg tablet, sublingual See Rx Instructions .ROUTE .COMPLEX Qty: 25 2RF Dose Instruction: DISSOLVE ONE TABLET UNDER THE TONGUE NEEDED Rx Instructions: DISSOLVE ONE TABLET UNDER THE TONGUE NEEDED (DME) blood-glucose meter [OneTouch Ultra2 Meter] Misc See Rx Instructions .Route Qty: 1 0RF Rx Instructions: As directed (DME) lancets [OneTouch UltraSoft 2 Lancet] 30 gauge misc See Rx Instructions .Route Qty: 100 5RF Rx Instructions: As directed (DME) Diabetic Shoes and Custom Molded Accommodative Orthotics with Reverse Loading Mortons Pad See Rx Instructions .Route .MEDSUPPLY Qty: 1 0RF Rx Instructions: As directed by [employer]- left leg length discrepancy (DME) OneTouch Ultra Test Strip See Rx Instructions .Route Qty: 100 5RF Rx Instructions: THREE TIMES DAILY tolterodine 4 mg capsule,extended release 24hr 4 mg PO DAILY Qty: 90 0RF hydrochlorothiazide 50 mg tablet See Rx Instructions .ROUTE .COMPLEX Qty: 90 1RF Dose Instruction: TAKE 1 TABLET BY MOUTH ONCE DAILY IN THE MORNING Rx Instructions: TAKE 1 TABLET BY MOUTH ONCE DAILY IN THE MORNING Centrum Silver Women 8 mg iron-400 mcg-300 mcg Tablet 1 tab PO DAILY aspirin 81 mg tablet,delayed release (DR/EC) 81 mg PO QAM Discharge Orders: Discharge ED (Routine); Ordered 11/27/24 Ordered By: Caty Regan Referrals: Nel Diaz FNP [Primary Care Provider] - Discharge Diet: Usual diet Discharge Activity: Increase activity as tolerated Patient Instructions: Fall Prevention (ED), Opioid Safety, Pain Management Activity Restrictions/Additional Instructions: Thank you for choosing [facility] for your healthcare needs today. Please realize this is an emergency room and that we are providing you with a medical screening exam and this may not be complete and all inclusive of all the testing and or work up that you may need to determine your ailment or severity of your illness. You have been screened and evaluated and felt safe for discharge. Health conditions do change or evolve sometimes and as such it is important that you follow up with your Primary Doctor to be re checked, 3-5 days is a general good time frame for follow up. You are always welcome to return to the ED for re assessment if your symptoms are worsening or you have new concerns Print Language: Kuwaiti Coding Level of Care Code ED Elevator Troubleshooter for Vineet Munson
--- NOTE | 2024-11-27 21:22 | XRR_ITS ---
PROCEDURE INFORMATION: Exam: XR Right Ankle Exam date and time: 11/27/2024 9:36 PM Age: 79 years old Clinical indication: Injury or trauma; Fall; Blunt trauma; Ankle; Right; Additional info: Fall, ankle pain TECHNIQUE: Imaging protocol: Radiologic exam of the right ankle. Views: 3 or more views. COMPARISON: CR XR foot RT min 3V* [id number] 03/20/2024 2:33 PM FINDINGS: Bones/joints: No acute fracture or dislocation. Small calcaneal enthesophytes. Soft tissues: Normal. XR/XR ankle RT min 3V* [id number] IMPRESSION: No acute fracture or dislocation.
--- NOTE | 2024-11-27 21:39 | CTR_ITS ---
PROCEDURE INFORMATION: Exam: CT Lumbar Spine Without Contrast Exam date and time: 11/27/2024 9:40 PM Age: 79 years old Clinical indication: Injury or trauma; Fall; Blunt trauma (contusions or hematomas) TECHNIQUE: Imaging protocol: Computed tomography of the lumbar spine without contrast. Radiation optimization: All CT scans at this facility use at least one of these dose optimization techniques: automated exposure control; mA and/or kV adjustment per patient size (includes targeted exams where dose is matched to clinical indication); or iterative reconstruction. COMPARISON: MR lumbar spine wo con* [id number] 01/05/2023 10:49 AM RADIATION DOSE METRICS: Total DLP (mGy-cm): 676.25 FINDINGS: Bones/joints: No acute fracture. Osteopenia. Multilevel spondylosis. T11-L5 laminectomies with prominent posterior hyperostosis. L1-L5 interbody devices. Large posterior osteophytes and facet arthropathy at T11-T12 and T12-L1 which causes moderate spinal canal stenosis. Gallbladder and biliary ducts: Cholecystectomy. Kidneys and ureters: Bilateral nonobstructive calcified calyceal renal stones. Bilateral caliectasis, [id number]-right. Vasculature: Celiacomesenteric trunk. Soft tissues: Unremarkable. CT/CT lumbar spine wo con* [id number] IMPRESSION: No acute fracture or malalignment.
[2024-11-27] MEDS: HYDROcodone-acetaminophen 10-325 mg Tablet 1 TAB PO (22:20)
[2024-11-27 22:55] VITALS: BP 152/119; PULSE 79; RESP 16; O2SAT 98
== END 2024-11-27 23:25 | disposition home or self-care (01) ==
PROVIDERS: Emergency Provider Emergency Medicine; PCP Nurse Practitioner Family
DX: M25.551 Pain in right hip (principal); S99.911A Unspecified injury of right ankle, initial encounter; S41.112A Laceration without foreign body of left upper arm, initial encounter; S09.90XA Unspecified injury of head, initial encounter; G89.4 Chronic pain syndrome; S91.311A Laceration without foreign body, right foot, initial encounter; Z79.82 Long term (current) use of aspirin; E11.9 Type 2 diabetes mellitus without complications; I10 Essential (primary) hypertension; W10.9XXA Fall (on) (from) unspecified stairs and steps, initial encounter
CPT/HCPCS: 70450; 72131; 72192; 73610; 99284; J9999

== ENCOUNTER → 2024-12-20 13:29 | Outpatient (BNVA) | payer MEDICARE, MEDICAID, SELFPAY | PROVIDERS: PCP Nurse Practitioner Family; Visit Provider Specialist | DX: M16.0 Bilateral primary osteoarthritis of hip (principal); Z98.1 Arthrodesis status; M96.1 Postlaminectomy syndrome, not elsewhere classified | CPT/HCPCS: 73523; 99214 ==

== ENCOUNTER → 2025-01-01 09:07 | Outpatient (BNVA) | payer MEDICARE, MEDICAID, SELFPAY | PROVIDERS: PCP Nurse Practitioner Family; Visit Provider Podiatrist Foot & Ankle Surgery | DX: M79.671 Pain in right foot (principal); M79.89 Other specified soft tissue disorders | CPT/HCPCS: 73630; 99213 ==

== ENCOUNTER 2025-01-12 11:56 | Outpatient (CLI) | payer OTHER, MEDICAID, SELFPAY ==
--- NOTE | 2025-01-12 12:02 | XR_ITS ---
WS: [id number] Exam: XR tibia fibula LT 2V [id number] Date/Time of Exam: 01/12/2025 12:02 PM Reason For Exam: LOWER LEFT LEG PAIN No acute fracture. Healed fracture of the lower fibula. Total knee replacement which appears to be intact as visualized. Soft tissues are unremarkable. XR/XR tibia fibula LT 2V [id number] IMPRESSION: 1. Healed fracture of the lower fibula. No acute fracture. 2. Total knee replacement intact as visualized.
--- NOTE | 2025-01-12 12:03 | MRR_ITS ---
PROCEDURE INFORMATION: Exam: MR Lumbar Spine Without Contrast Exam date and time: 01/12/2025 1:40 PM Age: 79 years old Clinical indication: Prior surgery; Surgery date: 6+ months; Surgery type: Multiple neck and back; Chronic mid-low back pain that radiates to the right hip/multiple surgeries to the neck and back area; Additional info: Other intervertebral disc degeneration, lspine region/pain TECHNIQUE: Imaging protocol: Magnetic resonance imaging of the lumbar spine without contrast. COMPARISON: CT lumbar spine wo con* [id number] 11/27/2024 9:40 PM FINDINGS: Bones/joints: Extensive posterior decompression with bridging heterotopic ossification along the posterior elements and ankylosis of the facets. No evidence of acute fracture or subluxation. No evidence of aggressive osseous lesion. Spinal cord: Lower thoracic spinal cord syrinx noted. There is slight contacting of the ventral cord by posterior disc osteophyte at the level of the syrinx. Conus terminates at T12-L1. L1-L2: Osteophytes results in mild bilateral foraminal stenosis. No central stenosis. L2-L3: Osteophytes results in mild bilateral foraminal stenosis. No central stenosis. L3-L4: No central or foraminal stenosis. L4-L5: No central or foraminal stenosis. L5-S1: No central or foraminal stenosis. Soft tissues: Paraspinal soft tissues are unremarkable. No evidence of retroperitoneal hemorrhage or fluid collection. MR/MR lumbar spine wo con* [id number] IMPRESSION: 1. No evidence of neural impingement, acute fracture or subluxation. 2. Extensive posterior decompression.
--- NOTE | 2025-01-12 12:49 | MRR_ITS ---
PROCEDURE INFORMATION: Exam: MR Thoracic Spine Without Contrast Exam date and time: 01/12/2025 1:17 PM Age: 79 years old Clinical indication: Pain in thoracic spine; Prior surgery; Surgery date: 6+ months; Surgery type: Multiple neck and back; Chronic mid-low back pain that radiates to the right hip/multiple surgeries to the neck and back area; Additional info: Intervertebral disc degeneration, thoracic region TECHNIQUE: Imaging protocol: Magnetic resonance imaging of the thoracic spine without contrast. COMPARISON: MR thoracic spin wo con* [id number] 07/17/2021 9:19 AM FINDINGS: Bones/joints: Extensive posterior decompression of the thoracic spine from the mid to lower thoracic spine. Moderate multilevel degenerative changes with disc protrusions, endplate irregularities and bridging anterior osteophytes. No evidence of acute fracture or malalignment. Moderate narrowing of the thecal sac to 7 mm in AP diameter at T1-2 with contacting of the ventral cord. No mary impingement. No severe thecal sac stenosis or cord impingement. Spinal cord: There is a syrinx of the lower thoracic spinal cord at the level of T10-11 measuring approximately 15 mm in length by 5 mm transverse (for example, image 11 of series 6 and image 45 of series 9). Disc protrusion with a left paramedian component contacts the ventral left hemicord at T9-10 (image 40 of series 9). Soft tissues: No evidence of fluid collection or hematoma. There are simple appearing renal cysts for which dedicated imaging follow-up is not required. MR/MR thoracic spin wo con* [id number] IMPRESSION: 1. Lower thoracic spinal cord syrinx. Follow-up neurosurgical evaluation is recommended. 2. Moderate multilevel degenerative change without evidence of cord impingement, acute fracture or subluxation.
== END 2025-01-12 11:57 | disposition home or self-care (01) ==
LOC: RAD 11:59
PROVIDERS: Absent Provider Nurse Practitioner Family; PCP Nurse Practitioner Family; Visit Provider Internal Medicine Gastroenterology
DX: M79.662 Pain in left lower leg (principal); M51.34 Other intervertebral disc degeneration, thoracic region; G95.0 Syringomyelia and syringobulbia; R93.7 Abnormal findings on diagnostic imaging of other parts of musculoskeletal system; M51.24 Other intervertebral disc displacement, thoracic region; M25.78 Osteophyte, vertebrae; N28.1 Cyst of kidney, acquired; M24.69 Ankylosis, other specified joint; M48.061 Spinal stenosis, lumbar region without neurogenic claudication; Z87.81 Personal history of (healed) traumatic fracture; Z96.652 Presence of left artificial knee joint
CPT/HCPCS: 72146; 72148; 73590

== ENCOUNTER 2025-01-17 11:49 | Outpatient (CLI) | payer OTHER, MEDICAID, SELFPAY ==
--- NOTE | 2025-01-17 11:57 | XR_ITS ---
WS: [id number] Right hand, 3 views, 01/17/2025 Clinical Data: THUMB PAIN, RIGHT Comparison: Right wrist, 08/11/2023 Findings: No fractures or dislocations are seen. The soft tissues are unremarkable. There is moderate osteoarthritis of the MCP, IP, DIP and PIP joints. There is osteoarthritis of the base of the right first metacarpal. There is deformity of the distal right radius with irregularity of the radial carpal articulation. 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
== END 2025-01-17 11:50 | disposition home or self-care (01) ==
LOC: RAD 11:52
PROVIDERS: PCP Family Medicine; Visit Provider Family Medicine
DX: M19.041 Primary osteoarthritis, right hand (principal); M19.031 Primary osteoarthritis, right wrist; M18.9 Osteoarthritis of first carpometacarpal joint, unspecified; R93.6 Abnormal findings on diagnostic imaging of limbs
CPT/HCPCS: 73130

== ENCOUNTER → 2025-03-21 10:09 | Outpatient (BNVA) | payer OTHER, MEDICAID, SELFPAY | PROVIDERS: PCP Family Medicine; Visit Provider Surgery | DX: D17.1 Benign lipomatous neoplasm of skin and subcutaneous tissue of trunk (principal); D17.22 Benign lipomatous neoplasm of skin and subcutaneous tissue of left arm | CPT/HCPCS: 99204 ==

== ENCOUNTER → 2025-03-26 10:27 | Outpatient (BNVA) | payer OTHER, SELFPAY | PROVIDERS: PCP Family Medicine; Visit Provider Nurse Practitioner | DX: M18.11 Unilateral primary osteoarthritis of first carpometacarpal joint, right hand (principal); M19.041 Primary osteoarthritis, right hand | CPT/HCPCS: 73130 ==

== ENCOUNTER → 2025-04-16 10:18 | Outpatient (BNVA) | payer OTHER, MEDICAID, SELFPAY | PROVIDERS: PCP Family Medicine; Visit Provider Specialist | DX: M79.641 Pain in right hand (principal); S69.91XA Unspecified injury of right wrist, hand and finger(s), initial encounter; W19.XXXA Unspecified fall, initial encounter | CPT/HCPCS: 73130; 99214 ==

== ENCOUNTER 2025-05-23 14:30 | Emergency (ER) | payer OTHER, MEDICAID, SELFPAY ==
--- OUTSIDE RECORDS SUMMARY | 2024-06-24 04:00 | XMS_ITS ---
Author Organization [facility] Address [address] [place] [address] Care Team Providers Care Line Haul Driver Name Role Phone Soila Valdez [phone] Migration, Provider Unavailable Unavailable REASON FOR VISIT EMR-Quinn Encounters Encounter Location Date Provider Diagnosis Migrated_Facility 0 0 06/24/2024 Provider Migration Plan Of Treatment No Information Progress Notes * Cassidy ESTESOB: 5 (79 yo F)Acc No.[id number]:06/24/2024 Patient: Rosa BROWN Melissa :1945 A ge:79 Y S ex:Female Address:[address], [place] [address] Subjective: * Chief Complaints: * E MR-Quinn * * Date:
--- OUTSIDE RECORDS SUMMARY | 2024-06-25 04:00 | XMS_ITS ---
Author Organization [facility] Address [address] [place] [address] Care Team Providers Care Nutrition Assistant Name Role Phone Soila Valdez Unavailable [phone] Migration, Provider Unavailable Unavailable Allergies Allergen (clinical drug ingredient) Drug/Non Drug Allergy documented on EMR Reaction Allergy Type Onset Date Status fentanyl fentaNYL trouble breathing Drug Allergy Active pregabalin Lyrica mucosal irritation Drug Allergy Active morphine Morphine Sulfate itching Drug Allergy Active trimethoprim Trimethoprim Unknown Drug Allergy A ctive vancomycin Vancomycin HCl Unknown Drug Allergy A ctive morphine Morphine trouble breathing Drug Allergy Active REASON FOR VISIT EMR-Quinn Medications Medication SIG (Take, Route, Frequency, Duration) Notes Start Date End Date Status Biotin *[facility]* Active Magnesium *[facility]* Active [place]-3 *[facility] Active Social History Social History Additional Details Category Social Info Options Details Migrated Social History Migrated Social History Alcoholic beverages? - No, Currently on disability? - Yes, Drug or substance abuse? - No, Marital Status - , Nonprescription drug use? - No, Smoking - No, Smoking status (MU) - Never smoker, Working currently? - No Encounters Encounter Location Date Provider Diagnosis Migrated_Facility 0 0 06/25/2024 Provider Migration Plan Of Treatment No Information Progress Notes * Cassidy ESTESOB: 5 (79 yo F)Acc No.[id number]:06/25/2024 Patient: Reagan GONZALEZine :1945 A ge:79 Y S ex:Female Address:[address] [place] [id number] Subjective: * Chief Complaints: * E MR-Quinn * Medical History: Arthritis, D iabetes, H ypertension, K idney stone, * Surgical History: Ankle surgery Cervical surgery Collar Bone surgery Femur surgery Foot surgery Gallbladder surgery Hand Surgery Hysterectomy Knee Surgery Liver biopsy Lumbar Back Surgery nose surgery Rotator Cuff Surgery Spinal cord stimulator implantation Tonsillectomy, and adenoidectomy Trigger Finger Repair Tubal ligation * Family History: M igrated Family History: : Cancer, D iabetes, f ibromyalgia, R heumatoid arthritis, S troke. * Social History: M igrated Social History: M igrated Social History: Alcoholic beverages? - No, C urrently on disability? - Yes, D rug or substance abuse? - No, M arital Status - , N onprescription drug use? - No, S moking - No, S moking status (MU) - Never smoker, W orking currently? - No. * Medications: T akingMagnesium , Notes to Pharmacist: *Pick strength-form from [facility] for eRX*[place]-3 , Notes to Pharmacist: *Pick strength-form from [facility] for eRX*Biotin , Notes to Pharmacist: *Pick strength-form from [facility] for eRX*Taking Magnesium , Notes to Pharmacist: *Pick strength-form from [facility] for eRX*Taking [place]-3 , Notes to Pharmacist: *Pick strength-form from [facility] for eRX*Taking Biotin , Notes to Pharmacist: *Pick strength-form from [facility] for eRX* * Allergies: f entaNYL: trouble breathing - AllergyTrimethoprim: AllergyMorphine: trouble breathing - AllergyLyrica: mucosal irritation - AllergyMorphine Sulfate: itching - AllergyVancomycin HCl: Allergy * * Date:
--- OUTSIDE RECORDS SUMMARY | 2024-07-06 10:00 | XMS_ITS ---
Author Organization [facility] Address [address] [place] [address] Care Team Providers Care Beam Press Operator Name Role Phone Soila Valdez Unavailable Lon Mejia Unavailable REASON FOR VISIT EST CARE Encounters Encounter Location Date Provider Diagnosis [facility] [address] [place] [phone] 07/06/2024 Lon Mejia Plan Of Treatment No Information Progress Notes * Reagan ESTESRossyOB: 5 (79 yo F)Acc No.[id number]:07/06/2024 Progress Notes Patient: Melissa Elliott Provider: Nithin Mejia MD :1945 A ge:79 Y S ex:Female Date:07/06/2024 Address:[address], [id number] Subjective: * Chief Complaints: * E ST CARE * Electronic signature of Brigid Mejia MD on 05/23/2025 at 02:39 PM CDT Sign off status: Pending * Provider: Nithin Mejia MD Date: 09/05/2023 Generated for Patricia kang/Armand/eTransmitting on: 0 05/23/2025 02:39 PM CDT
[2025-05-23 14:33] VITALS: BP 159/89; PULSE 88; TEMP 36.8; O2SAT 96; BMI 23.8
--- OUTSIDE RECORDS SUMMARY | 2025-05-23 14:38 | XMS_ITS | Encounter Summary ---
Author Organization [facility] Address [address] 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
--- OUTSIDE RECORDS SUMMARY | 2025-05-23 14:38 | XMS_ITS | Encounter Summary ---
Author Organization [facility] Address [address] [place] [address] Care Team Providers Care Admitting Counselor Name Role Phone Shelby Henderson MD Primary Care Provider [phone] Encounter Details Date Type Department Care Team (Late Contact Info) Description 11/17/[address] 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
--- OUTSIDE RECORDS SUMMARY | 2025-05-23 14:39 | XMS_ITS | Encounter Summary ---
Author Organization [facility] Address [address] [place] [address] Care Team Providers Care Spud Sorter Name Role Phone Shelby Henderson MD Primary Care Provider [phone] Encounter Details Date Type Department Care Team (Latest Contact Info) Description 05/22/2004 Outpatient Historical [facility] [address] [place] [phone] Black Owen MD NO ADDRESS ON FILE CERVICALGIA (Primary Dx); Lumbosacral spondylosis; LUMB/LUMBOSAC DISC DEGEN Social History Tobacco Use Types Packs/Day Years Used Date Smoking Tobacco: Never Assessed Comments Unknown Sex and Gender Information Value Date Recorded Sex Assigned at Not on file 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
--- OUTSIDE RECORDS SUMMARY | 2025-05-23 14:39 | XMS_ITS | Encounter Summary ---
Author Organization [facility] Address [address] 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
--- OUTSIDE RECORDS SUMMARY | 2025-05-23 14:39 | XMS_ITS | Encounter Summary ---
Author Organization [facility] Address [address] [place] [address] Care Team Providers Care Novelties Sales Representative Name Role Phone Shelby Henderson MD Primary Care Provider [phone] Encounter Details Date Type Department Care Team (Late st Contact Info) Description 10/05/2003 Outpatient Historical [facility] Pain Management Procedures [address] 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
--- OUTSIDE RECORDS SUMMARY | 2025-05-23 14:39 | XMS_ITS | Encounter Summary ---
Author Organization [facility] Address [address] [place] [address] Care Team Providers Care Welder Assistant Name Role Phone Shelby Henderson MD Primary Care Provider [phone] Reason for Referral * Radiology Services (Routine) - Closed Specialty Diagnoses / Procedures Referred By Di hawthorne Referred To Contact Diagnoses Disorder of sacrum Procedures XR FLUORO NEEDLE GUIDANCE SPINE Mal Melendez MD Referral ID Status Reason Start Date Expiration Date Visits Re quested Visits Authorized [id number] Closed 09/05/2018 10/06/2019 1 1 INUOUS PROCESS ROTARY DRUM TANNER Encounter Details Date Type Department Care Team (Late st Contact Info) Description 09/05/2018 Ancillary Orders [facility] Pain Management Procedures [place] [address] [place] [phone] Mal Melendez MD NO ADDRESS ON FILE Disorder of sacrum Social History Tobacco Use Types Packs/Day Years Used Date Smoking Tobacco: Never Smokeless Tobacco: Never Comments Unknown Sex and Gender Information Value Date Recorded Sex Assigned at Not on file Legal Sex Female 5:04 AM CONTINUOUS PROCESS ROTARY DRUM TANNER Gender Identity Not on file Sexual Orientation Not on file Occupation Industry Job Start Date Job End Date Not on file Not on file Not on file Not on file documented as of this encounter Plan of Treatment Not on file documented as of this encounter Results * XR FLUORO NEEDLE GUIDANCE SPINE (09/05/2018 10:00 AM CONTINUOUS PROCESS ROTARY DRUM TANNER) Narrative 09/05/2018 10:11 AM CONTINUOUS PROCESS ROTARY DRUM TANNER Order information only. Exam was auto-finalized. us Mal Melendez MD DIAGNOSTIC IMAGING ORDERAB LES Final Result documented in this encounter Visit Diagnoses Diagnosis Disorder of sacrum Disorders of sacrum Disorder of sacrum Disorders of sacrum documented in this encounter Care Teams Welder Assistant Relationship Specialty Start Date End Date Shelby Henderson MD [address] [address] PCP - General Family Practice 09/20/20 documented as of this encounter
--- OUTSIDE RECORDS SUMMARY | 2025-05-23 14:39 | XMS_ITS | Encounter Summary ---
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
--- OUTSIDE RECORDS SUMMARY | 2025-05-23 14:39 | XMS_ITS | Encounter Summary ---
Author Organization [facility] Address [address] [place] [address] Care Team Providers Care Motel Manager Name Role Phone Shelby Henderson MD Primary Care Provider [phone] Encounter Details Date Type Department Care Team (Late st Contact Info) Description 11/13/2003 Outpatient Historical [facility] Pain Management Procedures [address] 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
--- OUTSIDE RECORDS SUMMARY | 2025-05-23 14:39 | XMS_ITS | Encounter Summary ---
Author Organization [facility] Address [address] [place] [address] Care Team Providers Care Reel Winder Name Role Phone Shelby Henderson MD Primary Care Provider [phone] Encounter Details Date Type Department Care Team (Late st Contact Info) Description 08/04/2004 Outpatient Historical [facility] [address] [place] [phone] Mal Melendez MD NO ADDRESS ON FILE LUMB/LUMBOSAC DISC DEGEN (Primary Dx); DISORDERS OF SACRUM Social History Tobacco Use Types Packs/Day Years Used Date Smoking Tobacco: Never Assessed Comments Unknown Sex and Gender Information Value Date Recorded Sex Assigned at Not on file 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
--- OUTSIDE RECORDS SUMMARY | 2025-05-23 14:39 | XMS_ITS | Encounter Summary ---
Author Organization [facility] Address [address] [place] [address] Care Team Providers Care Clinical Research Scientist Name Role Phone Shelby Henderson MD Primary Care Provider [phone] Encounter Details Date Type Department Care Team (Late Contact Info) Description 11/11/[address] 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
--- OUTSIDE RECORDS SUMMARY | 2025-05-23 14:39 | XMS_ITS | Encounter Summary ---
Author Organization [facility] Address [address] [place] [address] Care Team Providers Care Primary Products Inspectors Name Role Phone Shelby Henderson MD Primary Care Provider [phone] Encounter Details Date Type Department Care Team (Latest Contact Info) Description 08/04/2004 Outpatient Historical [facility] [address] [phone] Mal Melendez MD NO ADDRESS ON FILE POSTLAMINECT SYND-LUMBAR (Primary Dx) Social History Tobacco Use Types Packs/Day Years Used Date Smoking Tobacco: Never Assessed Comments Unknown Sex and Gender Information Value Date Recorded Sex Assigned at Not on file 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
--- OUTSIDE RECORDS SUMMARY | 2025-05-23 14:39 | XMS_ITS | Clinical Summary ---
Author Organization [facility] Address [address] [place] [address] Care Team Providers Care Blood Bank Technologist Name Role Phone Shelby Henderson MD Primary Care Provider [phone] Allergies Active Allergy Reactions Criticality Noted Date Comments Acetaminophen Other (See Comments) 10/13/2011 Celecoxib Other (See Comments) 05/22/2020 Pt cant recall Gabapentin Unknown 05/30/2019 Levothyroxine Sodium Unknown 05/30/2019 Morphine Itching Low 05/22/2020 Morphine Sulfate Shortness of Breath/Wheezing,Rash High 10/13/2011 Morpholine Analogues Itching,Shortness o f Breath/Wheezing High 06/19/2015 Polysorbate Other (See Comments) 10/13/2011 Pregabalin Other (See Comments) 10/13/2011 Sulfamethoxazole-Trimeth oprim Other (See Comments) 10/13/2011 Trimethoprim Other (See Comments) 05/22/2020 Pt cant recall Zolpidem Tartrate Other (See Comments) 10/13/19 12 Pt can't recall Medications allopurinol (ZYLOPRIM) 300 mg Oral tablet Take 300 mg by mouth daily. Active hydrochlorothiazi de 50 mg Oral tablet Take 50 mg by mouth daily. Active carvedilol (COREG) 3.125 mg Oral tablet Take 3.125 mg by mouth 2 times daily with meals. Active nitroglycerin (NITROSTAT) 0.[address] 0.4 mg under tongue every 5 minutes as needed. Active VITAMIN E ORAL Take by mouth. Active ascorbic acid (VITAMIN C) 100 mg Oral Tab Take 100 mg by mouth daily. Active FLAXSEED OIL (OMEGA 3 ORAL) Take 1,000 mg by mouth 2 times daily. Active CYANOCOBALAMIN, VITAMIN B-12, (LIQUID B 12 ORAL) Take 1,000 mg by mouth. Active losartan (COZAAR) 50 mg tabletIndications :S/P lumbar fusion,S/P cervical spinal fusion,Fusion of spine, thoracolumbar region,Neuropathi c pain,Idiopathic peripheral neuropathy,S/P insertion of spinal cord stimulator,Encoun ter for long-term current use of high risk medication Take 50 mg by mouth daily. Active aspirin (ASPIR-LOW) 81 mg Tablet, Delayed Release (E.C.) Aspir-Low 81 mg tablet,delayed release TAKE ONE TABLET BY MOUTH EVERY DAY Active furosemide (LASIX) 20 mg tablet TAKE 1 TABLET BY MOUTH ONCE DAILY DIRECTED NEEDED 0 05/11/20 19 Active lactulose (ENULOSE) 10 gram/15 mL 10 gram/15 mL solution lactulose 10 gram/15 mL oral solution Active magnesium oxide (MAG-OX) 400 mg (241.3 mg magnesium) tablet magnesium oxide 400 mg (241.3 mg magnesium) tablet TAKE 1 TABLET BY MOUTH TWO TIMES A DAY Active lancets (ONETOUCH DELICA LANCETS) 30 gauge OneTouch Delica Lancets 30 gauge Active blood sugar diagnostic (ONETOUCH ULTRA BLUE TEST STRIP) Strip OneTouch Ultra Blue Test Strip USE ONE STRIP EVERY DAY Active Blood-Glucose Meter (ONETOUCH ULTRA2 METER) Kit OneTouch Ultra2 Meter kit USE TO test blood sugar ONCE a DAY Active Cholecalciferol, Vitamin D3, 50 mcg (2,000 unit) Capsule Take 2,000 Units by mouth. Active multivitamin,tx-i inna-ca-min (THERA-M) 27-0.4 mg Tablet Take 1 Tablet by mouth. Active omega 8-uoh-zbt-fish oil (Fish Oil) 100-160-1,000 mg Capsule Take 1 Capsule by mouth. Active PARoxetine HCl (PAXIL) 20 mg tablet Take 20 mg by mouth. 08/07/20 20 Active VITAMIN B COMPLEX ORAL Take 1 Tablet by mouth. Active baclofen (LIORESAL) 10 mg tablet Take 10 mg by mouth. Active pumpkin seed extract/soy germ (AZO BLADDER CONTROL ORAL) Take by mouth. A ctive naloxone (NARCAN) 4 mg/spray [place], Non-AerosolIndica tions:S/P cervical spinal fusion,S/P lumbar fusion,Neuropathi c pain,S/P insertion of spinal cord stimulator,Sacroi liitis, not elsewhere classified,Trocha nteric bursitis of both hips EMERGENCY USE ONLY: Administer 1 spray (4 mg) in one nostril one time. May repeat in alternating nostrils every 2-3 min until responsive or EMS arrives. 2 Each 3 08/26/20 20 Active OTHERIndications: S/P cervical spinal fusion,S/P lumbar fusion,Neuropathi c pain,S/P insertion of spinal cord stimulator,Sacroi liitis, not elsewhere classified,Trocha nteric bursitis of both hips Apply 2 mL to affected area 2 times daily as needed for Pain. Compound 120ml in transdermal cream m48/m60 tank driver: diclofenac 10% baclofen 2% gabapentin 6% lidocaine 5% amitriptyline 4% 1 Each 5 08/26/20 20 Active metFORMIN (GLUCOPHAGE) 500 mg tablet TAKE TWO TABLETS BY MOUTH TWICE DAILY 09/04/19 21 Active mupirocin (BACTROBAN) 2 % Ointment APPLY TO affected AREA TWICE DAILY NEEDED 09/04/19 21 Active oxybutynin chloride (DITROPAN XL) 10 mg Extended Release 24 hour tablet Take 10 mg by mouth. 09/06/19 21 Active atorvastatin (LIPITOR) 40 mg tablet TAKE ONE TABLET BY MOUTH DAILY 09/04/19 21 Active potassium chloride (K-TAB) 20 mEq Extended Release tablet TAKE ONE TABLET BY MOUTH TWICE DAILY 09/04/19 21 Active busPIRone (BUSPAR) 15 mg Tablet TAKE ONE TABLET BY MOUTH TWICE DAILY 09/04/19 21 Active lidocaine (LIDODERM) 5 % Adhesive Patch, MedicatedIndicati ons:S/P lumbar fusion,Neuropathi c pain,Sacroiliitis , not elsewhere classified,S/P cervical spinal fusion,Fusion of spine, thoracolumbar region,Idiopathic peripheral neuropathy,S/P insertion of spinal cord stimulator,Encoun ter for long-term current use of high risk medication Apply 3 Patches to affected area every 24 hours. 90 Patch 2 12/31/19 21 Active Zonisamide (ZONEGRAN) 100 mg capsuleIndication s:Neuropathic pain Take 1 Capsule (100 mg) by mouth daily at bedtime. 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 10/13/2011 Family History Medical History Relation Name Comments Heart Disease Father High Cholesterol Father High Cholesterol Mother Relation Name Status Comments Father Mother Social History Tobacco Use Types Packs/Day Years Used Date Smoking Tobacco: Never Smokeless Tobacco: Never Alcohol Use Standard Drinks/Week Comments Yes 0 (1 standard drink = 0.6 oz pure alcohol) occasionally will have a beer or glass of wine Comments No Sex and Gender Information Value Date Recorded Sex Assigned at Not on file 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 Sex Female 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 EXPLORATION 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 Gender Identity Not on file Sexual Orientation Not on file Occupation Industry Job Start Date Job End Date Not on file Not on file Not on file Not on file Last Filed Vital Signs Vital Sign Reading Time Taken Comments Blood Pressure 166/72 09/26/2020 1:32 PM EXPLORATION ENGINEER Pulse 69 09/26/2020 1:32 PM EXPLORATION ENGINEER Temperature 36 C (96.8 F) 09/26/2020 12:49 PM EXPLORATION ENGINEER Respiratory Rate 16 09/26/2020 1:32 PM EXPLORATION ENGINEER Oxygen Saturation 97% 09/26/2020 1:32 PM EXPLORATION ENGINEER Inhaled Oxygen Concentration - - Weight 70.8 kg (156 lb) 09/26/2020 12:49 PM EXPLORATION ENGINEER Height 162.6 cm (5' 4 ) 09/26/2020 12:49 PM EXPLORATION ENGINEER Body Mass Index 26.78 09/26/2020 12:49 PM EXPLORATION ENGINEER Plan of Treatment Health Maintenance Due Date Last Done Comments DTAP/TDAP/TD VACCINES (1 - Tdap) 1964 PNEUMOCOCCAL VACCINE 50+ YEA RS (1 of 1 - PCV) 1995 06/20/2019 ZOSTER VACCINE (1 of 2) 1995 OSTEOPOROSIS SCREENING 2010 RSV VACCINE (60+ or ) (1 - 1-dose 75+ series) 2020 INFLUENZA VACCINE (#1) 2025 05/20/2020, 2018 Insurance [place] [place] [address] DUAL COMPLETE MCR PPO D-SNP Care Teams Blood Bank Technologist Relationship Specialty Start Date End Date Shelby Henderson MD [address] [place] [address] PCP - General Family Practice 09/20/20
--- OUTSIDE RECORDS SUMMARY | 2025-05-23 14:39 | XMS_ITS | Encounter Summary ---
Author Organization [facility] Address [address] [place] [address] Care Team Providers Care Fish Hatchery Superintendent Name Role Phone Shelby Henderson MD Primary Care Provider [phone] Encounter Details Date Type Department Care Team (Late st Contact Info) Description 05/22/2004 Outpatient Historical [facility] [address] [phone] Mal Melendez MD NO ADDRESS ON FILE CERVICALGIA (Primary Dx) Social History Tobacco Use Types Packs/Day Years Used Date Smoking Tobacco: Never Assessed Comments Unknown Sex and Gender Information Value Date Recorded Sex Assigned at Not on file 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
--- OUTSIDE RECORDS SUMMARY | 2025-05-23 14:39 | XMS_ITS | Encounter Summary ---
Author Organization [facility] Address [address] 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
--- OUTSIDE RECORDS SUMMARY | 2025-05-23 14:39 | XMS_ITS | Patient Health Record ---
Author Organization [facility] Address [address] [place] [address] Care Team Providers [employer] Name Role Phone Soila Valdez Unavailable Migration, Provider Unavailable Unavailable Lon Mejia Unavailable Allergies Allergen (clinical drug ingredient) Drug/Non Drug Allergy documented on EMR Reaction Allergy Type Onset Date Status fentanyl fentaNYL trouble breathing Drug Allergy Active pregabalin Lyrica mucosal irritation Drug Allergy Active morphine Morphine Sulfate itching Drug Allergy Active oxcarbazepine Trileptal Unknown Drug Allergy Act alicja trimethoprim Trimethoprim Unknown Drug Allergy A ctive vancomycin Vancomycin HCl Unknown Drug Allergy A ctive liraglutide Victoza Unknown Drug Allergy Activ e carbamazepine Carbamazepine Unknown Drug Allergy Active gabapentin Gabapentin Unknown Drug Allergy Activ e ketorolac Ketorolac Unknown Drug Allergy Active levothyroxine Levothyroxine Unknown Drug Allergy Active metoprolol Metoprolol Unknown Drug Allergy Activ e morphine Morphine trouble breathing Drug Allergy Active oxcarbazepine Oxcarbazepine Unknown Drug Allergy Active oxycodone Oxycodone Unknown Drug Allergy Active topiramate Topiramate Unknown Drug Allergy Activ e venlafaxine Venlafaxine Unknown Drug Allergy Act alicja valdecoxib Valdecoxib Unknown Drug Allergy Activ e Results Component Value Reference Range Flag Notes Urine Drug Screen (cup read) - [id number] Reviewed date:05/11/2025 11:29:18 AM Interpretation: Performing Lab: Notes/Report: OPI + Urine Confirmation Panel (in strument) - [id number] Reviewed date:05/16/2025 01:25:31 PM Interpretation: Performing Lab: Notes/Report: 6-Acetylmorphine 0 <6 ng/mL N This russell t was developed and its performance characteristics determined by [facility]. It has not been cleared or approved by the U.S. Food and Drug Administration. 7-Aminoclonazepam 0 <60 ng/mL N This te st was developed and its performance characteristics determined by [facility]. It has not been cleared or approved by the U.S. Food and Drug Administration. Alprazolam 0 <60 ng/mL N This test was developed and its performance characteristics determined by [facility]. It has not been cleared or approved by the U.S. Food and Drug Administration. Amphetamine 0 <75 ng/mL N This test was developed and its performance characteristics determined by [facility]. It has not been cleared or approved by the U.S. Food and Drug Administration. aOH-Alprazolam 0 <60 ng/mL N This test was developed and its performance characteristics determined by [facility]. It has not been cleared or approved by the U.S. Food and Drug Administration. Buprenorphine 0.0 <7.5 ng/mL N This test w as developed and its performance characteristics determined by [facility]. It has not been cleared or approved by the U.S. Food and Drug Administration. Norbuprenorphine 0.0 <37.5 ng/mL N This te st was developed and its performance characteristics determined by [facility]. It has not been cleared or approved by the U.S. Food and Drug Administration. Carisoprodol 0 <75 ng/mL N This test wa s developed and its performance characteristics determined by [facility]. It has not been cleared or approved by the U.S. Food and Drug Administration. Codeine 0 <75 ng/mL N This test was developed and its performance characteristics determined by [facility]. It has not been cleared or approved by the U.S. Food and Drug Administration. EDDP 0 <75 ng/mL N This test was developed and its performance characteristics determined by [facility]. It has not been cleared or approved by the U.S. Food and Drug Administration. Fentanyl 0 <6 ng/mL N This test was developed and its performance characteristics determined by [facility]. It has not been cleared or approved by the U.S. Food and Drug Administration. Hydrocodone 1885 <75 ng/mL H This test was developed and its performance characteristics determined by [facility]. It has not been cleared or approved by the U.S. Food and Drug Administration. Hydromorphone 75 <75 ng/mL H This test w as developed and its performance characteristics determined by [facility]. It has not been cleared or approved by the U.S. Food and Drug Administration. Lorazepam 0 <60 ng/mL N This test was developed and its performance characteristics determined by [facility]. It has not been cleared or approved by the U.S. Food and Drug Administration. MDMA 0 <75 ng/mL N This test was developed and its performance characteristics determined by [facility]. It has not been cleared or approved by the U.S. Food and Drug Administration. Meperidine 0.0 <37.5 ng/mL N This test was developed and its performance characteristics determined by [facility]. It has not been cleared or approved by the U.S. Food and Drug Administration. Meprobamate 0 <75 ng/mL N This test was developed and its performance characteristics determined by [facility]. It has not been cleared or approved by the U.S. Food and Drug Administration. Methamphetamine 0 <75 ng/mL N This test was developed and its performance characteristics determined by [facility]. It has not been cleared or approved by the U.S. Food and Drug Administration. Methadone 0 <75 ng/mL N This test was developed and its performance characteristics determined by [facility]. It has not been cleared or approved by the U.S. Food and Drug Administration. Morphine 0 <75 ng/mL N This test was developed and its performance characteristics determined by [facility]. It has not been cleared or approved by the U.S. Food and Drug Administration. Nordiazepam 0 <60 ng/mL N This test was developed and its performance characteristics determined by [facility]. It has not been cleared or approved by the U.S. Food and Drug Administration. Norfentanyl 0 <6 ng/mL N This test was developed and its performance characteristics determined by [facility]. It has not been cleared or approved by the U.S. Food and Drug Administration. Normeperidine 0.0 <37.5 ng/mL N This test was developed and its performance characteristics determined by [facility]. It has not been cleared or approved by the U.S. Food and Drug Administration. O-desmethyltramadol 0 <75 ng/mL N This test was developed and its performance characteristics determined by [facility]. It has not been cleared or approved by the U.S. Food and Drug Administration. Oxazepam 0 <60 ng/mL N This test was developed and its performance characteristics determined by [facility]. It has not been cleared or approved by the U.S. Food and Drug Administration. Oxycodone 0.0 <37.5 ng/mL N This test was developed and its performance characteristics determined by [facility]. It has not been cleared or approved by the U.S. Food and Drug Administration. Oxymorphone 0 <75 ng/mL N This test was developed and its performance characteristics determined by [facility]. It has not been cleared or approved by the U.S. Food and Drug Administration. Phencyclidine 0.0 <7.5 ng/mL N This test w as developed and its performance characteristics determined by [facility]. It has not been cleared or approved by the U.S. Food and Drug Administration. Tapentadol 5.1 <37.5 ng/mL N This test was developed and its performance characteristics determined by [facility]. It has not been cleared or approved by the U.S. Food and Drug Administration. Temazepam 0 <60 ng/mL N This test was developed and its performance characteristics determined by [facility]. It has not been cleared or approved by the U.S. Food and Drug Administration. Tramadol 0 <75 ng/mL N This test was developed and its performance characteristics determined by [facility]. It has not been cleared or approved by the U.S. Food and Drug Administration. Norhydrocodone >5000 <75 ng/mL > This test was developed and its performance characteristics determined by [facility]. It has not been cleared or approved by the U.S. Food and Drug Administration. Noroxycodone 0 <38 ng/mL N This test wa s developed and its performance characteristics determined by [facility]. It has not been cleared or approved by the U.S. Food and Drug Administration. Pregabalin 0 <225 ng/mL N This test was developed and its performance characteristics determined by [facility]. It has not been cleared or approved by the U.S. Food and Drug Administration. Gabapentin 0 <225 ng/mL N This test was developed and its performance characteristics determined by [facility]. It has not been cleared or approved by the U.S. Food and Drug Administration. Benzoylecgonine 0.0 <37.5 ng/mL N This russell t was developed and its performance characteristics determined by [facility]. It has not been cleared or approved by the U.S. Food and Drug Administration. 4-Hydroxy Xylazine 0 <25 ng/mL N This t est was developed and its performance characteristics determined by [facility]. It has not been cleared or approved by the U.S. Food and Drug Administration. Tox Results Reviewed date:05/16/2025 02:17:51 PM Interpretation: Performing Lab: Notes/Report: Reason For Referral Reason eval and treat Diagnosis 1 Chronic pain syndrom e (G89.4) Diagnosis 2 Low back pain (724.2 ) Referring Provider First Name Christiano Referring Provider Last Name Jodie Referring Provider Speciality Orthopedic Surgery Referred Organization [facility] [employer] Referred Provider Sung Valdez Referred Address [address] [place] [phone], Referred Provider Specialty Pain Medicin e General Notes Chanda Esteban 08/30 10:03:36 AM >patients insurance on referral is not active, Izabel Stuart 09/15/2024 01:30:42 PM >ATC to discuss insurance and possibly schedule. Speedy HYATT Angela 09/26/2024 11:02:42 AM >ATC to schedule, Chanda Esteban 09/29/2024 12:39:15 PM >faxed and mailed unable to contact letters Referral Priority Routine Medications Medication SIG (Take, Route, Frequency, Duration) Notes Start Date End Date Status Nystatin 277522 UNIT/ML Suspension TAKE 5ml BY MOUTH FOUR TIMES DAILY FOR SEVEN DAYS FOR MOUTH/THROAT; Duration: 7 days Not-Taking Furosemide 20 MG Tablet 1 tablet Orally Once a day as needed Not-Taking Magnesium *Pick strength-form from [employer] for eRX* Active Fluticasone Propionate 50 MCG/ACT Suspension 1 spray in each nostril Nasally Once a day Not-Taking Losartan Potassium 50 mg Tablet TAKE ONE TABLET BY MOUTH TWICE DAILY; Duration: 90 Active oxyBUTYnin Chloride ER 15 mg Tablet Extended Release 24 Hour TAKE TWO TABLETS BY MOUTH ONCE DAILY; Duration: 90 Not-Taking hydroCHLOROthiazide 50 mg Tablet TAKE ONE TABLET BY MOUTH EVERY MORNING; Duration: 90 Active Glucose Test Strips - Strips test daily In Vitro as directed; Duration: 30 days Active Escitalopram Oxalate 20 MG Tablet 1 tablet Orally Once a day; Duration: 90 days Active Cyanocobalamin 1000 MCG Tablet 1 tablet Orally Once a day Active Lidocaine 5 % Patch 1 patch remove after 12 hours Externally Once a day Active Lactulose 10 GM/15ML Solution 15 ml Orally Once a day Active Isosorbide Mononitrate ER 30 MG Tablet Extended Release 24 Hour 1 tablet in the morning Orally Once a day Active HYDROcodone-Acetaminophe n 10-325 MG Tablet 1 tablet as needed Orally every 6 hrs Active Cetirizine HCl 10 MG Tablet 1 tablet Orally Once a day Not-Taking busPIRone HCl Not-Ta humberto traZODone HCl 50 mg Tablet TAKE ONE TABLET BY MOUTH ONCE a DAY At Bedtime NEEDED; Duration: 60 Active Potassium Chloride [place] ER 20 mEq Tablet Extended Release TAKE ONE TABLET BY MOUTH with food TWICE DAILY; Duration: 90 Active metFORMIN HCl 500 MG Tablet TAKE TWO TABLETS BY MOUTH TWICE DAILY; Duration: 90 Active Carvedilol 3.125 mg Tablet TAKE ONE TABLET BY MOUTH TWICE DAILY; Duration: 90 Active Magnesium Oxide 400 MG Tablet 1 tablet Orally Once a day; Duration: 90 days Active Buprenorphine HCl-Naloxone HCl 2-0.5 MG Film 1 film under the tongue and allow to dissolve Sublingual Once a day; Duration: 3 days take as directed by healthcare provider for induction dose Fill on 05/28/2025 for patient to bring to her appointment for induction . 05/28/2025 5 Active Biotin *Pick strength-form from [employer] for eRX* Active Baclofen 10 mg Tablet TAKE ONE TABLET BY MOUTH TWICE DAILY NEEDED; Duration: 90 Active oxyBUTYnin Chloride ER 10 MG Tablet Extended Release 24 Hour TAKE ONE TABLET BY MOUTH EVERY DAY; Duration: 90 days Active [place]-3 *Pick strength-form from [employer] for eRX* Active Nortriptyline HCl 10 MG Capsule 5 capsules Orally Once a day Active Nitrostat 0.4 MG Tablet Sublingual as directed Sublingual 1 SL Q 5 MIN, XS 3 PRN CP, GO TO ER IF TAKES 3RD PILL. NO IMPOTENCY MED WITHIN 48 HRS. Active Accu-Chek Guide - Strip USE TO test blood sugar ONCE DAILY; Duration: 90 Active Ventolin HFA Active Linaclotide linzess Active Atorvastatin Calcium 20 mg Tablet TAKE ONE TABLET BY MOUTH EVERY DAY; Duration: 90 Active Aspirin 81 MG Tablet Delayed Release 1 tablet Orally Once a day Active Allopurinol 300 mg Tablet TAKE ONE TABLET BY MOUTH DAILY; Duration: 30 Active Accu-Chek Guide Me w/Device Kit USE TO test blood sugar ONCE DAILY; Duration: 1 Active Immunizations Vaccine Route Administration Date Status Comme nts Flu vaccine no Preserv 3 and > IM Intramuscular 07/03/2013 Administered Social History Tobacco Use: Social History Observation Description Date Details (start date - stop date) Never Smoker NA - NA Social History Depression Screening Social Info Question Answer Notes PHQ-9 Little interest or pleasure in doing thin gs Not at all Feeling down, depressed, or hopeless Not at all Trouble falling or staying asleep, or sleeping t oo much Not at all Feeling tired or having little energy Not at all Poor appetite or overeating Not at all Feeling bad about yourself, or that you are a failure, or have let yourself or your family down Not at all Trouble concentrating on thi ngs, such as reading the newspaper or watching television Not at all Moving or speaking so slowly that other people could have noticed. Or the opposite ? being so fidgety or restless that you have been moving around a lot more than usual Not at all Thoughts that you would be b augustina off , or of hurting yourself in some way Not at all Total Score 0 Drugs/Alcohol: Social Info Question Answer Notes Alcohol Screen (Audit-C) Did you have a drink containing alcohol in the past year? No Points 0 Interpretation Negative Tobacco Use: Social Info Question Answer Notes xTobacco Use/Smoking Are you a nonsmoker Additional Details Category Social Info Options Details Miscellaneous: Sexually active: no Sexual abuse: no Drugs/Alcohol: Do you smoke marijuana? De nies Do you drink alcohol? Yes, Socia lly Migrated Social History Migrated Social History Alcoholic beverages? - No, Currently on disability? - Yes, Drug or substance abuse? - No, Marital Status - , Nonprescription drug use? - No, Smoking - No, Smoking status (MU) - Never smoker, Working currently? - No zzMigrated Social History Migrated Social History Advance Directive: Current a nd Verified Signed on 07/06/2012, withhold IV and tube nutrition, withhold surgery, withhold antibiotics, withhold mechanical ventilator, withhold radiation therapy, withhold dialysis, withhold chemotherapy, withhold CPR Other All other Life Prolonging ... 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 Section Notes: never tobacco, denies alcoho l, reprots caffeine 02/18/21 02/18/21 02/18/21 02/18/21 02/18/21 02/18/21 02/18/21 02/18/21 02/18/21 04/06/22-PHQ9 02/18/21 04/06/22-PHQ9 never tobacco, denies alcohol, reprots caffeine 02/18/21 04/06/22-PHQ9 never tobacco, denies alcohol, reprots caffeine 02/18/21 04/06/22-PHQ9 never tobacco, denies alcohol, reprots caffeine 02/18/21 04/06/22-PHQ9 never tobacco, denies alcohol, reprots caffeine 02/18/21 04/06/22-PHQ9 never tobacco, denies alcoho l, reprots caffeine never tobacco, denies alcoho l, reprots caffeine Problems Problem Type SNOMED Code ICD Code Onset Dates Problem Status W/U Status Risk Notes Problem Disorder due to type 2 diabetes mellitus (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) Type 2 diabetes mellitus with unspecified complications (E11.8) Active confirmed Problem Mixed hyperlipidemia (135406929) Mixed hyperlipidemia (E78.2) Active confirmed Problem Opioid dependence (29685701) Opioid dependence, uncomplicated (F11.20) Active confirmed Problem Chronic pain (76098740) Other chronic pain (G89.29) Active confirmed Problem Chronic pain syndrom e (629419794) Chronic pain syndrome (G89.4) Active confirmed Problem Chronic diastolic heart failure (614845380) Chronic diastolic (congestive) heart failure (I50.32) Active confirmed Problem Overactive bladder (824392760) Overactive bladder (N32.81) Active confirmed Problem Urge incontinence of urine (53774115) Urge incontinence (N39.41) Active confirmed Problem Essential hypertension (05339263) Essential hypertension (I10) Active confirmed Problem Anxiety (25298732) Anxiety (F41.9) Active confi rmed Problem Type II diabetes mellitus without complication (040637294) Type 2 diabetes mellitus without complication, without long-term current use of insulin (E11.9) Active confirmed Problem Neuropathy (056015107) Neuropathy (G62.9) Active confirmed Problem Electrocardiogram abnormal (420215582) Abnormal EKG (R94.31) Active confirmed Problem Dysthymia (90152722) Dysthymia (F34.1) Active c onfirmed Problem Abnormal gait (20063487) Gait disturbance (R26.9) Active confirmed Problem Dizziness (023508203) Dizziness (R42) Active co nfirmed Problem Cardiovascular stres s test abnormal (137607935) Abnormal stress test (R94.39) Active confirmed Problem Insomnia (215821254) Insomnia, unspecified type (G47.00) Active confirmed Problem Hyperlipidemia (66058924) Hyperlipidemia (E78.5) Active confirmed Problem Chest pain (96200579) Chest pain (R07.9) Active confirmed Problem Cyst of thyroid (59303947) Thyroid cyst (E04.1) Active confirmed Problem Low back pain (471702466) Low back pain (724.2) 2011 Active confirmed [id number]- Problem Hypercholesterolemia (25159145) Hypercholesterolemia (272.0) 2012 Active confirmed [id number]- Problem Type II diabetes mellitus without complication (940804917) Diabetes mellitus without mention of complications, type II or unspecified type, not stated as uncontrolled (250.00) 2012 Active confirmed [id number]- Problem Hypertension (10822147) HTN (401.1) 2012 Active confirmed [id number]- Problem Type II diabetes mellitus without complication (023929020) NIDDM (250.00) 2014 Active confirmed [id number]- Problem Allergic rhinitis caused by pollen (disorder) (22508928) Allergic rhinitis due to pollen (477.0) 2012 Problem resolved confirmed [id number]- Problem Dysuria (30806449) Dysuria (788.1) 2015 Problem resolved confirmed [id number]- Problem Fall (5096439) Unspecified fall (E888.9) 2014 Problem resolved confirmed [id number]- Problem Spasm (58663164) Muscle spasm (728.85) 2013 Problem resolved confirmed [id number]- Problem Disorder of hematopoietic system (19695256) Abnormal findings on blood examination, NEC (790.99) 2012 Problem resolved confirmed [id number]- Problem Sore throat (147203576) Sore Throat (462) 2013 Problem resolved confirmed [id number]- Problem Earache (929903843) Earache (388.71) 04/30 Problem resolved confirmed [id number]- Problem Lab: Used to mat ch unlinked laboratory orders (V92) 2014 Problem resolved confirmed [id number]- Problem Flank pain (966713483) Flank pain (724.8) 2013 Problem resolved confirmed [id number]- Problem Generalized anxiety disorder (84651890) DEANNA (300.02) 2013 Problem resolved confirmed [id number]- Problem Hand pain (10893075) Hand pain (729.5) 2012 Problem resolved confirmed [id number]- Problem Excessive sweating (45036446) Increased sweating (780.8) 2013 Problem resolved confirmed [id number]- Problem Insomnia (804163559) Insomnia (307.41) 2015 Problem resolved confirmed [id number]- Problem Pain in limb (00469541) Leg pain (729.5) 2013 Problem resolved confirmed [id number]- Problem Peripheral neuropath y (262841659) Peripheral neuropathy (356.9) 2012 Problem resolved confirmed [id number]- Problem Postmenopausal osteoporosis (344247968) Postmenopausal osteoporosis (733.01) 2015 Problem resolved confirmed [id number]- Problem Constipation secondary to opiate use (E935.2) 2015 Problem resolved confirmed [id number]- Problem Central obesity (606568839) Central obesity (278.1) 2013 Problem resolved confirmed [id number]- Problem Epigastric pain (15632414) Epigastric abdominal pain (789.06) 2014 Problem resolved confirmed [id number]- Problem Influenza vaccinatio n (34193259) Influenza vaccination (V04.81) 2013 Problem resolved confirmed [id number]- Problem Lipoma (01773198) Lipoma, unspec ified site (214.9) 2015 Problem resolved confirmed [id number]- Problem Needs influenza immunization (225731940) Vaccination against other viral diseases, Influenza (V04.81) 2012 Problem resolved confirmed [id number]- Problem Insulin resistance syndrome (036327277) Insulin resistance syndrome (251.8) 2011 Problem resolved confirmed [id number]- Problem Elevated levels of transaminase & lactic acid dehydrogenase (942468095) Elevated SGOT (AST) (790.4) 2013 Problem resolved confirmed [id number]- Problem Allergic rhinitis du e to allergen (07464094) Allergic rhinitis, other allergen-induced (477.8) 2012 Problem resolved confirmed [id number]- Problem Influenza with non-respiratory manifestation (27693693) Influenza, with other manifestations (487.8) 2013 Problem resolved confirmed [id number]- Problem Muscle pain (77338606) Muscle pain (729.1) 2013 Problem resolved confirmed [id number]- Vital Signs Height-cm 165.1 cm 05/11/2025 Weight-kg 70.76 kg 05/11/2025 Height 65 in 05/11/2025 Weight 156 lbs 05/11/2025 BMI 25.96 kg/m2 05/11/2025 Encounters Encounter Location Date Provider Diagnosis [facility] [address] [place] [address], [place] [address] [facility] G89.4 ; Pain in thoracic spine M54.6 and Opioid dependence, uncomplicated F11.20 Migrated_Facility 0 0 06/24/2024 Provider Migration Migrated_Facility 0 0 06/25/2024 Provider Migration Assessments Encounter Date Diagnosis (ICD Code) Assessment Notes Treatment Notes Treatment Clinical Notes Section Notes 05/11/2025 Chronic pain syndrome (ICD-10 - G89.4) Melissa Estes is a very pleasant patient with cervical and lumbar post-laminectomy syndrome status post fusion, status post spinal cord injury complicated by neurogenic bowel and bladder with no spasticity. She had a spinal cord stimulator placed by Dr. Paula Harrison. She presents today for consideration of opioid management and I discussed extensively with her that it is our clinic policy to not utilize more than four short-acting medications in a day, and that would require me to bring her down to Hydrocodone 10 mg up to 4 tablets per day. She reported she is not interested in this and currently takes 5 to 6 tablets. We discussed transitioning to a different opioid such as Oxycodone and keeping the same morphine equivalent units. She is not interested at this time. She is allergic to morphine but unsure what her allergy was. In the past, she had been on fentanyl patches, and I hesitate to place a 79-year-old with balance issues and some cognitive dysfunction on fentanyl patches. We had Aminata, one of the MAs in the clinic, as well as myself, discuss consideration of Suboxone induction as it is well tolerated in the geriatric population for both opioid use disorder and pain. After further discussion with Aminata Moreno on our Suboxone induction program, she is interested in pursuing this. We will send a few test strips to her pharmacy, and she will bring them on May 30. We will not send any opioid pain medications. She understands she has to come off her Hydrocodone prior to her Suboxone induction. 05/11/2025 Pain in thoracic spine (ICD-10 - M54.6) 05/11/2025 Opioid dependence, uncomplicated (ICD-10 - F11.20) 05/11/2025 Other Teddy Bond am scribing for Dr. Soila Valdez . ISoila , personally performed the services described in this documentation, as scribed by Teddy Case, and it is both accurate and complete. Plan Of Treatment Pending Test Test Name Order Date CT Cardiac Scoring [id number] 03/2022 CT Cardiac Scoring [id number] 04/30 Insurance Providers Payer Name Payer Address Payer Phone Subscriber Number Group Number Insured Name Patient Relationship to Insured Coverage Start Date Coverage End Date [facility] Medicare Dual Complete PPO [address] [address] [place] [id number] Melissa Estes Self - patient is the insured [place] Medicaid [address] [place] [address] [id number] Melissa Estes Self - patient is the insured Medications Administered Medication Instructions Date of Administration Dosage Notes Ketorolac Tromethamine 11/17/2021 60 mg Medical (General) History Medical History History ICD Code Covid 01/18 Diabetes dyslipidemia urinary tract infection paresis of right lower extre mity : pt reports secondary to spinal injury during back surgery Gout hypertension incontinence urinary insomnia neuropathy carotid arteries narrowed lumbar facet join pain bilateral bunions urolithiasis Anxiety disorder vitamin D deficiency heart disease slow transit constipation / IBS parapelvic renal cyst hx fx left hip Surgical History Surgery Date(Month/Year) Cholecystectomy back surgery x 9 per pt Ankle surgery Cervical surgery Collar Bone surgery Femur surgery Foot surgery Gallbladder surgery Hand Surgery Hysterectomy Knee Surgery Liver biopsy Back Surgery X 8 nose surgery Rotator Cuff Surgery Spinal cord stimulator implantation Tonsillectomy, and adenoidectomy Trigger Finger Repair Tubal ligation Cataract Removal hysterectomy right knee replacement left knee replacement Hospitalization History Reason Date(Month/Year) [facility] ER chest pain admitted cyst spinal c ord inop causes pressure 10/2022 see surgery history
--- OUTSIDE RECORDS SUMMARY | 2025-05-23 14:39 | XMS_ITS | Encounter Summary ---
Author Organization [facility] Address [address] [place] [address] Care Team Providers Care Bill Sorter Name Role Phone Shelby Henderson MD Primary Care Provider [phone] Encounter Details Date Type Department Care Team (Late st Contact Info) Description 10/05/2003 Outpatient Historical [facility] Pain 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
--- OUTSIDE RECORDS SUMMARY | 2025-05-23 14:39 | XMS_ITS | Encounter Summary ---
Author Organization [facility] Address [address] [place] [address] Care Team Providers Care Embedded Nurse Name Role Phone Shelby Henderson MD Primary Care Provider [phone] Encounter Details Date Type Department Care Team (Latest Contact Info) Description 11/13/2003 Outpatient [facility] [address] [place] [phone] Mal Melendez MD NO ADDRESS ON FILE Enthesopathy of hip (Primary Dx); SPINAL ENTHESOPATHY Social History Tobacco Use Types Packs/Day Years Used Date Smoking Tobacco: Never Assessed Comments Unknown Sex and Gender Information Value Date Recorded Sex Assigned at Not on file 

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
--- OUTSIDE RECORDS SUMMARY | 2025-05-23 14:40 | XMS_ITS | Encounter Summary ---
Author Organization [facility] Address [address] [place] [address] Care Team Providers Care Logistics Program Manager Name Role Phone Shelby Henderson MD Primary Care Provider [phone] Encounter Details Date Type Department Care Team (Latest Contact Info) Description 01/26/2003 Outpatient Historical [address] [place] [address] Sara Coyle ARNP [address] [place] [address] [address] [place], [place] [id number] OTHER GENERAL SYMPTOMS (Primary Dx) Social History Tobacco Use Types Packs/Day Years Used Date Smoking Tobacco: Never Assessed Comments Unknown Sex and Gender Information Value Date Recorded Sex Assigned at Not on file 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
--- OUTSIDE RECORDS SUMMARY | 2025-05-23 14:40 | XMS_ITS | Encounter Summary ---
Author Organization [facility] Address [address] [place] [address] Care Team Providers Care Traffic Representative Name Role Phone Shelby Henderson MD Primary Care Provider [phone] Encounter Details Date Type Department Care Team (Latest Contact Info) Description 03/28/2003 Outpatient Historical [facility] Chronic Pain [address] [place] [address] Mal Melendez MD NO ADDRESS ON FILE LUMBOSACRAL SPONDYLOSIS (Primary Dx) Social History Tobacco Use Types Packs/Day Years Used Date Smoking Tobacco: Never Assessed Comments Unknown Sex and Gender Information Value Date Recorded Sex Assigned at Not on file 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
--- OUTSIDE RECORDS SUMMARY | 2025-05-23 14:40 | XMS_ITS | Encounter Summary ---
Author Organization [facility] Address [address] [place] [address] Care Team Providers Care Scallop Cutter Name Role Phone Shelby Henderson MD Primary Care Provider [phone] Encounter Details Date Type Department Care Team (Late st Contact Info) Description 03/28/2003 Outpatient 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
--- OUTSIDE RECORDS SUMMARY | 2025-05-23 14:40 | XMS_ITS | Encounter Summary ---
Author Organization [facility] Address [address] [place] [address] Care Team Providers Care Licensed Optical Dispenser Name Role Phone Shelby Henderson MD Primary Care Provider [phone] Encounter Details Date Type Department Care Team (Late st Contact Info) Description 04/16/2003 Outpatient Historical [facility] Pain Management Procedures [address] 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
--- OUTSIDE RECORDS SUMMARY | 2025-05-23 14:40 | XMS_ITS | Encounter Summary ---
Author Organization [facility] Address [address] [place] [address] Care Team Providers Care Glass Scullion Name Role Phone Shelby Henderson MD Primary Care Provider [phone] Encounter Details Date Type Department Care Team (Latest Contact Info) Description 03/15/2003 Outpatient Historical [facility] [address] [place] [address] [address] [place] [phone] [place] [address] [place] [address] DEPRESSIVE DISORDER NEC (Primary Dx); OTHER GENERAL SYMPTOMS Social History Tobacco Use Types Packs/Day Years Used Date Smoking Tobacco: Never Assessed Comments Unknown Sex and Gender Information Value Date Recorded Sex Assigned at Not on file 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
--- OUTSIDE RECORDS SUMMARY | 2025-05-23 14:40 | XMS_ITS | Encounter Summary ---
Author Organization [facility] Address [address] [place] [address] Care Team Providers Care Mobile Game Engineer Name Role Phone Shelby Henderson MD Primary Care Provider [phone] Encounter Details Date Type Department Care Team (Latest Contact Info) Description 09/20/2003 Outpatient Historical [facility] Black Owen MD NO ADDRESS ON FILE LUMBAR DISC DISPLACEMENT (Primary Dx) Social History Tobacco Use Types Packs/Day Years Used Date Smoking Tobacco: Never Assessed Comments Unknown Sex and Gender Information Value Date Recorded Sex Assigned at Not on file 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
--- OUTSIDE RECORDS SUMMARY | 2025-05-23 14:40 | XMS_ITS | Encounter Summary ---
Author Organization [facility] Address [address] [place] [address] Care Team Providers Care Solar Energy System Installer Name Role Phone Shelby Henderson MD Primary Care Provider [phone] Encounter Details Date Type Department Care Team (Late st Contact Info) Description 04/16/2003 Outpatient [facility] [address] [place] [address] Mal Melendez MD NO ADDRESS ON FILE LUMBOSACRAL NEURITIS NOS (Primary Dx) Social History Tobacco Use Types Packs/Day Years Used Date Smoking Tobacco: Never Assessed Comments Unknown Sex and Gender Information Value Date Recorded Sex Assigned at Not on file 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
--- OUTSIDE RECORDS SUMMARY | 2025-05-23 14:40 | XMS_ITS | Encounter Summary ---
Author Organization [facility] Address [address] [place] [address] Care Team Providers Care Obstetrician Gynecologist Name Role Phone Shelby Henderson MD Primary Care Provider [phone] Encounter Details Date Type Department Care Team (Latest Contact Info) Description 09/20/2003 Outpatient Historical [facility] [address] [place] [address] [place] [address] [phone] Black Owen MD NO ADDRESS ON FILE BACKACHE NOS (Primary Dx) Social History Tobacco Use Types Packs/Day Years Used Date Smoking Tobacco: Never Assessed Comments Unknown Sex and Gender Information Value Date Recorded Sex Assigned at Not on file 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
--- OUTSIDE RECORDS SUMMARY | 2025-05-23 14:40 | XMS_ITS | Encounter Summary ---
Author Organization [facility] Address [address] [place] [address] Care Team Providers Care Hand Pleater Name Role Phone Shelby Henderson MD Primary Care Provider [phone] Encounter Details Date Type Department Care Team (Latest Contact Info) Description 09/27/2003 Outpatient Historical [facility] [address] [place] [phone] Black Owen MD NO ADDRESS ON FILE Lumbosacral spondylosis (Primary Dx); LUMB/LUMBOSAC DISC DEGEN Social History Tobacco Use Types Packs/Day Years Used Date Smoking Tobacco: Never Assessed Comments Unknown Sex and Gender Information Value Date Recorded Sex Assigned at Not on file Legal Sex Female 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
--- OUTSIDE RECORDS SUMMARY | 2025-05-23 14:40 | XMS_ITS | Encounter Summary ---
Author Organization [facility] Address [address] [place] [address] Care Team Providers Care Tree Doctor Name Role Phone Shelby Henderson MD Primary Care Provider [phone] Encounter Details Date Type Department Care Team (Late st Contact Info) Description 09/27/2003 Outpatient Historical [facility] [address] [place] [address] [phone] Mal Melendez MD NO ADDRESS ON FILE THORACIC DISC DEGEN (Primary Dx) Social History Tobacco Use Types Packs/Day Years Used Date Smoking Tobacco: Never Assessed Comments Unknown Sex and Gender Information Value Date Recorded Sex Assigned at Not on file 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
--- OUTSIDE RECORDS SUMMARY | 2025-05-23 14:40 | XMS_ITS | Encounter Summary ---
Author Organization [facility] Address [address] [place] [address] Care Team Providers Care Process Improvement Consultant Name Role Phone Shelby Henderson MD Primary Care Provider [phone] Encounter Details Date Type Department Care Team (Late st Contact Info) Description 09/27/2003 Outpatient Historical 

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
--- OUTSIDE RECORDS SUMMARY | 2025-05-23 14:41 | XMS_ITS | Encounter Summary ---
Author Organization [facility] Address [address] Esparza: [place] [address] Care Team Providers Care Seo Assistant Name Role Phone Shelyb Henderson MD Primary Care Provider [phone] Encounter Details Date Type Department Care Team (Late Contact Info) Description 12/26/2001 Outpatient Historical Mal Melendez MD NO ADDRESS ON FILE Social History Tobacco Use Types Packs/Day Years Used Date Smoking Tobacco: Never Assessed Comments Unknown Sex and Gender Information Value Date Recorded Sex Assigned at Not on file Legal Sex Female 5:04 AM SALES REPRESENTATIVE SALES MANAGER Gender Identity Not on file Sexual Orientation Not on file documented as of this encounter Plan of Treatment Not on file documented as of this encounter Visit Diagnoses Not on filedocumented in this encounter Care Teams Seo Assistant Relationship Specialty Start Date End Date Shelby Henderson MD [address] [place] [address] PCP - General Family Practice 09/20/20 documented as of this encounter
--- OUTSIDE RECORDS SUMMARY | 2025-05-23 14:41 | XMS_ITS | Encounter Summary ---
Author Organization [facility] Address [address] [place] [address] Care Team Providers Care Assistant Winemaker Name Role Phone Shelby Henderson MD Primary Care Provider [phone] Encounter Details Date Type Department Care Team (Late st Contact Info) Description 02/20/2002 Outpatient Historical [facility] Pain [facility] [address] [place] [address] Mal Melendez MD NO ADDRESS ON FILE SPINAL STENOSIS-LUMBAR (Primary Dx) Social History Tobacco Use Types Packs/Day Years Used Date Smoking Tobacco: Never Assessed Comments Unknown Sex and Gender Information Value Date Recorded Sex Assigned at Not on file Legal Sex Female 5:04 AM TEACHER OF THE HANDICAPPED Gender Identity Not on file Sexual Orientation Not on file documented as of this encounter Plan of Treatment Not on file documented as of this encounter Visit Diagnoses Diagnosis Spinal stenosis, lumbar region, without neurogenic claudication- Primary documented in this encounter Care Teams Assistant Winemaker Relationship Specialty Start Date End Date Shelby Henderson MD [address] [place] [address] PCP - General Family Practice 09/20/20 documented as of this encounter
--- OUTSIDE RECORDS SUMMARY | 2025-05-23 14:41 | XMS_ITS | Encounter Summary ---
Author Organization [facility] Address [address] Esparza: Epic [place] [address] Care Team Providers Care Automobile Dealer Name Role Phone Shelby Henderson MD Primary Care Provider [phone] Encounter Details Date Type Department Care Team (Late Contact Info) Description 02/20/2002 Outpatient Historical Mal Melendez MD NO ADDRESS ON FILE Social History Tobacco Use Types Packs/Day Years Used Date Smoking Tobacco: Never Assessed Comments Unknown Sex and Gender Information Value Date Recorded Sex Assigned at Not on file Legal Sex Female 5:04 AM CLINICAL ENGINEERING MANAGER Gender Identity Not on file Sexual Orientation Not on file documented as of this encounter Plan of Treatment Not on file documented as of this encounter Visit Diagnoses Not on filedocumented in this encounter Care Teams Automobile Dealer Relationship Specialty Start Date End Date Shelby Henderson MD [address] [place] [address] PCP - General Family Practice 09/20/20 documented as of this encounter
--- OUTSIDE RECORDS SUMMARY | 2025-05-23 14:41 | XMS_ITS | Encounter Summary ---
Author Organization [facility] Address [address] [place] [address] Care Team Providers Care Air Brush Artist Name Role Phone Shelby Henderson MD Primary Care Provider [phone] Encounter Details Date Type Department Care Team (Latest Contact Info) Description 02/06/2003 Outpatient Historical [facility] Neuro Psychology [address] [place] [id number] [place] [address] [place] [address] OTHER GENERAL SYMPTOMS (Primary Dx) Social History Tobacco Use Types Packs/Day Years Used Date Smoking Tobacco: Never Assessed Comments Unknown Sex and Gender Information Value Date Recorded Sex Assigned at Not on file Legal Sex Female 5:04 AM BROKERAGE PURCHASE AND SALE CLERK Gender Identity Not on file Sexual Orientation Not on file documented as of this encounter Plan of Treatment Not on file documented as of this encounter Visit Diagnoses Diagnosis Other general symptoms(780.99)- Primary Other general symptoms documented in this encounter Care Teams Air Brush Artist Relationship Specialty Start Date End Date Shelby Henderson MD [address] [place] [address] PCP - General Family Practice 09/20/20 documented as of this encounter
--- OUTSIDE RECORDS SUMMARY | 2025-05-23 14:41 | XMS_ITS | Encounter Summary ---
Author Organization [facility] Address [address] [place] [address] Care Team Providers Care School Program Director Name Role Phone Shelby Henderson MD Primary Care Provider [phone] Encounter Details Date Type Department Care Team (Late st Contact Info) Description 11/20/2002 Outpatient Historical [facility] Pain Management Procedures [address] [place] [phone] Mal Melendez MD NO ADDRESS ON FILE LUMBOSACRAL SPONDYLOSIS (Primary Dx) Social History Tobacco Use Types Packs/Day Years Used Date Smoking Tobacco: Never Assessed Comments Unknown Sex and Gender Information Value Date Recorded Sex Assigned at Not on file Legal Sex Female 5:04 AM VPK TEACHER Gender Identity Not on file Sexual Orientation Not on file documented as of this encounter Plan of Treatment Not on file documented as of this encounter Visit Diagnoses Diagnosis Lumbosacral spondylosis without myelopathy- Primary documented in this encounter Care Teams School Program Director Relationship Specialty Start Date End Date Shelby Henderson MD [address] [place] [address] PCP - General Family Practice 09/20/20 documented as of this encounter
--- OUTSIDE RECORDS SUMMARY | 2025-05-23 14:41 | XMS_ITS | Encounter Summary ---
Author Organization [facility] Address [address] [place] [address] Care Team Providers Care Optical Mechanic Name Role Phone Elin Cerrato NADIR Primary Care Provider [phone] Reason for Visit * Reason Onset Date Comments Referral 04/21/2023 Encounter Details Date Type Department Care Team (Late st Contact Info) Description 04/21/2023 Telephone [facility] [address] [place] [address] Provider, Abstract NO ADDRESS ON FILE Referral Social History Tobacco Use Types Packs/Day Years Used Date Smoking Tobacco: Never Smokeless Tobacco: Never Alcohol Use Standard Drinks/Week Comments Yes 0 (1 standard drink = 0.6 oz pur e alcohol) Feeling Safe Answer Date Recorded Are you in a relationship wi th someone who hurts you emotionally and/or physically? No 04/15/2023 Comments No Sex and Gender Information Value Date Recorded Sex Assigned at Not on file Legal Sex Female 1:05 PM VIDEO PRODUCTION ENGINEER Gender Identity Not on file Sexual Orientation Not on file documented as of this encounter Miscellaneous Notes * Telephone Encounter - Vicki Treviño - 04/21/2023 10:47 AM CDT Provider: Referral Person Calling: Benjamin Quiñones Phone #: [phone] Relationship to patient: Ins Agent, Not on PHI Pt's insurance coder called to check status of referral sent from pt's pcp, not a [facility]. AdvisedI cannot talk to him as he is not on PHI. He called pt and conferenced her in. Advised per Amanda that we have not received a referral as of today. Advised per Amanda they will call patient as soon as they receive it. -Vicki Treviño * Telephone Encounter - Crys De Los Santos - 04/21/2023 10:[address] Dowd Call back # [phone] Multiple recipients? No Benjamin from insurance calls to see if referral has been sent . documented in this encounter Plan of Treatment Upcoming Encounters Date Type Department Care Team (Late st Contact Info) Description 06/11/2025 1:20 PM CDT Office Visit [facility] Pain Management [address] [place] [address] Racquel Blancas PA [address] [place] [address] 10/11/2025 10:30 AM VIDEO PRODUCTION ENGINEER Office Visit [facility] Neurology - [place] [address] [place] [address] Rachel Casanova MD [address] [place] [address] documented as of this encounter Visit Diagnoses Not on filedocumented in this encounter Care Teams Optical Mechanic Relationship Specialty Start Date End Date Elin Cerrato APN [address] [place] [phone] PCP - General NURSE PRACTITIONER 06/09/21 documented as of this encounter
--- OUTSIDE RECORDS SUMMARY | 2025-05-23 14:41 | XMS_ITS | Encounter Summary ---
Author Organization [facility] Address [address] [place] [address] Care Team Providers Care Supervisor Beet End Name Role Phone Shelby Henderson MD Primary Care Provider [phone] Encounter Details Date Type Department Care Team (Latest Contact Info) Description 01/26/2003 Outpatient Historical [facility] Imaging and Laboratory Services [address] [place] [phone] [place] [address] [place] [address] OTHER GENERAL SYMPTOMS (Primary Dx) Social History Tobacco Use Types Packs/Day Years Used Date Smoking Tobacco: Never Assessed Comments Unknown Sex and Gender Information Value Date Recorded Sex Assigned at Not on file Legal Sex Female 5:04 AM PUBLISHING EDITOR Gender Identity Not on file Sexual Orientation Not on file documented as of this encounter Plan of Treatment Not on file documented as of this encounter Visit Diagnoses Diagnosis Other general symptoms(780.99)- Primary Other general symptoms documented in this encounter Care Teams Supervisor Beet End Relationship Specialty Start Date End Date Shelby Henderson MD [address] [place] [address] PCP - General Family Practice 09/20/20 documented as of this encounter
--- OUTSIDE RECORDS SUMMARY | 2025-05-23 14:41 | XMS_ITS | Encounter Summary ---
Author Organization [facility] Address [address] Esparza: Epic [place] [address] Care Team Providers Care Outbound Sales Consultant Name Role Phone Shelby eHnderson MD Primary Care Provider [phone] Encounter Details Date Type Department Care Team (Late Contact Info) Description 11/24/2001 Outpatient Historical Mal Melendez MD NO ADDRESS ON FILE Social History Tobacco Use Types Packs/Day Years Used Date Smoking Tobacco: Never Assessed Comments Unknown Sex and Gender Information Value Date Recorded Sex Assigned at Not on file Legal Sex Female 5:04 AM PASSENGER TRAIN BRAKER Gender Identity Not on file Sexual Orientation Not on file documented as of this encounter Plan of Treatment Not on file documented as of this encounter Visit Diagnoses Not on filedocumented in this encounter Care Teams Outbound Sales Consultant Relationship Specialty Start Date End Date Shelby Henderson MD [address] [place] [address] PCP - General Family Practice 09/20/20 documented as of this encounter
--- OUTSIDE RECORDS SUMMARY | 2025-05-23 14:41 | XMS_ITS | Encounter Summary ---
Author Organization [facility] Address [address] [place] [address] Care Team Providers Care Contractor General Engineering Name Role Phone Shelby Henderson MD Primary Care Provider [phone] Encounter Details Date Type Department Care Team (Late st Contact Info) Description 01/04/2003 Outpatient Historical [facility] Pain [facility] [address] [place] [address] Mal Melendez MD NO ADDRESS ON FILE SPINAL STENOSIS-LUMBAR (Primary Dx) Social History Tobacco Use Types Packs/Day Years Used Date Smoking Tobacco: Never Assessed Comments Unknown Sex and Gender Information Value Date Recorded Sex Assigned at Not on file Legal Sex Female 5:04 AM VICE PRESIDENT PAYMENT Gender Identity Not on file Sexual Orientation Not on file documented as of this encounter Plan of Treatment Not on file documented as of this encounter Visit Diagnoses Diagnosis Spinal stenosis, lumbar region, without neurogenic claudication- Primary documented in this encounter Care Teams Contractor General Engineering Relationship Specialty Start Date End Date Shelby Henderson MD [address] [place] [address] PCP - General Family Practice 09/20/20 documented as of this encounter
--- OUTSIDE RECORDS SUMMARY | 2025-05-23 14:41 | XMS_ITS | Encounter Summary ---
Author Organization [facility] Address [address] [place] [address] Care Team Providers Care Mechanical Assembly Technician Name Role Phone Shelby Henderson MD Primary Care Provider Encounter Details Date Type Department Care Team (Latest Contact Info) Description 03/15/2003 Outpatient Historical [address] [place] [address] Sara Coyle ARNP [address] [place] [address] [address] [place], [place] [id number] OTHER GENERAL SYMPTOMS (Primary Dx) Social History Tobacco Use Types Packs/Day Years Used Date Smoking Tobacco: Never Assessed Comments Unknown Sex and Gender Information Value Date Recorded Sex Assigned at Not on file 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
--- OUTSIDE RECORDS SUMMARY | 2025-05-23 14:41 | XMS_ITS | Clinical Summary ---
Author Organization [facility] Address [address] [facility] [place] [address] Care Team Providers Care Purchasing Administrative Assistant Name Role Phone Elin Cerrato NADIR Primary Care Provider [phone] Allergies Active Allergy Reactions Criticality Noted Date Comments Acetaminophen Other (See Comments) Low 10/13/2011 Other reaction(s): Other (See comments) Carbamazepine Unknown 11/12/2023 Celecoxib Other (See Comments),Unknown Low 05/22/2020 Pt cant recall Gabapentin Unknown 05/30/2019 Levofloxacin Other (See Comments) 05/18/2023 Tingling of feet, chest tightness Levothyroxine Sodium Unknown 05/30/2019 Liraglutide Unknown 11/12/2023 Metoprolol Unknown 11/12/2023 Morphine Itching,Rash,Shortne s s of Breath/Wheezing High 10/13/2011 Other reaction(s): itching Other reaction(s): itching Morphine Sulfate Shortness of Breath/Wheezing,Rash High 10/13/2011 Other reaction(s): itching Morpholine Analogues Itching,Shortness o f Breath/Wheezing High 06/19/2015 Oxycodone Unknown 03/24/2022 Paroxetine Other (See Comments),Shortness of Breath/Wheezing High 12/17/2021 Mood change Mood change Polysorbate Other (See Comments) Low 10/13/2011 Other reaction(s): Other (See comments) Pregabalin Other (See Comments) Low 10/13/2011 Other reaction(s): mucosal irritation Other reaction(s): mucosal irritation, Other (See comments) Other reaction(s): mucosal irritation Sulfa (Sulfonamide Antibiotics) Other (See Comments) Low 05/22/2020 Pt reports hard on kidneys Sulfamethoxazole-Trimet hoprim Other (See Comments) Low 10/13/2011 Other reaction(s): Other (See comments) Topiramate Unknown 11/12/2023 Trimethoprim Other (See Comments) Low 05/22/2020 Pt cant recall Other reaction(s): Other (See comments) Pt cant recall Pt cant recall Pt cant recall Vancomycin Hcl Unknown 01/28/2022 Other reaction(s): Unknown Venlafaxine Unknown 11/12/2023 Zolpidem Unknown Low 10/13/2011 Pt can't recall Pt can't recall Zolpidem Tartrate Other (See Comments) 10/13/19 Pt can't recall Zonisamide Palpitations Low 05/18/2023 Medications metFORMIN (GLUCOPHAGE) 500 mg tablet TAKE TWO TABLETS BY MOUTH TWICE DAILY Active potassium chloride (K-TAB) 20 mEq Extended Release tablet TAKE ONE TABLET BY MOUTH TWICE DAILY Active furosemide (LASIX) 20 mg tablet TAKE 1 TABLET BY MOUTH ONCE DAILY DIRECTED NEEDED 0 Active magnesium oxide (MAG-OX) 400 mg (241.3 mg magnesium) tablet magnesium oxide 400 mg (241.3 mg magnesium) tablet TAKE 1 TABLET BY MOUTH TWO TIMES A DAY Active blood sugar diagnostic Strip OneTouch Ultra Blue Test Strip USE ONE STRIP EVERY DAY Active aspirin (ECOTRIN EC) 81 mg Tablet, Delayed Release (E.C.) Aspir-Low 81 mg tablet,delayed release TAKE ONE TABLET BY MOUTH EVERY DAY Active lactulose (ENULOSE) 10 gram/15 mL 10 gram/15 mL solution lactulose 10 gram/15 mL oral solution Active lancets 30 gauge OneTouch Delica Lancets 30 gauge Active Cholecalciferol, Vitamin D3, 50 mcg (2,000 unit) Capsule Take 2,000 Units by mouth. Active omega 6-kla-qnb-fish oil (Fish Oil) 100-160-1,000 mg Capsule Take 1 Capsule by mouth. Active multivitamin,tx-i inna-ca-min (THERA-M) 27-0.4 mg Tablet Take 1 Tablet by mouth. Active naloxone (NARCAN) 4 mg/spray [place], Non-AerosolIndica tions:S/P cervical spinal fusion,S/P lumbar fusion,Neuropathi c pain,S/P insertion of spinal cord stimulator,Sacroi liitis, not elsewhere classified,Trocha nteric bursitis of both hips EMERGENCY USE ONLY: Administer 1 spray (4 mg) in one nostril one time. May repeat in alternating nostrils every 2-3 min until responsive or EMS arrives. 2 Each 3 Active Blood-Glucose Meter Kit SonosTouch Ultra2 Meter kit USE TO test blood sugar ONCE a DAY Active nitroglycerin (NITROSTAT) 0.4 mg Tablet, Sublingual Place 0.4 mg under tongue every 5 minutes as needed. Active mometasone (NASONEX) 50 mcg/actuation [place], Non-Aerosol Administer 2 Sprays in each nostril daily. Active CYANOCOBALAMIN, VITAMIN B-12, ORAL Take 1,000 mg by mouth. Active linaGLIPtin (TRADJENTA) 5 mg Tablet Tradjenta 5 mg tablet TAKE ONE TABLET BY MOUTH EVERY MORNING Activ e hydroCHLOROthiazi de 50 mg tablet hydrochlorothiazide 50 mg tablet TAKE ONE TABLET BY MOUTH EVERY MORNING Activ e fluticasone propionate (FLONASE) 50 mcg/spray [place], Suspension nasal inhaler fluticasone propionate 50 mcg/actuation nasal spray,suspension instill TWO SPRAYS IN EACH NOSTRIL DAILY Active ascorbic acid, vitamin C, (VITAMIN C) 100 mg Tablet Take 100 mg by mouth daily. Active allopurinoL (ZYLOPRIM) 300 mg tablet allopurinol 300 mg tablet TAKE ONE TABLET BY MOUTH DAILY Active Farxiga 10 mg Tablet Take 10 mg by mouth daily. Active Linzess 72 mcg Capsule capsule Take 1 Capsule by mouth daily. Active guaiFENesin (ROBITUSSIN) 100 mg/5 mL solution take 10ml BY MOUTH TWICE DAILY Active isosorbide mononitrate (IMDUR) 30 mg Extended Release 24 hour tablet Take 1 Tablet by mouth daily. Active lidocaine (LIDODERM) 5 % Adhesive Patch, Medicated USE 3 patches externally ONCE daily NEEDED FOR PAIN moderate, LEAVE on most painful AREA UP TO 12 hours 024 Active neomycin-polymyxi n-dexAMETHasone (MAXITROL) 3.5mg/mL-10,000 unit/mL-0.1 % suspension Instill 1 drop into both eyes twice a day Act alicja neomycin-polymyxi n B-hydrocortisone (CORTISPORIN OTIC) 3.5-10,000-1 mg/mL-unit/mL-% otic suspension INSTILL FOUR DROPS INTO THE EAR(S) EVERY 8 HOURS FOR SEVEN DAYS Active pneumococcal polysaccharide vaccine, PPSV23, (Pneumovax-23) 25 mcg/0.5 mL Syringe PHARMACIST ADMINISTERED IMMUNIZATION ADMINISTERED AT TIME OF DISPENSING Active atorvastatin (LIPITOR) 20 mg tablet Take 20 mg by mouth late in the day. Active hydroCHLOROthiazi de 12.5 mg tablet Ac tive linaCLOtide (Linzess) 145 mcg capsule Take 1 Capsule by mouth daily. Active nortriptyline (PAMELOR) 75 mg capsule Take 1 Capsule by mouth daily. Active oxyBUTYnin (DITROPAN XL) 10 mg Extended Release 24 hour tablet Take 1 Tablet by mouth 2 times daily. Acti ve baclofen (LIORESAL) 10 mg tablet Take 1 Tablet (10 mg) by mouth 3 times daily. 90 Tablet 1 025 Active HYDROcodone-aceta minophen (NORCO) 10-325 mg TabletIndications :Chronic pain syndrome Take 1 Tablet by mouth every 4 hours as needed for Pain, Moderate. Max Daily Amount: 6 Tablets 150 Tablet 025 2024 Active Problems Problem Noted Date Diagnosed Date Abnormal EKG 06/05/2024 Achilles rupture, left 06/05/2024 Acquired hallux interphalangeus of left foot 02/2024 Anxiety 06/05/2024 Arteriosclerotic heart disease (ASHD) 06/05/2024 Bilateral foot pain 06/05/2024 Bilateral knee pain 06/05/2024 Right foot pain 06/05/2024 Bilateral otitis media 06/05/2024 Bunion of great toe 06/05/2024 Left shoulder strain 06/05/2024 Back pain with history of spinal surgery 024 Cervicalgia 06/05/2024 Closed fracture of left distal fibula 06/05/2024 Constipation 06/05/2024 Controlled diabetes mellitus with hyperglycemia 06/05/2024 Cystitis 06/05/2024 Diabetes 06/05/2024 Diabetic foot 06/05/2024 Diet-controlled diabetes mellitus 06/05/2024 Dyslipidemia 06/05/2024 Depression 06/05/2024 Eczema 06/05/2024 Encounter for postoperative care 06/05/2024 Encounter for removal of sutures 06/05/2024 Encounter for screening labo ratory testing for COVID-19 virus 06/05/2024 Fall 06/05/2024 Fall from slipping on ice 06/05/2024 Fatigue 06/05/2024 Ganglion cyst of wrist 06/05/2024 Irritable bowel syndrome with diarrhea Kidney stones 06/05/2024 Left Achilles tendinitis 06/05/2024 Multiple thyroid nodules 06/05/2024 Muscle cramp 06/05/2024 Muscle strain 06/05/2024 Nasal congestion 06/05/2024 Onychodystrophy 06/05/2024 Osteoarthritis, hip, bilateral 06/05/2024 Osteoarthritis of wrist 06/05/2024 Osteoarthrosis 06/05/2024 Otitis externa 06/05/2024 Pain in wrist 06/05/2024 Chest pain 06/05/2024 Leg pain, left 06/05/2024 PVD (peripheral vascular disease) 06/05/2024 Right shoulder pain 06/05/2024 Rotator cuff arthropathy of right shoulder 06/05 Rotator cuff impingement syndrome of right [place] 06/05/2024 Sinusitis 06/05/2024 Skin lesion of face 06/05/2024 Sore throat 06/05/2024 Cervical spondylosis with myelopathy 06/05/2024 Unstable angina pectoris 06/05/2024 Urinary incontinence 06/05/2024 UTI (urinary tract infection) 06/05/2024 Vitamin B12 deficiency 06/05/2024 Abnormal gait 03/24/2022 Dysthymia 03/24/2022 Insomnia 03/24/2022 Neuropathy 03/24/2022 Overactive bladder 03/24/2022 Urge incontinence of urine 03/24/2022 Chronic back pain 12/29/2021 Overview (06/05/2024): Chronic Back/Neck pain; 12/29/2021 4:48PM by Angelica Tobin, Office Visit; Promoted; acuity set as *; Sacroiliitis, not elsewhere classified 0 Low back pain 01/20/2019 Lumbar post-laminectomy syndrome 01/20/2019 Spinal stenosis in cervical region 01/20/2019 Thoracic spinal stenosis 01/20/2019 Trochanteric bursitis of both hips 12/27/2018 Status post lumbar spine operation 08/04/2018 Fusion of spine, thoracolumbar region 08/04/2018 S/P insertion of spinal cord stimulator 08/04/20 18 S/P lumbar fusion 08/04/2018 Neuropathic pain 08/04/2018 Degeneration of lumbosacral intervertebral disc 11/08/2017 Overview (06/05/2024): Other intervertebral disc degeneration, lumbar region; Overweight with body mass index (BMI) 25.0-29.9 10/20/2017 Overview (06/05/2024): Body mass index (BMI) 25.0-25.9, adult; Headache 09/20/2016 Overview (06/05/2024): Headache; Chronic neck pain 01/29/2016 Overview (06/05/2024): Cervicalgia; Complication of procedure 01/07/2016 Overview (06/05/2024): Other specified complications of surgical and medical care, not elsewhere classified, initial encounter; Postmenopausal osteoporosis 12/12/2015 Vitamin D deficiency 12/06/2015 Overview (06/05/2024): Deficiency of other specified B group vitamins; Lipoma 10/11/2015 Failed back surgical syndrome 06/20/2015 Chronic pain disorder 06/19/2015 Type 2 diabetes mellitus without complication Overview (06/05/2024): Diabetes Mellitus, Type II; 12/29/2021 4:48PM by Angelica Tobin, Office Visit; Promoted; acuity set as *; Sciatica 03/08/2015 Overview (06/05/2024): Sciatica; Pain of left hip joint 09/04/2014 Overview (06/05/2024): Pain in left hip; Degeneration of cervical intervertebral disc 01/2015 Idiopathic peripheral neuropathy 09/03/2014 Overview (06/05/2024): Unspecified idiopathic peripheral neuropathy; Calcific tendinitis of shoulder 09/03/2014 Overview (06/05/2024): Calcifying tendinitis of shoulder; Enthesopathy of hip region 09/03/2014 Overview (06/05/2024): Enthesopathy of hip region; Hip pain 09/03/2014 Overview (06/05/2024): Pain in joint involving pelvic region and thigh; Degeneration of thoracic intervertebral disc 12/2014 Overview (06/05/2024): Degeneration of lumbar or lumbosacral intervertebral disc; Spinal stenosis of lumbar region 09/03/2014 Overview (06/05/2024): Spinal stenosis of lumbar region; Generalized anxiety disorder 05/18/2014 Pure hypercholesterolemia, unspecified 3 Benign essential HTN 10/26/2012 Overview (06/05/2024): Hypertension; 12/29/2021 4:48PM by Angelica Tobin, Office Visit; Promoted; acuity set as *; Mechanical complication due to breast prosthesis 10/13/2011 Encounters Date Type Department Care Team Description 03/14/2025 External Device Data [facility] ABSTRACTION Provider, Abstract 03/13/2025 External Device Data [facility] ABSTRACTION Provider, Abstract 02/20/2025 External Device Data [facility] ABSTRACTION Provider, Abstract from Last 3 Months Immunizations Immunization Administration Dates Next Due (ADACEL/BOOSTRIX)(10 YR UP) TDAP VACCINE, 0.5ML, IM 04/17/2021 (PNEUMOVAX 23)(50 YRS UP) PN EUMOCOCCAL POLYSACCHARIDE (PPV23) 0.5 ML, IM 06/20/2019 (PREVNAR 20)(6 WKS UP) PNEUM OCOCCAL CONJUGATE VACCINE 20-VALENT (PCV20), POLYSACCHARIDE [id number] CONJUGATE, ADJUVANT 0.5 ML (PF) IM 04/17/2023 (Pfizer Bivalent)(12 Yr Up) COVID-19 Vaccine - Emergency Use Authorization, MRNA, Lnp-S(Pf) 30 Mcg/0.3 Ml Susp 04/17/2023 (SHINGRIX)(50 YRS UP) ZOSTER VACCINE RECOMBINANT, 0.5 ML, IM 07/05/2018,03/01/2018 (SPIKEVAX) (12 YRS UP PRIMAR Y SERIES) COVID-19 VACCINE - MRNA-1273(PF) 100 MCG/0.5 ML IM SUSP 04/17/2023 INFLUENZA VACCINE HIGH DOSE QUADRIVALENT 65 YR UP PF IM 05/06/2023,04/17/2023,05/18/2022 Influenza Seasonal Unspecifi ed Formulation IM 06/20/2019 Influenza Vaccine High Dose 65+ Yrs IM 0 05/20/2020,06/20/2019,06/05/2018,05/25 Influenza, Unspecified Formulation 08/30/2021,,08/30/2020 Pneumococcal 7-valent conjug ate vaccine IM 06/20/2019 Pneumococcal vaccine, unspec ified formulation 08/30/2021,07/05/2021,04/10/2021,11/28,09/10/2019 Zoster Vaccine Live SQ 07/05/2018,03/01/2018 Family History Medical History Relation Name Comments Heart Disease Father High Cholesterol Father High Cholesterol Mother Relation Name Status Comments Father Mother Social History Tobacco Use Types Packs/Day Years Used Date Smoking Tobacco: Never Smokeless Tobacco: Never Tobacco Cessation:Counseling Given: No Alcohol Use Standard Drinks/Week Comments Yes 0 (1 standard drink = 0.6 oz pur e alcohol) Feeling Safe Answer Date Recorded Are you in a relationship wi th someone who hurts you emotionally and/or physically? 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 Gender Identity Not on file Sexual Orientation Not on file Last Filed Vital Signs Vital Sign Reading Time Taken Comments Blood Pressure 122/70 02/05/2025 12:41 PM CDT Pulse 80 11/08/2024 11:48 AM CDT Temperature 36.7 C (98 F) 09/14/2024 11:41 AM CADD TECHNICIAN Respiratory Rate 16 11/08/2024 11:48 AM CDT Oxygen Saturation 97% 11/08/2024 11:48 AM CDT Inhaled Oxygen Concentration - - Weight 67.1 kg (148 lb) 02/05/2025 12:41 PM CDT Height 165.1 cm (5' 5 ) 02/05/2025 12:41 PM CDT Body Mass Index 24.63 02/05/2025 12:41 PM CDT Plan of Treatment Upcoming Encounters Date Type Department Care Team (Late st Contact Info) Description 06/11/2025 1:20 PM CDT Office Visit [facility] [address] [place] [phone] Racquel Blancas PA [address] [place] [address] 10/11/2025 10:30 AM CADD TECHNICIAN Office Visit [facility] [place] [address] [place] [address] Rachel Casanova MD [address] [place] [address] Health Maintenance Due Date Last Done Comments DIABETES ANNUAL FOOT EXAM 1963 DIABETES ANNUAL RETINAL EXAM 1963 DIABETES HBA1C Q 6 MONTHS 1963 DIABETES MICROALBUMIN ANNUAL SCREEN 1963 LDL CHOLESTEROL ANNUAL 1963 OSTEOPOROSIS SCREENING 2010 ZOSTER VACCINE (3 of 3) 08/30/2018 07/05/20 18, 07/05/2018, 03/01/2018, Additional history exists RSV VACCINE (60+ or ) (1 - 1-dose 75+ series) 2020 INFLUENZA VACCINE (#1) 2025 3, 04/17/2023, 05/18/2022, Additional history exists COVID-19 Vaccine (7 - 2024-2 6 season) 2025 04/17/2023, 04/17/2023, 11/27/2021, Additional history exists DTAP/TDAP/TD VACCINES (2 - T d or Tdap) 04/17/2031 04/17/2021 PNEUMOCOCCAL VACCINE 50+ YEARS Completed 0 04/17/2023, 08/30/2021, 07/05/2021, Additional history exists Insurance [place] [address] [place] [address] DUAL COMPLETE PPO [facility] [id number] Care Teams Purchasing Administrative Assistant Relationship Specialty Start Date End Date Elin Cerrato APN [address] [place] [phone] PCP - General NURSE PRACTITIONER 06/09/21
--- OUTSIDE RECORDS SUMMARY | 2025-05-23 14:41 | XMS_ITS | Encounter Summary ---
Author Organization [facility] Address [address] [place] [address] Care Team Providers Care Services Rep Name Role Phone Shelby Henderson MD Primary Care Provider [phone] Encounter Details Date Type Department Care Team (Late st Contact Info) Description 11/24/2001 Outpatient [facility] [address] [place] [address] Mal Melendez MD NO ADDRESS ON FILE LUMBOSACRAL NEURITIS NOS (Primary Dx) Social History Tobacco Use Types Packs/Day Years Used Date Smoking Tobacco: Never Assessed Comments Unknown Sex and Gender Information Value Date Recorded Sex Assigned at Not on file 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
--- OUTSIDE RECORDS SUMMARY | 2025-05-23 14:41 | XMS_ITS | Encounter Summary ---
Author Organization [facility] Address [address] [place] [address] Care Team Providers Care Systems Integrator Name Role Phone Shelby Henderson MD Primary Care Provider [phone] Encounter Details Date Type Department Care Team (Late st Contact Info) Description 01/04/2003 Outpatient Historical [facility] [address] 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
--- OUTSIDE RECORDS SUMMARY | 2025-05-23 14:41 | XMS_ITS | Encounter Summary ---
Author Organization [facility] Address [address] [place] [address] Care Team Providers Care Plate Conditioner Name Role Phone Shelby Henderson MD Primary Care Provider [phone] Encounter Details Date Type Department Care Team (Late st Contact Info) Description 11/20/2002 Outpatient [facility] [address] [place] [address] Mal Melendez MD NO ADDRESS ON FILE LUMBOSACRAL NEURITIS NOS (Primary Dx) Social History Tobacco Use Types Packs/Day Years Used Date Smoking Tobacco: Never Assessed Comments Unknown Sex and Gender Information Value Date Recorded Sex Assigned at Not on file 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
--- OUTSIDE RECORDS SUMMARY | 2025-05-23 14:41 | XMS_ITS | Encounter Summary ---
Author Organization [facility] Address 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 -Nunu Noble documented in this encounter Plan of Treatment Upcoming Encounters Date Type Department Care Team (Late st Contact Info) Description 06/11/2025 1:20 PM CDT Office Visit [facility] [address] [place] [address] Racquel Blancas PA [address] [place] [address] 10/11/2025 10:30 AM RESTRIKE HAMMER OPERATOR Office Visit [facility] - [place] [address] [place] [address] Rachel Casanova MD [address] [place] [address] documented as of this encounter Visit Diagnoses Not on filedocumented in this encounter Care Teams Teaching Specialists Relationship Specialty Start Date End Date Elin Cerrato APN [address] [place] [phone] PCP - General NURSE PRACTITIONER 06/09/21 documented as of this encounter
--- OUTSIDE RECORDS SUMMARY | 2025-05-23 14:41 | XMS_ITS | Encounter Summary ---
Author Organization [facility] Address [address] [place] [address] Care Team Providers Care Electric Motor Winders Assembler Name Role Phone Shelby Henderson MD Primary Care Provider [phone] Encounter Details Date Type Department Care Team (Late st Contact Info) Description 12/26/2001 Outpatient 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
--- NOTE | 2025-05-23 14:52 | XR_ITS ---
WS: [id number] Exam: XR hip RT 2-3V wo/w pel* [id number] Date/Time of Exam: 05/23/2025 2:52 PM Reason For Exam: hip pain Comparison 12/20/2024. Moderate degenerative change of the joint compartment. No fracture. Marginal osteophyte along the lateral margin of the acetabulum. Soft tissues are unremarkable. XR/XR hip RT 2-3V wo/w pel* [id number] IMPRESSION: 1. Moderate DJD. No acute fracture.
--- NOTE | 2025-05-23 14:52 | W.ED.FALL ---
HPI - Fall General: Chief Complaint: Fall Stated Complaint: Fell On R side of body Pain everywhere Time Seen by Provider: 05/23/25 14:43 History of Present Illness: 79-year-old female with a history of chronic pain syndrome on hydrocodone therapy, hyperlipidemia, hypertension and gout who presents emergency room after she had a fall 3 days ago. She has pain all over on her right side she says but she is most worried about her hip. She has full range of motion of all of her extremities. No obvious deformities. She had no head injury. No altered mental status. No neck pain. She has chronic back and neck problems and follows with orthopedics. Related Data Home Medications ?Medication ?Instructions ?Recorded ?Confirmed aspirin 81 mg tablet,delayed 81 mg PO QAM 04/03/22 04/19/25 release [id number] 8 mg-folic 400 1 tab PO DAILY 04/03/22 04/19/25 mcg-K 50 mcg-lutein 300 mcg tablet (Centrum Silver Women) hydrocodone 10 mg-acetaminophen 1 tab PO Q4H PRN Pain 08/26/22 04/19/25 325 mg tablet allopurinol 300 mg tablet 300 mg PO DAILY 04/19/25 atorvastatin 20 mg tablet 20 mg PO DAILY 04/19/25 hydrochlorothiazide 50 mg tablet 25 mg PO DAILY 04/19/25 metformin 500 mg tablet 500 mg PO BID 04/19/25 mirabegron 25 mg tablet,extended 50 mg PO DAILY 04/19/25 release 24 hr (Myrbetriq) potassium chloride 20 mEq 20 meq PO BID 04/19/25 tablet,extended release(part/cryst) Previous Rx's ?Medication ?Instructions ?Recorded Diabetic Shoes #1 ea 10/28/20 diabetic shoes #1 ea 10/28/20 diabetic shoes with inserts #1 ea 07/29/22 cholecalciferol (vitamin D3) 50 50 mcg PO DAILY #30 caps 10/29/22 mcg (2,000 unit) capsule nitroglycerin 0.4 mg sublingual See Rx Instructions .Route 02/24/23 tablet .COMPLEX #25 tabs Diabetic shoes with inserts #1 ea 03/22/23 ASO to the left #1 ea 07/19/23 blood-glucose meter (OneTouch #1 ea 09/09/23 Ultra2 Meter) lancets 30 gauge (OneTouch #100 ea 09/09/23 UltraSoft 2 Lancet) ASO #1 ea 09/14/23 diabetic shoes and custom molded #1 ea 12/21/23 accommodative orthotic with reverse loading mortons pad fluticasone propionate 50 2 spray intranasal DAILY #16 grams 01/28/24 mcg/actuation nasal spray,suspension (Flonase Allergy Relief) lactulose 10 gram/15 mL (15 mL) 10 g (15 mL) PO DAILY #1,440 mL 03/27/24 oral solution blood sugar diagnostic (OneTouch #100 ea 05/19/24 Ultra Test strips) Allergies Allergy/AdvReac Type Severity Reaction Status Date / Time morphine Allergy ALGY-Anaphy Verified 05/23/25 14:41 laxis Review of Systems Narrative: Constitutional symptoms: Negative except as documented in HPI. Skin symptoms: Negative except as documented in HPI. Eye symptoms: Negative except as documented in HPI. ENMT symptoms: Negative except as documented in HPI. Respiratory symptoms: Negative except as documented in HPI. Cardiovascular symptoms: Negative except as documented in HPI. Gastrointestinal symptoms: Negative except as documented in HPI. Genitourinary symptoms: Negative except as documented in HPI. Musculoskeletal symptoms: Negative except as documented in HPI. Neurologic symptoms: Negative except as documented in HPI. Psychiatric symptoms: Negative except as documented in HPI. Endocrine symptoms: Negative except as documented in HPI. PFS ED PFSH: Medical History (Updated 05/23/25 @ 15:43 by Caty Regan MD) Controlled diabetes mellitus with hyperglycemia Dyslipidemia Abnormal EKG UTI (urinary tract infection) Paresis of right lower extremity Reports this is secondary to spinal injury during back surgery Hyperlipidemia Gout Hypertension Chest pain Urinary incontinence Back pain with history of spinal surgery Insomnia, unspecified Neuropathy Narrowing of both carotid arteries 16-49% bilateral 06/10/18; carotid duplex Lumbar facet joint pain Bilateral bunions with callous formation; has had surgery for hammer toes Urolithiasis recurrent with multiple treatments over the years Generalized anxiety disorder Type 2 diabetes mellitus without complications Pure hypercholesterolemia, unspecified Vitamin D deficiency Essential (primary) hypertension Arteriosclerotic heart disease (ASHD) Slow transit constipation Chronic pain syndrome IBS (irritable bowel syndrome) Chronic thoracic spine pain Parapelvic renal cyst long standing, well defined left parapelvic cysts on previous CT. No concern regarding cyst. Hx of fracture of left hip Anxiety Bilateral knee pain Surgical History Hx of colonoscopy Hx of total knee replacement bilateral Hx of lithotripsy Hx of hysterectomy Hx of arthroscopy of shoulder (~09/2018) left Hx of cataract extraction Hx of cholecystectomy Hx of cervical discectomy (~2015) 4-5-6 History of tonsillectomy and adenoidectomy History of back surgery 9 total per patient Hx of tubal ligation History of ankle surgery Hx of foot surgery right Family History Family/Other Dementia CAD (coronary artery disease) Diabetes Denies family history of Clotting disorder Hyperlipidemia Psychiatric illness Chronic kidney disease (CKD) Suicide Anesthesia complication Bleeding disorder Family history of premature coronary artery disease Lung disease Cancer Hypertension Stroke Social History Smoking and tobacco/nicotine status: never used tobacco/nicotine Second hand smoke exposure: Yes Alcohol intake: unknown Substance/Drug Use: unknown Adopted: No Caregiver/support person: No Lives independently: Yes Household members: none Housing: House Marital status: / service: No Current occupational status: disabled Current occupational exposures/hazards: No Do you think of yourself as: Straight/Heterosexual Current gender identity: Female Physical Exam Narrative: EXAM NARRATIVE: General: Alert, no acute distress. Skin: warm and dry Head: Normocephalic Neck: Trachea midline Eye: Extraocular movements are intact. Ears, nose, mouth and throat: Oral mucosa moist Respiratory: Respirations are non-labored Musculoskeletal: Normal ROM. No deformities. No shortening or rotation of the right leg. Patient is able to bear weight Gastrointestinal: Abdomen does not appear distended Neurological: Alert and oriented, No focal neurological deficit observed. Psychiatric: Cooperative, appropriate mood & affect. Course Vital Signs: Vital signs: Vital Signs Temperature 98.2 F 05/23/25 14:33 Pulse Rate 88 05/23/25 14:54 Respiratory Rate 16 05/23/25 14:54 Blood Pressure 160/89 05/23/25 14:54 Pulse Oximetry 95 05/23/25 14:54 Oxygen Delivery Me thod Room Air 05/23/25 14:54 MDM - Fall Medical Decision Making Medical decision making: Differential diagnosis for the patient with fall and hip pain includes but not limited to and based on the above HPI, review of systems and physical exam: Hip fracture, femur fracture, pelvic fractures including pubic rami and acetabular fractures, hip strain, hip contusion X-ray of the pelvis and hip were ordered. X-ray of the right hip and pelvis shows no acute fracture or dislocations. This was reviewed and interpreted by myself the emergency room physician. I also reviewed the radiology report. Reexamination: Patient remained stable. No increased work of breathing. No altered mental status. No focal motor deficits. Assessment and plan: Fall Hip pain - Discharged home - Discussed plan with patient. Answered any questions. - Evaluation and treatment of this problem were appropriate in the emergency setting. Lab Data Radiology Impressions Hip/Pelvis X-Ray 05/23/25 14:52 IMPRESSION: 1. Moderate DJD. No acute fracture. All radiology interpretation(s) finalized by discharge Discharge Plan Discharge Patient Disposition: Home Clinical Impression: Hip injury, Chronic pain syndrome Condition: Stable Prescriptions: No Action (DME) Diabetic Shoes See Rx Instructions .Route .MEDSUPPLY Qty: 1 0RF Rx Instructions: As directed (DME) diabetic shoes See Rx Instructions .Route .MEDSUPPLY Qty: 1 0RF Rx Instructions: with molds and inserts hydrocodone-acetaminophen 10-325 mg tablet 1 tab PO Q4H PRN (Reason: Pain) cholecalciferol (vitamin D3) 50 mcg (2,000 unit) capsule 50 mcg PO DAILY Qty: 30 0RF (DME) ASO to the left See Rx Instructions .Route .MEDSUPPLY Qty: 1 0RF Rx Instructions: As directed fluticasone propionate [Flonase Allergy Relief] 50 mcg/actuation spray,suspension 2 spray intranasal DAILY Qty: 16 0RF Rx Instructions: administer into each nostril (DME) Diabetic shoes with inserts See Rx Instructions .Route .MEDSUPPLY Qty: 1 0RF Rx Instructions: Pt will need insert to build up left foot as well. (DME) ASO See Rx Instructions .Route .MEDSUPPLY Qty: 1 0RF Rx Instructions: As directed lactulose 10 gram/15 mL (15 mL) solution 10 g PO DAILY Qty: 1440 0RF (DME) diabetic shoes with inserts See Rx Instructions .Route .MEDSUPPLY Qty: 1 0RF Rx Instructions: As directed nitroglycerin 0.4 mg tablet, sublingual See Rx Instructions .ROUTE .COMPLEX Qty: 25 2RF Dose Instruction: DISSOLVE ONE TABLET UNDER THE TONGUE NEEDED Rx Instructions: DISSOLVE ONE TABLET UNDER THE TONGUE NEEDED (DME) blood-glucose meter [OneTouch Ultra2 Meter] Misc See Rx Instructions .Route Qty: 1 0RF Rx Instructions: As directed (DME) lancets [OneTouch UltraSoft 2 Lancet] 30 gauge misc See Rx Instructions .Route Qty: 100 5RF Rx Instructions: As directed (DME) Diabetic Shoes and Custom Molded Accommodative Orthotics with Reverse Loading Mortons Pad See Rx Instructions .Route .MEDSUPPLY Qty: 1 0RF Rx Instructions: As directed by [facility]- left leg length discrepancy (DME) OneTouch Ultra Test Strip See Rx Instructions .Route Qty: 100 5RF Rx Instructions: THREE TIMES DAILY mirabegron [Myrbetriq] 25 mg tablet extended release 24 hr 50 mg PO DAILY metformin 500 mg tablet 500 mg PO BID atorvastatin 20 mg tablet 20 mg PO DAILY Rx Instructions: TAKE 1 TABLET BY MOUTH ONCE DAILY IN THE EVENING hydrochlorothiazide 50 mg tablet 25 mg PO DAILY Rx Instructions: TAKE 1 TABLET BY MOUTH ONCE DAILY IN THE MORNING potassium chloride 20 mEq tablet,ER particles/crystals 20 meq PO BID Rx Instructions: TAKE ONE TABLET BY MOUTH TWICE DAILY allopurinol 300 mg tablet 300 mg PO DAILY Rx Instructions: Take 1 tablet by mouth once daily Centrum Silver Women 8 mg iron-400 mcg-300 mcg Tablet 1 tab PO DAILY aspirin 81 mg tablet,delayed release (DR/EC) 81 mg PO QAM Discharge Orders: Discharge ED (Routine); Ordered 05/23/25 Ordered By: Caty Regan Referrals: Kostas Christian MD [Primary Care Provider, Family Practice] Discharge Diet: Usual diet Discharge Activity: Increase activity as tolerated Patient Instructions: Opioid Safety, Pain Management, Patient Portal & Pavel Instructions Activity Restrictions/Additional Instructions: [facility]. You have been screened and evaluated and felt safe for discharge. Health conditions do change or evolve sometimes and as such it is important that you follow up with your Primary Doctor to be re checked, 3-5 days is a general good time frame for follow up. You are always welcome to return to the ED for re assessment if your symptoms are worsening or you have new concerns Print Language: German Coding Level of Care Code ED Film Cleaner for Vineet Munson
[2025-05-23 14:54] VITALS: BP 160/89; PULSE 88; RESP 16; O2SAT 95
[2025-05-23 15:55] VITALS: BP 154/92; PULSE 84; O2SAT 92
== END 2025-05-23 15:57 | disposition home or self-care (01) ==
PROVIDERS: Emergency Provider Emergency Medicine; PCP Family Medicine
DX: S79.911A Unspecified injury of right hip, initial encounter (principal); G89.4 Chronic pain syndrome; Z79.84 Long term (current) use of oral hypoglycemic drugs; Z79.82 Long term (current) use of aspirin; E11.9 Type 2 diabetes mellitus without complications; I10 Essential (primary) hypertension; E78.5 Hyperlipidemia, unspecified; W19.XXXA Unspecified fall, initial encounter
CPT/HCPCS: 73502; 99283

== ENCOUNTER 2025-06-04 08:52 | Outpatient (CLI) | payer OTHER, MEDICAID, SELFPAY ==
--- NOTE | 2025-06-04 09:03 | MRR_ITS ---
PROCEDURE INFORMATION: Exam: MR Pelvis Without Contrast, Musculoskeletal Exam date and time: 06/04/2025 9:39 AM Age: 80 years old Clinical indication: Right hip; Prior surgery; Surgery date: 6+ months; Surgery type: Piriformis release prior; Lt sciatica x a few years, PT has HX of piriformis injury. Prior piriformis release. Also has RT hip pain from recent fall. ; Additional info: Pelvic perineal pain TECHNIQUE: Imaging protocol: Magnetic resonance imaging of the pelvis without contrast. Exam focused on the musculoskeletal system. COMPARISON: CT pelvis wo con [id number] 11/27/2024 9:32 PM FINDINGS: Bones/joints: The pelvic ring appears to be intact. No fractures or destructive lesions are noted. SI joints and symphysis pubis are normal. The femoral heads are normally located. There is no evidence of avascular necrosis. There is joint space narrowing involving the anterior hip joint spaces bilaterally. There is associated cartilage loss. Findings appear to be slightly worse on the left than on the right. There are periacetabular cysts involving the posterolateral acetabula. The largest is seen on the left measuring 20 mm in size. Findings would suggest the presence of acetabular labral tears likely chronic. There is a physiologic amount of fluid within both hip joints. Soft tissues: There is mild tendinopathy involving the gluteus tendons on the right. There is tendinopathy with partial tearing involving the gluteus minimus and medius tendons on the left. There is [id number] tendinopathy involving the hamstring tendons. The iliopsoas tendons are normal. Neurovascular bundles are normal. The sciatic nerves are normal. MR/MR pelvis wo con* [id number] IMPRESSION: 1. Mild osteoarthritis involving both hips. Periacetabular cysts are noted larger on the left than on the right. Findings suggest the presence of acetabular labral tears. 2. Tendinopathy with partial tearing involving the gluteus minimus and medius tendons on the left.
== END 2025-06-04 08:53 | disposition home or self-care (01) ==
LOC: RAD 08:53
PROVIDERS: PCP Family Medicine; Visit Provider Internal Medicine Gastroenterology
DX: M16.0 Bilateral primary osteoarthritis of hip (principal)
CPT/HCPCS: 72195

== ENCOUNTER → 2025-06-18 14:33 | Outpatient (BNVA) | payer OTHER, MEDICAID, SELFPAY | PROVIDERS: PCP Family Medicine; Visit Provider Specialist | DX: M16.0 Bilateral primary osteoarthritis of hip (principal); Z98.1 Arthrodesis status; M96.1 Postlaminectomy syndrome, not elsewhere classified | CPT/HCPCS: 99214 ==

== ENCOUNTER → 2025-06-29 09:34 | Outpatient (BNVA) | payer OTHER, MEDICAID, SELFPAY | PROVIDERS: PCP Family Medicine; Visit Provider Specialist | DX: M16.11 Unilateral primary osteoarthritis, right hip (principal) | CPT/HCPCS: 20610; 77002; J1100; J2795; J3301; J9999 ==

== ENCOUNTER → 2025-07-11 12:57 | Outpatient (BNVA) | payer MEDICARE, MEDICAID, SELFPAY | PROVIDERS: PCP Family Medicine; Visit Provider Specialist | DX: M16.12 Unilateral primary osteoarthritis, left hip (principal) | CPT/HCPCS: 99214 ==